=== PATIENT | female | born 1955 | race Caucasian/White ===

== ENCOUNTER 2016-08-16 20:01 | Emergency (ER) | payer MEDICAID ==
[2016-08-16 20:07] VITALS: BP 101/57; BMI 26.5
--- NOTE | 2016-08-16 20:29 | DR.GENAD ---
HPI - PCP Primary Care Physician: paul - HPI Comment HPI Comment: PATIENT TREATED FOR PNEUMONIA RECENTLY. IMPROVE BUT STATED HAVING INCREASING SOB, CHEST PAIN AND PRODUCTIVE COUGH. THROAT IS ALSO HURTING AND SHE IS CONGESTED. FEVER AT HOME ON AND OFF. NEB TREATMENT IS NOT HELPING TODAY. - Complaint/Symptoms Chief Complaint Doctors Comments: SOB, SORE THROAT, CHEST PAIN AND CONGESTION FOR SEVERAL DAYS. Chief Complaint:: pt c/o throat hurting chest hurting trouble breathing ETC.. - Nurses notes reviewed Nurses Notes Review: Yes - Source History Provided: Patient - Mode of Arrival Mode of Arrival: Ambulatory - Timing Onset of Chief Complaint: 08/02/16 Came on: Gradually - Duration Duration: Constant Duration: Days - Severity Severity: Moderate PMH - PMH Past Medical History: Yes Past Medical History: COPD, Hypothyroidism Past Surgical History: Yes Surgical History: Neurosurgery - Family History History of Family Medical Conditions: Yes Family Medical History: Diabetes Mellitus, [place] - Social History Type of Tobacco Use: Cigarettes How many years tobacco product used: 42 Does any household member use tobacco: No Alcohol Use: None Do you use any recreational Drugs:: No Lives With: Family Lives Where: Home - infectious screening In the last 2 months have you had wt loss of >10#?: NO Have you had fever, night sweats or hemotysis?: No Have you traveled outside the country in the last 6 months?: No Isolation: Standard ROS - Review of Systems Constitutional: Fever, Weakness, Fatigue, Loss of Appetite. negative: Chills Eyes: No Symptoms Reported. negative: Eye Pain, Discharge ENTM: Nose Discharge, Nose Congestion, Throat Pain. negative: Ear Pain Respiratoy: Productive Cough, Short of Breath, Wheezing. negative: Hemoptysis Cardiovascular: Chest Pain. negative: Edema Gastrointestinal/Abdominal: No Symptoms Reported. negative: Abdominal Pain, Constipation, Diarrhea, Nausea, Vomiting Genitourinary: No Symptoms Reported. negative: Dysuria, Frequency, Hematuria Neurological: Headache, Weakness, Dizziness Musculoskeletal: Muscle Pain Integumentary: No Symptoms Reported. negative: Rash, Juandice Hematologic/Lymphatic: Easy Bruising Endocrine: No Symptoms Reported All Other Systems: Reviewed and Negative PE - Vital Signs Vitals: Temperature 98.2 F Pulse Rate 90 Respiratory Rate 22 Blood Pressure [Right Arm] 110/66 Blood Pressure [Left Arm] 116/69 Blood Pressure 101/57 O2 Sat by Pulse Oximetry 99 - General Limitations: No Limitations General Appearance: Alert - Head Head Exam: Normal Inspection - Eyes Eye exam: Normal Appearance - ENT ENT Exam: Normal External Ear Exam External Ear Exam: Normal External Inspection TM/Canal Exam: Bilateral Normal Nose Exam: Normal Nose Exam Mouth Exam: Normal Inspection Throat Exam: Normal Inspection - Neck Neck Exam: Trachea Midline - Chest Chest Inspection: Symmetric Chest Wall Rise - Respiratory Respiratory Exam: Respiratory Distress Respiratory Exam: Bilateral Wheezing, Bilateral Rhonchi, Upper Wheezing, Upper Rhonchi, Lower Wheezing, Lower Rhonchi - Cardiovascular Cardiovascular Exam: Regular Rate, Normal Rhythm, Normal Heart Sounds - Abdominal Exam Abdominal Exam: Normal Bowel Sounds, Soft. negative: Tenderness - Extremities Extremities Exam: Normal Inspection - Back Back Exam: Paraspinal Tenderness - Neurologic Neurological Exam: Alert, Oriented X3 - Psychiatric Psychiatric Exam: Anxious - Skin Skin Exam: Normal Color MDM - Differential Diagnosis Differential Diagnosis: COPD, PNEUMONIA, BRONCHITIS, [place] Course - Treatment Treatment: SEE ORDERS. - Reevaluation 1st: Improved (IMPROVE WITH NEB TRATMENT.) 2nd: Improved (WITH IM TORADOL. PAIN CHEST WALL AND LOWER BACK IMPROVE.) - Education/Counseling Education/Counseling: Patient, Education Educated On: Treatment, Diagnosis, Needs for Follow Up ROR - Labs Reviewed Laboratory Results Reviewed?: Yes Result Diagrams: 08/16/16 20:35 08/16/16 22:20 Laboratory: WBC 16.6 X10^3/uL (3.6-10.0) H 08/16/16 20:35 RBC 4.08 X10^6/uL (3.5-5.4) 08/16/16 20:35 Hgb 12.3 g/dL (12.0-16.0) 08/16/16 20:35 Hct 37.9 % (36.0-47.0) 08/16/16 20:35 MCV 92.8 fL (80.0-100.0) 08/16/16 20:35 MCH 30.0 pg (27.0-34.0) 08/16/16 20:35 MCHC 32.3 g/dL (33.0-35.0) L 08/16/16 20:35 RDW 14.6 % (11.6-16.5) 08/16/16 20:35 Plt Count 301 X10^3/uL (150.0-450.0) 08/16/16 20:35 MPV 9.0 fL (7.4-11.0) 08/16/16 20:35 Neut % 69.9 % (42.0-75.0) 08/16/16 20:35 Lymph % 23.1 % (21.0-51.0) 08/16/16 20:35 [place] % 5.9 % (0.0-13.0) 08/16/16 20:35 Eos % 0.8 % (0.9-2.9) L 08/16/16 20:35 Baso % 0.3 % (0.2-1.0) 08/16/16 20:35 Neut # 11.6 x10^3/uL (2.2-4.8) H 08/16/16 20:35 Lymph # 3.8 X10^3/uL (1.3-2.9) H 08/16/16 20:35 [place] # 1.0 x10^3/uL (0.3-0.8) H 08/16/16 20:35 Eos # 0.1 x10^3/uL (0.0-0.2) 08/16/16 20:35 Baso # 0.1 X10^3/uL (0.0-0.1) 08/16/16 20:35 Absolute Nucleated RBC 0.0 /100WBC 08/16/16 20:35 Sodium 140 mmol/L (136-145) 08/16/16 20:35 Corrected Sodium TNP 08/16/16 20:35 Potassium 3.3 mmol/L (3.5-5.1) L 08/16/16 22:20 Chloride 102 mmol/L (98-107) 08/16/16 20:35 Carbon Dioxide 27.3 mmol/L (21-32) 08/16/16 20:35 BUN 4 mg/dL (7-18) L 08/16/16 20:35 Creatinine 0.75 mg/dL (0.55-1.02) 08/16/16 20:35 Est GFR (MDRD) Af Amer > 60 (>60) 08/16/16 20:35 Est GFR (MDRD) Non-Af > 60 (>60) 08/16/16 20:35 Glucose 95 mg/dL (65-99) 08/16/16 20:35 Calcium 8.1 mg/dL (8.5-10.1) L 08/16/16 20:35 Corrected Calcium TNP 08/16/16 20:35 Total Bilirubin 0.30 mg/dL (0.2-1.0) 08/16/16 20:35 AST 18 Units/L (15-37) 08/16/16 20:35 ALT 27 Units/L (12-78) 08/16/16 20:35 Alkaline Phosphatase 100 Units/L (46-116) 08/16/16 20:35 Total Protein 7.5 g/dL (6.4-8.2) 08/16/16 20:35 Albumin 3.7 g/dL (3.4-5.0) 08/16/16 20:35 Globulin 3.8 g/dL (2.5-4.5) 08/16/16 20:35 Albumin/Globulin Ratio 1.0 Ratio (1.1-2.1) L 08/16/16 20:35 Streptococcus Screen Negative (NEGATIVE) 08/16/16 20:27 - XRAY XRAY Interpreted by: Radiologist XRAY Findings: REPORT DISCUSS WITH PATIENT - EKG Rhythm: NSR (EKG NOTED) - Diagnosis Discharge Problem: Hypokalemia, Respiratory distress Acute bronchitis Qualifiers: Bronchitis organism: other organism Qualified Code(s): J20.8 - Acute bronchitis due to other specified organisms - Discharge Plan Disposition: 01 HOME, SELF-CARE Condition: Stable Prescriptions: Benzonatate [TESSALON PERLES *] 200 mg PO TID PRN #30 cap PRN Reason: Cough Levofloxacin [Levaquin Tab 500 mg] 500 mg PO Q24H #7 tab - Follow ups/Referrals Follow ups/Referrals: Paulina SANCHEZ [Primary Care Provider] - 3 days - Instructions Instructions: Acute Bronchitis, Hypokalemia Additional Instructions: RETURN TO ED IF WORSE.
[2016-08-16 20:42] LABS: BASOPHILS # (AUTO) 0.1 X10^3/uL (0.0-0.1); BASOPHILS % (AUTO) 0.3 % (0.2-1.0); EOSINOPHILS # (AUTO) 0.1 x10^3/uL (0.0-0.2); EOSINOPHILS % (AUTO) 0.8 % (0.9-2.9); HEMATOCRIT 37.9 % (36.0-47.0); HEMOGLOBIN 12.3 g/dL (12.0-16.0); LYMPHOCYTES # (AUTO) 3.8 X10^3/uL (1.3-2.9); LYMPHOCYTES % (AUTO) 23.1 % (21.0-51.0); MEAN CORPUSCULAR HGB CONC 32.3 g/dL (33.0-35.0); MEAN CORPUSCULAR VOLUME 92.8 fL (80.0-100.0); MONOCYTES % (AUTO) 5.9 % (0.0-13.0); NEUTROPHILS # (AUTO) 11.6 x10^3/uL (2.2-4.8); NEUTROPHILS % (AUTO) 69.9 % (42.0-75.0); PLATELET COUNT 301 X10^3/uL (150.0-450.0); RED BLOOD COUNT 4.08 X10^6/uL (3.5-5.4); RED CELL DISTRIBUTION WIDTH 14.6 % (11.6-16.5); WHITE BLOOD COUNT 16.6 X10^3/uL (3.6-10.0)
--- NOTE | 2016-08-16 20:42 | RAD ---
Chest, one view Indication: Chest pain Comparison: 07/15/2016 Findings: The heart size is normal. The lungs are clear, without focal infiltrates, pleural effusion , or pneumothorax. The bony thorax is unremarkable. Impression: No acute cardiopulmonary disease. Reported By:
[2016-08-16 20:46] LABS: BLOOD UREA NITROGEN 4 mg/dL (7-18); CALCIUM 8.1 mg/dL (8.5-10.1); CARBON DIOXIDE 27.3 mmol/L (21-32); CHLORIDE 102 mmol/L (98-107); CREATININE 0.75 mg/dL (0.55-1.02); GLUCOSE 95 mg/dL (65-99); SODIUM 140 mmol/L (136-145); eGFR BLACK RACES > 60 (>60); eGFR NON BLACK RACES > 60 (>60)
[2016-08-16] MEDS ORDERED: DUONEB 0.5 MG/3 MG ONE (20:48)
[2016-08-16] MEDS ORDERED: DUONEB 0.5 MG/3 MG NEB ONE (20:51)
[2016-08-16 20:53] LABS: ALANINE AMINOTRANSFERASE 27 Units/L (12-78); ALBUMIN 3.7 g/dL (3.4-5.0); ALKALINE PHOSPHATASE 100 Units/L (46-116); ASPARTATE AMINO TRANSFERASE 18 Units/L (15-37); TOTAL PROTEIN 7.5 g/dL (6.4-8.2)
[2016-08-16] MEDS ORDERED: POTASSIUM CHLORIDE LIQ 20 MEQ UDC PO ONE (21:08)
[2016-08-16] MEDS ORDERED: LEVAQUIN TAB 500 MG PO ONE (21:10)
[2016-08-16] MEDS ORDERED: LEVAQUIN TAB 500 MG ONE (21:12)
[2016-08-16] MEDS ORDERED: POTASSIUM CHLORIDE LIQ 20 MEQ UDC ONE (21:12)
[2016-08-16] MEDS ORDERED: TORADOL 60 MG VIAL IM ONE (22:24)
[2016-08-16] MEDS ORDERED: TORADOL 60 MG VIAL ONE (22:24)
== END 2016-08-16 23:10 | disposition home or self-care (01) ==
LOC: ER 20:01
DX: J20.8 Acute bronchitis due to other specified organisms (principal); R06.00 Dyspnea, unspecified; E87.6 Hypokalemia
CPT/HCPCS: 36415; 71010; 80053; 84132; 85025; 87070; 87880; 93005; 93010; 94640; 96372; 99283; J1885; J7620

== ENCOUNTER → 2016-08-25 | Outpatient (CLI) | payer MEDICAID ==
[2016-08-16 20:07] VITALS: BP 101/57
[2016-08-25 10:19] LABS: BASOPHILS # (AUTO) 0.1 X10^3/uL (0.0-0.1); BASOPHILS % (AUTO) 0.4 % (0.2-1.0); EOSINOPHILS # (AUTO) 0.2 x10^3/uL (0.0-0.2); EOSINOPHILS % (AUTO) 1.8 % (0.9-2.9); HEMATOCRIT 42.9 % (36.0-47.0); HEMOGLOBIN 14.4 g/dL (12.0-16.0); LYMPHOCYTES # (AUTO) 4.8 X10^3/uL (1.3-2.9); LYMPHOCYTES % (AUTO) 37.9 % (21.0-51.0); MEAN CORPUSCULAR HEMOGLOBIN 31.2 pg (27.0-34.0); MEAN CORPUSCULAR HGB CONC 33.6 g/dL (33.0-35.0); MEAN CORPUSCULAR VOLUME 92.8 fL (80.0-100.0); MEAN PLATELET VOLUME 8.6 fL (7.4-11.0); MONOCYTES % (AUTO) 7.6 % (0.0-13.0); NEUTROPHILS # (AUTO) 6.6 x10^3/uL (2.2-4.8); NEUTROPHILS % (AUTO) 52.3 % (42.0-75.0); PLATELET COUNT 452 X10^3/uL (150.0-450.0); RED BLOOD COUNT 4.62 X10^6/uL (3.5-5.4); RED CELL DISTRIBUTION WIDTH 14.6 % (11.6-16.5); WHITE BLOOD COUNT 12.7 X10^3/uL (3.6-10.0)
[2016-08-25 11:10] LABS: ALANINE AMINOTRANSFERASE 20 Units/L (12-78); ALBUMIN 3.9 g/dL (3.4-5.0); ALKALINE PHOSPHATASE 112 Units/L (46-116); ASPARTATE AMINO TRANSFERASE 19 Units/L (15-37); BLOOD UREA NITROGEN 9 mg/dL (7-18); CALCIUM 8.9 mg/dL (8.5-10.1); CARBON DIOXIDE 27.2 mmol/L (21-32); CHLORIDE 103 mmol/L (98-107); CREATININE 0.74 mg/dL (0.55-1.02); GLUCOSE 84 mg/dL (65-99); SODIUM 142 mmol/L (136-145); eGFR BLACK RACES > 60 (>60); eGFR NON BLACK RACES > 60 (>60)
== END ==
LOC: LAB 09:45
PROVIDERS: ATTEND Internal Medicine
DX: E03.8 Other specified hypothyroidism (principal); J44.9 Chronic obstructive pulmonary disease, unspecified; I10 Essential (primary) hypertension
CPT/HCPCS: 36415; 80053; 85025

== ENCOUNTER 2016-09-30 21:30 | Emergency (ER) | payer MEDICAID ==
[2016-09-30 21:41] VITALS: BMI 22.4
--- NOTE | 2016-09-30 22:14 | DR.GENAD ---
HPI - PCP Primary Care Physician: Flori Lopez HPI Comment HPI Comment: HISTORY BELOW. - Complaint/Symptoms Chief Complaint Doctors Comments: DIZZINESS, HEADACHE, ATAXIA TIMES 3 DAYS, WORSE TONIGHT. NO FEVER. BP LOW IN ED. Chief Complaint:: " Im dizzy headed feel like im drunk and im not drinking i keep loosing my balance i cant talk my head hurts my mouth stays dry and all i want to do is sleep and im coughing alot. - Nurses notes reviewed Nurses Notes Review: Yes - Source History Provided: Patient - Mode of Arrival Mode of Arrival: Ambulatory - Timing Onset of Chief Complaint: 09/27/16 - Duration Duration: Constant Duration: Days - Severity Severity: Moderate PMH - PMH Past Medical History: Yes Past Medical History: Asthma, COPD, Hypothyroidism Past Surgical History: Yes Surgical History: Neurosurgery Past Surgical History Comment: Brain Aneurysm ' - Family History History of Family Medical Conditions: Yes Family Medical History: Diabetes Mellitus, [place] - Social History Type of Tobacco Use: Cigarettes Alcohol Use: None Do you use any recreational Drugs:: No Lives With: Family Lives Where: Home - infectious screening Have you traveled outside the country in the last 6 months?: No ROS - Review of Systems Constitutional: Weakness, Fatigue. negative: Chills, Fever Eyes: Blurred Vision. negative: Eye Pain, Discharge ENTM: negative: Ear Pain, Nose Discharge, Nose Congestion, Throat Pain Respiratoy: Non-Productive Cough, Short of Breath. negative: Wheezing, Hemoptysis Cardiovascular: Chest Pain. negative: Edema, Palpitations Gastrointestinal/Abdominal: Nausea. negative: Abdominal Pain, Vomiting Genitourinary: negative: Dysuria, Frequency, Hematuria Neurological: Headache, Weakness, Dizziness, Other (ATXIA) Musculoskeletal: Muscle Pain Integumentary: No Symptoms Reported Hematologic/Lymphatic: No Symptoms Reported Endocrine: No Symptoms Reported All Other Systems: Reviewed and Negative PE - Vital Signs Vitals: Temperature 98.2 F Pulse Rate [Left Brachial] 84 Pulse Rate 91 Respiratory Rate 18 Blood Pressure [Right Arm] 110/66 Blood Pressure [Left Arm] 132/61 Blood Pressure 102/65 O2 Sat by Pulse Oximetry 97 - General Limitations: No Limitations General Appearance: Alert - Head Head Exam: Normal Inspection - Eyes Eye exam: Normal Appearance - ENT ENT Exam: Normal External Ear Exam External Ear Exam: Normal External Inspection TM/Canal Exam: Bilateral Normal Nose Exam: Normal Nose Exam Mouth Exam: Normal Inspection Throat Exam: Normal Inspection - Neck Neck Exam: Trachea Midline - Chest Chest Inspection: Symmetric Chest Wall Rise - Respiratory Respiratory Exam: Normal Lung Sounds Bilat Respiratory Exam: Bilateral Rhonchi, Lower Rhonchi - Cardiovascular Cardiovascular Exam: Regular Rate, Normal Rhythm, Normal Heart Sounds - Abdominal Exam Abdominal Exam: Normal Bowel Sounds, Soft. negative: Tenderness - Extremities Extremities Exam: Normal Inspection. negative: Edema - Back Back Exam: Paraspinal Tenderness - Neurologic Neurological Exam: Alert, Oriented X3 - Psychiatric Psychiatric Exam: Normal Affect, Normal Mood - Skin Skin Exam: Normal Color MDM - Additional Information Additional Information Obtained From: Family - Differential Diagnosis Differential Diagnosis: HYPOTENSION, CVA, TIA, UTI, FLU Course - Treatment Treatment: SEE ORDERS, IV NS BOLUS, BP IMPROVED. PATIENT FEELING BETTER. - Reevaluation 1st: Improved - Education/Counseling Education/Counseling: Patient Educated On: Treatment ROR - Labs Reviewed Laboratory Results Reviewed?: Yes Result Diagrams: 09/30/16 22:32 09/30/16 22:32 Laboratory: WBC 12.1 X10^3/uL (3.6-10.0) H 09/30/16 22:32 RBC 4.48 X10^6/uL (3.5-5.4) 09/30/16 22:32 Hgb 13.6 g/dL (12.0-16.0) 09/30/16 22:32 Hct 42.3 % (36.0-47.0) 09/30/16 22:32 MCV 94.6 fL (80.0-100.0) 09/30/16 22:32 MCH 30.5 pg (27.0-34.0) 09/30/16 22:32 MCHC 32.2 g/dL (33.0-35.0) L 09/30/16 22:32 RDW 14.2 % (11.6-16.5) 09/30/16 22:32 Plt Count 281 X10^3/uL (150.0-450.0) 09/30/16 22:32 MPV 9.6 fL (7.4-11.0) 09/30/16 22:32 Neut % 64.0 % (42.0-75.0) 09/30/16 22:32 Lymph % 25.3 % (21.0-51.0) 09/30/16 22:32 [place] % 6.6 % (0.0-13.0) 09/30/16 22:32 Eos % 3.2 % (0.9-2.9) H 09/30/16 22:32 Baso % 0.9 % (0.2-1.0) 09/30/16 22:32 Neut # 7.7 x10^3/uL (2.2-4.8) H 09/30/16 22:32 Lymph # 3.1 X10^3/uL (1.3-2.9) H 09/30/16 22:32 [place] # 0.8 x10^3/uL (0.3-0.8) 09/30/16 22:32 Eos # 0.4 x10^3/uL (0.0-0.2) H 09/30/16 22:32 Baso # 0.1 X10^3/uL (0.0-0.1) 09/30/16 22:32 Absolute Nucleated RBC 0.0 /100WBC 09/30/16 22:32 Sodium 146 mmol/L (136-145) H 09/30/16 22:32 Corrected Sodium TNP 09/30/16 22:32 Potassium 4.0 mmol/L (3.5-5.1) 09/30/16 22:32 Chloride 109 mmol/L (98-107) H 09/30/16 22:32 Carbon Dioxide 28.8 mmol/L (21-32) 09/30/16 22:32 BUN 4 mg/dL (7-18) L 09/30/16 22:32 Creatinine 0.71 mg/dL (0.55-1.02) 09/30/16 22:32 Est GFR (MDRD) Af Amer > 60 (>60) 09/30/16 22:32 Est GFR (MDRD) Non-Af > 60 (>60) 09/30/16 22:32 Glucose 82 mg/dL (65-99) 09/30/16 22:32 Calcium 8.5 mg/dL (8.5-10.1) 09/30/16 22:32 Corrected Calcium TNP 09/30/16 22:32 Total Bilirubin 0.20 mg/dL (0.2-1.0) 09/30/16 22:32 AST 23 Units/L (15-37) 09/30/16 22:32 ALT 20 Units/L (12-78) 09/30/16 22:32 Alkaline Phosphatase 98 Units/L (46-116) 09/30/16 22:32 Creatine Kinase 111 Units/L (26-192) 09/30/16 22:32 CK-MB (CK-2) 2.9 ng/mL (0-4.0) 09/30/16 22:32 CK/CKMB % Calc 2.6 % (<4) 09/30/16 22:32 Troponin I < 0.02 ng/mL (0-1.5) 09/30/16 22:32 B-Natriuretic Peptide 35.6 pg/mL (0-79) 09/30/16 22:32 Total Protein 7.5 g/dL (6.4-8.2) 09/30/16 22:32 Albumin 4.0 g/dL (3.4-5.0) 09/30/16 22:32 Globulin 3.5 g/dL (2.5-4.5) 09/30/16 22:32 Albumin/Globulin Ratio 1.1 Ratio (1.1-2.1) 09/30/16 22:32 - XRAY XRAY Interpreted by: Radiologist XRAY Findings: REPORT DISCUSS WITH PATIENT. - EKG [place]: Normal (EKG NOTED) - Diagnosis Discharge Problem: Dizziness Hypotension Qualifiers: Hypotension type: other hypotension type Qualified Code(s): I95.89 - Other hypotension - Discharge Plan Disposition: 01 HOME, SELF-CARE Condition: Stable - Follow ups/Referrals Follow ups/Referrals: Paulina SANCHEZ [Primary Care Provider] - 2 days - Instructions Instructions: Dizziness, [id number], Hypotension, [id number] Additional Instructions: RETURN TO ED IF WORSE.
[2016-09-30] MEDS ORDERED: NS 1000 ML 1,000 ML IV ONE (22:15)
[2016-09-30] MEDS ORDERED: NS 1000 ML 1,000 ML ONE (22:24)
[2016-09-30 22:43] LABS: BASOPHILS # (AUTO) 0.1 X10^3/uL (0.0-0.1); BASOPHILS % (AUTO) 0.9 % (0.2-1.0); EOSINOPHILS # (AUTO) 0.4 x10^3/uL (0.0-0.2); EOSINOPHILS % (AUTO) 3.2 % (0.9-2.9); HEMATOCRIT 42.3 % (36.0-47.0); HEMOGLOBIN 13.6 g/dL (12.0-16.0); LYMPHOCYTES # (AUTO) 3.1 X10^3/uL (1.3-2.9); LYMPHOCYTES % (AUTO) 25.3 % (21.0-51.0); MEAN CORPUSCULAR HEMOGLOBIN 30.5 pg (27.0-34.0); MEAN CORPUSCULAR HGB CONC 32.2 g/dL (33.0-35.0); MEAN CORPUSCULAR VOLUME 94.6 fL (80.0-100.0); MEAN PLATELET VOLUME 9.6 fL (7.4-11.0); MONOCYTES # (AUTO) 0.8 x10^3/uL (0.3-0.8); MONOCYTES % (AUTO) 6.6 % (0.0-13.0); NEUTROPHILS # (AUTO) 7.7 x10^3/uL (2.2-4.8); PLATELET COUNT 281 X10^3/uL (150.0-450.0); RED BLOOD COUNT 4.48 X10^6/uL (3.5-5.4); RED CELL DISTRIBUTION WIDTH 14.2 % (11.6-16.5); WHITE BLOOD COUNT 12.1 X10^3/uL (3.6-10.0)
--- NOTE | 2016-09-30 23:00 | CT ---
HISTORY: Dizziness, shortness of breath Study: CT brain without contrast Comparison: None Technique: Multiple axial images of the brain were obtained from the skull base to the vertex without administr ation of IV contrast. Findings: No acute intraparenchymal hemorrhage or mass can be identified. No extra-axial fluid collections ar e seen. No alteration in the attenuation of the brain parenchyma can be identified to suggest acute or subacute ischemic change. The ventricular system is symmetric and nondilated. Postoperative octavio nges of left frontoparietal craniotomy are noted If symptoms or clinical concern persist recommend c ontinued followup for further evaluation. IMPRESSION: 1. No acute intracranial process can be identified. Reported By:
--- NOTE | 2016-09-30 23:01 | RAD ---
HISTORY: Chest pain, dizziness Study: Single view of the chest Comparison: August 16, 2016 Findings: The patient is rotated. The cardiac silhouette is unremarkable. Interstitial changes are again see n within both lungs. The aortic knob is partially calcified. IMPRESSION: 1. No acute cardiopulmonary disease. Reported By:
[2016-09-30 23:02] LABS: BLOOD UREA NITROGEN 4 mg/dL (7-18); CALCIUM 8.5 mg/dL (8.5-10.1); CARBON DIOXIDE 28.8 mmol/L (21-32); CHLORIDE 109 mmol/L (98-107); CREATININE 0.71 mg/dL (0.55-1.02); GLUCOSE 82 mg/dL (65-99); SODIUM 146 mmol/L (136-145); TROPONIN I < 0.02 ng/mL (0-1.5); eGFR BLACK RACES > 60 (>60); eGFR NON BLACK RACES > 60 (>60)
[2016-09-30 23:06] LABS: ALANINE AMINOTRANSFERASE 20 Units/L (12-78); ALKALINE PHOSPHATASE 98 Units/L (46-116); ASPARTATE AMINO TRANSFERASE 23 Units/L (15-37); CKMB % 2.6 % (<4); CREATINE KINASE 111 Units/L (26-192); CREATINE KINASE MB 2.9 ng/mL (0-4.0); TOTAL PROTEIN 7.5 g/dL (6.4-8.2)
[2016-09-30 23:10] LABS: B-TYPE NATRIURETIC PEPTIDE 35.6 pg/mL (0-79)
[2016-10-01 00:15] VITALS: BP 132/61
== END 2016-10-01 00:46 | disposition home or self-care (01) ==
LOC: ER 21:30
DX: I95.89 Other hypotension (principal); R42 Dizziness and giddiness
CPT/HCPCS: 36415; 70450; 71010; 80053; 82550; 82553; 83880; 84484; 85025; 93005; 93010; 96365; 96367; 99283; A4222

== ENCOUNTER 2016-10-12 16:08 | Emergency (ER) | payer MEDICAID ==
[2016-10-12 16:12] VITALS: BP 93/64; BMI 22.1
[2016-10-12] MEDS ORDERED: DUONEB 0.5 MG/3 MG NEB ONE (16:19)
--- NOTE | 2016-10-12 16:22 | DR.GENAD ---
HPI - PCP Primary Care Physician: DR. SANCHEZ - Complaint/Symptoms Chief Complaint Doctors Comments: Patient admits to having COPD smokes .5ppd, on home oxygen; pulse on Chief Complaint:: PATIENT STATED THAT SHE HAS BEEN HAVING LEFT SIDED CHEST PAIN , N/V, AND SHORTNESS OF BREATH SINCE LAST NIGHT. - Source History Provided: Patient - Mode of Arrival Mode of Arrival: EMS - Timing Onset of Chief Complaint: 10/12/16 PMH - PMH Past Medical History: Yes Past Medical History: Asthma, COPD, Hypothyroidism Past Surgical History: Yes Surgical History: Neurosurgery - Family History History of Family Medical Conditions: Yes Family Medical History: Diabetes Mellitus, [place] - Social History Does patient currently use any type of tobacco product: Yes Have you used tobacco products in the last 12 months: Yes Type of Tobacco Use: Cigarettes Does any household member use tobacco: No Alcohol Use: None Do you use any recreational Drugs:: No Lives With: Alone Lives Where: Home - infectious screening In the last 2 months have you had wt loss of >10#?: NO Have you had fever, night sweats or hemotysis?: No Have you traveled outside the country in the last 6 months?: No Isolation: Standard ROS - Review of Systems Constitutional: No Symptoms Reported Eyes: No Symptoms Reported ENTM: No Symptoms Reported Respiratoy: No Symptoms Reported Cardiovascular: No Symptoms Reported Gastrointestinal/Abdominal: No Symptoms Reported Genitourinary: No Symptoms Reported Neurological: No Symptoms Reported Musculoskeletal: No Symptoms Reported Integumentary: No Symptoms Reported, See HPI Hematologic/Lymphatic: No Symptoms Reported Endocrine: No Symptoms Reported Psychiatric: No Symptoms Reported All Other Systems: Reviewed and Negative PE - Vital Signs Vitals: Temperature 97.9 F Pulse Rate 110 Respiratory Rate 20 Blood Pressure [Right Arm] 110/66 Blood Pressure [Left Arm] 132/61 Blood Pressure 93/64 O2 Sat by Pulse Oximetry 99 - General Limitations: No Limitations General Appearance: Alert, In No Apparent Distress - Head Head Exam: Normal Inspection, Atraumatic - Eyes Eye exam: Normal Appearance, PERRL, EOMI - ENT ENT Exam: Normal Exam External Ear Exam: Normal External Inspection TM/Canal Exam: Bilateral Normal Nose Exam: Normal Nose Exam Mouth Exam: Normal Inspection Throat Exam: Normal Inspection - Neck Neck Exam: Normal Inspection - Chest Chest Inspection: Normal Inspection - Respiratory Respiratory Exam: Normal Lung Sounds Bilat Respiratory Exam: Bilateral Clear to Auscultation - Cardiovascular Cardiovascular Exam: Regular Rate, Normal Rhythm - Abdominal Exam Abdominal Exam: Normal Inspection Abdominal Tenderness: negative: RUQ, RLQ, LUQ, LLQ, Epigastrium, Suprapubic, Diffuse, Mild, Moderate, Severe, Other - Extremities Extremities Exam: Normal Inspection - Back Back Exam: Normal Inspection, Full ROM - Neurologic Neurological Exam: Alert, Oriented X3, CN II-XII Intact - Psychiatric Psychiatric Exam: Normal Affect - Skin Skin Exam: Warm, Dry, Intact Course - Reevaluation 1st: Improved ROR - Labs Reviewed Laboratory Results Reviewed?: Yes (low potassium) Result Diagrams: 10/12/16 16:20 10/12/16 16:20 Laboratory: WBC 12.3 X10^3/uL (3.6-10.0) H 10/12/16 16:20 RBC 4.58 X10^6/uL (3.5-5.4) 10/12/16 16:20 Hgb 13.7 g/dL (12.0-16.0) 10/12/16 16:20 Hct 41.7 % (36.0-47.0) 10/12/16 16:20 MCV 91.1 fL (80.0-100.0) 10/12/16 16:20 MCH 30.0 pg (27.0-34.0) 10/12/16 16:20 MCHC 32.9 g/dL (33.0-35.0) L 10/12/16 16:20 RDW 13.8 % (11.6-16.5) 10/12/16 16:20 Plt Count 230 X10^3/uL (150.0-450.0) 10/12/16 16:20 MPV 10.5 fL (7.4-11.0) 10/12/16 16:20 Neut % 54.3 % (42.0-75.0) 10/12/16 16:20 Lymph % 37.9 % (21.0-51.0) 10/12/16 16:20 [place] % 6.4 % (0.0-13.0) 10/12/16 16:20 Eos % 0.2 % (0.9-2.9) L 10/12/16 16:20 Baso % 1.2 % (0.2-1.0) H 10/12/16 16:20 Neut # 6.7 x10^3/uL (2.2-4.8) H 10/12/16 16:20 Lymph # 4.7 X10^3/uL (1.3-2.9) H 10/12/16 16:20 [place] # 0.8 x10^3/uL (0.3-0.8) 10/12/16 16:20 Eos # 0.0 x10^3/uL (0.0-0.2) 10/12/16 16:20 Baso # 0.1 X10^3/uL (0.0-0.1) 10/12/16 16:20 Absolute Nucleated RBC 0.1 /100WBC 10/12/16 16:20 Sample Site Lra 10/12/16 16:40 ABG pH 7.520 (7.35-7.45) H 10/12/16 16:40 ABG pCO2 36.0 mmHg (35.0-45.0) 10/12/16 16:40 ABG pO2 78.0 mmHg (80.0-100.0) L 10/12/16 16:40 ABG HCO3 29.4 mmol/L (22-26) H 10/12/16 16:40 ABG O2 Saturation 97.0 % (90-100) 10/12/16 16:40 ABG Base Excess 6.3 mmol/L (-2.0-2.0) H 10/12/16 16:40 Colin Test Pos 10/12/16 16:40 A-a Gradient 105.0 mmHg 10/12/16 16:40 FiO2 32.000 10/12/16 16:40 Blood Gas Comments Ronald well cs 10/12/16 16:40 Sodium 140 mmol/L (136-145) 10/12/16 16:20 Corrected Sodium TNP 10/12/16 16:20 Potassium 3.0 mmol/L (3.5-5.1) L* 10/12/16 16:20 Chloride 99 mmol/L (98-107) 10/12/16 16:20 Carbon Dioxide 28.2 mmol/L (21-32) 10/12/16 16:20 BUN 11 mg/dL (7-18) 10/12/16 16:20 Creatinine 0.81 mg/dL (0.55-1.02) 10/12/16 16:20 Est GFR (MDRD) Af Amer > 60 (>60) 10/12/16 16:20 Est GFR (MDRD) Non-Af > 60 (>60) 10/12/16 16:20 Glucose 101 mg/dL (65-99) H 10/12/16 16:20 Calcium 9.4 mg/dL (8.5-10.1) 10/12/16 16:20 Corrected Calcium TNP 10/12/16 16:20 Total Bilirubin 0.70 mg/dL (0.2-1.0) 10/12/16 16:20 AST 19 Units/L (15-37) 10/12/16 16:20 ALT 16 Units/L (12-78) 10/12/16 16:20 Alkaline Phosphatase 82 Units/L (46-116) 10/12/16 16:20 Creatine Kinase 106 Units/L (26-192) 10/12/16 16:20 CK-MB (CK-2) 1.2 ng/mL (0-4.0) 10/12/16 16:20 CK/CKMB % Calc 1.1 % (<4) 10/12/16 16:20 Troponin I < 0.02 ng/mL (0-1.5) 10/12/16 16:20 Total Protein 7.4 g/dL (6.4-8.2) 10/12/16 16:20 Albumin 4.2 g/dL (3.4-5.0) 10/12/16 16:20 Globulin 3.2 g/dL (2.5-4.5) 10/12/16 16:20 Albumin/Globulin Ratio 1.3 Ratio (1.1-2.1) 10/12/16 16:20 - XRAY XRAY Interpreted by: Radiologist (Chest: clear) - Diagnosis Discharge Problem: Hypokalemia - Discharge Plan Condition: Stable - Follow ups/Referrals Follow ups/Referrals: Paulina SANCHEZ [Primary Care Provider] - 3 days - Instructions
[2016-10-12 16:32] LABS: BASOPHILS # (AUTO) 0.1 X10^3/uL (0.0-0.1); BASOPHILS % (AUTO) 1.2 % (0.2-1.0); EOSINOPHILS % (AUTO) 0.2 % (0.9-2.9); HEMATOCRIT 41.7 % (36.0-47.0); HEMOGLOBIN 13.7 g/dL (12.0-16.0); LYMPHOCYTES # (AUTO) 4.7 X10^3/uL (1.3-2.9); LYMPHOCYTES % (AUTO) 37.9 % (21.0-51.0); MEAN CORPUSCULAR HGB CONC 32.9 g/dL (33.0-35.0); MEAN CORPUSCULAR VOLUME 91.1 fL (80.0-100.0); MEAN PLATELET VOLUME 10.5 fL (7.4-11.0); MONOCYTES # (AUTO) 0.8 x10^3/uL (0.3-0.8); MONOCYTES % (AUTO) 6.4 % (0.0-13.0); NEUTROPHILS # (AUTO) 6.7 x10^3/uL (2.2-4.8); NEUTROPHILS % (AUTO) 54.3 % (42.0-75.0); PLATELET COUNT 230 X10^3/uL (150.0-450.0); RED BLOOD COUNT 4.58 X10^6/uL (3.5-5.4); RED CELL DISTRIBUTION WIDTH 13.8 % (11.6-16.5); WHITE BLOOD COUNT 12.3 X10^3/uL (3.6-10.0)
[2016-10-12] MEDS ORDERED: DUONEB 0.5 MG/3 MG ONE (16:32)
[2016-10-12 16:41] LABS: BLOOD UREA NITROGEN 11 mg/dL (7-18); CALCIUM 9.4 mg/dL (8.5-10.1); CARBON DIOXIDE 28.2 mmol/L (21-32); CHLORIDE 99 mmol/L (98-107); CREATININE 0.81 mg/dL (0.55-1.02); GLUCOSE 101 mg/dL (65-99); SODIUM 140 mmol/L (136-145); eGFR BLACK RACES > 60 (>60); eGFR NON BLACK RACES > 60 (>60)
[2016-10-12 16:44] LABS: ALANINE AMINOTRANSFERASE 16 Units/L (12-78); ALBUMIN 4.2 g/dL (3.4-5.0); ALKALINE PHOSPHATASE 82 Units/L (46-116); ASPARTATE AMINO TRANSFERASE 19 Units/L (15-37); TOTAL PROTEIN 7.4 g/dL (6.4-8.2)
[2016-10-12 16:46] LABS: ABG ALLEN TEST POS; ABG BASE EXCESS 6.3 mmol/L (-2.0-2.0); ABG HCO3 29.4 mmol/L (22-26)
[2016-10-12 16:52] LABS: CKMB % 1.1 % (<4); CREATINE KINASE 106 Units/L (26-192); CREATINE KINASE MB 1.2 ng/mL (0-4.0); TROPONIN I < 0.02 ng/mL (0-1.5)
--- NOTE | 2016-10-12 16:54 | RAD ---
HISTORY: 60-year-old female with COPD and shortness of breath. Study: Single frontal view of the chest. Comparison: Chest radiograph September 30, 2016. Findings: The trachea is midline. The cardiac silhouette is stable. Stable prominence of the perihilar lung markings with mild prominence of the interstitium without focal consolidation, effusion or pneumotho rax.. The bony thorax is unremarkable. IMPRESSION: 1. No acute cardiopulmonary disease. Reported By:
[2016-10-12] MEDS ORDERED: K-DUR TAB 20 MEQ PO ONE ×2 (17:39→17:42)
== END 2016-10-12 17:47 | disposition home or self-care (01) ==
LOC: ER 16:08
DX: E87.6 Hypokalemia (principal)
CPT/HCPCS: 36415; 36600; 71010; 80053; 82550; 82553; 82803; 84484; 85025; 87070; 87205; 93005; 93010; 94640; 99282; J7620

== ENCOUNTER 2016-10-13 21:48 | Inpatient (IN) | payer MEDICAID ==
[2016-10-13] MEDS ORDERED: NS 1000 ML 1,000 ML IV ONE (22:47)
[2016-10-13] MEDS ORDERED: REGLAN INJ 10 MG VIAL IVP STA (22:47)
[2016-10-13] MEDS ORDERED: ZOFRAN INJ 4 MG VIAL IVP ONE (22:47)
[2016-10-13] MEDS ORDERED: PROTONIX INJ 40 MG VIAL IVP ONE (22:49)
[2016-10-13] MEDS ORDERED: ZOFRAN INJ 4 MG VIAL ONE (22:50)
[2016-10-13] MEDS ORDERED: NS 1000 ML 1,000 ML ONE (22:50)
[2016-10-13] MEDS ORDERED: REGLAN INJ 10 MG VIAL ONE (22:50)
--- NOTE | 2016-10-13 22:53 | DR.NAUSEAF ---
HPI - Time Seen Time seen: 22:50 - Primary Care Physician Primary Care Physician: LAURA - Complaints Chief Complaint Doctors Comments: Patient complains of nausea, vomiting for the past three days getting worst tonight with the patient unable to keep anything down. states she is having lower abdominal pain and constant gagging with thick mucous production. She has a cold and cough but denies fever, chills or hemoptysis. states she is a patient of Dr. Ruby and she smokes one pack cigarettes daily but denies alcohol or drug usage. She denies history of ulcers or asthma. States she is unable to keep liquids down today. Chief Complaint:: N/V FOR 7 DAYS - Reviewed Nurses Notes Reviewed: Yes - Source History Provided: Patient - Mode of Arrival Mode of Arrival: Wheelchair - Timing Onset of Chief Complaint: 10/06/16 - Context Onset: Spontaneous, After Eating, After Drinking Recent: None Possible Ingestion: Unknown : No History of: None - Quality Quality: Food Particles, Other (thick mucoid, clear) - Associated Signs and Symptoms Abdominal Pain Quality: Aching, Burning, Cramping Abdominal Pain Location: Epigastric, LLQ, Suprapubic Symptoms: Abdominal Pain. denies: Diarrhea, Anorexia, Hematemesis, Melena, Hematochezia, Fever PMH - PMH Past Medical History: Yes Past Medical History: Asthma, COPD, Hypothyroidism Past Surgical History: Yes Surgical History: Neurosurgery - Family History History of Family Medical Conditions: Yes Family Medical History: Diabetes Mellitus, [place] - Social History Type of Tobacco Use: Cigarettes Do you use any recreational Drugs:: No Lives With: Family Lives Where: Home - infectious screening Have you traveled outside the country in the last 6 months?: No Isolation: Standard ROS - Review of Systems Constitutional: No Symptoms Reported, Weakness, Loss of Appetite. negative: See HPI, Chills, Diaphoresis, Fever, Malaise, Irritable, Fatigue, Other Eyes: No Symptoms Reported. negative: See HPI, Eye Pain, Blurred Vision, Tearing, Discharge, Photophobia, Diplopia, Other ENTM: No Symptoms Reported. negative: See HPI, Ear Pain, Ear Discharge, Pulling on Ears, Hearing Loss, Nose Pain, Nose Discharge, Epistaxis, Nose Congestion, Mouth Pain, Mouth Swelling, Loose Teeth, Drooling, Throat Pain, Throat Swelling, Ear Foreign Body Respiratoy: No Symptoms Reported, Non-Productive Cough. negative: See HPI, Productive Cough, Moist Cough, Dry Cough, Hacking Cough, Barking Cough, Brassy Cough, Orthopnea, Short of Breath, Stridor, Wheezing, Hemoptysis, Other Cardiovascular: No Symptoms Reported. negative: See HPI, Chest Pain, Edema, Palpitations, Syncope, Cyanosis, Skin Mottling, Other Gastrointestinal/Abdominal: No Symptoms Reported, Abdominal Pain, Nausea, Vomiting. negative: See HPI, Constipation, Diarrhea, Food Intolerance, Other Genitourinary: No Symptoms Reported. negative: See HPI, Discharge, Dysuria, Frequency, Hematuria, Pain, Bleeding, Other Neurological: No Symptoms Reported Musculoskeletal: No Symptoms Reported Integumentary: No Symptoms Reported Hematologic/Lymphatic: No Symptoms Reported Endocrine: No Symptoms Reported Psychiatric: No Symptoms Reported PE - Vital Signs Vitals: Temperature 98.0 F Pulse Rate [Right Brachial] 70 Pulse Rate [Left Brachial] 82 Pulse Rate 89 Respiratory Rate 20 Blood Pressure [Right Arm] 123/69 Blood Pressure [Left Arm] 119/58 Blood Pressure 87/71 O2 Sat by Pulse Oximetry 99 - General Limitations: No Limitations General Appearance: Alert, In Distress (moderate) - Head Head Exam: Normal Inspection, Atraumatic, Normocephalic - Eyes Eye exam: Normal Appearance, PERRL, EOMI. negative: Scleral Icterus, Conjunctival Injection, Nystagmus, Miosis, Mydrasis, Periorbital Swelling, Periorbital Tenderness, Other - ENT ENT Exam: Normal Exam, Normal Oropharynx, Normal External Ear Exam, Mucous Membranes Moist, TM's Normal Bilaterally - Neck Neck Exam: Normal Inspection, Full ROM, Trachea Midline. negative: Tenderness, Meningismus, Lymphadenopathy, Thyromegaly, Other - Chest Chest Inspection: Normal Inspection, Symmetric Chest Wall Rise - Respiratory Respiratory Exam: Normal Lung Sounds Bilat Respiratory Exam: Bilateral Clear to Auscultation - Cardiovascular Cardiovascular Exam: Regular Rate, Normal Rhythm, Normal Heart Sounds. negative : Bradycardia, Tachycardia, Irregular Rhythm, Systolic Murmur, Diastolic Murmur , Rubs, Gallop, Clicks, JVD, +S1, +S2, +S3, +S4, Other - Abdominal Exam Abdominal Exam: Normal Inspection, Normal Bowel Sounds, Soft, Tenderness, Guarding, Dimnished Bowel Sounds Abdominal Tenderness: Epigastrium, Suprapubic - Rectal Rectal Exam: Deferred - External Exam: Female: Deferred : Speculum Exam (Female): Deferred : Bimanual Exam (female): Deferred - Extremities Extremities Exam: Normal Inspection, Full ROM, Normal Capillary Refill. negative: Tenderness, Edema, Joint Swelling, Calf Tenderness, Other - Back Back Exam: Normal Inspection, Full ROM. negative: Tenderness, (R) CVA Tenderness, (L) CVA Tenderness, Muscle Spasm, Paraspinal Tenderness, Vertebral Tenderness, Rashes, (R) Sciatic Notch Tenderness, (L) Sciatic Notch Tendern, (R ) Straight Leg Raise, (L) Straight Leg Raise, Other - Neurologic Neurological Exam: Alert, Oriented X3, CN II-XII Intact, Reflexes Normal. negative: Normal Gait (gait not tested) - Psychiatric Psychiatric Exam: Normal Affect, Normal Mood, Anxious. negative: Depressed, Agitated, Flat Affect, Manic, Homicidal Ideation, Suicidal Ideation, Other - Skin Skin Exam: Warm, Dry, Intact, Normal Color Course - Reevaluation 1st: Unchanged - Consultation Called: :30 Call Returned: :30 (Dr. Hall to admit) ROR - Labs Reviewed Laboratory Results Reviewed?: Yes (all labs and x-ray results reviewed and discussed with patient) Result Diagrams: 10/13/16 23:10 10/13/16 23:10 Laboratory: WBC 17.6 X10^3/uL (3.6-10.0) H 10/13/16 23:10 RBC 4.42 X10^6/uL (3.5-5.4) 10/13/16 23:10 Hgb 13.4 g/dL (12.0-16.0) 10/13/16 23:10 Hct 41.0 % (36.0-47.0) 10/13/16 23:10 MCV 92.8 fL (80.0-100.0) 10/13/16 23:10 MCH 30.4 pg (27.0-34.0) 10/13/16 23:10 MCHC 32.8 g/dL (33.0-35.0) L 10/13/16 23:10 RDW 13.6 % (11.6-16.5) 10/13/16 23:10 Plt Count 207 X10^3/uL (150.0-450.0) 10/13/16 23:10 MPV 10.7 fL (7.4-11.0) 10/13/16 23:10 Neut % 76.8 % (42.0-75.0) H 10/13/16 23:10 Lymph % 17.3 % (21.0-51.0) L 10/13/16 23:10 [place] % 5.3 % (0.0-13.0) 10/13/16 23:10 Eos % 0.2 % (0.9-2.9) L 10/13/16 23:10 Baso % 0.4 % (0.2-1.0) 10/13/16 23:10 Neut # 13.5 x10^3/uL (2.2-4.8) H 10/13/16 23:10 Lymph # 3.1 X10^3/uL (1.3-2.9) H 10/13/16 23:10 [place] # 0.9 x10^3/uL (0.3-0.8) H 10/13/16 23:10 Eos # 0.0 x10^3/uL (0.0-0.2) 10/13/16 23:10 Baso # 0.1 X10^3/uL (0.0-0.1) 10/13/16 23:10 Absolute Nucleated RBC 0.0 /100WBC 10/13/16 23:10 Sodium 141 mmol/L (136-145) 10/13/16 23:10 Corrected Sodium 142 mmol/L (136-145) 10/13/16 23:10 Potassium 3.4 mmol/L (3.5-5.1) L 10/13/16 23:10 Chloride 101 mmol/L (98-107) 10/13/16 23:10 Carbon Dioxide 28.3 mmol/L (21-32) 10/13/16 23:10 BUN 10 mg/dL (7-18) 10/13/16 23:10 Creatinine 0.85 mg/dL (0.55-1.02) 10/13/16 23:10 Est GFR (MDRD) Af Amer > 60 (>60) 10/13/16 23:10 Est GFR (MDRD) Non-Af > 60 (>60) 10/13/16 23:10 Glucose 128 mg/dL (65-99) H 10/13/16 23:10 Calcium 9.3 mg/dL (8.5-10.1) 10/13/16 23:10 Corrected Calcium TNP 10/13/16 23:10 Total Bilirubin 0.50 mg/dL (0.2-1.0) 10/13/16 23:10 AST 20 Units/L (15-37) 10/13/16 23:10 ALT 17 Units/L (12-78) 10/13/16 23:10 Alkaline Phosphatase 81 Units/L (46-116) 10/13/16 23:10 Total Protein 7.6 g/dL (6.4-8.2) 10/13/16 23:10 Albumin 4.3 g/dL (3.4-5.0) 10/13/16 23:10 Globulin 3.3 g/dL (2.5-4.5) 10/13/16 23:10 Albumin/Globulin Ratio 1.3 Ratio (1.1-2.1) 10/13/16 23:10 Amylase 44 Units/L (25-115) 10/13/16 23:10 Lipase 103 Units/L (73-393) 10/13/16 23:10 HCG, Qual Negative <10 mIU/mL 10/13/16 23: Specimen Type Catherized urine 10/13/16 23:55 Urine Color Yellow (YELLOW) 10/13/16 23:55 Urine Appearance Cloudy (CLEAR) 10/13/16 23:55 Urine pH 5.0 (5.0 - 8.0) 10/13/16 23:55 Ur Specific [place] 1.020 (1.000-1.030) 10/13/16 23:55 Urine Protein 2+ (NEGATIVE) 10/13/16 23:55 Urine Glucose (UA) Negative (NEGATIVE) 10/13/16 23: Urine Ketones 1+ (NEGATIVE) 10/13/16 23: Urine Occult Blood 1+ (NEGATIVE) 10/13/16 23: Urine Nitrite Negative (NEGATIVE) 10/13/16 23:55 Urine Bilirubin 1+ (NEGATIVE) 10/13/16 23: Urine Urobilinogen 1+ (NORMAL) 10/13/16 23: Ur Leukocyte Esterase 1+ (NEGATIVE) 10/13/16 23:55 Urine RBC 1-4 /HPF (NEGATIVE) 10/13/16 23:55 Urine WBC 6-10 /HPF (NEGATIVE) 10/13/16 23:55 Ur Squamous Epith Cells Rare /HPF (NEGATIVE) 10/13/16 23:55 Amorphous Sediment 1+ /HPF (NEGATIVE) 10/13/16 23:55 Urine Bacteria 1+ /HPF (NEGATIVE) 10/13/16 23:55 Ur Culture Indicated? Yes/culture set up 10/13/16 23:55 Gastric Occult Blood Positive (NEGATIVE) A 10/13/16 23:57 Stool pH 5 05 23:57 Urine Opiates Screen Positive (NEG=<300) A 10/13/16 23:55 Urine Methadone Screen Negative (NEG=<300) 10/13/16 23:55 Ur Barbiturates Screen Negative (NEG=<200) 10/13/16 23:55 Ur Phencyclidine Scrn Negative (NEG=<25) 10/13/16 23:55 Ur Amphetamines Screen Negative (NEG=<1000) 10/13/16 23:55 U Benzodiazepines Scrn Negative (NEG=<200) 10/13/16 23:55 Urine Cocaine Screen Negative (NEG=<300) 10/13/16 23:55 U Marijuana (THC) Screen Negative (NEG=<50) 10/13/16 23:55 - XRAY XRAY Interpreted by: Radiologist (CT abdomen: No acut eabnormality. Vascular plaque.) XRAY Findings: CT head: Mild atrophic change without acute intracranial abnormality - Diagnosis Discharge Problem: Vomiting, persistent, in adult Altered mental status Qualifiers: Altered mental status type: transient alteration of awareness Qualified Code(s) : R40.4 - Transient alteration of awareness Urinary tract infection Qualifiers: Urinary tract infection type: acute cystitis Hematuria presence: without hematuria Qualified Code(s): N30.00 - Acute cystitis without hematuria GI (gastrointestinal bleed) Qualifiers: GI bleed type/associated pathology: unspecified gastrointestinal hemorrhage type Qualified Code(s): K92.2 - Gastrointestinal hemorrhage, unspecified - Discharge Plan Disposition: ADMITTED INPATIENT Condition: Stable - Follow ups/Referrals Follow ups/Referrals: NFD,None [Primary Care Provider] - 3 days - Instructions
[2016-10-13] MEDS ORDERED: PROTONIX INJ 40 MG VIAL ONE (23:03)
[2016-10-13 23:25] LABS: BASOPHILS # (AUTO) 0.1 X10^3/uL (0.0-0.1); BASOPHILS % (AUTO) 0.4 % (0.2-1.0); EOSINOPHILS % (AUTO) 0.2 % (0.9-2.9); HEMOGLOBIN 13.4 g/dL (12.0-16.0); LYMPHOCYTES # (AUTO) 3.1 X10^3/uL (1.3-2.9); LYMPHOCYTES % (AUTO) 17.3 % (21.0-51.0); MEAN CORPUSCULAR HEMOGLOBIN 30.4 pg (27.0-34.0); MEAN CORPUSCULAR HGB CONC 32.8 g/dL (33.0-35.0); MEAN CORPUSCULAR VOLUME 92.8 fL (80.0-100.0); MEAN PLATELET VOLUME 10.7 fL (7.4-11.0); MONOCYTES # (AUTO) 0.9 x10^3/uL (0.3-0.8); MONOCYTES % (AUTO) 5.3 % (0.0-13.0); NEUTROPHILS # (AUTO) 13.5 x10^3/uL (2.2-4.8); NEUTROPHILS % (AUTO) 76.8 % (42.0-75.0); PLATELET COUNT 207 X10^3/uL (150.0-450.0); RED BLOOD COUNT 4.42 X10^6/uL (3.5-5.4); RED CELL DISTRIBUTION WIDTH 13.6 % (11.6-16.5); WHITE BLOOD COUNT 17.6 X10^3/uL (3.6-10.0)
[2016-10-13 23:36] LABS: ALANINE AMINOTRANSFERASE 17 Units/L (12-78); ALBUMIN 4.3 g/dL (3.4-5.0); ALKALINE PHOSPHATASE 81 Units/L (46-116); AMYLASE 44 Units/L (25-115); ASPARTATE AMINO TRANSFERASE 20 Units/L (15-37); BLOOD UREA NITROGEN 10 mg/dL (7-18); CALCIUM 9.3 mg/dL (8.5-10.1); CARBON DIOXIDE 28.3 mmol/L (21-32); CHLORIDE 101 mmol/L (98-107); COR NA(FOR HYPERGLY) 142 mmol/L (136-145); CREATININE 0.85 mg/dL (0.55-1.02); GLUCOSE 128 mg/dL (65-99); LIPASE 103 Units/L (73-393); SODIUM 141 mmol/L (136-145); TOTAL PROTEIN 7.6 g/dL (6.4-8.2); eGFR BLACK RACES > 60 (>60); eGFR NON BLACK RACES > 60 (>60)
[2016-10-13 23:38] LABS: SERUM PREGNANCY TEST, QUAL NEGATIVE <10 mIU/mL
[2016-10-13] MEDS ORDERED: NARCAN INJ IVP ONE (23:42)
[2016-10-13] MEDS ORDERED: NARCAN INJ ONE (23:46)
--- NOTE | 2016-10-13 23:57 | CT ---
CT abdomen and pelvis without contrast Indication: Abdominal pain with nausea and vomiting Technique: Helical images through the abdomen and pelvis without contrast. Coronal and sagittal refo rmats provided. Comparison: February 17, 2013 CT. Findings: Review of bone windows shows spine degenerative change without destructive osseous lesion. Limited images through lower chest shows no acute abnormality. Abdomen: Vascular plaque noted. The kidneys appear normal without hydroureteronephrosis or stone. Th e adrenal glands, spleen, pancreas and liver show no abnormality, within limits of a noncontrast noam dy. The stomach, small bowel and colon show no acute abnormality. Vasculature contains plaque. The g allbladder is normal. The appendix is not convincingly demonstrated without a right lower quadrant i nflammatory process seen. Pelvis: Urinary bladder and rectum are normal. Uterus is absent. No adnexal region lesion seen. Impression: 1. No acute abnormality to explain the patient's pain. 2. Vascular plaque. Mild motion limited study. Reported By:
[2016-10-14 00:13] LABS: BILIRUBIN,URINE 1+ (NEGATIVE); BLOOD/HEMOGLOBIN,URINE 1+ (NEGATIVE); GLUCOSE, URINE NEGATIVE (NEGATIVE); KETONES,URINE 1+ (NEGATIVE); LEUKOCYTE ESTERASE ,URINE 1+ (NEGATIVE); NITRITES,URINE NEGATIVE (NEGATIVE); PROTEIN,URINE 2+ (NEGATIVE); UROBILINOGEN,URINE 1+ (NORMAL)
[2016-10-14 00:58] LABS: AMORPHOUS SEDIMENT,UR 1+ /HPF (NEGATIVE); APPEARANCE,URINE CLOUDY (CLEAR); BACTERIA,URINE 1+ /HPF (NEGATIVE); COLOR,URINE YELLOW (YELLOW); SQUAMOUS EPITHELIAL CELL,UR RARE /HPF (NEGATIVE)
[2016-10-14 01:01] LABS: GASTRIC OCCULT BLOOD POSITIVE (NEGATIVE); PH 5
[2016-10-14] MEDS ORDERED: LEVAQUIN PREMIX IV 500 MG 500 MG/100 ML BAG IV ONE ×2 (01:14→01:42)
--- NOTE | 2016-10-14 02:16 | CT ---
CT head without contrast Indication: Altered mental status. Technique: Axial images from the skullbase to the vertex without contrast. Coronal and sagittal refo rmats provided. Comparison: September 30, 2016. Findings: Left frontotemporal oral craniotomy again noted. There is no acute intracranial hemorrhage , mass or mass effect. A no extra-axial fluid collection or abnormal area of hypoattenuation to sugg est infarction seen. Mild atrophy is noted. Review of bone windows shows no osseous abnormality othe rwise. Paranasal sinuses and mastoid air cells are clear. Impression: Mild atrophic change without acute intracranial abnormality. Reported By:
[2016-10-14 03:52] LABS: BASOPHILS # (AUTO) 0.1 X10^3/uL (0.0-0.1); HEMOGLOBIN 13.8 g/dL (12.0-16.0); LYMPHOCYTES # (AUTO) 2.9 X10^3/uL (1.3-2.9); LYMPHOCYTES % (AUTO) 21.6 % (21.0-51.0); MEAN CORPUSCULAR HEMOGLOBIN 30.3 pg (27.0-34.0); MEAN CORPUSCULAR HGB CONC 32.9 g/dL (33.0-35.0); MEAN CORPUSCULAR VOLUME 92.3 fL (80.0-100.0); MEAN PLATELET VOLUME 11.1 fL (7.4-11.0); MONOCYTES # (AUTO) 0.6 x10^3/uL (0.3-0.8); MONOCYTES % (AUTO) 4.1 % (0.0-13.0); NEUTROPHILS # (AUTO) 9.8 x10^3/uL (2.2-4.8); NEUTROPHILS % (AUTO) 73.3 % (42.0-75.0); PLATELET COUNT 186 X10^3/uL (150.0-450.0); RED BLOOD COUNT 4.55 X10^6/uL (3.5-5.4); RED CELL DISTRIBUTION WIDTH 13.7 % (11.6-16.5); WHITE BLOOD COUNT 13.3 X10^3/uL (3.6-10.0)
[2016-10-14 04:14] LABS: CHOL/HDL RATIO 4.7 (0.0-5.0); CHOLESTEROL 224 mg/dL (0-200); CKMB % 1.6 % (<4); CREATINE KINASE 128 Units/L (26-192); CREATINE KINASE MB 2.1 ng/mL (0-4.0); HDL CHOLESTEROL 48 mg/dL (40-60); TRIGLYCERIDES 68 mg/dL (0-150); TROPONIN I < 0.02 ng/mL (0-1.5)
[2016-10-14 04:39] VITALS: BMI 22.3
[2016-10-14] MEDS: DUONEB 0.5 MG/3 MG NEB SCH ×6 (05:17→21:00)
[2016-10-14 05:41] LABS: BLOOD UREA NITROGEN 9 mg/dL (7-18); CHLORIDE 105 mmol/L (98-107); COR NA(FOR HYPERGLY) 144 mmol/L (136-145); CREATININE 0.73 mg/dL (0.55-1.02); GLUCOSE 119 mg/dL (65-99); SODIUM 144 mmol/L (136-145); eGFR BLACK RACES > 60 (>60); eGFR NON BLACK RACES > 60 (>60)
[2016-10-14] MEDS: NS 1/2 1000 ML IV 1,000 ML IV SCH (08:56)
[2016-10-14] MEDS ORDERED: NS 1/2 1000 ML IV 1,000 ML IV ONE (08:57)
[2016-10-14] MEDS ORDERED: LEVAQUIN PREMIX IV 500 MG 500 MG/100 ML BAG IV SCH (09:00)
[2016-10-14] MEDS ORDERED: XANAX PO PRN (12:52)
[2016-10-14] MEDS ORDERED: PATIENT'S HOME MEDICATION (Albuterol Sulfate [Proventil Hfa Inhaler 6.7 Gm] 2 PUFF) INH PRN (12:52)
[2016-10-14] MEDS ORDERED: PATIENT'S HOME MEDICATION (Baclofen [Baclofen] 1 TAB) PO PRN (12:52)
[2016-10-14] MEDS ORDERED: HYDROCODONE ACETAMINOPHEN PO PRN (12:52)
[2016-10-14] MEDS ORDERED: [UNRECOGNIZED DRUG - OTHER] PO PRN (12:52)
[2016-10-14] MEDS ORDERED: CONJUGATED ESTROGENS PO SCH (13:00)
[2016-10-14] MEDS ORDERED: MEDROXYPROGESTERONE PO SCH (13:00)
[2016-10-14] MEDS ORDERED: NORCO 10/325 TAB PO PRN (14:14)
[2016-10-14] MEDS ORDERED: LIORESAL PO PRN (14:19)
[2016-10-14] MEDS ORDERED: ROCEPHIN VIAL 1 GM 1 GM in NS 50 ML IV + SPIKE MINIBAG* 50 ML IV SCH (15:00)
[2016-10-14] MEDS: PATIENT'S HOME MEDICATION (Budesonide-Formoterol 2 PUFF) IN SCH (16:18)
[2016-10-14] MEDS: NEURONTIN CAP 300 MG PO SCH ×2 (16:19→20:39)
[2016-10-14] MEDS ORDERED: SYNTHROID 100 mcg TAB PO SCH (16:30)
[2016-10-15] MEDS ORDERED: NS 1/2 1000 ML IV 1,000 ML IV ONE (01:02)
[2016-10-15] MEDS: DUONEB 0.5 MG/3 MG NEB SCH ×6 (01:09→20:38)
[2016-10-15] MEDS: PATIENT'S HOME MEDICATION (Budesonide-Formoterol 2 PUFF) IN SCH (01:23)
[2016-10-15] MEDS: NS 1/2 1000 ML IV 1,000 ML IV SCH (03:06)
[2016-10-15] MEDS ORDERED: LIORESAL PO PRN (07:55)
[2016-10-15] MEDS ORDERED: PATIENT'S HOME MEDICATION (Albuterol Sulfate [Proventil Hfa Inhaler 6.7 Gm] 2 PUFF) INH PRN (07:55)
[2016-10-15] MEDS ORDERED: MEDROXYPROGESTERONE PO SCH (09:00)
[2016-10-15] MEDS ORDERED: CONJUGATED ESTROGENS PO SCH (09:00)
[2016-10-15] MEDS: PROVERA PO SCH (09:43)
[2016-10-15] MEDS: SYNTHROID 100 mcg TAB PO SCH (09:43)
[2016-10-15] MEDS: PREMARIN PO SCH (09:43)
[2016-10-15] MEDS: NEURONTIN CAP 300 MG PO SCH ×2 (09:44→21:25)
[2016-10-15] MEDS: NORCO 10/325 TAB PO PRN (09:44)
[2016-10-15] MEDS: LEVAQUIN PREMIX IV 500 MG 500 MG/100 ML BAG IV SCH (09:44)
[2016-10-15] MEDS: ROCEPHIN VIAL 1 GM 1 GM in NS 50 ML IV + SPIKE MINIBAG* 50 ML IV SCH (09:45)
[2016-10-15] MEDS: XANAX PO PRN ×2 (10:30→21:26)
[2016-10-15] MEDS ORDERED: NORCO 10/325 TAB PO PRN (12:09)
[2016-10-15] MEDS ORDERED: PATIENT'S HOME MEDICATION (Budesonide-Formoterol 2 PUFF) IN SCH (13:00)
[2016-10-16] MEDS: DUONEB 0.5 MG/3 MG NEB SCH ×6 (01:25→21:37)
[2016-10-16 05:25] LABS: BASOPHILS % (AUTO) 0.3 % (0.2-1.0); EOSINOPHILS # (AUTO) 0.2 x10^3/uL (0.0-0.2); EOSINOPHILS % (AUTO) 1.5 % (0.9-2.9); HEMATOCRIT 38.9 % (36.0-47.0); HEMOGLOBIN 12.6 g/dL (12.0-16.0); LYMPHOCYTES # (AUTO) 5.5 X10^3/uL (1.3-2.9); LYMPHOCYTES % (AUTO) 46.9 % (21.0-51.0); MEAN CORPUSCULAR HEMOGLOBIN 29.8 pg (27.0-34.0); MEAN CORPUSCULAR HGB CONC 32.3 g/dL (33.0-35.0); MEAN CORPUSCULAR VOLUME 92.1 fL (80.0-100.0); MEAN PLATELET VOLUME 11.7 fL (7.4-11.0); MONOCYTES # (AUTO) 0.7 x10^3/uL (0.3-0.8); NEUTROPHILS # (AUTO) 5.3 x10^3/uL (2.2-4.8); NEUTROPHILS % (AUTO) 45.3 % (42.0-75.0); PLATELET COUNT 182 X10^3/uL (150.0-450.0); RED BLOOD COUNT 4.22 X10^6/uL (3.5-5.4); RED CELL DISTRIBUTION WIDTH 14.4 % (11.6-16.5); WHITE BLOOD COUNT 11.6 X10^3/uL (3.6-10.0)
[2016-10-16 05:49] LABS: ALANINE AMINOTRANSFERASE 15 Units/L (12-78); ALBUMIN 3.4 g/dL (3.4-5.0); ALKALINE PHOSPHATASE 61 Units/L (46-116); ASPARTATE AMINO TRANSFERASE 16 Units/L (15-37); BLOOD UREA NITROGEN 7 mg/dL (7-18); CALCIUM 8.7 mg/dL (8.5-10.1); CARBON DIOXIDE 28.4 mmol/L (21-32); CHLORIDE 106 mmol/L (98-107); CREATININE 0.77 mg/dL (0.55-1.02); GLUCOSE 90 mg/dL (65-99); SODIUM 145 mmol/L (136-145); TOTAL PROTEIN 6.3 g/dL (6.4-8.2); eGFR BLACK RACES > 60 (>60); eGFR NON BLACK RACES > 60 (>60)
[2016-10-16] MEDS ORDERED: K-LYTE EFFERVESCENT PO PRN (05:56)
[2016-10-16] MEDS ORDERED: K-DUR TAB 20 MEQ PO PRN (05:56)
[2016-10-16] MEDS ORDERED: POTASSIUM CHLORIDE LIQ 20 MEQ UDC PO PRN (05:56)
[2016-10-16] MEDS: K-RIDER 10 MEQ/NS 100 ML 10 MEQ/100 ML BAG IV PRN ×6 (06:24→15:17)
[2016-10-16] MEDS: SYNTHROID 100 mcg TAB PO SCH (06:25)
[2016-10-16] MEDS: NS 1/2 1000 ML IV 1,000 ML IV SCH ×2 (06:25→09:18)
[2016-10-16] MEDS ORDERED: NS 1/2 1000 ML IV 1,000 ML IV ONE (09:11)
[2016-10-16] MEDS: ROCEPHIN VIAL 1 GM 1 GM in NS 50 ML IV + SPIKE MINIBAG* 50 ML IV SCH (09:19)
[2016-10-16] MEDS: PROVERA PO SCH (09:20)
[2016-10-16] MEDS: LEVAQUIN PREMIX IV 500 MG 500 MG/100 ML BAG IV SCH (09:20)
[2016-10-16] MEDS: NORCO 10/325 TAB PO PRN (09:21)
[2016-10-16] MEDS: PREMARIN PO SCH (09:21)
[2016-10-16] MEDS: XANAX PO PRN ×2 (09:21→21:25)
[2016-10-16] MEDS: NEURONTIN CAP 300 MG PO SCH ×2 (09:21→21:25)
[2016-10-16] MEDS ORDERED: LEVSIN/MAALOX/LIDOC VISC PO ONE (13:25)
[2016-10-16] MEDS: PROTONIX INJ 40 MG VIAL IVP SCH (15:17)
[2016-10-16 16:40] LABS: ALANINE AMINOTRANSFERASE 18 Units/L (12-78); ALBUMIN 3.7 g/dL (3.4-5.0); ALKALINE PHOSPHATASE 69 Units/L (46-116); ASPARTATE AMINO TRANSFERASE 18 Units/L (15-37); BLOOD UREA NITROGEN 7 mg/dL (7-18); CALCIUM 9.2 mg/dL (8.5-10.1); CHLORIDE 107 mmol/L (98-107); CREATININE 0.84 mg/dL (0.55-1.02); GLUCOSE 103 mg/dL (65-99); SODIUM 146 mmol/L (136-145); TOTAL PROTEIN 7.1 g/dL (6.4-8.2); eGFR BLACK RACES > 60 (>60); eGFR NON BLACK RACES > 60 (>60)
[2016-10-17] MEDS: DUONEB 0.5 MG/3 MG NEB SCH ×4 (01:18→12:17)
[2016-10-17] MEDS: XANAX PO PRN (06:43)
[2016-10-17 06:56] LABS: BASOPHILS # (AUTO) 0.1 X10^3/uL (0.0-0.1); BASOPHILS % (AUTO) 0.6 % (0.2-1.0); EOSINOPHILS # (AUTO) 0.4 x10^3/uL (0.0-0.2); EOSINOPHILS % (AUTO) 3.3 % (0.9-2.9); HEMATOCRIT 39.7 % (36.0-47.0); HEMOGLOBIN 12.8 g/dL (12.0-16.0); LYMPHOCYTES # (AUTO) 4.7 X10^3/uL (1.3-2.9); LYMPHOCYTES % (AUTO) 34.8 % (21.0-51.0); MEAN CORPUSCULAR HEMOGLOBIN 29.9 pg (27.0-34.0); MEAN CORPUSCULAR HGB CONC 32.3 g/dL (33.0-35.0); MEAN CORPUSCULAR VOLUME 92.7 fL (80.0-100.0); MEAN PLATELET VOLUME 11.4 fL (7.4-11.0); MONOCYTES # (AUTO) 0.9 x10^3/uL (0.3-0.8); MONOCYTES % (AUTO) 6.4 % (0.0-13.0); NEUTROPHILS # (AUTO) 7.4 x10^3/uL (2.2-4.8); NEUTROPHILS % (AUTO) 54.9 % (42.0-75.0); PLATELET COUNT 199 X10^3/uL (150.0-450.0); RED BLOOD COUNT 4.29 X10^6/uL (3.5-5.4); RED CELL DISTRIBUTION WIDTH 14.4 % (11.6-16.5); WHITE BLOOD COUNT 13.5 X10^3/uL (3.6-10.0)
[2016-10-17 07:51] LABS: ALANINE AMINOTRANSFERASE 15 Units/L (12-78); ALBUMIN 3.6 g/dL (3.4-5.0); ALKALINE PHOSPHATASE 69 Units/L (46-116); ASPARTATE AMINO TRANSFERASE 15 Units/L (15-37); BLOOD UREA NITROGEN 7 mg/dL (7-18); CALCIUM 9.2 mg/dL (8.5-10.1); CARBON DIOXIDE 29.2 mmol/L (21-32); CHLORIDE 107 mmol/L (98-107); GLUCOSE 85 mg/dL (65-99); SODIUM 146 mmol/L (136-145); TOTAL PROTEIN 6.6 g/dL (6.4-8.2); eGFR BLACK RACES > 60 (>60); eGFR NON BLACK RACES > 60 (>60)
[2016-10-17] MEDS: PROTONIX INJ 40 MG VIAL IVP SCH (10:06)
[2016-10-17] MEDS: PREMARIN PO SCH (10:07)
[2016-10-17] MEDS: PROVERA PO SCH (10:07)
[2016-10-17] MEDS: NEURONTIN CAP 300 MG PO SCH (10:07)
[2016-10-17] MEDS: ROCEPHIN VIAL 1 GM 1 GM in NS 50 ML IV + SPIKE MINIBAG* 50 ML IV SCH (10:08)
[2016-10-17] MEDS: LEVAQUIN PREMIX IV 500 MG 500 MG/100 ML BAG IV SCH (10:08)
[2016-10-17] MEDS: SYNTHROID 100 mcg TAB PO SCH (10:41)
[2016-10-17 12:28] VITALS: BP 109/68
[2016-10-17] MEDS: NORCO 10/325 TAB PO PRN (14:22)
== END 2016-10-17 16:45 | disposition home or self-care (01) | DRG 690 ==
LOC: ER 22:12 → ICU 10-14 02:41 → MED/SURG 10-14 16:10
PROVIDERS: ADMIT Internal Medicine; ATTEND Internal Medicine
DX: N30.00 Acute cystitis without hematuria (principal); R40.4 Transient alteration of awareness; E87.6 Hypokalemia; R11.2 Nausea with vomiting, unspecified; K92.2 Gastrointestinal hemorrhage, unspecified; R53.1 Weakness; R26.89 Other abnormalities of gait and mobility; Z78.1 Physical restraint status
CPT/HCPCS: 36415; 36600; 51702; 70450; 71010; 74176; 80048; 80053; 80061; 80307; 81001; 82150; 82271; 82550; 82553; 82803; 83690; 83735; 84484; 84703; 85025; 85610; 85730; 86850; 86900; 86901; 87070; 87086; 87205; 93005; 93010; 94640; 96365; 96367; 96374; 96375; 99221; 99231; 99282; 99284; 99285; A4216; A4222; C9113; G0434; J0696; J1956; J2310; J2405; J2765; J3480; J7620

== ENCOUNTER 2016-10-23 14:38 | Emergency (ER) | payer MEDICAID ==
[~2016-10-23 14:38] MED LIST: ZOFRAN INJ 4 MG VIAL ONE
[2016-10-23 14:42] VITALS: BP 114/68; BMI 22.1
--- NOTE | 2016-10-23 15:55 | DR.GENAD ---
HPI - PCP Primary Care Physician: DR. SANCHEZ - HPI Comment HPI Comment: WORSE TODAY. NO FEVER. RECENT ANTIBIOTIC FOR BRONCHITIS. WILL SEE PCP IN AM. HAVECHEST PAIN, SUBSTERNAL AND SHARP. DID NEB TREATMENT BUT STILL COUGHING AND SOB. - Complaint/Symptoms Chief Complaint Doctors Comments: INCREASING SOB, COUGH AND CONGESTION FOR SEVERAL DAYS. Chief Complaint:: PATIENT STATED THAT EVERYTHING HAS HIT HER AT ONE TIME. SHE FEELS LIKE SHE CAN'T BREATH. - Nurses notes reviewed Nurses Notes Review: Yes - Source History Provided: Patient - Mode of Arrival Mode of Arrival: Ambulatory - Timing Onset of Chief Complaint: 10/16/16 Came on: Gradually - Duration Duration: Constant Duration: Days - Severity Severity: Moderate PMH - PMH Past Medical History: Yes Past Medical History: Asthma, COPD, Hypothyroidism Past Surgical History: Yes Surgical History: Neurosurgery Past Surgical History Comment: BRAIN - Family History History of Family Medical Conditions: Yes Family Medical History: Diabetes Mellitus, Cancer, [place] - Social History Does patient currently use any type of tobacco product: Yes Have you used tobacco products in the last 12 months: Yes Type of Tobacco Use: Cigarettes Does any household member use tobacco: No Alcohol Use: None Do you use any recreational Drugs:: No Lives With: Family Lives Where: Home - infectious screening In the last 2 months have you had wt loss of >10#?: NO Have you had fever, night sweats or hemotysis?: No Have you traveled outside the country in the last 6 months?: No Isolation: Standard ROS - Review of Systems Constitutional: Weakness, Fatigue, Loss of Appetite. negative: Chills, Fever Eyes: No Symptoms Reported. negative: Eye Pain, Discharge ENTM: Nose Discharge, Nose Congestion. negative: Mouth Pain, Throat Pain Respiratoy: Productive Cough, Non-Productive Cough, Short of Breath, Wheezing. negative: Hemoptysis Cardiovascular: Chest Pain. negative: Edema, Palpitations, Syncope Gastrointestinal/Abdominal: No Symptoms Reported. negative: Constipation, Diarrhea, Nausea, Vomiting Genitourinary: No Symptoms Reported Neurological: Headache, Weakness, Dizziness Musculoskeletal: Back Pain (LOWER BACK, CHRONIC) Integumentary: negative: Change in Color, Rash, Bruises, Juandice Hematologic/Lymphatic: Easy Bruising Endocrine: Increased Hunger, Increased Thirst, Increased Urine All Other Systems: Reviewed and Negative PE - Vital Signs Vitals: Temperature 98.1 F Pulse Rate 112 Respiratory Rate 20 Blood Pressure [Right Arm] 109/68 Blood Pressure [Left Arm] 87/51 Blood Pressure 114/68 O2 Sat by Pulse Oximetry 97 - General Limitations: No Limitations General Appearance: Alert - Head Head Exam: Normal Inspection - Eyes Eye exam: Normal Appearance - ENT ENT Exam: Normal External Ear Exam External Ear Exam: Normal External Inspection TM/Canal Exam: Bilateral Normal Nose Exam: Normal Nose Exam Mouth Exam: Normal Inspection Throat Exam: Normal Inspection - Neck Neck Exam: Trachea Midline. negative: Tenderness, Meningismus, Lymphadenopathy - Chest Chest Inspection: Symmetric Chest Wall Rise - Respiratory Respiratory Exam: Respiratory Distress Respiratory Exam: Bilateral Wheezing, Bilateral Rhonchi, Lower Wheezing, Lower Rhonchi - Cardiovascular Cardiovascular Exam: Regular Rate, Normal Rhythm, Normal Heart Sounds - Abdominal Exam Abdominal Exam: Normal Bowel Sounds, Soft. negative: Tenderness - Extremities Extremities Exam: Normal Inspection. negative: Edema - Back Back Exam: Paraspinal Tenderness - Neurologic Neurological Exam: Alert, Oriented X3 - Psychiatric Psychiatric Exam: Normal Affect, Normal Mood - Skin Skin Exam: Erythema MDM - Differential Diagnosis Differential Diagnosis: COPD, BRONCHITIS, PNEUMONIA, PNEUMOTHORAX Course - Treatment Treatment: SEE ORDERS - Education/Counseling Education/Counseling: Patient, Education Educated On: Diagnosis, Needs for Follow Up ROR - Labs Reviewed Laboratory Results Reviewed?: Yes Result Diagrams: 10/23/16 16:22 10/23/16 16:22 Laboratory: WBC 10.0 X10^3/uL (3.6-10.0) 10/23/16 16:22 RBC 4.28 X10^6/uL (3.5-5.4) 10/23/16 16:22 Hgb 13.1 g/dL (12.0-16.0) 10/23/16 16:22 Hct 39.6 % (36.0-47.0) 10/23/16 16:22 MCV 92.4 fL (80.0-100.0) 10/23/16 16:22 MCH 30.6 pg (27.0-34.0) 10/23/16 16:22 MCHC 33.1 g/dL (33.0-35.0) 10/23/16 16:22 RDW 13.9 % (11.6-16.5) 10/23/16 16:22 Plt Count 274 X10^3/uL (150.0-450.0) 10/23/16 16:22 MPV 10.2 fL (7.4-11.0) 10/23/16 16:22 Neut % 52.6 % (42.0-75.0) 10/23/16 16:22 Lymph % 37.2 % (21.0-51.0) 10/23/16 16:22 [place] % 8.3 % (0.0-13.0) 10/23/16 16:22 Eos % 1.1 % (0.9-2.9) 10/23/16 16:22 Baso % 0.8 % (0.2-1.0) 10/23/16 16: Neut # 5.3 x10^3/uL (2.2-4.8) H 10/23/16 16:22 Lymph # 3.7 X10^3/uL (1.3-2.9) H 10/23/16 16:22 [place] # 0.8 x10^3/uL (0.3-0.8) 10/23/16 16:22 Eos # 0.1 x10^3/uL (0.0-0.2) 10/23/16 16:22 Baso # 0.1 X10^3/uL (0.0-0.1) 10/23/16 16:22 Absolute Nucleated RBC 0.0 /100WBC 10/23/16 16:22 Sodium 140 mmol/L (136-145) 10/23/16 16:22 Corrected Sodium TNP 10/23/16 16:22 Potassium 4.0 mmol/L (3.5-5.1) 10/23/16 16:22 Chloride 103 mmol/L (98-107) 10/23/16 16:22 Carbon Dioxide 27.5 mmol/L (21-32) 10/23/16 16:22 BUN 12 mg/dL (7-18) 10/23/16 16:22 Creatinine 0.83 mg/dL (0.55-1.02) 10/23/16 16:22 Est GFR (MDRD) Af Amer > 60 (>60) 10/23/16 16:22 Est GFR (MDRD) Non-Af > 60 (>60) 10/23/16 16:22 Glucose 92 mg/dL (65-99) 10/23/16 16:22 Calcium 9.4 mg/dL (8.5-10.1) 10/23/16 16:22 Corrected Calcium TNP 10/23/16 16:22 Total Bilirubin 0.80 mg/dL (0.2-1.0) 10/23/16 16:22 AST 18 Units/L (15-37) 10/23/16 16:22 ALT 17 Units/L (12-78) 10/23/16 16:22 Alkaline Phosphatase 70 Units/L (46-116) 10/23/16 16:22 Total Protein 7.8 g/dL (6.4-8.2) 10/23/16 16:22 Albumin 4.3 g/dL (3.4-5.0) 10/23/16 16:22 Globulin 3.5 g/dL (2.5-4.5) 10/23/16 16:22 Albumin/Globulin Ratio 1.2 Ratio (1.1-2.1) 10/23/16 16:22 - XRAY XRAY Interpreted by: Radiologist XRAY Findings: REPORTED DISCUSS WITH PATIENT. - Diagnosis Discharge Problem: Cough, SOB (shortness of breath) - Discharge Plan Disposition: 01 HOME, SELF-CARE Condition: Stable - Follow ups/Referrals Follow ups/Referrals: Paulina SANCHEZ [Primary Care Provider] - 3 days - Instructions Instructions: Chronic Obstructive Pulmonary Disease Exacerbation, [id number] , Cough, Adult, [id number], Shortness of Breath, Tize-nw-Oriv Additional Instructions: RETURN TO ED IF WORSE. CONTINUE WITH MEDS AT HOME.
[2016-10-23 16:40] LABS: BASOPHILS # (AUTO) 0.1 X10^3/uL (0.0-0.1); BASOPHILS % (AUTO) 0.8 % (0.2-1.0); EOSINOPHILS # (AUTO) 0.1 x10^3/uL (0.0-0.2); EOSINOPHILS % (AUTO) 1.1 % (0.9-2.9); HEMATOCRIT 39.6 % (36.0-47.0); HEMOGLOBIN 13.1 g/dL (12.0-16.0); LYMPHOCYTES # (AUTO) 3.7 X10^3/uL (1.3-2.9); LYMPHOCYTES % (AUTO) 37.2 % (21.0-51.0); MEAN CORPUSCULAR HEMOGLOBIN 30.6 pg (27.0-34.0); MEAN CORPUSCULAR HGB CONC 33.1 g/dL (33.0-35.0); MEAN CORPUSCULAR VOLUME 92.4 fL (80.0-100.0); MEAN PLATELET VOLUME 10.2 fL (7.4-11.0); MONOCYTES # (AUTO) 0.8 x10^3/uL (0.3-0.8); MONOCYTES % (AUTO) 8.3 % (0.0-13.0); NEUTROPHILS # (AUTO) 5.3 x10^3/uL (2.2-4.8); NEUTROPHILS % (AUTO) 52.6 % (42.0-75.0); PLATELET COUNT 274 X10^3/uL (150.0-450.0); RED BLOOD COUNT 4.28 X10^6/uL (3.5-5.4); RED CELL DISTRIBUTION WIDTH 13.9 % (11.6-16.5)
--- NOTE | 2016-10-23 16:45 | RAD ---
The AP Chest Indication: Chest pain Comparison: 10/12/2016 the Findings: The trachea is midline. The cardiac silhouette is unremarkable. Chronic interstitial lung changes appear similar to prior examinations. No acute airspace disease. No pleural effusion or pneumothorax . The bony thorax is unremarkable. IMPRESSION: 1. No acute cardiopulmonary abnormality. Reported By:
[2016-10-23 16:50] LABS: ALANINE AMINOTRANSFERASE 17 Units/L (12-78); ALBUMIN 4.3 g/dL (3.4-5.0); ALKALINE PHOSPHATASE 70 Units/L (46-116); ASPARTATE AMINO TRANSFERASE 18 Units/L (15-37); BLOOD UREA NITROGEN 12 mg/dL (7-18); CALCIUM 9.4 mg/dL (8.5-10.1); CARBON DIOXIDE 27.5 mmol/L (21-32); CHLORIDE 103 mmol/L (98-107); CREATININE 0.83 mg/dL (0.55-1.02); GLUCOSE 92 mg/dL (65-99); SODIUM 140 mmol/L (136-145); TOTAL PROTEIN 7.8 g/dL (6.4-8.2); eGFR BLACK RACES > 60 (>60); eGFR NON BLACK RACES > 60 (>60)
[2016-10-23] MEDS ORDERED: ZOFRAN INJ 4 MG VIAL IM ONE (16:54)
== END 2016-10-23 17:12 | disposition home or self-care (01) ==
LOC: ER 14:38
DX: R06.02 Shortness of breath (principal); R05 Cough
CPT/HCPCS: 36415; 71010; 80053; 85025; 96372; 99282; 99283; J2405

== ENCOUNTER → 2016-10-31 | Outpatient (CLI) | payer MEDICAID ==
[2016-10-23 14:42] VITALS: BP 114/68
[2016-10-31 15:13] LABS: BASOPHILS # (AUTO) 0.1 X10^3/uL (0.0-0.1); BASOPHILS % (AUTO) 1.1 % (0.2-1.0); EOSINOPHILS # (AUTO) 0.2 x10^3/uL (0.0-0.2); EOSINOPHILS % (AUTO) 2.2 % (0.9-2.9); HEMATOCRIT 40.9 % (36.0-47.0); HEMOGLOBIN 13.4 g/dL (12.0-16.0); LYMPHOCYTES % (AUTO) 27.8 % (21.0-51.0); MEAN CORPUSCULAR HEMOGLOBIN 30.5 pg (27.0-34.0); MEAN CORPUSCULAR HGB CONC 32.9 g/dL (33.0-35.0); MEAN CORPUSCULAR VOLUME 92.8 fL (80.0-100.0); MEAN PLATELET VOLUME 9.6 fL (7.4-11.0); MONOCYTES # (AUTO) 0.5 x10^3/uL (0.3-0.8); MONOCYTES % (AUTO) 4.5 % (0.0-13.0); NEUTROPHILS # (AUTO) 7.1 x10^3/uL (2.2-4.8); NEUTROPHILS % (AUTO) 64.4 % (42.0-75.0); PLATELET COUNT 250 X10^3/uL (150.0-450.0); RED CELL DISTRIBUTION WIDTH 13.8 % (11.6-16.5)
[2016-10-31 15:35] LABS: ALANINE AMINOTRANSFERASE 16 Units/L (12-78); ALBUMIN 4.2 g/dL (3.4-5.0); ALKALINE PHOSPHATASE 71 Units/L (46-116); ASPARTATE AMINO TRANSFERASE 15 Units/L (15-37); BLOOD UREA NITROGEN 10 mg/dL (7-18); CALCIUM 9.4 mg/dL (8.5-10.1); CARBON DIOXIDE 28.7 mmol/L (21-32); CHLORIDE 107 mmol/L (98-107); CREATININE 0.74 mg/dL (0.55-1.02); GLUCOSE 104 mg/dL (65-99); SODIUM 145 mmol/L (136-145); T4 (THYROXINE) 11.2 ug/dL (4.7-13.3); TOTAL PROTEIN 7.5 g/dL (6.4-8.2); TSH (3RD GENERATION) 0.869 uIU/mL (0.358-3.74); eGFR BLACK RACES > 60 (>60); eGFR NON BLACK RACES > 60 (>60)
== END ==
LOC: LAB 14:44
PROVIDERS: ATTEND Internal Medicine
DX: J44.9 Chronic obstructive pulmonary disease, unspecified (principal); E03.8 Other specified hypothyroidism; I10 Essential (primary) hypertension
CPT/HCPCS: 36415; 80053; 84436; 84443; 85025

== ENCOUNTER 2016-11-26 17:49 | Emergency (ER) | payer MEDICAID ==
[2016-11-26 18:10] VITALS: BP 122/61; BMI 27.4
[2016-11-26] MEDS ORDERED: NS 1000 ML 1,000 ML IV ONE (18:13)
--- NOTE | 2016-11-26 18:13 | DR.GENAD ---
HPI - PCP Primary Care Physician: LAURA - Complaint/Symptoms Chief Complaint Doctors Comments: Patient presented to the ED with complaint of nausea and being confused of unknown duration. She intermittend hs intermittent head bobbing and being incoherent. Her brother states that she seen in [place] on Sunday of this weeks and a battery of tests were done, results are pending.. Review of record revealed that patient was admitted for a seventy two stay in October with a negavite work up with the same presenting signs and symptoms. She was admitted with altered mental status diagnosis with a negative workup Chief Complaint:: NAUSEA AND CONFUSED - Source History Provided: Patient, Family Member - Mode of Arrival Mode of Arrival: Wheelchair - Timing Onset of Chief Complaint: 11/25/16 PMH - PMH Past Medical History: Yes Past Medical History: Asthma, COPD, Hypothyroidism Past Surgical History: Yes Surgical History: Neurosurgery - Family History History of Family Medical Conditions: Yes Family Medical History: Diabetes Mellitus, Cancer, [place] - Social History Type of Tobacco Use: Cigarettes Does any household member use tobacco: Yes Alcohol Use: None Do you use any recreational Drugs:: No Lives With: Alone, Family Lives Where: Home - infectious screening In the last 2 months have you had wt loss of >10#?: NO Have you had fever, night sweats or hemotysis?: No Have you traveled outside the country in the last 6 months?: No Isolation: Standard ROS - Review of Systems Eyes: No Symptoms Reported ENTM: No Symptoms Reported Respiratoy: No Symptoms Reported, Other (She admits to not being able to breath) Cardiovascular: No Symptoms Reported Gastrointestinal/Abdominal: No Symptoms Reported Genitourinary: No Symptoms Reported Neurological: See HPI, Speech Problem Musculoskeletal: No Symptoms Reported Integumentary: No Symptoms Reported Hematologic/Lymphatic: No Symptoms Reported Endocrine: No Symptoms Reported Psychiatric: No Symptoms Reported All Other Systems: Reviewed and Negative PE - Vital Signs Vitals: Pulse Rate 95 Respiratory Rate 20 Blood Pressure [Right Arm] 109/68 Blood Pressure [Left Arm] 87/51 Blood Pressure 122/61 O2 Sat by Pulse Oximetry 93 - General Limitations: No Limitations General Appearance: Alert, Appears Intoxicated - Head Head Exam: Normal Inspection, Other (intermittent head bobbing) - Eyes Eye exam: Normal Appearance, EOMI - ENT ENT Exam: Normal Exam External Ear Exam: Normal External Inspection TM/Canal Exam: Bilateral Normal Nose Exam: Normal Nose Exam Mouth Exam: Normal Inspection Throat Exam: Normal Inspection - Neck Neck Exam: Normal Inspection, Full ROM - Chest Chest Inspection: Normal Inspection - Respiratory Respiratory Exam: Normal Lung Sounds Bilat Respiratory Exam: Bilateral Clear to Auscultation - Cardiovascular Cardiovascular Exam: Regular Rate - Abdominal Exam Abdominal Exam: Normal Inspection, Normal Bowel Sounds. negative: Distention Abdominal Tenderness: negative: RUQ, RLQ, LUQ, LLQ, Epigastrium, Suprapubic, Diffuse, Mild, Moderate, Severe, Other - Extremities Extremities Exam: Normal Inspection, Full ROM - Back Back Exam: Normal Inspection, Full ROM - Skin Skin Exam: Warm, Dry Course - Treatment Treatment: Patient is calm sleeping in no distress.[id number]--her work up is negative. - Reevaluation 1st: Improved ROR - Labs Reviewed Result Diagrams: 11/26/16 18:38 11/26/16 18:38 Laboratory: WBC 11.0 X10^3/uL (3.6-10.0) H 11/26/16 18:38 RBC 4.48 X10^6/uL (3.5-5.4) 11/26/16 18:38 Hgb 13.7 g/dL (12.0-16.0) 11/26/16 18:38 Hct 40.8 % (36.0-47.0) 11/26/16 18:38 MCV 91.0 fL (80.0-100.0) 11/26/16 18:38 MCH 30.5 pg (27.0-34.0) 11/26/16 18:38 MCHC 33.5 g/dL (33.0-35.0) 11/26/16 18:38 RDW 13.3 % (11.6-16.5) 11/26/16 18:38 Plt Count 289 X10^3/uL (150.0-450.0) 11/26/16 18:38 MPV 9.7 fL (7.4-11.0) 11/26/16 18:38 Neut % 57.5 % (42.0-75.0) 11/26/16 18:38 Lymph % 33.0 % (21.0-51.0) 11/26/16 18:38 [place] % 7.2 % (0.0-13.0) 11/26/16 18:38 Eos % 1.3 % (0.9-2.9) 11/26/16 18:38 Baso % 1.0 % (0.2-1.0) 11/26/16 18:38 Neut # 6.3 x10^3/uL (2.2-4.8) H 11/26/16 18:38 Lymph # 3.6 X10^3/uL (1.3-2.9) H 11/26/16 18:38 [place] # 0.8 x10^3/uL (0.3-0.8) 11/26/16 18:38 Eos # 0.1 x10^3/uL (0.0-0.2) 11/26/16 18:38 Baso # 0.1 X10^3/uL (0.0-0.1) 11/26/16 18:38 Absolute Nucleated RBC 0.0 /100WBC 11/26/16 18:38 INR Target Range - 11/26/16 20:30 INR 0.95 (0.8-1.3) 11/26/16 20:30 Sodium 145 mmol/L (136-145) 11/26/16 18:38 Corrected Sodium 146 mmol/L (136-145) H 11/26/16 18:38 Potassium 3.4 mmol/L (3.5-5.1) L 11/26/16 18:38 Chloride 108 mmol/L (98-107) H 11/26/16 18:38 Carbon Dioxide 28.3 mmol/L (21-32) 11/26/16 18:38 BUN 13 mg/dL (7-18) 11/26/16 18:38 Creatinine 0.69 mg/dL (0.55-1.02) 11/26/16 18:38 Est GFR (MDRD) Af Amer > 60 (>60) 11/26/16 18:38 Est GFR (MDRD) Non-Af > 60 (>60) 11/26/16 18:38 Glucose 122 mg/dL (65-99) H 11/26/16 18:38 Calcium 9.0 mg/dL (8.5-10.1) 11/26/16 18:38 Corrected Calcium TNP 11/26/16 18:38 Total Bilirubin 0.40 mg/dL (0.2-1.0) 11/26/16 18:38 AST 17 Units/L (15-37) 11/26/16 18:38 ALT 22 Units/L (12-78) 11/26/16 18:38 Alkaline Phosphatase 71 Units/L (46-116) 11/26/16 18:38 Ammonia < 10 umol/L (11-32) L 11/26/16 20:30 Creatine Kinase 159 Units/L (26-192) 11/26/16 20:30 CK-MB (CK-2) 1.7 ng/mL (0-4.0) 11/26/16 20:30 CK/CKMB % Calc 1.1 % (<4) 11/26/16 20: Troponin I < 0.02 ng/mL (0-1.5) 11/26/16 20:30 C-Reactive Protein 1.40 mg/L (0-3.0) 11/26/16 18:38 Total Protein 7.2 g/dL (6.4-8.2) 11/26/16 18:38 Albumin 3.9 g/dL (3.4-5.0) 11/26/16 18:38 Globulin 3.3 g/dL (2.5-4.5) 11/26/16 18:38 Albumin/Globulin Ratio 1.2 Ratio (1.1-2.1) 11/26/16 18:38 Specimen Type Catherized urine 11/26/16 19:02 Urine Color Yellow (YELLOW) 11/26/16 19:02 Urine Appearance Hazy (CLEAR) 11/26/16 19:02 Urine pH 5.0 (5.0 - 8.0) 11/26/16 19:02 Ur Specific [place] 1.030 (1.000-1.030) 11/26/16 19:02 Urine Protein 1+ (NEGATIVE) 11/26/16 19:02 Urine Glucose (UA) Negative (NEGATIVE) 11/26/16 19:02 Urine Ketones 1+ (NEGATIVE) 11/26/16 19:02 Urine Occult Blood 2+ (NEGATIVE) 11/26/16 19:02 Urine Nitrite Negative (NEGATIVE) 11/26/16 19:02 Urine Bilirubin 1+ (NEGATIVE) 11/26/16 19:02 Urine Urobilinogen 1+ (NORMAL) 11/26/16 19:02 Ur Leukocyte Esterase Negative (NEGATIVE) 11/26/16 19:02 Urine RBC 0-3 /HPF (NEGATIVE) 11/26/16 19:02 Urine WBC 0-3 /HPF (NEGATIVE) 11/26/16 19:02 Ur Squamous Epith Cells Numerous /HPF (NEGATIVE) 11/26/16 19:02 Urine Bacteria Trace /HPF (NEGATIVE) 11/26/16 19:02 Urine Mucus Few /HPF (NEGATIVE) 11/26/16 19:02 Ur Culture Indicated? No/not indicated 11/26/16 19:02 Urine Opiates Screen Negative (NEG=<300) 11/26/16 18:54 Urine Methadone Screen Negative (NEG=<300) 11/26/16 18:54 Ur Barbiturates Screen Negative (NEG=<200) 11/26/16 18:54 Ur Phencyclidine Scrn Negative (NEG=<25) 11/26/16 18:54 Ur Amphetamines Screen Negative (NEG=<1000) 11/26/16 18:54 U Benzodiazepines Scrn Negative (NEG=<200) 11/26/16 18:54 Urine Cocaine Screen Negative (NEG=<300) 11/26/16 18:54 U Marijuana (THC) Screen Negative (NEG=<50) 11/26/16 18:54 - XRAY XRAY Interpreted by: Radiologist (CT Brain: There is mild bilateral cortical atrophy. The ventricular system is not abnormally dilated. No intra or extra axial mass or hemorrhage. The rutledge-white junction is preserved. There is no evidence of subacute ischemic changes. The basilar cisterns are clear. There is an old left craniotomy site. The paranasal sinuses and mastoid air cells are clear. Impression: Ther is bilateral cortical atrophy as described above. There is an old left craniotomy site. No acute banormality identified. Chest: Comparison: October 23: No acute cardiopulmonary disease.) - Discharge Plan Condition: Stable - Follow ups/Referrals Follow ups/Referrals: Paulina SANCHEZ [Primary Care Provider] - 3 days - Instructions
[2016-11-26] MEDS ORDERED: TORADOL 30 MG VIAL IVP ONE (18:14)
[2016-11-26] MEDS ORDERED: PHENERGAN INJ 25 MG IV ONE (18:18)
[2016-11-26] MEDS ORDERED: NS 1000 ML 1,000 ML ONE ×2 (18:22→19:34)
[2016-11-26] MEDS ORDERED: TORADOL 30 MG VIAL ONE (18:22)
[2016-11-26] MEDS ORDERED: PHENERGAN INJ 25 MG ONE (18:22)
[2016-11-26 18:47] LABS: BASOPHILS # (AUTO) 0.1 X10^3/uL (0.0-0.1); EOSINOPHILS # (AUTO) 0.1 x10^3/uL (0.0-0.2); EOSINOPHILS % (AUTO) 1.3 % (0.9-2.9); HEMATOCRIT 40.8 % (36.0-47.0); HEMOGLOBIN 13.7 g/dL (12.0-16.0); LYMPHOCYTES # (AUTO) 3.6 X10^3/uL (1.3-2.9); MEAN CORPUSCULAR HEMOGLOBIN 30.5 pg (27.0-34.0); MEAN CORPUSCULAR HGB CONC 33.5 g/dL (33.0-35.0); MEAN PLATELET VOLUME 9.7 fL (7.4-11.0); MONOCYTES # (AUTO) 0.8 x10^3/uL (0.3-0.8); MONOCYTES % (AUTO) 7.2 % (0.0-13.0); NEUTROPHILS # (AUTO) 6.3 x10^3/uL (2.2-4.8); NEUTROPHILS % (AUTO) 57.5 % (42.0-75.0); PLATELET COUNT 289 X10^3/uL (150.0-450.0); RED BLOOD COUNT 4.48 X10^6/uL (3.5-5.4); RED CELL DISTRIBUTION WIDTH 13.3 % (11.6-16.5)
[2016-11-26] MEDS ORDERED: ATIVAN INJ 2 MG VIAL ONE (18:50)
[2016-11-26] MEDS ORDERED: ATIVAN INJ 2 MG VIAL IVP ONE (18:53)
[2016-11-26 18:59] LABS: ALANINE AMINOTRANSFERASE 22 Units/L (12-78); ALBUMIN 3.9 g/dL (3.4-5.0); ALKALINE PHOSPHATASE 71 Units/L (46-116); ASPARTATE AMINO TRANSFERASE 17 Units/L (15-37); BLOOD UREA NITROGEN 13 mg/dL (7-18); CARBON DIOXIDE 28.3 mmol/L (21-32); CHLORIDE 108 mmol/L (98-107); COR NA(FOR HYPERGLY) 146 mmol/L (136-145); CREATININE 0.69 mg/dL (0.55-1.02); GLUCOSE 122 mg/dL (65-99); SODIUM 145 mmol/L (136-145); TOTAL PROTEIN 7.2 g/dL (6.4-8.2); eGFR BLACK RACES > 60 (>60); eGFR NON BLACK RACES > 60 (>60)
[2016-11-26 19:12] LABS: BILIRUBIN,URINE 1+ (NEGATIVE); BLOOD/HEMOGLOBIN,URINE 2+ (NEGATIVE); GLUCOSE, URINE NEGATIVE (NEGATIVE); KETONES,URINE 1+ (NEGATIVE); LEUKOCYTE ESTERASE ,URINE NEGATIVE (NEGATIVE); NITRITES,URINE NEGATIVE (NEGATIVE); PROTEIN,URINE 1+ (NEGATIVE); UROBILINOGEN,URINE 1+ (NORMAL)
[2016-11-26 19:22] LABS: APPEARANCE,URINE HAZY (CLEAR); BACTERIA,URINE TRACE /HPF (NEGATIVE); COLOR,URINE YELLOW (YELLOW); MUCUS,URINE FEW /HPF (NEGATIVE); RBC,URINE 0-3 /HPF (NEGATIVE); SQUAMOUS EPITHELIAL CELL,UR NUMEROUS /HPF (NEGATIVE)
[2016-11-26] MEDS ORDERED: NS 1000 ML 1,000 ML IV SCH (20:00)
--- NOTE | 2016-11-26 20:20 | CT ---
EXAM: CT BRAIN WITHOUT CONTRAST INDICATION: Confusion COMPARISION: Prior exam from October 14, 2016 TECHNIQUE: Routine axial CT of the brain was performed without intravenous contrast. FINDINGS: There is mild bilateral cortical atrophy. The ventricular system is not abnormally dilated. No intra or extra-axial mass or hemorrhage. The rutledge-white junction is preserved. There is no evidence of eubanks bacute ischemic change. The basilar cisterns are clear. There is an old left craniotomy site. The paranasal sinuses and mast oid air cells are clear. IMPRESSION: There is bilateral cortical atrophy as described above. There is an old left craniotomy site. No acute abnormality identified. Reported By:
--- NOTE | 2016-11-26 20:21 | RAD ---
HISTORY: Altered mental status, nausea confusion Study: Single-view chest Comparison: October 23, 2016 Findings: The trachea is midline. The cardiac silhouette is unremarkable. The lungs demonstrate stable chron ic interstitial changes without focal infiltrate or effusion. The bony thorax is unremarkable. IMPRESSION: 1. No acute cardiopulmonary disease. Reported By:
[2016-11-26 21:00] LABS: AMMONIA < 10 umol/L (11-32)
[2016-11-26 21:11] LABS: CKMB % 1.1 % (<4); CREATINE KINASE 159 Units/L (26-192); CREATINE KINASE MB 1.7 ng/mL (0-4.0); TROPONIN I < 0.02 ng/mL (0-1.5)
== END 2016-11-26 22:20 | disposition home or self-care (01) ==
LOC: ER 18:05
DX: G31.9 Degenerative disease of nervous system, unspecified (principal); R11.0 Nausea; R41.0 Disorientation, unspecified
CPT/HCPCS: 36415; 51701; 70450; 71010; 80053; 80307; 81001; 82140; 82550; 82553; 84484; 85025; 85610; 86140; 93005; 93010; 96365; 96367; 96374; 96375; 99283; A4222; G0434; J1885; J2060; J2550

== ENCOUNTER → 2017-02-22 | Outpatient (CLI) | payer MEDICAID ==
--- NOTE | 2017-02-23 08:52 | VAS ---
History: Leg pain and atherosclerosis Study: Ankle brachial index Comparison: None Findings: There are normal right and left brachial indices to the upper thigh and lower thigh and braulio f and ankle bilaterally ranging between 0.86 to 1.06. There is triphasic flow in the upper thigh and right popliteal artery. There is biphasic flow in the left popliteal and left dorsalis pedis. There is monophasic flow in the posterior tibial artery bilat erally Impression: Normal pressure indices bilaterally but monophasic Doppler flow at the ankles. Reported By:
--- NOTE | 2017-02-23 10:16 | MG ---
HISTORY: SCREENING Comparison: September 21, 2009 FINDINGS: Bilateral CC and MLO projections of the right and left breast were obtained. Scattered fibroglandula r tissue is seen to be present with overall diffuse decreased density as compared to the prior. No s uspicious architectural distortion, mass or clustered microcalcifications can be observed to suggest malignancy. No skin thickening or nipple retraction is appreciated. No pathological lymphadenopath y can be identified. Benign-appearing calcifications are noted within the right and left breast. IMPRESSION: NO RADIOGRAPHIC EVIDENCE OF MALIGNANCY. ACR CATEGORY 2 - benign findings. FOLLOW-UP EXAM 1 YEAR. Diagnostic CAD was utilized and reviewed. * 0 (ZERO) - ASSESSMENT INCOMPLETE; ADDITIONAL IMAGING IS NEEDED. * 1/1 (ONE) - NEGATIVE. * 2/II (TWO) - BENIGN FINDINGS. * 3/III (THREE) - PROBABLY BENIGN FINDING; SHORT INTERVAL FOLLOW-UP SUGGESTED. * 4/IV (FOUR) - SUSPICIOUS ABNORMALITY; BIOPSY SHOULD BE CONSIDERED. * 5/V (FIVE) - HIGHLY SUSPICIOUS OF MALIGNANCY; BIOPSY SHOULD BE PERFORMED. A NEGATIVE X-RAY REPORT SHOULD NOT DELAY BIOPSY IF A DOMINANT OR CLINICALLY SUSPICIOUS MASS IS PRESENT; 4 TO 8 PERCENT OF CANCERS ARE NOT IDENTIFIED BY X-RAY. A NEGA TIVE REPORT MAY REINFORCE THE CLINICAL IMPRESSION. ADENOSIS AND DENSE BREASTS MAY OBSCURE AN UNDERLY ING NEOPLASM. Reported By:
== END ==
LOC: RAD 14:06
PROVIDERS: ATTEND Internal Medicine
DX: I70.213 Atherosclerosis of native arteries of extremities with intermittent claudication, bilateral legs (principal); Z12.31 Encounter for screening mammogram for malignant neoplasm of breast
CPT/HCPCS: 77067; 93923

== ENCOUNTER → 2017-03-13 | Outpatient (CLI) | payer MEDICAID ==
[2017-03-13 14:59] LABS: BILIRUBIN,URINE NEGATIVE (NEGATIVE); BLOOD/HEMOGLOBIN,URINE NEGATIVE (NEGATIVE); GLUCOSE, URINE NEGATIVE (NEGATIVE); KETONES,URINE NEGATIVE (NEGATIVE); LEUKOCYTE ESTERASE ,URINE NEGATIVE (NEGATIVE); NITRITES,URINE NEGATIVE (NEGATIVE); PROTEIN,URINE NEGATIVE (NEGATIVE); UROBILINOGEN,URINE NORMAL (NORMAL)
[2017-03-13 15:01] LABS: BASOPHILS # (AUTO) 0.1 X10^3/uL (0.0-0.1); BASOPHILS % (AUTO) 0.8 % (0.2-1.0); EOSINOPHILS # (AUTO) 0.3 x10^3/uL (0.0-0.2); EOSINOPHILS % (AUTO) 2.8 % (0.9-2.9); HEMOGLOBIN 14.5 g/dL (12.0-16.0); LYMPHOCYTES # (AUTO) 5.5 X10^3/uL (1.3-2.9); LYMPHOCYTES % (AUTO) 50.4 % (21.0-51.0); MEAN CORPUSCULAR HEMOGLOBIN 31.2 pg (27.0-34.0); MEAN CORPUSCULAR HGB CONC 33.7 g/dL (33.0-35.0); MEAN CORPUSCULAR VOLUME 92.7 fL (80.0-100.0); MEAN PLATELET VOLUME 9.1 fL (7.4-11.0); MONOCYTES # (AUTO) 0.8 x10^3/uL (0.3-0.8); MONOCYTES % (AUTO) 6.9 % (0.0-13.0); NEUTROPHILS # (AUTO) 4.3 x10^3/uL (2.2-4.8); NEUTROPHILS % (AUTO) 39.1 % (42.0-75.0); PLATELET COUNT 290 X10^3/uL (150.0-450.0); RED BLOOD COUNT 4.64 X10^6/uL (3.5-5.4); RED CELL DISTRIBUTION WIDTH 13.6 % (11.6-16.5)
[2017-03-13 15:20] LABS: ALANINE AMINOTRANSFERASE 24 Units/L (12-78); ALKALINE PHOSPHATASE 89 Units/L (46-116); ASPARTATE AMINO TRANSFERASE 23 Units/L (15-37); BLOOD UREA NITROGEN 9 mg/dL (7-18); CALCIUM 9.3 mg/dL (8.5-10.1); CHLORIDE 107 mmol/L (98-107); CREATININE 0.77 mg/dL (0.55-1.02); SODIUM 145 mmol/L (136-145); TOTAL PROTEIN 7.7 g/dL (6.4-8.2); TSH (3RD GENERATION) 6.089 uIU/mL (0.358-3.74); eGFR BLACK RACES > 60 (>60); eGFR NON BLACK RACES > 60 (>60)
[2017-03-13 16:04] LABS: APPEARANCE,URINE CLEAR (CLEAR); COLOR,URINE PALE YELLOW (YELLOW)
== END ==
LOC: LAB 14:26
PROVIDERS: ATTEND Internal Medicine
DX: I10 Essential (primary) hypertension (principal); E03.8 Other specified hypothyroidism
CPT/HCPCS: 36415; 80053; 81003; 84443; 85025

== ENCOUNTER 2017-04-21 18:38 | Emergency (ER) | payer MEDICAID ==
[2017-04-21 18:47] VITALS: BP 119/60; BMI 22.6
--- NOTE | 2017-04-22 06:32 | DR.GENAD ---
HPI - PCP Primary Care Physician: Fermin - Complaint/Symptoms Chief Complaint:: bit by insects Self Treatment fo Chief Complaint: calamin lotion - Source History Provided: Patient - Mode of Arrival Mode of Arrival: Ambulatory - Timing Onset of Chief Complaint: 04/21/17 PMH - PMH Past Medical History: Yes Past Medical History: Asthma, COPD, Hypothyroidism Past Surgical History: Yes Surgical History: Neurosurgery - Family History History of Family Medical Conditions: Yes Family Medical History: Diabetes Mellitus, Cancer, [place] - Social History Does patient currently use any type of tobacco product: Yes Have you used tobacco products in the last 12 months: Yes Type of Tobacco Use: Cigarettes Does any household member use tobacco: No Alcohol Use: None Do you use any recreational Drugs:: No Lives With: Family Lives Where: Home - infectious screening In the last 2 months have you had wt loss of >10#?: NO Have you had fever, night sweats or hemotysis?: No Have you traveled outside the country in the last 6 months?: No Isolation: Standard PE - Vital Signs Vitals: Temperature 97.9 F Pulse Rate 82 Respiratory Rate 18 Blood Pressure [Right Arm] 109/68 Blood Pressure [Left Arm] 87/51 Blood Pressure 119/60 O2 Sat by Pulse Oximetry 96 - Discharge Plan Disposition: LWBS After Triage Condition: Stable - Follow ups/Referrals Follow ups/Referrals: JORDI BUTT [Primary Care Provider] - 3 days - Instructions
== END 2017-04-21 19:45 | disposition left against medical advice (07) ==
LOC: ER 18:48
DX: S60.561A Insect bite (nonvenomous) of right hand, initial encounter (principal); S60.562A Insect bite (nonvenomous) of left hand, initial encounter; W57.XXXA Bitten or stung by nonvenomous insect and other nonvenomous arthropods, initial encounter
CPT/HCPCS: 99281

== ENCOUNTER → 2017-05-18 | Outpatient (CLI) | payer MEDICAID ==
[2017-04-21 18:47] VITALS: BP 119/60
[2017-05-18 16:14] LABS: BASOPHILS # (AUTO) 0.1 X10^3/uL (0.0-0.1); EOSINOPHILS # (AUTO) 0.1 x10^3/uL (0.0-0.2); EOSINOPHILS % (AUTO) 0.8 % (0.9-2.9); HEMATOCRIT 41.4 % (36.0-47.0); HEMOGLOBIN 13.9 g/dL (12.0-16.0); LYMPHOCYTES # (AUTO) 4.1 X10^3/uL (1.3-2.9); LYMPHOCYTES % (AUTO) 31.8 % (21.0-51.0); MEAN CORPUSCULAR HEMOGLOBIN 31.2 pg (27.0-34.0); MEAN CORPUSCULAR HGB CONC 33.7 g/dL (33.0-35.0); MEAN CORPUSCULAR VOLUME 92.7 fL (80.0-100.0); MEAN PLATELET VOLUME 9.3 fL (7.4-11.0); MONOCYTES # (AUTO) 0.6 x10^3/uL (0.3-0.8); MONOCYTES % (AUTO) 4.8 % (0.0-13.0); NEUTROPHILS % (AUTO) 61.6 % (42.0-75.0); PLATELET COUNT 317 X10^3/uL (150.0-450.0); RED BLOOD COUNT 4.47 X10^6/uL (3.5-5.4); RED CELL DISTRIBUTION WIDTH 13.6 % (11.6-16.5); WHITE BLOOD COUNT 12.9 X10^3/uL (3.6-10.0)
[2017-05-18 16:28] LABS: ALANINE AMINOTRANSFERASE 22 Units/L (12-78); ALBUMIN 4.1 g/dL (3.4-5.0); ALKALINE PHOSPHATASE 85 Units/L (46-116); ASPARTATE AMINO TRANSFERASE 20 Units/L (15-37); BLOOD UREA NITROGEN 9 mg/dL (7-18); CARBON DIOXIDE 29.2 mmol/L (21-32); CHLORIDE 108 mmol/L (98-107); COR NA(FOR HYPERGLY) 146 mmol/L (136-145); CREATININE 0.71 mg/dL (0.55-1.02); SODIUM 145 mmol/L (136-145); TOTAL PROTEIN 7.2 g/dL (6.4-8.2); TSH (3RD GENERATION) 0.133 uIU/mL (0.358-3.74); eGFR BLACK RACES > 60 (>60); eGFR NON BLACK RACES > 60 (>60)
== END ==
LOC: LAB 15:47
PROVIDERS: ATTEND Internal Medicine
DX: E03.8 Other specified hypothyroidism (principal); I10 Essential (primary) hypertension
CPT/HCPCS: 36415; 80053; 84443; 85025

== ENCOUNTER 2017-06-03 16:16 | Emergency (ER) | payer MEDICAID ==
[2017-06-03 16:30] VITALS: BP 94/55; BMI 22.6
--- NOTE | 2017-06-03 16:53 | DR.GENAD ---
HPI - PCP Primary Care Physician: DAQUAN - Complaint/Symptoms Chief Complaint Doctors Comments: Patient attempted to sit on the commode and sat on the floor and bruise her tailbone. She comlaine of pain. She saw her primary care physician a few days ago Chief Complaint:: PT STATES SHE WENT TO THE BATHROOM AND THINKS SHE MUST HAVE BLACKED OUT AND HIT THE EDGE OF HER "TAIL" ON THE TOILET. PT STATES THIS HAPPENED ON THE AND SHE SAW DR. BUTT ON THE May. DR. BUTT INFORMED HER SHE HAD BRUISED IT. - Source History Provided: Patient - Mode of Arrival Mode of Arrival: Ambulatory - Timing Onset of Chief Complaint: 05/28/17 PMH - PMH Past Medical History: Yes Past Medical History: Asthma, COPD, Hypothyroidism Past Surgical History: Yes Surgical History: Neurosurgery - Family History History of Family Medical Conditions: Yes Family Medical History: Diabetes Mellitus, Cancer, [place] - Social History Does patient currently use any type of tobacco product: Yes Have you used tobacco products in the last 12 months: Yes Type of Tobacco Use: Cigarettes How many years tobacco product used: 45 Does any household member use tobacco: No Alcohol Use: None Do you use any recreational Drugs:: No Lives With: Family Lives Where: Home - infectious screening In the last 2 months have you had wt loss of >10#?: NO Have you had fever, night sweats or hemotysis?: No Have you traveled outside the country in the last 6 months?: No Isolation: Standard ROS - Review of Systems Eyes: No Symptoms Reported ENTM: No Symptoms Reported Respiratoy: No Symptoms Reported Cardiovascular: No Symptoms Reported Gastrointestinal/Abdominal: No Symptoms Reported Genitourinary: No Symptoms Reported Neurological: No Symptoms Reported Musculoskeletal: No Symptoms Reported Integumentary: No Symptoms Reported Hematologic/Lymphatic: No Symptoms Reported Endocrine: No Symptoms Reported Psychiatric: No Symptoms Reported All Other Systems: Reviewed and Negative PE - Vital Signs Vitals: Temperature 98.3 F Pulse Rate 86 Respiratory Rate 20 Blood Pressure [Right Arm] 109/68 Blood Pressure [Left Arm] 87/51 Blood Pressure 94/55 O2 Sat by Pulse Oximetry 97 - General General Appearance: Alert, In No Apparent Distress - Head Head Exam: Normal Inspection, Atraumatic - Eyes Eye exam: Normal Appearance, PERRL, EOMI - ENT ENT Exam: Normal Exam External Ear Exam: Normal External Inspection TM/Canal Exam: Bilateral Normal Nose Exam: Normal Nose Exam Mouth Exam: Normal Inspection Throat Exam: Normal Inspection - Neck Neck Exam: Normal Inspection - Chest Chest Inspection: Normal Inspection, Symmetric Chest Wall Rise - Respiratory Respiratory Exam: Normal Lung Sounds Bilat Respiratory Exam: Bilateral Clear to Auscultation - Cardiovascular Cardiovascular Exam: Regular Rate, Normal Rhythm - Abdominal Exam Abdominal Exam: Normal Inspection, Normal Bowel Sounds Abdominal Tenderness: negative: RUQ, RLQ, LUQ, LLQ, Epigastrium, Suprapubic, Diffuse, Mild, Moderate, Severe, Other - Extremities Extremities Exam: Normal Inspection, Full ROM - Back Back Exam: Normal Inspection - Neurologic Neurological Exam: Alert, Oriented X3, CN II-XII Intact - Psychiatric Psychiatric Exam: Normal Affect, Normal Mood - Skin Skin Exam: Warm, Dry, Intact - Other Exam Other Exam: Palpation of the coccxy is painful to palpation - Diagnosis Discharge Problem: Contusion of coccyx Qualifiers: Encounter type: initial encounter Qualified Code(s): S30.0XXA - Contusion of lower back and pelvis, initial encounter - Discharge Plan Condition: Stable - Follow ups/Referrals Follow ups/Referrals: JORDI BUTT [Primary Care Provider] - 3 days - Instructions
== END 2017-06-03 17:01 | disposition home or self-care (01) | DRG 605 ==
LOC: ER 16:30
DX: S30.0XXA Contusion of lower back and pelvis, initial encounter (principal); W18.39XA Other fall on same level, initial encounter; Y93.E8 Activity, other personal hygiene; Y92.091 Bathroom in other non-institutional residence as the place of occurrence of the external cause
CPT/HCPCS: 99281; 99283

== ENCOUNTER 2017-07-27 19:56 | Emergency (ER) | payer MEDICAID ==
[2017-07-27 20:03] VITALS: BP 115/59; BMI 22.6
[2017-07-27] MEDS ORDERED: SILVADENE ONE (20:22)
--- NOTE | 2017-07-27 20:25 | DR.GENAD ---
HPI - PCP Primary Care Physician: DAQUAN - Complaint/Symptoms Chief Complaint Doctors Comments: Patient burned the left hand dorsum less than one hour ago. Admits to pain of the left hand. Chief Complaint:: BURNED LEFT ANTERIOR HAND WHILE FRYING [employer] Self Treatment fo Chief Complaint: ALOE PLANT - Source History Provided: Patient - Mode of Arrival Mode of Arrival: Ambulatory - Timing Onset of Chief Complaint: 07/27/17 PMH - PMH Past Medical History: Yes Past Medical History: Asthma Past Medical History Comment: INHALER Past Surgical History: Yes Surgical History: Neurosurgery Past Surgical History Comment: BRAIN SURGERY; RIGHT RINGER TIP AMPUTATION - Family History History of Family Medical Conditions: No Family Medical History: Diabetes Mellitus, Cancer, [place] - Social History Alcohol Use: None Do you use any recreational Drugs:: No Lives Where: Home - infectious screening In the last 2 months have you had wt loss of >10#?: NO Have you had fever, night sweats or hemotysis?: No Have you traveled outside the country in the last 6 months?: No Isolation: Standard ROS - Review of Systems Eyes: No Symptoms Reported ENTM: No Symptoms Reported Respiratoy: No Symptoms Reported Cardiovascular: No Symptoms Reported Gastrointestinal/Abdominal: No Symptoms Reported Genitourinary: No Symptoms Reported Neurological: No Symptoms Reported Musculoskeletal: No Symptoms Reported Integumentary: No Symptoms Reported Hematologic/Lymphatic: No Symptoms Reported Endocrine: No Symptoms Reported Psychiatric: No Symptoms Reported All Other Systems: Reviewed and Negative PE - Vital Signs Vitals: Temperature 98.8 F Pulse Rate 98 Respiratory Rate 24 Blood Pressure [Right Arm] 109/68 Blood Pressure [Left Arm] 87/51 Blood Pressure 115/59 O2 Sat by Pulse Oximetry 96 - General Limitations: No Limitations General Appearance: Alert, In No Apparent Distress - Head Head Exam: Normal Inspection, Atraumatic - Eyes Eye exam: Normal Appearance, PERRL, EOMI - ENT ENT Exam: Normal Exam External Ear Exam: Normal External Inspection TM/Canal Exam: Bilateral Normal Nose Exam: Normal Nose Exam Mouth Exam: Normal Inspection Throat Exam: Normal Inspection - Neck Neck Exam: Normal Inspection, Full ROM - Chest Chest Inspection: Normal Inspection, Symmetric Chest Wall Rise - Respiratory Respiratory Exam: Normal Lung Sounds Bilat Respiratory Exam: Bilateral Clear to Auscultation - Cardiovascular Cardiovascular Exam: Regular Rate, Normal Rhythm - Abdominal Exam Abdominal Exam: Normal Inspection Abdominal Tenderness: negative: RUQ, RLQ, LUQ, LLQ, Epigastrium, Suprapubic, Diffuse, Mild, Moderate, Severe, Other - Extremities Extremities Exam: Normal Inspection, Full ROM - Back Back Exam: Normal Inspection - Neurologic Neurological Exam: Alert, Oriented X3, CN II-XII Intact - Psychiatric Psychiatric Exam: Normal Affect, Depressed - Skin Skin Exam: Normal Color (admits to burn of lef hand hand dorsum, no blister formation) - Diagnosis Discharge Problem: First degree burn - Discharge Plan Condition: Stable - Follow ups/Referrals Follow ups/Referrals: JORDI BUTT [Primary Care Provider] - 3 days - Instructions
[2017-07-27] MEDS ORDERED: SILVADENE TOP ONE (20:27)
[2017-07-27] MEDS ORDERED: SILVADENE TOP NR (21:00)
== END 2017-07-27 20:33 | disposition home or self-care (01) ==
LOC: ER 20:05
PROC: 2W2FX4Z Dressing of Left Hand using Bandage (ICD-10-PCS; principal; 2017-07-27)
DX: T23.102A Burn of first degree of left hand, unspecified site, initial encounter (principal); X12.XXXA Contact with other hot fluids, initial encounter
CPT/HCPCS: 99282

== ENCOUNTER 2017-08-04 13:16 | Emergency (ER) | payer MEDICAID ==
[2017-08-04 13:24] VITALS: BP 129/61; BMI 22.4
[2017-08-04] MEDS ORDERED: ADACEL TDaP IM ONE ×2 (14:38→14:45)
[2017-08-04] MEDS ORDERED: BACTRIM DS TAB PO ONE ×2 (14:39→14:44)
[2017-08-04] MEDS ORDERED: KEFLEX CAP 500 MG PO ONE ×2 (14:39→14:44)
--- NOTE | 2017-08-04 14:44 | DR.GENAD ---
HPI - PCP Primary Care Physician: DAQUAN - Complaint/Symptoms Chief Complaint Doctors Comments: Patient states she burnt her hand last Sunday on grease and came to the emergency room and they told her to use Silverdine but she went to see dDr. Butt and he told her to use peroxide. states she has been washing her hand with Betadine and putting perioxide on the burn but now it is hurting. states she did not get a tetanus shot and she do not know when she had her last tetanus shot. States her pain is 8 of 10. she denies fever, chills, nausea or vomiting. Chief Complaint:: PT/CO BURN TO THE LT HAND THAT HAPPEN LAST SUNDAY. PT STATES SHE BURNT HER HAND WITH GREASE. PT STATES SHE SEEN HER PCP THIS PAST SUNDAY. PT STATES THE PAIN AND REDNESS IS GETT WORSE. - Nurses notes reviewed Nurses Notes Review: Yes - Source History Provided: Patient - Mode of Arrival Mode of Arrival: Ambulatory - Timing Onset of Chief Complaint: 07/27/17 Came on: Gradually - Duration Duration: Constant How lon Duration: Days - Location Location: left hand and wrist - Severity Severity: Moderate - Modifying Factors Worsens:: nothing Improves:: nothing PMH - PMH Past Medical History: Yes Past Medical History: Asthma Past Surgical History: Yes Surgical History: Neurosurgery - Family History History of Family Medical Conditions: Yes Family Medical History: Diabetes Mellitus, Cancer, [place] - Social History Does patient currently use any type of tobacco product: Yes Have you used tobacco products in the last 12 months: Yes Type of Tobacco Use: Cigarettes Does any household member use tobacco: Yes Alcohol Use: None Do you use any recreational Drugs:: No Lives With: Family Lives Where: Home - infectious screening In the last 2 months have you had wt loss of >10#?: NO Have you had fever, night sweats or hemotysis?: No Have you traveled outside the country in the last 6 months?: No Isolation: Standard ROS - Review of Systems Constitutional: No Symptoms Reported Eyes: No Symptoms Reported ENTM: No Symptoms Reported Respiratoy: No Symptoms Reported. negative: See HPI, Productive Cough, Non- Productive Cough, Moist Cough, Dry Cough, Hacking Cough, Barking Cough, Brassy Cough, Orthopnea, Short of Breath, Stridor, Wheezing, Hemoptysis, Other Cardiovascular: No Symptoms Reported Gastrointestinal/Abdominal: No Symptoms Reported. negative: See HPI, Abdominal Pain, Constipation, Diarrhea, Nausea, Vomiting, Food Intolerance, Other Genitourinary: No Symptoms Reported Neurological: No Symptoms Reported Musculoskeletal: No Symptoms Reported, Left, Wrist, Hand Integumentary: Lesions (burn left hand and wrist) Hematologic/Lymphatic: No Symptoms Reported Endocrine: No Symptoms Reported Psychiatric: No Symptoms Reported PE - Vital Signs Vitals: Temperature 98.0 F Pulse Rate 82 Respiratory Rate 20 Blood Pressure [Right Arm] 109/68 Blood Pressure [Left Arm] 87/51 Blood Pressure 129/61 O2 Sat by Pulse Oximetry 97 - General Limitations: No Limitations General Appearance: Alert, In Distress (mild) - Head Head Exam: Normal Inspection, Atraumatic, Normocephalic - Eyes Eye exam: Normal Appearance, PERRL, EOMI. negative: Scleral Icterus, Conjunctival Injection, Nystagmus, Miosis, Mydrasis, Periorbital Swelling, Periorbital Tenderness, Other - ENT ENT Exam: Normal Exam, Normal Oropharynx, Normal External Ear Exam, Mucous Membranes Moist, TM's Normal Bilaterally External Ear Exam: Normal External Inspection TM/Canal Exam: Bilateral Normal Nose Exam: Normal Nose Exam Mouth Exam: Normal Inspection Throat Exam: Normal Inspection. negative: Tonsillar Erythema, Tonsillomegaly, Tonsillar Exudate, R Peritonsillar Mass, L Peritonsillar Mass, Muffled Voice, Other - Neck Neck Exam: Normal Inspection, Full ROM, Trachea Midline. negative: Tenderness, Meningismus, Lymphadenopathy, Thyromegaly, Other - Chest Chest Inspection: Normal Inspection, Symmetric Chest Wall Rise - Respiratory Respiratory Exam: Normal Lung Sounds Bilat Respiratory Exam: Bilateral Clear to Auscultation - Cardiovascular Cardiovascular Exam: Regular Rate, Normal Rhythm, Normal Heart Sounds - Abdominal Exam Abdominal Exam: Normal Inspection, Normal Bowel Sounds, Soft. negative: Distention, Tenderness, Guarding, Rebound, Rigidity, Dimnished Bowel Sounds, Hyperactive Bowel Sounds, Hypoactive Bowel Sounds, Organomegaly, Trauma, Incision, Ascites, Mass, Bruit, Pulsatile Mass, Hernia, Other Abdominal Tenderness: negative: RUQ, RLQ, LUQ, LLQ, Epigastrium, Suprapubic, Diffuse, Mild, Moderate, Severe, Other - Extremities Extremities Exam: Normal Inspection, Full ROM, Tenderness (left wrist with healing burn with 4-6 cm area crusting; peeling skin; no discharge), Normal Capillary Refill - Back Back Exam: Normal Inspection, Full ROM - Neurologic Neurological Exam: Alert, Oriented X3, CN II-XII Intact, Normal Gait, Reflexes Normal - Psychiatric Psychiatric Exam: Normal Affect, Normal Mood - Skin Skin Exam: Warm, Dry, Intact, Normal Color, Erythema (left wrist with burn.) - Diagnosis Discharge Problem: early cellulitis Burn of wrist, left, second degree Qualifiers: Encounter type: subsequent encounter Qualified Code(s): T23.272D - Burn of second degree of left wrist, subsequent encounter - Discharge Plan Disposition: HOME, SELF-CARE Condition: Stable Prescriptions: Cephalexin [KEFLEX CAP 500 MG *] 500 mg PO TID #30 cap Ibuprofen [MOTRIN TAB 800 MG *] 800 mg PO Q8H PRN #45 tab PRN Reason: Pain/Inflammation Mupirocin Oint [BACTROBAN OINT 2%] 1 applic EXT BID #22 gm - Follow ups/Referrals Follow ups/Referrals: ARNOLD BUTT [Primary Care Provider] - 3 days ENRICO LAI [STAFF PHYSICIAN] - 3 days - Instructions Instructions: Burn Care, [id number], Second-Degree Burn, Cellulitis, Adult, [id number]
[2017-08-04] MEDS ORDERED: BACTROBAN OINT TOP ONE (14:55)
[2017-08-04] MEDS ORDERED: BACITRACIN ZINC ONE (14:55)
== END 2017-08-04 14:56 | disposition home or self-care (01) ==
LOC: ER 13:30
DX: T23.272A Burn of second degree of left wrist, initial encounter (principal); L03.90 Cellulitis, unspecified; X12.XXXA Contact with other hot fluids, initial encounter; Y92.9 Unspecified place or not applicable
CPT/HCPCS: 90471; 99282

== ENCOUNTER 2017-08-22 18:12 | Emergency (ER) | payer MEDICAID ==
[2017-08-22 18:22] VITALS: BMI 22.4
--- NOTE | 2017-08-22 19:13 | DR.SOBA ---
HPI - Time Seen Time seen: 19:10 - Primary Care Physician Primary Care Physician: DAQUAN HALL - HPI Comment HPI Comment: WORSE TODAY. COUGH PRODUCTIVE, YELLOW SPUTUM. NO FEVER. CHEST SORENESS FROM COUGHING. - Complaints Chief Complaint Doctors Comments: INCREASING COUGH AND SOB TIMES 2 DAYS. Chief Complaint:: PT C/O THAT A FEW DAYS AGO SHE STARTED [facility], THAT SHE FEELS SOB AND LIKE HER LUNGS ARE SWELLING AND THAT SHE ONLY SMOKED A FEW CIGARETTES ,, , PT TOOK 2 RESP TODAY. - Reviewed Nurses Notes Reviewed: Yes - Source History Provided: Patient - Mode of Arrival Mode of Arrival: Ambulatory - Timing Onset of Chief Complaint: 08/20/17 - Duration Duration: Days - Context Onset:: At Rest, With Light Exertion PE Risk Factors:: None History of:: None Currently on:: Inhaled Bronchodilators Prehospital Care:: Inhaled B2 - Modifying Factors Worsens:: Exertion Improves:: Inhaler, Sitting Up - Associated Signs and Symptoms Associated Signs and Symptoms: Wheeze, Cough, Chest Pain - If Chest Pain Quality: Other (SORENESS) Location: Chest Wall - If Cough Cough: Productive, Yellow PMH - PMH Past Medical History: Yes Past Medical History: Asthma, COPD, Sleep Apnea Past Surgical History: Yes Surgical History: Neurosurgery Past Surgical History Comment: BRAIN ANEURYSMS,. - Family History History of Family Medical Conditions: Yes Family Medical History: Diabetes Mellitus, Cancer, [place] - Social History Does patient currently use any type of tobacco product: Yes Have you used tobacco products in the last 12 months: Yes Type of Tobacco Use: Cigarettes How many years tobacco product used: 46 Does any household member use tobacco: No Alcohol Use: None Do you use any recreational Drugs:: No Lives With: Family Lives Where: Home - infectious screening In the last 2 months have you had wt loss of >10#?: NO Have you had fever, night sweats or hemotysis?: No Have you traveled outside the country in the last 6 months?: No Isolation: Standard ROS - Review of Systems Constitutional: No Symptoms Reported Eyes: No Symptoms Reported ENTM: Nose Congestion. negative: Ear Pain, Nose Discharge, Throat Pain Respiratoy: Productive Cough, Short of Breath, Wheezing. negative: Hemoptysis Gastrointestinal/Abdominal: negative: Abdominal Pain, Diarrhea, Nausea, Vomiting Genitourinary: negative: Dysuria, Frequency, Hematuria Neurological: Headache Musculoskeletal: Muscle Pain Integumentary: No Symptoms Reported Hematologic/Lymphatic: Easy Bruising Endocrine: No Symptoms Reported All Other Systems: Reviewed and Negative PE - Vital Signs Vitals: Temperature 96.9 F Pulse Rate [Left] 65 Pulse Rate 87 Respiratory Rate 18 Blood Pressure [Right Arm] 109/68 Blood Pressure [Left Arm] 121/60 Blood Pressure 101/60 O2 Sat by Pulse Oximetry 98 - General Limitations: No Limitations General Appearance: Alert - Head Head Exam: Normal Inspection - Eyes Eye exam: Normal Appearance - ENT ENT Exam: Normal External Ear Exam - Neck Neck Exam: Trachea Midline - Chest Chest Inspection: Symmetric Chest Wall Rise - Respiratory Respiratory Exam: Normal Lung Sounds Bilat Respiratory Exam: Bilateral Wheezing, Bilateral Rhonchi, Upper Rhonchi, Lower Wheezing, Lower Rhonchi - Cardiovascular Cardiovascular Exam: Regular Rate, Normal Rhythm, Irregular Rhythm - Abdominal Exam Abdominal Exam: Normal Bowel Sounds, Soft. negative: Tenderness - Extremities Extremities Exam: Normal Inspection - Back Back Exam: Normal Inspection - Neurologic Neurological Exam: Alert, Oriented X3 - Psychiatric Psychiatric Exam: Normal Affect, Normal Mood - Skin Skin Exam: Normal Color MDM - Differential Diagnosis Differential Diagnosis: Bronchitis, COPD, Pneumonia Course - Treatment Treatment: SEE ORDERS. - Education/Counseling Education/Counseling: Patient, Education Educated On: Treatment, Diagnosis, Needs for Follow Up ROR - Labs Reviewed Laboratory Results Reviewed?: Yes Result Diagrams: 08/22/17 19:24 08/22/17 19:24 Laboratory: WBC 11.3 X10^3/uL (3.6-10.0) H 08/22/17 19:24 RBC 4.77 X10^6/uL (3.5-5.4) 08/22/17 19:24 Hgb 14.7 g/dL (12.0-16.0) 08/22/17 19:24 Hct 44.3 % (36.0-47.0) 08/22/17 19:24 MCV 92.9 fL (80.0-100.0) 08/22/17 19:24 MCH 30.9 pg (27.0-34.0) 08/22/17 19:24 MCHC 33.3 g/dL (33.0-35.0) 08/22/17 19:24 RDW 13.7 % (11.6-16.5) 08/22/17 19:24 Plt Count 374 X10^3/uL (150.0-450.0) 08/22/17 19:24 MPV 8.6 fL (7.4-11.0) 08/22/17 19:24 Neut % (Auto) 44.8 % (42.0-75.0) 08/22/17 19:24 Lymph % (Auto) 45.3 % (21.0-51.0) 08/22/17 19:24 [place] % (Auto) 7.3 % (0.0-13.0) 08/22/17 19:24 Eos % (Auto) 1.5 % (0.9-2.9) 08/22/17 19:24 Baso % (Auto) 1.1 % (0.2-1.0) H 08/22/17:24 Neut # (Auto) 5.0 x10^3/uL (2.2-4.8) H 08/22/17 19:24 Lymph # (Auto) 5.1 X10^3/uL (1.3-2.9) H 08/22/17 19:24 [place] # (Auto) 0.8 x10^3/uL (0.3-0.8) 08/22/17 19:24 Eos # (Auto) 0.2 x10^3/uL (0.0-0.2) 08/22/17 19:24 Baso # (Auto) 0.1 X10^3/uL (0.0-0.1) 08/22/17 19:24 Absolute Nucleated RBC 0.0 /100WBC 08/22/17 19:24 Sodium 142 mmol/L (136-145) 08/22/17 19:24 Corrected Sodium TNP 08/22/17 19:24 Potassium 4.5 mmol/L (3.5-5.1) 08/22/17 19:24 Chloride 104 mmol/L (98-107) 08/22/17 19:24 Carbon Dioxide 27.7 mmol/L (21-32) 08/22/17 19:24 BUN 11 mg/dL (7-18) 08/22/17 19:24 Creatinine 0.67 mg/dL (0.55-1.02) 08/22/17 19:24 Est GFR (MDRD) Af Amer > 60 (>60) 08/22/17 19:24 Est GFR (MDRD) Non-Af > 60 (>60) 08/22/17 19:24 Glucose 81 mg/dL (65-99) 08/22/17 19:24 Calcium 9.1 mg/dL (8.5-10.1) 08/22/17 19:24 Corrected Calcium TNP 08/22/17 19:24 Total Bilirubin 0.40 mg/dL (0.2-1.0) 08/22/17 19:24 AST 17 Units/L (15-37) 08/22/17 19:24 ALT 22 Units/L (12-78) 08/22/17 19:24 Alkaline Phosphatase 91 Units/L (46-116) 08/22/17 19:24 Total Protein 8.2 g/dL (6.4-8.2) 08/22/17 19:24 Albumin 4.4 g/dL (3.4-5.0) 08/22/17 19:24 Globulin 3.8 g/dL (2.5-4.5) 08/22/17 19:24 Albumin/Globulin Ratio 1.2 Ratio (1.1-2.1) 08/22/17 19:24 Specimen Type Clean catch urine 08/22/17 19:10 Urine Color Yellow (YELLOW) 08/22/17 19:10 Urine Appearance Clear (CLEAR) 08/22/17 19:10 Urine pH 5.0 (5.0 - 8.0) 08/22/17 19:10 Ur Specific [place] 1.015 (1.000-1.030) 08/22/17 19:10 Urine Protein Negative (NEGATIVE) 08/22/17 19:10 Urine Glucose (UA) Negative (NEGATIVE) 08/22/17 19:10 Urine Ketones Negative (NEGATIVE) 08/22/17 19:10 Urine Occult Blood 1+ (NEGATIVE) 08/22/17 19:10 Urine Nitrite Negative (NEGATIVE) 08/22/17 19:10 Urine Bilirubin Negative (NEGATIVE) 08/22/17 19:10 Urine Urobilinogen Normal (NORMAL) 08/22/17 19:10 Ur Leukocyte Esterase Negative (NEGATIVE) 08/22/17 19:10 Urine RBC 0-2 /HPF (NONE SEEN) 08/22/17 19:10 Urine WBC 0-2 /HPF (NONE SEEN) 08/22/17 19:10 Ur Squamous Epith Cells Few /HPF (NEGATIVE) 08/22/17 19:10 Urine Bacteria Negative /HPF (NEGATIVE) 08/22/17 19:10 Ur Culture Indicated? No/not indicated 08/22/17 19:10 - XRAY XRAY Interpreted by: Radiologist XRAY Findings: REPORT DISCUSS WITH PATIENT. - Diagnosis Discharge Problem: Bronchitis COPD (chronic obstructive pulmonary disease) Qualifiers: COPD type: COPD with acute exacerbation Qualified Code(s): J44.1 - Chronic obstructive pulmonary disease with (acute) exacerbation - Discharge Plan Disposition: HOME, SELF-CARE Condition: Stable Prescriptions: Benzonatate [TESSALON PERLES *] 200 mg PO TID PRN #30 cap PRN Reason: Cough Cefdinir [Omnicef Cap 300 mg] 300 mg PO BID #20 cap - Follow ups/Referrals Follow ups/Referrals: JORDI BUTT [Primary Care Provider] - 2 days - Instructions Instructions: Chronic Obstructive Pulmonary Disease Exacerbation, [id number] , Acute Bronchitis, Adult, [id number] Additional Instructions: RETURN TO ED IF WORSE.
[2017-08-22] MEDS ORDERED: TESSALON PERLES PO ONE (19:16)
[2017-08-22] MEDS ORDERED: ROCEPHIN VIAL 1 GM IM ONE (19:17)
[2017-08-22 19:19] LABS: BILIRUBIN,URINE NEGATIVE (NEGATIVE); BLOOD/HEMOGLOBIN,URINE 1+ (NEGATIVE); GLUCOSE, URINE NEGATIVE (NEGATIVE); KETONES,URINE NEGATIVE (NEGATIVE); LEUKOCYTE ESTERASE ,URINE NEGATIVE (NEGATIVE); NITRITES,URINE NEGATIVE (NEGATIVE); PROTEIN,URINE NEGATIVE (NEGATIVE); UROBILINOGEN,URINE NORMAL (NORMAL)
[2017-08-22] MEDS ORDERED: TORADOL 60 MG VIAL IM ONE (19:19)
[2017-08-22 19:22] LABS: APPEARANCE,URINE CLEAR (CLEAR); COLOR,URINE YELLOW (YELLOW)
[2017-08-22 19:26] LABS: BACTERIA,URINE NEGATIVE /HPF (NEGATIVE); RBC,URINE 0-2 /HPF (NONE SEEN); SQUAMOUS EPITHELIAL CELL,UR FEW /HPF (NEGATIVE)
[2017-08-22] MEDS ORDERED: XYLOCAINE 1 % (PLAIN) ONE (19:26)
[2017-08-22] MEDS ORDERED: TORADOL 60 MG VIAL ONE (19:27)
[2017-08-22] MEDS ORDERED: ROCEPHIN VIAL 1 GM ONE (19:27)
[2017-08-22 19:32] LABS: BASOPHILS # (AUTO) 0.1 X10^3/uL (0.0-0.1); BASOPHILS % (AUTO) 1.1 % (0.2-1.0); EOSINOPHILS # (AUTO) 0.2 x10^3/uL (0.0-0.2); EOSINOPHILS % (AUTO) 1.5 % (0.9-2.9); HEMATOCRIT 44.3 % (36.0-47.0); HEMOGLOBIN 14.7 g/dL (12.0-16.0); LYMPHOCYTES # (AUTO) 5.1 X10^3/uL (1.3-2.9); LYMPHOCYTES % (AUTO) 45.3 % (21.0-51.0); MEAN CORPUSCULAR HEMOGLOBIN 30.9 pg (27.0-34.0); MEAN CORPUSCULAR HGB CONC 33.3 g/dL (33.0-35.0); MEAN CORPUSCULAR VOLUME 92.9 fL (80.0-100.0); MEAN PLATELET VOLUME 8.6 fL (7.4-11.0); MONOCYTES # (AUTO) 0.8 x10^3/uL (0.3-0.8); MONOCYTES % (AUTO) 7.3 % (0.0-13.0); NEUTROPHILS % (AUTO) 44.8 % (42.0-75.0); PLATELET COUNT 374 X10^3/uL (150.0-450.0); RED BLOOD COUNT 4.77 X10^6/uL (3.5-5.4); RED CELL DISTRIBUTION WIDTH 13.7 % (11.6-16.5); WHITE BLOOD COUNT 11.3 X10^3/uL (3.6-10.0)
[2017-08-22 19:44] LABS: ALANINE AMINOTRANSFERASE 22 Units/L (12-78); ALBUMIN 4.4 g/dL (3.4-5.0); ALKALINE PHOSPHATASE 91 Units/L (46-116); ASPARTATE AMINO TRANSFERASE 17 Units/L (15-37); BLOOD UREA NITROGEN 11 mg/dL (7-18); CALCIUM 9.1 mg/dL (8.5-10.1); CARBON DIOXIDE 27.7 mmol/L (21-32); CHLORIDE 104 mmol/L (98-107); CREATININE 0.67 mg/dL (0.55-1.02); SODIUM 142 mmol/L (136-145); TOTAL PROTEIN 8.2 g/dL (6.4-8.2); eGFR BLACK RACES > 60 (>60); eGFR NON BLACK RACES > 60 (>60)
--- NOTE | 2017-08-22 20:23 | RAD ---
HISTORY: Cough, cold, congestion, chest pain Study: PA and lateral views of the chest Comparison: 11/26/2016 Findings: No infiltrate, effusion or pneumothorax identified. The cardiac and mediastinal contours are within n ormal limits. The soft tissues are unremarkable. IMPRESSION: 1. No acute cardiopulmonary abnormality. Reported By:
[2017-08-22 21:00] VITALS: BP 121/60
== END 2017-08-22 21:00 | disposition home or self-care (01) ==
LOC: ER 18:27
DX: J40 Bronchitis, not specified as acute or chronic (principal); J44.1 Chronic obstructive pulmonary disease with (acute) exacerbation
CPT/HCPCS: 36415; 71046; 80053; 81001; 85025; 96372; 99283; J0696; J1885; J2001

== ENCOUNTER 2017-12-03 14:54 | Inpatient (IN) ==
[2017-12-03] MEDS ORDERED: NS 1/2 1000 ML IV 1,000 ML IV ONE (15:51)
[2017-12-03] MEDS: ROBITUSSIN DM PO SCH ×2 (16:10→20:17)
[2017-12-03] MEDS: NS 1/2 1000 ML IV 1,000 ML IV SCH (16:10)
[2017-12-03] MEDS: LEVAQUIN PREMIX IV 750 MG 750 MG/150 ML BAG IV SCH (16:10)
[2017-12-03 16:24] LABS: BASOPHILS # (AUTO) 0.1 X10^3/uL (0.0-0.1); BASOPHILS % (AUTO) 0.7 % (0.2-1.0); EOSINOPHILS % (AUTO) 0.1 % (0.9-2.9); HEMOGLOBIN 13.5 g/dL (12.0-16.0); LYMPHOCYTES # (AUTO) 2.8 X10^3/uL (1.3-2.9); LYMPHOCYTES % (AUTO) 18.7 % (21.0-51.0); MEAN PLATELET VOLUME 9.6 fL (7.4-11.0); MONOCYTES # (AUTO) 0.9 x10^3/uL (0.3-0.8); MONOCYTES % (AUTO) 5.9 % (0.0-13.0); NEUTROPHILS # (AUTO) 11.2 x10^3/uL (2.2-4.8); NEUTROPHILS % (AUTO) 74.6 % (42.0-75.0); PLATELET COUNT 357 X10^3/uL (150.0-450.0); RED BLOOD COUNT 4.36 X10^6/uL (3.5-5.4); RED CELL DISTRIBUTION WIDTH 13.6 % (11.6-16.5)
[2017-12-03 16:39] LABS: ALANINE AMINOTRANSFERASE 45 Units/L (12-78); ALKALINE PHOSPHATASE 87 Units/L (46-116); ASPARTATE AMINO TRANSFERASE 42 Units/L (15-37); BLOOD UREA NITROGEN 12 mg/dL (7-18); CALCIUM 9.5 mg/dL (8.5-10.1); CARBON DIOXIDE 30.3 mmol/L (21-32); CHLORIDE 107 mmol/L (98-107); CREATININE 0.63 mg/dL (0.55-1.02); SODIUM 145 mmol/L (136-145); TOTAL PROTEIN 7.7 g/dL (6.4-8.2); eGFR NON BLACK RACES > 60 (>60)
[2017-12-03] MEDS ORDERED: SALINE 3% 15 ML NEB TX ONE (17:02)
[2017-12-03] MEDS ORDERED: SALINE 3% 15 ML NEB TX NEB ONE (17:03)
[2017-12-03 17:17] VITALS: BMI 24.8
[2017-12-03] MEDS ORDERED: NORCO 5/325 MG TAB PO PRN (17:55)
[2017-12-03] MEDS ORDERED: ZOFRAN INJ 4 MG VIAL IVP PRN (18:02)
--- NOTE | 2017-12-03 19:11 | DR.UPDATE ---
H&P Update History and Physical Update: WAS SEEN IN THE OFFICE TODAY BY MADELINE REDDING. AN H&P WAS COMPLETED PRIOR TO ADMISSION. PATIENT HAS BEEN SEEN AND EXAMINED WITH NO CHANGES NOTED TO H&P. Changes noted: NO Yes with the following:
[2017-12-03] MEDS ORDERED: PREVNAR 13 IM ONE (21:00)
[2017-12-03] MEDS: PULMICORT NEB TX 0.5 MG NEB SCH (21:09)
[2017-12-03] MEDS: DUONEB 0.5 MG/3 MG NEB SCH (21:09)
[2017-12-03] MEDS: XANAX PO PRN (21:16)
[2017-12-03] MEDS: DESYREL PO SCH (21:16)
--- NOTE | 2017-12-03 22:01 | RAD ---
HISTORY: Cough Study: PA and lateral Comparison: 11/12/2017 Findings: The heart is normal. The pulmonary vessels are normal. The lungs are mildly hyperinflated. No consoli dation or effusion is seen. The bones are intact. IMPRESSION: Stable chronic changes with no acute abnormality seen. Reported By:
[2017-12-04] MEDS: NORCO 10/325 TAB PO PRN ×3 (00:13→18:44)
[2017-12-04] MEDS: DUONEB 0.5 MG/3 MG NEB SCH ×6 (01:27→20:48)
[2017-12-04 05:36] LABS: BASOPHILS # (AUTO) 0.1 X10^3/uL (0.0-0.1); BASOPHILS % (AUTO) 0.6 % (0.2-1.0); EOSINOPHILS # (AUTO) 0.1 x10^3/uL (0.0-0.2); EOSINOPHILS % (AUTO) 0.7 % (0.9-2.9); HEMATOCRIT 36.2 % (36.0-47.0); HEMOGLOBIN 11.9 g/dL (12.0-16.0); LYMPHOCYTES % (AUTO) 43.4 % (21.0-51.0); MEAN CORPUSCULAR HEMOGLOBIN 31.2 pg (27.0-34.0); MEAN CORPUSCULAR HGB CONC 32.9 g/dL (33.0-35.0); MEAN CORPUSCULAR VOLUME 94.8 fL (80.0-100.0); MEAN PLATELET VOLUME 10.1 fL (7.4-11.0); MONOCYTES # (AUTO) 0.9 x10^3/uL (0.3-0.8); MONOCYTES % (AUTO) 8.2 % (0.0-13.0); NEUTROPHILS # (AUTO) 5.4 x10^3/uL (2.2-4.8); NEUTROPHILS % (AUTO) 47.1 % (42.0-75.0); PLATELET COUNT 300 X10^3/uL (150.0-450.0); RED BLOOD COUNT 3.82 X10^6/uL (3.5-5.4); RED CELL DISTRIBUTION WIDTH 13.6 % (11.6-16.5); WHITE BLOOD COUNT 11.5 X10^3/uL (3.6-10.0)
[2017-12-04 05:56] LABS: ALANINE AMINOTRANSFERASE 39 Units/L (12-78); ALBUMIN 3.2 g/dL (3.4-5.0); ALKALINE PHOSPHATASE 70 Units/L (46-116); ASPARTATE AMINO TRANSFERASE 32 Units/L (15-37); BLOOD UREA NITROGEN 12 mg/dL (7-18); CALCIUM 8.5 mg/dL (8.5-10.1); CARBON DIOXIDE 30.1 mmol/L (21-32); CHLORIDE 108 mmol/L (98-107); COR CA(FOR HYPOALB) 9.1 mg/dL (8.5-10.1); CREATININE 0.59 mg/dL (0.55-1.02); SODIUM 145 mmol/L (136-145); TOTAL PROTEIN 6.3 g/dL (6.4-8.2); eGFR NON BLACK RACES > 60 (>60)
[2017-12-04] MEDS: NS 1/2 1000 ML IV 1,000 ML IV SCH ×3 (06:25→21:38)
--- NOTE | 2017-12-04 06:57 | RAD ---
HISTORY: Shortness of breath Study: Chest AP portable Comparison: 12/03/2017 Findings: The heart is within normal limits in size. The trace are normal. The aorta is calcified. The lungs rem ain hyperinflated but free of acute alveolar infiltrates. No pleural effusions are identified. The zee ny thorax is unremarkable. IMPRESSION: Lungs hyperinflated but clear. Consistent with COPD Reported By:
[2017-12-04] MEDS ORDERED: K-LYTE EFFERVESCENT PO PRN (07:59)
[2017-12-04] MEDS ORDERED: K-RIDER 10 MEQ/NS 100 ML 10 MEQ/100 ML BAG IV PRN (07:59)
[2017-12-04] MEDS ORDERED: POTASSIUM CHL 60 MEQ/NS 0.45% 500 ML IV PRN (07:59)
[2017-12-04] MEDS ORDERED: POTASSIUM CHLORIDE LIQ 20 MEQ UDC PO PRN (07:59)
[2017-12-04] MEDS: ROBITUSSIN DM PO SCH ×4 (08:30→21:38)
[2017-12-04] MEDS: PULMICORT NEB TX 0.5 MG NEB SCH ×2 (08:30→20:48)
[2017-12-04] MEDS: LEVAQUIN PREMIX IV 750 MG 750 MG/150 ML BAG IV SCH (08:30)
[2017-12-04] MEDS ORDERED: QUETIAPINE PO SCH (09:00)
[2017-12-04] MEDS: XANAX PO PRN ×2 (09:54→21:57)
[2017-12-04] MEDS: SYNTHROID 112 mcg TAB PO SCH (09:55)
[2017-12-04] MEDS: SINGULAIR TAB 10 MG PO SCH (09:55)
[2017-12-04] MEDS: NEURONTIN CAP 300 MG PO SCH ×3 (11:07→21:36)
[2017-12-04] MEDS: SOLU-Medrol 40 MG VIAL IVP SCH ×3 (11:07→21:36)
[2017-12-04] MEDS: SEROquel TAB 100 MG PO SCH (11:08)
[2017-12-04] MEDS ORDERED: NS 1/2 1000 ML IV 1,000 ML IV ONE ×2 (13:33→21:04)
[2017-12-04] MEDS: DESYREL PO SCH (21:43)
[2017-12-05] MEDS: DUONEB 0.5 MG/3 MG NEB SCH ×6 (01:00→20:45)
[2017-12-05 05:31] LABS: BASOPHILS % (AUTO) 0.1 % (0.2-1.0); HEMATOCRIT 35.9 % (36.0-47.0); HEMOGLOBIN 11.9 g/dL (12.0-16.0); LYMPHOCYTES # (AUTO) 1.3 X10^3/uL (1.3-2.9); LYMPHOCYTES % (AUTO) 15.5 % (21.0-51.0); MEAN CORPUSCULAR HEMOGLOBIN 31.4 pg (27.0-34.0); MEAN CORPUSCULAR HGB CONC 33.2 g/dL (33.0-35.0); MEAN CORPUSCULAR VOLUME 94.5 fL (80.0-100.0); MEAN PLATELET VOLUME 9.6 fL (7.4-11.0); MONOCYTES # (AUTO) 0.2 x10^3/uL (0.3-0.8); MONOCYTES % (AUTO) 2.6 % (0.0-13.0); NEUTROPHILS # (AUTO) 6.7 x10^3/uL (2.2-4.8); NEUTROPHILS % (AUTO) 81.8 % (42.0-75.0); PLATELET COUNT 282 X10^3/uL (150.0-450.0); RED CELL DISTRIBUTION WIDTH 13.1 % (11.6-16.5); WHITE BLOOD COUNT 8.2 X10^3/uL (3.6-10.0)
[2017-12-05 05:41] LABS: ALANINE AMINOTRANSFERASE 32 Units/L (12-78); ALKALINE PHOSPHATASE 68 Units/L (46-116); ASPARTATE AMINO TRANSFERASE 18 Units/L (15-37); BLOOD UREA NITROGEN 11 mg/dL (7-18); CALCIUM 8.5 mg/dL (8.5-10.1); CARBON DIOXIDE 31.8 mmol/L (21-32); CHLORIDE 106 mmol/L (98-107); COR CA(FOR HYPOALB) 9.3 mg/dL (8.5-10.1); COR NA(FOR HYPERGLY) 143 mmol/L (136-145); SODIUM 142 mmol/L (136-145); TOTAL PROTEIN 6.1 g/dL (6.4-8.2); eGFR NON BLACK RACES > 60 (>60)
[2017-12-05] MEDS: SOLU-Medrol 40 MG VIAL IVP SCH ×3 (06:07→21:12)
[2017-12-05] MEDS: NEURONTIN CAP 300 MG PO SCH ×3 (06:07→21:12)
[2017-12-05] MEDS: SYNTHROID 112 mcg TAB PO SCH (06:47)
--- NOTE | 2017-12-05 07:23 | RAD ---
HISTORY: Shortness of breath Study: Chest AP portable Comparison: 12/04/2017 Findings: The heart is within normal limits in size. The trace are normal. The lungs are hyperinflated but free of acute alveolar infiltrates. No pleural effusions are identified. The bony thorax is unremarkable. IMPRESSION: Lungs hyperinflated but clear, consistent with COPD Reported By:
[2017-12-05] MEDS: LEVAQUIN PREMIX IV 750 MG 750 MG/150 ML BAG IV SCH (08:34)
[2017-12-05] MEDS: ROBITUSSIN DM PO SCH ×4 (08:34→20:45)
[2017-12-05] MEDS: SINGULAIR TAB 10 MG PO SCH (08:34)
[2017-12-05] MEDS: SEROquel TAB 100 MG PO SCH ×3 (08:35→20:45)
[2017-12-05] MEDS: NORCO 10/325 TAB PO PRN (08:40)
[2017-12-05] MEDS: PULMICORT NEB TX 0.5 MG NEB SCH ×2 (09:17→20:46)
--- NOTE | 2017-12-05 12:34 | PCM.PROG ---
Progress Note - Progress Note for Day of Date of Exam: 12/04/17 - Subjective Subjective: WAS ADMITTED FOR BRONCHOPNEUMONIA AND COPD EXACERBATION. TODAY, SHE IS ALERT AND ORIENTED, LYING IN BED ON MORNING ROUNDS. SHE CONTINUES WITH COMPLAINTS OF COUGH AND SHORTNESS OF BREATH. ON EXAMINATION, HEART IS REGULAR IN RATE AND RHYTHM. BILATERAL LUNGS ARE NOTED WITH SCATTERED WHEEZING THROUGHOUT. ABDOMEN IS ROUND, SOFT, AND NON-TENDER WITH NORMAL BOWEL SOUNDS NOTED IN ALL QUADRANTS. HER VITALS THIS MORNING ARE 98.6-97-16-96%NC, 107 /52. LABS WERE OBTAINED. ABNORMAL LAB VALUES INCLUDE THE FOLLOWING: WBC 11.5, HGB 1.9, POTASSIUM 3.4, CHLORIDE 108, TOTAL PROTEIN 6.3, ALBUMIN 3.2. TODAYS CHEST XRAY REVEALED LUNGS HYPERINFLATED BUT CLEAR. CONSISTENT WITH COPD. TODAY, WE WILL START SOLU-MEDROL 40MG IV Q8H. OTHERWISE, WE WILL CONTINUE WITH IV ANTIBIOTICS, RESPIRATORY TREATMENTS, AND CURRENT PLAN OF CARE. WE PLAN TO FOLLOW UP WITH AM LABS AND CONTINUE TO MONITOR PATIENT. - Past Medical Family Social History Past Med/Fam/Surg Hx: No changes since H&P Allergies: Allergies morphine Allergy (Verified 11/12/17 15:43) Penicillins Allergy (Verified 11/12/17 15:43) prednisone Allergy (Verified 11/12/17 15:43) - Review of Systems ROS: No change since H&P - Vital Signs and I&O's Vital Signs: Temperature 97.9 F Pulse Rate [Left Radial] 97 Pulse Rate 74 Respiratory Rate 18 Blood Pressure [Right Arm] 111/59 Blood Pressure [Left Arm] 121/60 Blood Pressure 128/60 O2 Sat by Pulse Oximetry 92 Intake and Output: Intake & Output 12/03/17 12/04/17 12/05/17 12/06/17 11:59 11:59 11:59 11:59 Intake Total 1040 / 1040 1738 / 1738 Balance 1040 / 1040 1738 / 1738 - Physical Exam Oriented: Normal Eyes: Normal Ear: Normal Nose: Normal Throat: Normal Respiratory: Right, Left, Generalized, Wheezes Cardiovascular: Normal. negative: S3, S4, Murmur : Normal Auscultation: Bowel Sounds: Normal Palpation: Normal Tenderness: Normal Skin: Normal Musculoskeletal: Normal Psychiatric: Normal Mood Description: Calm Speech Pattern: Clear, Appropriate - Laboratory and Diagnostics Result Diagrams: 12/05/17 04:47 12/05/17 04:47 Labs: 12/03/17 17:20 Sputum - Expectorated Sputum Sputum Culture - Preliminary 12/03/17 17:20 Sputum - Expectorated Sputum - Final 12/03/17 16:30 Blood Blood Culture - Preliminary 12/03/17 16:10 Blood Blood Culture - Preliminary Laboratory WBC 8.2 X10^3/uL (3.6-10.0) 12/05/17 04:47 RBC 3.80 X10^6/uL (3.5-5.4) 12/05/17 04:47 Hgb 11.9 g/dL (12.0-16.0) L 12/05/17 04:47 Hct 35.9 % (36.0-47.0) L 12/05/17 04:47 MCV 94.5 fL (80.0-100.0) 12/05/17 04:47 MCH 31.4 pg (27.0-34.0) 12/05/17 04:47 MCHC 33.2 g/dL (33.0-35.0) 12/05/17 04:47 RDW 13.1 % (11.6-16.5) 12/05/17 04:47 Plt Count 282 X10^3/uL (150.0-450.0) 12/05/17 04:47 MPV 9.6 fL (7.4-11.0) 12/05/17 04:47 Neut % (Auto) 81.8 % (42.0-75.0) H 12/05/17 04:47 Lymph % (Auto) 15.5 % (21.0-51.0) L 12/05/17 04:47 [place] % (Auto) 2.6 % (0.0-13.0) 12/05/17 04:47 Eos % (Auto) 0.0 % (0.9-2.9) L 12/05/17 04:47 Baso % (Auto) 0.1 % (0.2-1.0) L 12/05/17 04:47 Neut # (Auto) 6.7 x10^3/uL (2.2-4.8) H 12/05/17 04:47 Lymph # (Auto) 1.3 X10^3/uL (1.3-2.9) 12/05/17 04:47 [place] # (Auto) 0.2 x10^3/uL (0.3-0.8) L 12/05/17 04:47 Eos # (Auto) 0.0 x10^3/uL (0.0-0.2) 12/05/17 04:47 Baso # (Auto) 0.0 X10^3/uL (0.0-0.1) 12/05/17 04:47 Absolute Nucleated RBC 0.0 /100WBC 12/05/17 04:47 Sodium 142 mmol/L (136-145) 12/05/17 04:47 Corrected Sodium 143 mmol/L (136-145) 12/05/17 04:47 Potassium 3.7 mmol/L (3.5-5.1) 12/05/17 04:47 Chloride 106 mmol/L (98-107) 12/05/17 04:47 Carbon Dioxide 31.8 mmol/L (21-32) 12/05/17 04:47 BUN 11 mg/dL (7-18) 12/05/17 04:47 Creatinine 0.60 mg/dL (0.55-1.02) 12/05/17 04:47 Est GFR (MDRD) Af Amer > 60 (>60) 12/05/17 04:47 Est GFR (MDRD) Non-Af > 60 (>60) 12/05/17 04:47 Glucose 147 mg/dL (65-99) H 12/05/17 04:47 Calcium 8.5 mg/dL (8.5-10.1) 12/05/17 04:47 Corrected Calcium 9.3 mg/dL (8.5-10.1) 12/05/17 04:47 Magnesium 2.0 mg/dL (1.7-2.9) 12/04/17 04:21 Total Bilirubin 0.20 mg/dL (0.2-1.0) 12/05/17 04:47 AST 18 Units/L (15-37) 12/05/17 04:47 ALT 32 Units/L (12-78) 12/05/17 04:47 Alkaline Phosphatase 68 Units/L (46-116) 12/05/17 04:47 Total Protein 6.1 g/dL (6.4-8.2) L 12/05/17 04:47 Albumin 3.0 g/dL (3.4-5.0) L 12/05/17 04:47 Globulin 3.1 g/dL (2.5-4.5) 12/05/17 04:47 Albumin/Globulin Ratio 1.0 Ratio (1.1-2.1) L 12/05/17 04:47 - Plan (1) Bronchopneumonia Status: Acute Plan: LEVAQUIN 750MG IV DAILY, RESPIRATORY TREATMENTS, SUPPLEMENTAL OXYGEN, CONTINUE TO MONITOR (2) COPD exacerbation Status: Acute Plan: SOLU-MEDROL 40MG IV Q8H, RESPIRATORY TREATMENTS, SUPPLEMENTAL OXYGEN, CONTINUE TO MONITOR
[2017-12-05] MEDS ORDERED: NS 1/2 1000 ML IV 1,000 ML IV ONE (15:12)
[2017-12-05] MEDS: NS 1/2 1000 ML IV 1,000 ML IV SCH (15:21)
[2017-12-05] MEDS: DESYREL PO SCH (20:45)
[2017-12-05] MEDS: XANAX PO PRN (21:12)
[2017-12-06] MEDS: DUONEB 0.5 MG/3 MG NEB SCH ×6 (01:04→21:07)
[2017-12-06] MEDS ORDERED: NS 1/2 1000 ML IV 1,000 ML IV ONE ×2 (02:05→16:29)
[2017-12-06] MEDS: NS 1/2 1000 ML IV 1,000 ML IV SCH ×2 (03:00→16:32)
[2017-12-06 05:16] LABS: BASOPHILS % (AUTO) 0.1 % (0.2-1.0); HEMATOCRIT 34.4 % (36.0-47.0); HEMOGLOBIN 11.5 g/dL (12.0-16.0); LYMPHOCYTES # (AUTO) 1.3 X10^3/uL (1.3-2.9); LYMPHOCYTES % (AUTO) 7.3 % (21.0-51.0); MEAN CORPUSCULAR HEMOGLOBIN 31.7 pg (27.0-34.0); MEAN CORPUSCULAR HGB CONC 33.5 g/dL (33.0-35.0); MEAN CORPUSCULAR VOLUME 94.6 fL (80.0-100.0); MEAN PLATELET VOLUME 10.1 fL (7.4-11.0); MONOCYTES # (AUTO) 0.7 x10^3/uL (0.3-0.8); MONOCYTES % (AUTO) 3.9 % (0.0-13.0); NEUTROPHILS % (AUTO) 88.7 % (42.0-75.0); PLATELET COUNT 291 X10^3/uL (150.0-450.0); RED BLOOD COUNT 3.64 X10^6/uL (3.5-5.4); RED CELL DISTRIBUTION WIDTH 13.8 % (11.6-16.5); WHITE BLOOD COUNT 18.1 X10^3/uL (3.6-10.0)
[2017-12-06 05:26] LABS: ALANINE AMINOTRANSFERASE 33 Units/L (12-78); ALKALINE PHOSPHATASE 63 Units/L (46-116); ASPARTATE AMINO TRANSFERASE 20 Units/L (15-37); BLOOD UREA NITROGEN 10 mg/dL (7-18); CALCIUM 8.6 mg/dL (8.5-10.1); CARBON DIOXIDE 30.3 mmol/L (21-32); CHLORIDE 108 mmol/L (98-107); COR CA(FOR HYPOALB) 9.4 mg/dL (8.5-10.1); COR NA(FOR HYPERGLY) 147 mmol/L (136-145); CREATININE 0.58 mg/dL (0.55-1.02); SODIUM 146 mmol/L (136-145); TOTAL PROTEIN 5.9 g/dL (6.4-8.2); eGFR NON BLACK RACES > 60 (>60)
[2017-12-06] MEDS: NEURONTIN CAP 300 MG PO SCH ×3 (06:01→21:16)
[2017-12-06] MEDS: SOLU-Medrol 40 MG VIAL IVP SCH ×3 (06:02→21:16)
[2017-12-06] MEDS: POTASSIUM CHL 40 MEQ/NS 0.45% 500 ML IV PRN (06:05)
[2017-12-06] MEDS: SYNTHROID 112 mcg TAB PO SCH (06:32)
--- NOTE | 2017-12-06 06:53 | RAD ---
HISTORY: Pneumonia, cough, shortness of breath. Prior history of asthma and colon cancer. Study: Single-view chest Comparison: 12/05/2017. Findings: Trachea is midline. Heart size is normal. There is atherosclerotic calcification of the aortic arch. There is very mild hyperinflation of the lungs without infiltrate, CHF, pleural fluid or pneumothorax . Osseous structures are intact. IMPRESSION: Mild hyperinflation of the lungs without acute abnormality. Reported By:
[2017-12-06] MEDS: ROBITUSSIN DM PO SCH ×4 (08:31→20:40)
[2017-12-06] MEDS: LEVAQUIN PREMIX IV 750 MG 750 MG/150 ML BAG IV SCH (08:31)
[2017-12-06] MEDS: SINGULAIR TAB 10 MG PO SCH (08:32)
[2017-12-06] MEDS: SEROquel TAB 100 MG PO SCH ×2 (08:32→17:05)
[2017-12-06] MEDS: NORCO 10/325 TAB PO PRN ×2 (08:40→17:05)
[2017-12-06] MEDS: PULMICORT NEB TX 0.5 MG NEB SCH ×2 (09:01→21:07)
--- NOTE | 2017-12-06 10:46 | PCM.PROG ---
Progress Note - Progress Note for Day of Date of Exam: 12/05/17 - Subjective Subjective: WAS ADMITTED FOR BRONCHOPNEUMONIA AND COPD EXACERBATION. TODAY, SHE IS ALERT AND ORIENTED, LYING IN BED ON MORNING ROUNDS. SHE CONTINUES WITH COMPLAINTS OF COUGH AND SHORTNESS OF BREATH. SHE REPORTS THAT SYMPTOMS HAVE NOT IMPROVED SINCE YESTERDAY. ON EXAMINATION, HEART IS REGULAR IN RATE AND RHYTHM. BILATERAL LUNGS ARE NOTED WITH SCATTERED WHEEZING THROUGHOUT. ABDOMEN IS ROUND, SOFT, AND NON-TENDER WITH NORMAL BOWEL SOUNDS NOTED IN ALL QUADRANTS. HER VITALS THIS MORNING ARE 97.9-97-18-92%-. LABS WERE OBTAINED. ABNORMAL LAB VALUES INCLUDE THE FOLLOWING: HGB 11.9, HCT 35.9, GLUCOSE 147, TOTAL PROTEIN 6.1, ALBUMIN 3.0. SPUTUM AND BLOOD CULTURES ARE PENDING. TODAYS CHEST XRAY REVEALED LUNGS HYPERINFLATED BUT CLEAR. CONSISTENT WITH COPD. TODAY, WE WILL CONTINUE WITH IV ANTIBIOTICS, RESPIRATORY TREATMENTS, SOLU-MEDROL, AND CURRENT PLAN OF CARE. OTHERWISE, WE PLAN TO FOLLOW UP WITH AM LABS AND CONTINUE TO MONITOR PATIENT. - Past Medical Family Social History Past Med/Fam/Surg Hx: No changes since H&P Allergies: Allergies morphine Allergy (Verified 11/12/17 15:43) Penicillins Allergy (Verified 11/12/17 15:43) prednisone Allergy (Verified 11/12/17 15:43) - Review of Systems ROS: No change since H&P - Vital Signs and I&O's Vital Signs: Temperature 98.4 F Pulse Rate [Left Radial] 104 Pulse Rate 105 Respiratory Rate 20 Blood Pressure [Right Arm] 137/63 Blood Pressure [Left Arm] 121/60 Blood Pressure 128/60 O2 Sat by Pulse Oximetry 90 Intake and Output: Intake & Output 12/03/17 12/04/17 12/05/17 12/06/17 11:59 11:59 11:59 11:59 Intake Total 1040 / 1040 1738 / 1738 3871 / 3871 Balance 1040 / 1040 1738 / 1738 3871 / 3871 - Physical Exam Oriented: Normal Eyes: Normal Ear: Normal Nose: Normal Throat: Normal Respiratory: Right, Left, Generalized, Wheezes Cardiovascular: Normal. negative: S3, S4, Murmur : Normal Auscultation: Bowel Sounds: Normal Palpation: Normal Tenderness: Normal Skin: Normal Musculoskeletal: Normal Psychiatric: Normal Mood Description: Calm Speech Pattern: Clear - Laboratory and Diagnostics Result Diagrams: 12/06/17 04:05 12/06/17 04:05 Labs: 12/03/17 17:20 Sputum - Expectorated Sputum Sputum Culture - Preliminary 12/03/17 17:20 Sputum - Expectorated Sputum - Final 12/03/17 16:30 Blood Blood Culture - Preliminary 12/03/17 16:10 Blood Blood Culture - Preliminary Laboratory WBC 18.1 X10^3/uL (3.6-10.0) H D 12/06/17 04:05 RBC 3.64 X10^6/uL (3.5-5.4) 12/06/17 04:05 Hgb 11.5 g/dL (12.0-16.0) L 12/06/17 04:05 Hct 34.4 % (36.0-47.0) L 12/06/17 04:05 MCV 94.6 fL (80.0-100.0) 12/06/17 04:05 MCH 31.7 pg (27.0-34.0) 12/06/17 04:05 MCHC 33.5 g/dL (33.0-35.0) 12/06/17 04:05 RDW 13.8 % (11.6-16.5) 12/06/17 04:05 Plt Count 291 X10^3/uL (150.0-450.0) 12/06/17 04:05 MPV 10.1 fL (7.4-11.0) 12/06/17 04:05 Neut % (Auto) 88.7 % (42.0-75.0) H 12/06/17 04:05 Lymph % (Auto) 7.3 % (21.0-51.0) L 12/06/17 04:05 [place] % (Auto) 3.9 % (0.0-13.0) 12/06/17 04:05 Eos % (Auto) 0.0 % (0.9-2.9) L 12/06/17 04:05 Baso % (Auto) 0.1 % (0.2-1.0) L 12/06/17 04:05 Neut # (Auto) 16.0 x10^3/uL (2.2-4.8) H 12/06/17 04:05 Lymph # (Auto) 1.3 X10^3/uL (1.3-2.9) 12/06/17 04:05 [place] # (Auto) 0.7 x10^3/uL (0.3-0.8) 12/06/17 04:05 Eos # (Auto) 0.0 x10^3/uL (0.0-0.2) 12/06/17 04:05 Baso # (Auto) 0.0 X10^3/uL (0.0-0.1) 12/06/17 04:05 Absolute Nucleated RBC 0.0 /100WBC 12/06/17 04:05 Sodium 146 mmol/L (136-145) H 12/06/17 04:05 Corrected Sodium 147 mmol/L (136-145) H 12/06/17 04:05 Potassium 3.2 mmol/L (3.5-5.1) L 12/06/17 04:05 Chloride 108 mmol/L (98-107) H 12/06/17 04:05 Carbon Dioxide 30.3 mmol/L (21-32) 12/06/17 04:05 BUN 10 mg/dL (7-18) 12/06/17 04:05 Creatinine 0.58 mg/dL (0.55-1.02) 12/06/17 04:05 Est GFR (MDRD) Af Amer > 60 (>60) 12/06/17 04:05 Est GFR (MDRD) Non-Af > 60 (>60) 12/06/17 04:05 Glucose 123 mg/dL (65-99) H 12/06/17 04:05 Calcium 8.6 mg/dL (8.5-10.1) 12/06/17 04:05 Corrected Calcium 9.4 mg/dL (8.5-10.1) 12/06/17 04:05 Magnesium 2.0 mg/dL (1.7-2.9) 12/04/17 04:21 Total Bilirubin 0.10 mg/dL (0.2-1.0) L 12/06/17 04:05 AST 20 Units/L (15-37) 12/06/17 04:05 ALT 33 Units/L (12-78) 12/06/17 04:05 Alkaline Phosphatase 63 Units/L (46-116) 12/06/17 04:05 Total Protein 5.9 g/dL (6.4-8.2) L 12/06/17 04:05 Albumin 3.0 g/dL (3.4-5.0) L 12/06/17 04:05 Globulin 2.9 g/dL (2.5-4.5) 12/06/17 04:05 Albumin/Globulin Ratio 1.0 Ratio (1.1-2.1) L 12/06/17 04:05 - Plan (1) Bronchopneumonia Status: Acute Plan: LEVAQUIN 750MG IV DAILY, RESPIRATORY TREATMENTS, SUPPLEMENTAL OXYGEN, CONTINUE TO MONITOR (2) COPD exacerbation Status: Acute Plan: SOLU-MEDROL 40MG IV Q8H, RESPIRATORY TREATMENTS, SUPPLEMENTAL OXYGEN, CONTINUE TO MONITOR
[2017-12-06] MEDS: XANAX PO PRN (20:40)
[2017-12-06] MEDS: DESYREL PO SCH (20:40)
[2017-12-07] MEDS: DUONEB 0.5 MG/3 MG NEB SCH ×6 (01:25→21:04)
[2017-12-07] MEDS: NS 1/2 1000 ML IV 1,000 ML IV SCH ×2 (03:15→17:54)
[2017-12-07] MEDS ORDERED: NS 1/2 1000 ML IV 1,000 ML IV ONE ×2 (03:16→17:50)
[2017-12-07 05:44] LABS: BASOPHILS % (AUTO) 0.1 % (0.2-1.0); HEMATOCRIT 32.8 % (36.0-47.0); LYMPHOCYTES # (AUTO) 1.3 X10^3/uL (1.3-2.9); LYMPHOCYTES % (AUTO) 8.7 % (21.0-51.0); MEAN CORPUSCULAR HEMOGLOBIN 31.7 pg (27.0-34.0); MEAN CORPUSCULAR HGB CONC 33.4 g/dL (33.0-35.0); MEAN CORPUSCULAR VOLUME 94.7 fL (80.0-100.0); MEAN PLATELET VOLUME 9.9 fL (7.4-11.0); MONOCYTES # (AUTO) 0.5 x10^3/uL (0.3-0.8); MONOCYTES % (AUTO) 3.4 % (0.0-13.0); NEUTROPHILS # (AUTO) 13.1 x10^3/uL (2.2-4.8); NEUTROPHILS % (AUTO) 87.8 % (42.0-75.0); PLATELET COUNT 247 X10^3/uL (150.0-450.0); RED BLOOD COUNT 3.46 X10^6/uL (3.5-5.4); RED CELL DISTRIBUTION WIDTH 13.5 % (11.6-16.5); WHITE BLOOD COUNT 14.9 X10^3/uL (3.6-10.0)
[2017-12-07 05:58] LABS: ALANINE AMINOTRANSFERASE 29 Units/L (12-78); ALBUMIN 2.7 g/dL (3.4-5.0); ALKALINE PHOSPHATASE 56 Units/L (46-116); ASPARTATE AMINO TRANSFERASE 16 Units/L (15-37); BLOOD UREA NITROGEN 11 mg/dL (7-18); CARBON DIOXIDE 30.1 mmol/L (21-32); CHLORIDE 109 mmol/L (98-107); COR NA(FOR HYPERGLY) 145 mmol/L (136-145); CREATININE 0.61 mg/dL (0.55-1.02); SODIUM 144 mmol/L (136-145); TOTAL PROTEIN 5.4 g/dL (6.4-8.2); eGFR NON BLACK RACES > 60 (>60)
[2017-12-07] MEDS: SOLU-Medrol 40 MG VIAL IVP SCH (06:08)
[2017-12-07] MEDS: SYNTHROID 112 mcg TAB PO SCH (06:08)
[2017-12-07] MEDS: NEURONTIN CAP 300 MG PO SCH ×3 (06:08→22:00)
[2017-12-07] MEDS: SINGULAIR TAB 10 MG PO SCH (08:39)
[2017-12-07] MEDS: LEVAQUIN PREMIX IV 750 MG 750 MG/150 ML BAG IV SCH (08:39)
[2017-12-07] MEDS: ROBITUSSIN DM PO SCH ×4 (08:39→21:01)
[2017-12-07] MEDS: SEROquel TAB 100 MG PO SCH ×2 (08:40→17:13)
[2017-12-07] MEDS: NORCO 10/325 TAB PO PRN ×2 (08:45→20:58)
[2017-12-07] MEDS: XANAX PO PRN (08:45)
[2017-12-07] MEDS: PULMICORT NEB TX 0.5 MG NEB SCH ×2 (08:57→21:04)
[2017-12-07] MEDS: COLACE CAP 100 MG PO SCH (20:57)
[2017-12-07] MEDS: MILK OF MAGNESIA PO SCH ×2 (20:57→21:00)
[2017-12-07] MEDS: DESYREL PO SCH (20:59)
[2017-12-08] MEDS: DUONEB 0.5 MG/3 MG NEB SCH ×6 (00:21→20:33)
[2017-12-08 05:16] LABS: BASOPHILS % (AUTO) 0.2 % (0.2-1.0); HEMATOCRIT 33.7 % (36.0-47.0); HEMOGLOBIN 11.2 g/dL (12.0-16.0); LYMPHOCYTES # (AUTO) 4.9 X10^3/uL (1.3-2.9); LYMPHOCYTES % (AUTO) 27.1 % (21.0-51.0); MEAN CORPUSCULAR HEMOGLOBIN 31.8 pg (27.0-34.0); MEAN CORPUSCULAR HGB CONC 33.2 g/dL (33.0-35.0); MEAN CORPUSCULAR VOLUME 95.7 fL (80.0-100.0); MEAN PLATELET VOLUME 9.4 fL (7.4-11.0); MONOCYTES # (AUTO) 1.2 x10^3/uL (0.3-0.8); MONOCYTES % (AUTO) 6.5 % (0.0-13.0); NEUTROPHILS % (AUTO) 66.2 % (42.0-75.0); PLATELET COUNT 253 X10^3/uL (150.0-450.0); RED BLOOD COUNT 3.52 X10^6/uL (3.5-5.4); RED CELL DISTRIBUTION WIDTH 13.6 % (11.6-16.5); WHITE BLOOD COUNT 18.2 X10^3/uL (3.6-10.0)
[2017-12-08 05:29] LABS: ALANINE AMINOTRANSFERASE 33 Units/L (12-78); ALBUMIN 2.6 g/dL (3.4-5.0); ALKALINE PHOSPHATASE 57 Units/L (46-116); ASPARTATE AMINO TRANSFERASE 25 Units/L (15-37); BLOOD UREA NITROGEN 13 mg/dL (7-18); CALCIUM 7.5 mg/dL (8.5-10.1); CARBON DIOXIDE 32.9 mmol/L (21-32); CHLORIDE 109 mmol/L (98-107); COR CA(FOR HYPOALB) 8.6 mg/dL (8.5-10.1); CREATININE 0.78 mg/dL (0.55-1.02); SODIUM 144 mmol/L (136-145); TOTAL PROTEIN 5.8 g/dL (6.4-8.2); eGFR NON BLACK RACES > 60 (>60)
[2017-12-08] MEDS: NEURONTIN CAP 300 MG PO SCH ×3 (06:00→21:44)
[2017-12-08] MEDS: SYNTHROID 112 mcg TAB PO SCH (07:12)
[2017-12-08] MEDS ORDERED: NS 1/2 1000 ML IV 1,000 ML IV ONE (08:40)
[2017-12-08] MEDS: PULMICORT NEB TX 0.5 MG NEB SCH ×2 (09:38→20:33)
[2017-12-08] MEDS: POTASSIUM CHL 40 MEQ/NS 0.45% 500 ML IV PRN (09:39)
[2017-12-08] MEDS: SINGULAIR TAB 10 MG PO SCH (09:40)
[2017-12-08] MEDS: NS 1/2 1000 ML IV 1,000 ML IV SCH ×2 (09:40→21:44)
[2017-12-08] MEDS: MILK OF MAGNESIA PO SCH ×2 (09:40→21:43)
[2017-12-08] MEDS: SEROquel TAB 100 MG PO SCH ×2 (09:40→17:39)
[2017-12-08] MEDS: ROBITUSSIN DM PO SCH ×4 (09:40→21:44)
[2017-12-08] MEDS: LEVAQUIN PREMIX IV 750 MG 750 MG/150 ML BAG IV SCH (09:41)
[2017-12-08] MEDS: NORCO 10/325 TAB PO PRN ×2 (09:46→19:47)
--- NOTE | 2017-12-08 11:02 | RAD ---
Examination: Chest, PA and lateral views History: Pneumonia, colon cancer Comparison reference 12/06/2017 Findings: Continued normal heart size with essentially clear lungs and pleural spaces. The central pu lmonary vascularity is prominent but this is not a new finding. There is no evidence for metastatic d isease, pulmonary edema or significant pleural effusion. Impression: No definite change or acute findings. Reported By:
[2017-12-08] MEDS: COLACE CAP 100 MG PO SCH (21:43)
[2017-12-08] MEDS: DESYREL PO SCH (21:44)
--- NOTE | 2017-12-08 23:18 | PCM.PROG ---
Progress Note - Progress Note for Day of Date of Exam: 12/08/17 - Subjective Subjective: WAS ADMITTED WITH COPD EXACERBATION. TODAY, SHE IS ALERT AND ORIENTED, LYING IN BED ON MORNING ROUNDS. SHE CONTINUES WITH COMPLAINTS OF NONPRODUCTIVE COUGH AND CONTINUES TO HAVE SHORTNESS OF BREATH. DENIES ANY OTHER COMPLAINTS. - Past Medical Family Social History Past Med/Fam/Surg Hx: No changes since H&P Allergies: Allergies morphine Allergy (Verified 11/12/17 15:43) Penicillins Allergy (Verified 11/12/17 15:43) prednisone Allergy (Verified 11/12/17 15:43) - Review of Systems ROS: No change since H&P - Vital Signs and I&O's Vital Signs: Temperature 98.6 F Pulse Rate [Right Brachial] 87 Pulse Rate [Left Radial] 88 Pulse Rate 78 Respiratory Rate 16 Blood Pressure [Right Arm] 98/53 Blood Pressure [Left Arm] 121/60 Blood Pressure 128/60 O2 Sat by Pulse Oximetry 98 Intake and Output: Intake & Output 12/06/17 12/07/17 12/08/17 12/09/17 11:59 11:59 11:59 11:59 Intake Total 3871 / 3871 2490 / 2490 2080 / 2080 660 / 660 Output Total 200 / 200 Balance 3871 / 3871 2490 / 2490 1880 / 1880 660 / 660 - Physical Exam Oriented: Normal Eyes: Normal Ear: Normal Nose: Normal Throat: Normal Respiratory: Left, Wheezes Cardiovascular: Normal. negative: S3, S4, Murmur : Normal Auscultation: Bowel Sounds: Normal Palpation: Normal Tenderness: Normal Skin: Normal Musculoskeletal: Normal Psychiatric: Normal Mood Description: Calm Affect: Normal Speech Pattern: Clear - Laboratory and Diagnostics Result Diagrams: 12/08/17 04:52 12/08/17 20:50 Labs: 12/03/17 17:20 Sputum - Expectorated Sputum Sputum Culture - Preliminary 12/03/17 17:20 Sputum - Expectorated Sputum - Final 12/03/17 16:30 Blood Blood Culture - Preliminary 12/03/17 16:10 Blood Blood Culture - Preliminary Laboratory WBC 18.2 X10^3/uL (3.6-10.0) H 12/08/17 04:52 RBC 3.52 X10^6/uL (3.5-5.4) 12/08/17 04:52 Hgb 11.2 g/dL (12.0-16.0) L 12/08/17 04:52 Hct 33.7 % (36.0-47.0) L 12/08/17 04:52 MCV 95.7 fL (80.0-100.0) 12/08/17 04:52 MCH 31.8 pg (27.0-34.0) 12/08/17 04:52 MCHC 33.2 g/dL (33.0-35.0) 12/08/17 04:52 RDW 13.6 % (11.6-16.5) 12/08/17 04:52 Plt Count 253 X10^3/uL (150.0-450.0) 12/08/17 04:52 MPV 9.4 fL (7.4-11.0) 12/08/17 04:52 Neut % (Auto) 66.2 % (42.0-75.0) 12/08/17 04:52 Lymph % (Auto) 27.1 % (21.0-51.0) 12/08/17 04:52 [place] % (Auto) 6.5 % (0.0-13.0) 12/08/17 04:52 Eos % (Auto) 0.0 % (0.9-2.9) L 12/08/17 04:52 Baso % (Auto) 0.2 % (0.2-1.0) 12/08/17 04:52 Neut # (Auto) 12.0 x10^3/uL (2.2-4.8) H 12/08/17 04:52 Lymph # (Auto) 4.9 X10^3/uL (1.3-2.9) H 12/08/17 04:52 [place] # (Auto) 1.2 x10^3/uL (0.3-0.8) H 12/08/17 04:52 Eos # (Auto) 0.0 x10^3/uL (0.0-0.2) 12/08/17 04:52 Baso # (Auto) 0.0 X10^3/uL (0.0-0.1) 12/08/17 04:52 Absolute Nucleated RBC 0.0 /100WBC 12/08/17 04:52 Sodium 144 mmol/L (136-145) 12/08/17 04:52 Corrected Sodium TNP 12/08/17 04:52 Potassium 3.9 mmol/L (3.5-5.1) 12/08/17 20:50 Chloride 109 mmol/L (98-107) H 12/08/17 04:52 Carbon Dioxide 32.9 mmol/L (21-32) H 12/08/17 04:52 BUN 13 mg/dL (7-18) 12/08/17 04:52 Creatinine 0.78 mg/dL (0.55-1.02) 12/08/17 04:52 Est GFR (MDRD) Af Amer > 60 (>60) 12/08/17 04:52 Est GFR (MDRD) Non-Af > 60 (>60) 12/08/17 04:52 Glucose 84 mg/dL (65-99) 12/08/17 04:52 Calcium 7.5 mg/dL (8.5-10.1) L 12/08/17 04:52 Corrected Calcium 8.6 mg/dL (8.5-10.1) 12/08/17 04:52 Magnesium 2.0 mg/dL (1.7-2.9) 12/04/17 04:21 Total Bilirubin 0.10 mg/dL (0.2-1.0) L 12/08/17 04:52 AST 25 Units/L (15-37) 12/08/17 04:52 ALT 33 Units/L (12-78) 12/08/17 04:52 Alkaline Phosphatase 57 Units/L (46-116) 12/08/17 04:52 Total Protein 5.8 g/dL (6.4-8.2) L 12/08/17 04:52 Albumin 2.6 g/dL (3.4-5.0) L 12/08/17 04:52 Globulin 3.2 g/dL (2.5-4.5) 12/08/17 04:52 Albumin/Globulin Ratio 0.8 Ratio (1.1-2.1) L 12/08/17 04:52 - Plan (1) Hypokalemia Status: Acute Plan: MONITOR ELECTROLYTES. SUPPLEMENT INDICATED. (2) Hypocalcemia Status: Acute Plan: MONTIOR CMP (3) SOB (shortness of breath) Status: Acute Plan: O2, NEBS (4) COPD exacerbation Status: Acute Plan: SOLU-MEDROL 40MG IV Q8H, RESPIRATORY TREATMENTS, SUPPLEMENTAL OXYGEN, CONTINUE TO MONITOR
[2017-12-09] MEDS: DUONEB 0.5 MG/3 MG NEB SCH ×6 (00:12→20:29)
[2017-12-09 05:06] LABS: BASOPHILS # (AUTO) 0.1 X10^3/uL (0.0-0.1); BASOPHILS % (AUTO) 0.9 % (0.2-1.0); EOSINOPHILS # (AUTO) 0.1 x10^3/uL (0.0-0.2); EOSINOPHILS % (AUTO) 0.9 % (0.9-2.9); HEMATOCRIT 34.1 % (36.0-47.0); HEMOGLOBIN 11.2 g/dL (12.0-16.0); LYMPHOCYTES % (AUTO) 33.2 % (21.0-51.0); MEAN CORPUSCULAR HEMOGLOBIN 31.4 pg (27.0-34.0); MEAN CORPUSCULAR HGB CONC 32.8 g/dL (33.0-35.0); MEAN CORPUSCULAR VOLUME 95.7 fL (80.0-100.0); MEAN PLATELET VOLUME 9.2 fL (7.4-11.0); MONOCYTES # (AUTO) 0.8 x10^3/uL (0.3-0.8); NEUTROPHILS # (AUTO) 9.1 x10^3/uL (2.2-4.8); PLATELET COUNT 237 X10^3/uL (150.0-450.0); RED BLOOD COUNT 3.56 X10^6/uL (3.5-5.4); WHITE BLOOD COUNT 15.1 X10^3/uL (3.6-10.0)
[2017-12-09 05:20] LABS: ALANINE AMINOTRANSFERASE 29 Units/L (12-78); ALBUMIN 2.5 g/dL (3.4-5.0); ALKALINE PHOSPHATASE 59 Units/L (46-116); ASPARTATE AMINO TRANSFERASE 10 Units/L (15-37); BLOOD UREA NITROGEN 10 mg/dL (7-18); CALCIUM 7.5 mg/dL (8.5-10.1); CARBON DIOXIDE 35.1 mmol/L (21-32); CHLORIDE 106 mmol/L (98-107); COR CA(FOR HYPOALB) 8.7 mg/dL (8.5-10.1); CREATININE 0.64 mg/dL (0.55-1.02); SODIUM 145 mmol/L (136-145); TOTAL PROTEIN 5.1 g/dL (6.4-8.2); eGFR NON BLACK RACES > 60 (>60)
[2017-12-09] MEDS: NEURONTIN CAP 300 MG PO SCH ×3 (06:04→22:00)
[2017-12-09] MEDS: SYNTHROID 112 mcg TAB PO SCH (06:04)
[2017-12-09] MEDS: MILK OF MAGNESIA PO SCH ×2 (09:10→20:37)
[2017-12-09] MEDS: LEVAQUIN PREMIX IV 750 MG 750 MG/150 ML BAG IV SCH (09:10)
[2017-12-09] MEDS: SINGULAIR TAB 10 MG PO SCH (09:10)
[2017-12-09] MEDS: ROBITUSSIN DM PO SCH ×4 (09:10→20:37)
[2017-12-09] MEDS: SEROquel TAB 100 MG PO SCH ×2 (09:11→17:00)
[2017-12-09] MEDS: PULMICORT NEB TX 0.5 MG NEB SCH ×2 (09:36→20:29)
--- NOTE | 2017-12-09 16:11 | PCM.PROG ---
Progress Note - Progress Note for Day of Date of Exam: 12/06/17 - Subjective Subjective: WAS ADMITTED FOR BRONCHOPNEUMONIA AND COPD EXACERBATION. TODAY, SHE IS ALERT AND ORIENTED, LYING IN BED ON MORNING ROUNDS. SHE CONTINUES WITH COMPLAINTS OF COUGH AND SHORTNESS OF BREATH. SHE REPORTS THAT COUGH IS SLIGHTLY WORSE TODAY THAN YESTERDAY. ON EXAMINATION, HEART IS REGULAR IN RATE AND RHYTHM. BILATERAL LUNGS ARE NOTED WITH SCATTERED WHEEZING THROUGHOUT. ABDOMEN IS ROUND, SOFT, AND NON-TENDER WITH NORMAL BOWEL SOUNDS NOTED IN ALL QUADRANTS. LABS WERE OBTAINED. ABNORMAL LAB VALUES INCLUDE THE FOLLOWING: WBC 18.1, HGB 11.5, HCT 34.4, SODIUM 146, POTASSIUM 3.2, CHLORIDE 108 , GLUCOSE 123, TOTAL PROTEIN 5.9, ALBUMIN 3.0. SPUTUM AND BLOOD CULTURES ARE PENDING. TODAYS CHEST XRAY REVEALED MILD HYPERINFLATION OF THE LUNGS WITHOUT ACUTE ABNORMALITY. TODAY, WE WILL CONTINUE WITH IV ANTIBIOTICS, RESPIRATORY TREATMENTS, SOLU-MEDROL, AND CURRENT PLAN OF CARE. WE WILL REPLACE HER POTASSIUM WITH THE PROTOCOL. OTHERWISE, WE PLAN TO FOLLOW UP WITH AM LABS AND CONTINUE TO MONITOR PATIENT. - Past Medical Family Social History Past Med/Fam/Surg Hx: No changes since H&P Allergies: Allergies morphine Allergy (Verified 11/12/17 15:43) Penicillins Allergy (Verified 11/12/17 15:43) prednisone Allergy (Verified 11/12/17 15:43) - Review of Systems ROS: No change since H&P - Vital Signs and I&O's Vital Signs: Temperature 98.7 F Pulse Rate [Right Brachial] 77 Pulse Rate [Left Radial] 88 Pulse Rate 80 Respiratory Rate 16 Blood Pressure [Right Arm] 89/51 Blood Pressure [Left Arm] 121/60 Blood Pressure 128/60 O2 Sat by Pulse Oximetry 98 Intake and Output: Intake & Output 12/07/17 12/08/17 12/09/17 12/10/17 11:59 11:59 11:59 11:59 Intake Total 2490 / 2490 2079 / 2079 Output Total 200 / 200 Balance 2490 / 2490 1880 / 1879 - Physical Exam Oriented: Normal Eyes: Normal Ear: Normal Nose: Normal Throat: Normal Respiratory: Left, Wheezes Cardiovascular: Normal. negative: S3, S4, Murmur : Normal Auscultation: Bowel Sounds: Normal Palpation: Normal Tenderness: Normal Skin: Normal Musculoskeletal: Normal Psychiatric: Normal Mood Description: Calm Affect: Normal Speech Pattern: Clear - Laboratory and Diagnostics Result Diagrams: 12/09/17 04:41 12/09/17 04:41 Labs: 12/03/17 17:20 Sputum - Expectorated Sputum Sputum Culture - Final Acinetobacter Baumanii/Haemoly 12/03/17 17:20 Sputum - Expectorated Sputum - Final 12/03/17 16:30 Blood Blood Culture - Final 12/03/17 16:10 Blood Blood Culture - Final Laboratory WBC 15.1 X10^3/uL (3.6-10.0) H 12/09/17 04:41 RBC 3.56 X10^6/uL (3.5-5.4) 12/09/17 04:41 Hgb 11.2 g/dL (12.0-16.0) L 12/09/17 04:41 Hct 34.1 % (36.0-47.0) L 12/09/17 04:41 MCV 95.7 fL (80.0-100.0) 12/09/17 04:41 MCH 31.4 pg (27.0-34.0) 12/09/17 04:41 MCHC 32.8 g/dL (33.0-35.0) L 12/09/17 04:41 RDW 14.0 % (11.6-16.5) 12/09/17 04:41 Plt Count 237 X10^3/uL (150.0-450.0) 12/09/17 04:41 MPV 9.2 fL (7.4-11.0) 12/09/17 04:41 Neut % (Auto) 60.0 % (42.0-75.0) 12/09/17 04:41 Lymph % (Auto) 33.2 % (21.0-51.0) 12/09/17 04:41 [place] % (Auto) 5.0 % (0.0-13.0) 12/09/17 04:41 Eos % (Auto) 0.9 % (0.9-2.9) 12/09/17 04:41 Baso % (Auto) 0.9 % (0.2-1.0) 12/09/17 04:41 Neut # (Auto) 9.1 x10^3/uL (2.2-4.8) H 12/09/17 04:41 Lymph # (Auto) 5.0 X10^3/uL (1.3-2.9) H 12/09/17 04:41 [place] # (Auto) 0.8 x10^3/uL (0.3-0.8) 12/09/17 04:41 Eos # (Auto) 0.1 x10^3/uL (0.0-0.2) 12/09/17 04:41 Baso # (Auto) 0.1 X10^3/uL (0.0-0.1) 12/09/17 04:41 Absolute Nucleated RBC 0.0 /100WBC 12/09/17 04:41 Sodium 145 mmol/L (136-145) 12/09/17 04:41 Corrected Sodium TNP 12/09/17 04:41 Potassium 3.9 mmol/L (3.5-5.1) 12/09/17 04:41 Chloride 106 mmol/L (98-107) 12/09/17 04:41 Carbon Dioxide 35.1 mmol/L (21-32) H 12/09/17 04:41 BUN 10 mg/dL (7-18) 12/09/17 04:41 Creatinine 0.64 mg/dL (0.55-1.02) 12/09/17 04:41 Est GFR (MDRD) Af Amer > 60 (>60) 12/09/17 04:41 Est GFR (MDRD) Non-Af > 60 (>60) 12/09/17 04:41 Glucose 77 mg/dL (65-99) 12/09/17 04:41 Calcium 7.5 mg/dL (8.5-10.1) L 12/09/17 04:41 Corrected Calcium 8.7 mg/dL (8.5-10.1) 12/09/17 04:41 Magnesium 2.0 mg/dL (1.7-2.9) 12/04/17 04:21 Total Bilirubin 0.20 mg/dL (0.2-1.0) 12/09/17 04:41 AST 10 Units/L (15-37) L 12/09/17 04:41 ALT 29 Units/L (12-78) 12/09/17 04:41 Alkaline Phosphatase 59 Units/L (46-116) 12/09/17 04:41 Total Protein 5.1 g/dL (6.4-8.2) L 12/09/17 04:41 Albumin 2.5 g/dL (3.4-5.0) L 12/09/17 04:41 Globulin 2.6 g/dL (2.5-4.5) 12/09/17 04:41 Albumin/Globulin Ratio 1.0 Ratio (1.1-2.1) L 12/09/17 04:41 - Plan (1) Bronchopneumonia Status: Acute Plan: LEVAQUIN 750MG IV DAILY, RESPIRATORY TREATMENTS, SUPPLEMENTAL OXYGEN, CONTINUE TO MONITOR (2) COPD exacerbation Status: Acute Plan: SOLU-MEDROL 40MG IV Q8H, RESPIRATORY TREATMENTS, SUPPLEMENTAL OXYGEN, CONTINUE TO MONITOR
[2017-12-09] MEDS: NORCO 10/325 TAB PO PRN (16:13)
[2017-12-09] MEDS: COLACE CAP 100 MG PO SCH (20:37)
[2017-12-09] MEDS: DESYREL PO SCH (20:37)
--- NOTE | 2017-12-09 21:01 | PCM.PROG ---
Progress Note - Progress Note for Day of Date of Exam: 12/07/17 - Subjective Subjective: WAS ADMITTED FOR BRONCHOPNEUMONIA AND COPD EXACERBATION. TODAY, SHE IS ALERT AND ORIENTED, LYING IN BED ON MORNING ROUNDS. SHE CONTINUES WITH COMPLAINTS OF COUGH AND SHORTNESS OF BREATH. SHE REPORTS THAT SYMPTOMS ARE SLIGHTLY IMPROVING. ON EXAMINATION, HEART IS REGULAR IN RATE AND RHYTHM. BILATERAL LUNGS ARE NOTED WITH SCATTERED WHEEZING THROUGHOUT. ABDOMEN IS ROUND, SOFT, AND NON-TENDER WITH NORMAL BOWEL SOUNDS NOTED IN ALL QUADRANTS. HER VITALS TODAY ARE 98.5-87-20-92%-114/65. LABS WERE OBTAINED. ABNORMAL LAB VALUES INCLUDE THE FOLLOWING: WBC 14.9, RBC 3.46, HGB 11.0, HCT 32.8, CHLORIDE 109, GLUCOSE 122, CALCIUM 8.0, TOTAL BILI 0.10, TOTAL PROTEIN 5.4 , ALBUMIN 2.7. PRELIMINARY SPUTUM CULTURE REPORTS GROWTH OF GRAM NEGATIVE RODS. TODAY, WE WILL CONTINUE WITH IV ANTIBIOTICS, RESPIRATORY TREATMENTS, SOLU-MEDROL , AND CURRENT PLAN OF CARE. OTHERWISE, WE PLAN TO FOLLOW UP WITH AM LABS AND CONTINUE TO MONITOR PATIENT. - Past Medical Family Social History Past Med/Fam/Surg Hx: No changes since H&P Allergies: Allergies morphine Allergy (Verified 11/12/17 15:43) Penicillins Allergy (Verified 11/12/17 15:43) prednisone Allergy (Verified 11/12/17 15:43) - Review of Systems ROS: No change since H&P - Vital Signs and I&O's Vital Signs: Temperature 98.4 F Pulse Rate [Right Brachial] 80 Pulse Rate [Left Radial] 88 Pulse Rate 82 Respiratory Rate 24 Blood Pressure [Right Arm] 87/49 Blood Pressure [Left Arm] 121/60 Blood Pressure 128/60 O2 Sat by Pulse Oximetry 91 Intake and Output: Intake & Output 12/07/17 12/08/17 12/09/17 12/10/17 11:59 11:59 11:59 11:59 Intake Total 2490 / 2490 2079 / 2079 660 / 660 Output Total 200 / 200 Balance 2490 / 2490 1880 / 1880 2039 660 / 660 - Physical Exam Oriented: Normal Eyes: Normal Ear: Normal Nose: Normal Throat: Normal Respiratory: Left, Wheezes Cardiovascular: Normal. negative: S3, S4, Murmur : Normal Auscultation: Bowel Sounds: Normal Palpation: Normal Tenderness: Normal Skin: Normal Musculoskeletal: Normal Psychiatric: Normal Mood Description: Calm Affect: Normal Speech Pattern: Clear - Laboratory and Diagnostics Result Diagrams: 12/09/17 04:41 12/09/17 04:41 Labs: 12/03/17 17:20 Sputum - Expectorated Sputum Sputum Culture - Final Acinetobacter Baumanii/Haemoly 12/03/17 17:20 Sputum - Expectorated Sputum - Final 12/03/17 16:30 Blood Blood Culture - Final 12/03/17 16:10 Blood Blood Culture - Final Laboratory WBC 15.1 X10^3/uL (3.6-10.0) H 12/09/17 04:41 RBC 3.56 X10^6/uL (3.5-5.4) 12/09/17 04:41 Hgb 11.2 g/dL (12.0-16.0) L 12/09/17 04:41 Hct 34.1 % (36.0-47.0) L 12/09/17 04:41 MCV 95.7 fL (80.0-100.0) 12/09/17 04:41 MCH 31.4 pg (27.0-34.0) 12/09/17 04:41 MCHC 32.8 g/dL (33.0-35.0) L 12/09/17 04:41 RDW 14.0 % (11.6-16.5) 12/09/17 04:41 Plt Count 237 X10^3/uL (150.0-450.0) 12/09/17 04:41 MPV 9.2 fL (7.4-11.0) 12/09/17 04:41 Neut % (Auto) 60.0 % (42.0-75.0) 12/09/17 04:41 Lymph % (Auto) 33.2 % (21.0-51.0) 12/09/17 04:41 [place] % (Auto) 5.0 % (0.0-13.0) 12/09/17 04:41 Eos % (Auto) 0.9 % (0.9-2.9) 12/09/17 04:41 Baso % (Auto) 0.9 % (0.2-1.0) 12/09/17 04:41 Neut # (Auto) 9.1 x10^3/uL (2.2-4.8) H 12/09/17 04:41 Lymph # (Auto) 5.0 X10^3/uL (1.3-2.9) H 12/09/17 04:41 [place] # (Auto) 0.8 x10^3/uL (0.3-0.8) 12/09/17 04:41 Eos # (Auto) 0.1 x10^3/uL (0.0-0.2) 12/09/17 04:41 Baso # (Auto) 0.1 X10^3/uL (0.0-0.1) 12/09/17 04:41 Absolute Nucleated RBC 0.0 /100WBC 12/09/17 04:41 Sodium 145 mmol/L (136-145) 12/09/17 04:41 Corrected Sodium TNP 12/09/17 04:41 Potassium 3.9 mmol/L (3.5-5.1) 12/09/17 04:41 Chloride 106 mmol/L (98-107) 12/09/17 04:41 Carbon Dioxide 35.1 mmol/L (21-32) H 12/09/17 04:41 BUN 10 mg/dL (7-18) 12/09/17 04:41 Creatinine 0.64 mg/dL (0.55-1.02) 12/09/17 04:41 Est GFR (MDRD) Af Amer > 60 (>60) 12/09/17 04:41 Est GFR (MDRD) Non-Af > 60 (>60) 12/09/17 04:41 Glucose 77 mg/dL (65-99) 12/09/17 04:41 Calcium 7.5 mg/dL (8.5-10.1) L 12/09/17 04:41 Corrected Calcium 8.7 mg/dL (8.5-10.1) 12/09/17 04:41 Magnesium 2.0 mg/dL (1.7-2.9) 12/04/17 04:21 Total Bilirubin 0.20 mg/dL (0.2-1.0) 12/09/17 04:41 AST 10 Units/L (15-37) L 12/09/17 04:41 ALT 29 Units/L (12-78) 12/09/17 04:41 Alkaline Phosphatase 59 Units/L (46-116) 12/09/17 04:41 Total Protein 5.1 g/dL (6.4-8.2) L 12/09/17 04:41 Albumin 2.5 g/dL (3.4-5.0) L 12/09/17 04:41 Globulin 2.6 g/dL (2.5-4.5) 12/09/17 04:41 Albumin/Globulin Ratio 1.0 Ratio (1.1-2.1) L 12/09/17 04:41 - Plan (1) Bronchopneumonia Status: Acute Plan: LEVAQUIN 750MG IV DAILY, RESPIRATORY TREATMENTS, SUPPLEMENTAL OXYGEN, CONTINUE TO MONITOR (2) COPD exacerbation Status: Acute Plan: SOLU-MEDROL 40MG IV Q8H, RESPIRATORY TREATMENTS, SUPPLEMENTAL OXYGEN, CONTINUE TO MONITOR
[2017-12-09] MEDS ORDERED: NS 1/2 1000 ML IV 1,000 ML IV ONE (21:15)
--- NOTE | 2017-12-09 23:30 | PCM.PROG ---
Progress Note - Progress Note for Day of Date of Exam: 12/09/17 - Subjective Subjective: WAS ADMITTED WITH COPD EXACERBATION. TODAY, SHE IS ALERT AND ORIENTED, LYING IN BED ON MORNING ROUNDS. STATES SHE FEELS WORSE THAN SHE DID YESTERDAY. HAS OXYEGN PER NC ON. SHE CONTINUES WITH COMPLAINTS OF NONPRODUCTIVE COUGH AND CONTINUES TO HAVE SHORTNESS OF BREATH. DENIES ANY OTHER COMPLAINTS. - Past Medical Family Social History Past Med/Fam/Surg Hx: No changes since H&P Allergies: Allergies morphine Allergy (Verified 11/12/17 15:43) Penicillins Allergy (Verified 11/12/17 15:43) prednisone Allergy (Verified 11/12/17 15:43) - Review of Systems ROS: No change since H&P - Vital Signs and I&O's Vital Signs: Temperature 98.4 F Pulse Rate [Right Brachial] 80 Pulse Rate [Left Radial] 88 Pulse Rate 82 Respiratory Rate 24 Blood Pressure [Right Arm] 87/49 Blood Pressure [Left Arm] 121/60 Blood Pressure 128/60 O2 Sat by Pulse Oximetry 91 Intake and Output: Intake & Output 12/07/17 12/08/17 12/09/17 12/10/17 11:59 11:59 11:59 11:59 Intake Total 2490 / 2490 2080 / 2080 2040 / 2040 660 / 660 Output Total 200 / 200 Balance 2490 / 2490 1880 / 1880 2040 / 2040 660 / 660 - Physical Exam Oriented: Normal Eyes: Normal Ear: Normal Nose: Normal Throat: Normal Respiratory: Right, Left, Wheezes Cardiovascular: Normal. negative: S3, S4, Murmur : Normal Auscultation: Bowel Sounds: Normal Palpation: Normal Tenderness: Normal Skin: Normal Musculoskeletal: Normal Psychiatric: Normal Mood Description: Calm Affect: Normal Speech Pattern: Clear - Laboratory and Diagnostics Result Diagrams: 12/09/17 04:41 12/09/17 04:41 Labs: 12/03/17 17:20 Sputum - Expectorated Sputum Sputum Culture - Final Acinetobacter Baumanii/Haemoly 12/03/17 17:20 Sputum - Expectorated Sputum - Final 12/03/17 16:30 Blood Blood Culture - Final 12/03/17 16:10 Blood Blood Culture - Final Laboratory WBC 15.1 X10^3/uL (3.6-10.0) H 12/09/17 04:41 RBC 3.56 X10^6/uL (3.5-5.4) 12/09/17 04:41 Hgb 11.2 g/dL (12.0-16.0) L 12/09/17 04:41 Hct 34.1 % (36.0-47.0) L 12/09/17 04:41 MCV 95.7 fL (80.0-100.0) 12/09/17 04:41 MCH 31.4 pg (27.0-34.0) 12/09/17 04:41 MCHC 32.8 g/dL (33.0-35.0) L 12/09/17 04:41 RDW 14.0 % (11.6-16.5) 12/09/17 04:41 Plt Count 237 X10^3/uL (150.0-450.0) 12/09/17 04:41 MPV 9.2 fL (7.4-11.0) 12/09/17 04:41 Neut % (Auto) 60.0 % (42.0-75.0) 12/09/17 04:41 Lymph % (Auto) 33.2 % (21.0-51.0) 12/09/17 04:41 [place] % (Auto) 5.0 % (0.0-13.0) 12/09/17 04:41 Eos % (Auto) 0.9 % (0.9-2.9) 12/09/17 04:41 Baso % (Auto) 0.9 % (0.2-1.0) 12/09/17 04:41 Neut # (Auto) 9.1 x10^3/uL (2.2-4.8) H 12/09/17 04:41 Lymph # (Auto) 5.0 X10^3/uL (1.3-2.9) H 12/09/17 04:41 [place] # (Auto) 0.8 x10^3/uL (0.3-0.8) 12/09/17 04:41 Eos # (Auto) 0.1 x10^3/uL (0.0-0.2) 12/09/17 04:41 Baso # (Auto) 0.1 X10^3/uL (0.0-0.1) 12/09/17 04:41 Absolute Nucleated RBC 0.0 /100WBC 12/09/17 04:41 Sodium 145 mmol/L (136-145) 12/09/17 04:41 Corrected Sodium TNP 12/09/17 04:41 Potassium 3.9 mmol/L (3.5-5.1) 12/09/17 04:41 Chloride 106 mmol/L (98-107) 12/09/17 04:41 Carbon Dioxide 35.1 mmol/L (21-32) H 12/09/17 04:41 BUN 10 mg/dL (7-18) 12/09/17 04:41 Creatinine 0.64 mg/dL (0.55-1.02) 12/09/17 04:41 Est GFR (MDRD) Af Amer > 60 (>60) 12/09/17 04:41 Est GFR (MDRD) Non-Af > 60 (>60) 12/09/17 04:41 Glucose 77 mg/dL (65-99) 12/09/17 04:41 Calcium 7.5 mg/dL (8.5-10.1) L 12/09/17 04:41 Corrected Calcium 8.7 mg/dL (8.5-10.1) 12/09/17 04:41 Magnesium 2.0 mg/dL (1.7-2.9) 12/04/17 04:21 Total Bilirubin 0.20 mg/dL (0.2-1.0) 12/09/17 04:41 AST 10 Units/L (15-37) L 12/09/17 04:41 ALT 29 Units/L (12-78) 12/09/17 04:41 Alkaline Phosphatase 59 Units/L (46-116) 12/09/17 04:41 Total Protein 5.1 g/dL (6.4-8.2) L 12/09/17 04:41 Albumin 2.5 g/dL (3.4-5.0) L 12/09/17 04:41 Globulin 2.6 g/dL (2.5-4.5) 12/09/17 04:41 Albumin/Globulin Ratio 1.0 Ratio (1.1-2.1) L 12/09/17 04:41 - Plan (1) Hypokalemia Status: Acute Plan: MONITOR ELECTROLYTES. SUPPLEMENT INDICATED. (2) Hypocalcemia Status: Acute Plan: MONTIOR CMP (3) SOB (shortness of breath) Status: Acute Plan: O2, NEBS (4) COPD exacerbation Status: Acute Plan: SOLU-MEDROL 40MG IV Q8H, RESPIRATORY TREATMENTS, SUPPLEMENTAL OXYGEN, CONTINUE TO MONITOR
[2017-12-10] MEDS: DUONEB 0.5 MG/3 MG NEB SCH ×3 (01:10→09:21)
[2017-12-10] MEDS: NS 1/2 1000 ML IV 1,000 ML IV SCH (03:18)
[2017-12-10] MEDS: NEURONTIN CAP 300 MG PO SCH (05:54)
[2017-12-10] MEDS: NORCO 10/325 TAB PO PRN (05:55)
[2017-12-10] MEDS: SYNTHROID 112 mcg TAB PO SCH (06:00)
[2017-12-10 06:33] LABS: BASOPHILS # (AUTO) 0.1 X10^3/uL (0.0-0.1); BASOPHILS % (AUTO) 0.5 % (0.2-1.0); EOSINOPHILS # (AUTO) 0.2 x10^3/uL (0.0-0.2); EOSINOPHILS % (AUTO) 1.4 % (0.9-2.9); HEMOGLOBIN 11.9 g/dL (12.0-16.0); LYMPHOCYTES # (AUTO) 4.8 X10^3/uL (1.3-2.9); MEAN CORPUSCULAR HEMOGLOBIN 31.3 pg (27.0-34.0); MEAN CORPUSCULAR HGB CONC 32.9 g/dL (33.0-35.0); MEAN PLATELET VOLUME 9.2 fL (7.4-11.0); MONOCYTES # (AUTO) 0.9 x10^3/uL (0.3-0.8); MONOCYTES % (AUTO) 5.4 % (0.0-13.0); NEUTROPHILS # (AUTO) 10.1 x10^3/uL (2.2-4.8); NEUTROPHILS % (AUTO) 62.7 % (42.0-75.0); PLATELET COUNT 268 X10^3/uL (150.0-450.0); RED BLOOD COUNT 3.79 X10^6/uL (3.5-5.4); RED CELL DISTRIBUTION WIDTH 13.6 % (11.6-16.5); WHITE BLOOD COUNT 16.1 X10^3/uL (3.6-10.0)
[2017-12-10 06:40] LABS: ALANINE AMINOTRANSFERASE 25 Units/L (12-78); ALBUMIN 2.7 g/dL (3.4-5.0); ALKALINE PHOSPHATASE 68 Units/L (46-116); ASPARTATE AMINO TRANSFERASE 15 Units/L (15-37); BLOOD UREA NITROGEN 12 mg/dL (7-18); CALCIUM 7.7 mg/dL (8.5-10.1); CARBON DIOXIDE 37.2 mmol/L (21-32); CHLORIDE 103 mmol/L (98-107); COR CA(FOR HYPOALB) 8.7 mg/dL (8.5-10.1); CREATININE 0.67 mg/dL (0.55-1.02); SODIUM 141 mmol/L (136-145); TOTAL PROTEIN 5.9 g/dL (6.4-8.2); eGFR NON BLACK RACES > 60 (>60)
--- NOTE | 2017-12-10 07:14 | RAD ---
Examination: AP chest History: SOB Comparison 12/08/2017 Findings: Continued normal heart size with no acute pulmonary, pleural or hilar lesion. Impression: No change; no acute findings. Reported By:
[2017-12-10] MEDS: PULMICORT NEB TX 0.5 MG NEB SCH (09:21)
[2017-12-10] MEDS: LEVAQUIN PREMIX IV 750 MG 750 MG/150 ML BAG IV SCH (09:42)
[2017-12-10] MEDS: ROBITUSSIN DM PO SCH (09:42)
[2017-12-10] MEDS: MILK OF MAGNESIA PO SCH (09:42)
[2017-12-10] MEDS: SINGULAIR TAB 10 MG PO SCH (09:43)
[2017-12-10] MEDS: SEROquel TAB 100 MG PO SCH (09:43)
[2017-12-10 10:41] VITALS: BP 86/52
--- NOTE | 2017-12-25 17:27 | DR.CARTERD ---
- Discharge Summary for: Discharge Summary for Date of:: 12/10/17 - Admission Date Date of Admission: 12/03/17 - Admission Diagnoses Admission Diagnosis: (1) Bronchopneumonia (2) COPD exacerbation - Discharge Date Discharge Date: 12/10/17 - Discharge Diagnoses Discharge Diagnosis: (1) Acinetobacter baumanii/haemoly Pneumonia (2) COPD exacerbation - Hospital Course Hospital Course: DAY ONE, MS. EDGAR PRESENTED TO THE HOSPITAL A DIRECT ADMISSION AFTER BEING SEEN IN THE OFFICE WITH REPORTS OF SHORTNESS OF BREATH. PATIENT WAS REPORTEDLY SEEN IN ANOTHER EMERGENCY ROOM ON SUNDAY AND SUNDAY WITH DIFFICULTY BREATHING AND WAS DIAGNOSED WITH CHF ON SUNDAY AND LUNG INFECTION ON SUNDAY. PATIENT WAS STARTED ON ORAL ANTIBIOTICS, NEB TREATMENTS, INHALERS, AND PREDNISONE WITH REPORTS OF WORSENING SYMPTOMS. ON ARRIVAL TO OUR OFFICE PATIENT NOTED WITH AN OXYGEN SATURATION OF 88% ON ROOM AIR WITH LABORED RESPIRATIONS. PATIENT WAS PLACED ON SUPPLEMENTAL OXYGEN AT 2L/MIN VIA NASAL CANULA. ON AUSCULTATION, LUNGS WERE NOTED WITH COARSE WHEEZING THROUGHOUT. ABNORMAL LABS: WBC 15.0, POTASSIUM 3.4, GLUCOSE 101, AST 42. BLOOD AND SPUTUM CULTURES OBTAINED. CHEST XRAY REPORTED STABLE CHRONIC CHANGED WITH NO ACUTE ABNORMALITY SEEN. PATIENT ADMITTED TO THE HOSPITAL AND STARTED ON PNEUMONIA PROTOCOL. PATIENT STARTED ON IV FLUIDS, IV ANTIBIOTICS, AND AGGRESSIVE NEB TREATMENTS. DAY TWO, MS. EDGAR WAS ADMITTED FOR BRONCHOPNEUMONIA AND COPD EXACERBATION. SHE WAS ALERT AND ORIENTED, LYING IN BED ON MORNING ROUNDS. SHE CONTINUED WITH COMPLAINTS OF COUGH AND SHORTNESS OF BREATH. ON EXAMINATION, HEART WAS REGULAR IN RATE AND RHYTHM. BILATERAL LUNGS WERE NOTED WITH SCATTERED WHEEZING THROUGHOUT. ABDOMEN WAS ROUND, SOFT, AND NON-TENDER WITH NORMAL BOWEL SOUNDS NOTED IN ALL QUADRANTS. HER VITALS WERE 98.6-97-16-96%NC, 107/52. LABS WERE OBTAINED. ABNORMAL LAB VALUES INCLUDED THE FOLLOWING: WBC 11.5, HGB 1.9, POTASSIUM 3.4, CHLORIDE 108, TOTAL PROTEIN 6.3, ALBUMIN 3.2. CHEST XRAY REVEALED LUNGS HYPERINFLATED BUT CLEAR, CONSISTENT WITH COPD. WE STARTED SOLU- MEDROL 40MG IV Q8H. WE CONTINUED WITH IV ANTIBIOTICS AND RESPIRATORY TREATMENTS. DAY THREE, PATIENT WAS ALERT AND ORIENTED, LYING IN BED ON MORNING ROUNDS. SHE CONTINUED WITH COMPLAINTS OF COUGH AND SHORTNESS OF BREATH. SHE REPORTED THAT SYMPTOMS HAD NOT IMPROVED SINCE THE DAY BEFORE. ON EXAMINATION, HEART WAS REGULAR IN RATE AND RHYTHM. BILATERAL LUNGS WERE NOTED WITH SCATTERED WHEEZING THROUGHOUT. ABDOMEN WAS ROUND, SOFT, AND NON-TENDER WITH NORMAL BOWEL SOUNDS NOTED IN ALL QUADRANTS. HER VITALS WERE 97.9-97-18-92%-11/59. LABS WERE OBTAINED. ABNORMAL LAB VALUES INCLUDED THE FOLLOWING: HGB 11.9, HCT 35.9, GLUCOSE 147, TOTAL PROTEIN 6.1, ALBUMIN 3.0. SPUTUM AND BLOOD CULTURES WERE PENDING. CHEST XRAY REVEALED LUNGS HYPERINFLATED BUT CLEAR, CONSISTENT WITH COPD. WE CONTINUED WITH IV ANTIBIOTICS, RESPIRATORY TREATMENTS, SOLU-MEDROL, AND SUPPLEMENTAL OXYGEN. DAY FOUR, SHE CONTINUED WITH COMPLAINTS OF COUGH AND SHORTNESS OF BREATH. SHE REPORTED THAT COUGH WAS SLIGHTLY WORSE THAN THE DAY BEFORE. ON EXAMINATION, HEART WAS REGULAR IN RATE AND RHYTHM. BILATERAL LUNGS WERE NOTED WITH SCATTERED WHEEZING THROUGHOUT. ABDOMEN WAS ROUND, SOFT, AND NON-TENDER WITH NORMAL BOWEL SOUNDS NOTED IN ALL QUADRANTS. LABS WERE OBTAINED. ABNORMAL LAB VALUES INCLUDED THE FOLLOWING: WBC 18.1, HGB 11.5, HCT 34.4, SODIUM 146, POTASSIUM 3.2, CHLORIDE 108, GLUCOSE 123, TOTAL PROTEIN 5.9, ALBUMIN 3.0. SPUTUM AND BLOOD CULTURES WERE PENDING. CHEST XRAY REVEALED MILD HYPERINFLATION OF THE LUNGS WITHOUT ACUTE ABNORMALITY. WE REPLACED HER POTASSIUM WITH THE PROTOCOL. WE CONTINUED WITH IV ANTIBIOTICS, RESPIRATORY TREATMENTS, SOLU-MEDROL, AND SUPPLEMENTAL OXYGEN. DAY FIVE, SHE CONTINUED WITH COMPLAINTS OF COUGH AND SHORTNESS OF BREATH. SHE REPORTED THAT SYMPTOMS WERE SLIGHTLY IMPROVING. ON EXAMINATION, HEART WAS REGULAR IN RATE AND RHYTHM. BILATERAL LUNGS WERE NOTED WITH SCATTERED WHEEZING THROUGHOUT. ABDOMEN WAS ROUND, SOFT, AND NON-TENDER WITH NORMAL BOWEL SOUNDS NOTED IN ALL QUADRANTS. HER VITALS WERE 98.5-87-20-92%-114/65. LABS WERE OBTAINED. ABNORMAL LAB VALUES INCLUDED THE FOLLOWING: WBC 14.9, RBC 3.46, HGB 11.0, HCT 32.8, CHLORIDE 109, GLUCOSE 122, CALCIUM 8.0, TOTAL BILI 0.10, TOTAL PROTEIN 5.4, ALBUMIN 2.7. PRELIMINARY SPUTUM CULTURE REPORTED GROWTH OF GRAM NEGATIVE RODS. WE CONTINUED WITH IV ANTIBIOTICS, RESPIRATORY TREATMENTS, SOLU- MEDROL, AND SUPPLEMENTAL OXYGEN. DAY SIX, MS. EDGAR CONTINUED TREATMENT FOR COPD EXACERBATION AND BRONCHOPNEUMONIA. SHE WAS ALERT AND ORIENTED, LYING IN BED ON MORNING ROUNDS. SHE CONTINUED WITH COMPLAINTS OF NONPRODUCTIVE COUGH AND CONTINUED TO HAVE SHORTNESS OF BREATH. SHE DENIED ANY OTHER COMPLAINTS. DAY SEVEN, SHE WAS ALERT AND ORIENTED, LYING IN BED ON MORNING ROUNDS. SHE STATED SHE FELT WORSE THAN SHE DID THE DAY BEFORE. SHE CONTINUED ON SUPPLEMENTAL OXYGEN PER NC. SHE CONTINUED WITH COMPLAINTS OF NONPRODUCTIVE COUGH AND CONTINUED TO HAVE SHORTNESS OF BREATH. SHE DENIED ANY OTHER COMPLAINTS. DAY EIGHT, PATIENT WAS RESTING IN BED UPON ROUNDS. SHE REPORTED THAT SHE WAS FEELING BETTER. NO ACUTE DISTRESS WAS NOTED. SHE DENIED SHORTNESS OF BREATH. FINAL SPUTUM CULTURE REPORTED GROWTH OF ACINETOBACTER BAUMANII/HAEMOLY. VITAL SIGNS STABLE. LABS WNL. WE PLANNED FOR DISCHARGE WITH ORAL ANTIBIOTICS. INSTRUCTIONS FOR MEDICATIONS AND FOLLOW UP WERE DISCUSSED WITH PATIENT AND FAMILY, BOTH VOICED UNDERSTANDING. Labs: Microbiology 12/03/17 17:20 Sputum - Expectorated Sputum Sputum Culture - Final 12/03/17 17:20 Sputum - Expectorated Sputum - Final Acinetobacter Baumanii/Haemoly - Discharge Medications Discharge Medications: Home Medication List albuterol sulfate [Proventil HFA] 1 puff INHALATION Q6H PRN 12/03/17 [History] diclofenac sodium 1 tab PO BID 12/03/17 [History] levothyroxine 1 tab PO DAILY 12/03/17 [History] montelukast 1 tab PO DAILY 12/03/17 [History] pregabalin [Lyrica] 1 tab PO TID 12/03/17 [History] quetiapine 1 tab PO BID 12/03/17 [History] tiotropium bromide [Spiriva with HandiHaler] 1 puff INHALATION DAILY 12/03/17 [ History] tizanidine 1 cap PO TID PRN 12/03/17 [History] trazodone 1 tab PO HS 12/03/17 [History] dextromethorphan-guaifenesin [Mucinex DM] 1 tab PO Q12H PRN #20 tab 12/10/17 [Rx ] ipratropium-albuterol 1 ea NEB TID #50 ml 12/10/17 [Rx] levofloxacin [Levaquin] 750 mg PO ONCE #10 tab 12/10/17 [Rx] Prescriptions: dextromethorphan-guaifenesin [Mucinex DM] Carlos Ferguson ipratropium-albuterol Carlos Ferguson levofloxacin [Levaquin] Carlos Ferguson Home medications alprazolam 1 tab PO BID PRN 10/14/16 gabapentin 300 mg PO TID 10/14/16 hydrocodone-acetaminophen 1 tab PO Q8H PRN 10/14/16 - Discharge Disposition Discharge Disposition: Patient is to follow up in our office in one week.
== END 2017-12-10 11:50 | disposition home or self-care (01) | DRG 178 ==
LOC: MED/SURG 15:32
PROVIDERS: ADMIT Internal Medicine; ATTEND Internal Medicine
DX: E87.6 Hypokalemia; J15.8 Pneumonia due to other specified bacteria; J44.1 Chronic obstructive pulmonary disease with (acute) exacerbation; R06.02 Shortness of breath
CPT/HCPCS: 36415; 36600; 71010; 71020; 71045; 71046; 80053; 83735; 84132; 85025; 87040; 87070; 87077; 87186; 87205; 94640; 94669; 94760; 99231; A4222; J1956; J2405; J2920; J3480; J7620; J7626; J8499

== ENCOUNTER 2018-01-23 12:49 | Observation (INO) ==
[2018-01-23 14:36] VITALS: BMI 23.0
--- NOTE | 2018-01-23 14:41 | RAD ---
History: Nausea and vomiting and diarrhea Study: Acute abdominal series Findings: The lungs are clear and appear hyperinflated. The heart and mediastinum are unremarkable. The bowel gas pattern is unremarkable. No abnormal mass or calcification is appreciated. There is art erial vascular calcification. There are mild degenerative changes in the lower lumbar spine. Impression: No acute disease Reported By:
[2018-01-23] MEDS: NS 1000 ML 1,000 ML IV SCH (15:45)
--- NOTE | 2018-01-23 16:30 | CT ---
STUDY: CT HEAD WITHOUT CONTRAST HISTORY: Dizzy. Headache. Low blood pressure. Weakness. COMPARISON: Head CT from November 26, 2016. TECHNIQUE: Multiple axial images of the head were obtained from the skull base to the vertex without administration of IV contrast. Automated exposure control (AEC) was utilized to adjust the MA and/or kV. Findings: The sulci, cisterns and ventricles are age appropriate. There are scattered foci of low attenuation in the periventricular and subcortical white matter of zee th hemispheres. This is a nonspecific finding which likely represents microangiopathic change in a pa tient of this age. There postsurgical changes from left frontal craniotomy. There is no evidence of acute territorial infarction, hemorrhage, mass, mass effect or midline shift. There are no abnormal extra-axial fluid collections. There is no evidence of acute osseous abnormality or significant soft tissue swelling. IMPRESSION: 1. No evidence of acute intracranial abnormality. 2. Nonspecific white matter change. 3. Postsurgical change status post left frontal craniotomy. 4. No abnormalities are identified which require immediate imaging follow-up on an emergent basis. There are some findings on this exam which may require nonemergent follow-up with MRI following disch arge in the outpatient setting. Please note that nonspecific white matter change, as described in thi s study, may evoke a list of differential considerations which include, but are not limited to microa ngiopathy, demyelinating disease, infectious or inflammatory processes, and even in rear circumstance s, metastatic malignancy. Please note that in each individual case, these findings should considered in the appropriate clinical context by the ordering physician, or the patient's primary attending fede chang. Reported By:
[2018-01-23] MEDS: NORCO 10/325 TAB PO PRN (18:56)
[2018-01-23 20:02] LABS: BILIRUBIN,URINE NEGATIVE (NEGATIVE); BLOOD/HEMOGLOBIN,URINE NEGATIVE (NEGATIVE); GLUCOSE, URINE NEGATIVE (NEGATIVE); KETONES,URINE NEGATIVE (NEGATIVE); LEUKOCYTE ESTERASE ,URINE NEGATIVE (NEGATIVE); NITRITES,URINE NEGATIVE (NEGATIVE); PROTEIN,URINE NEGATIVE (NEGATIVE); UROBILINOGEN,URINE NORMAL (NORMAL)
[2018-01-23 20:05] LABS: APPEARANCE,URINE CLEAR (CLEAR); COLOR,URINE YELLOW (YELLOW)
[2018-01-23] MEDS: MILK OF MAGNESIA PO SCH (20:51)
[2018-01-23] MEDS ORDERED: COLACE CAP 100 MG PO SCH (21:00)
[2018-01-23] MEDS: DUONEB 0.5 MG/3 MG NEB PRN (22:00)
[2018-01-24] MEDS: NORCO 10/325 TAB PO PRN ×3 (01:10→12:19)
[2018-01-24] MEDS: NS 1000 ML 1,000 ML IV SCH ×2 (03:59→06:24)
[2018-01-24 05:31] LABS: BASOPHILS # (AUTO) 0.2 X10^3/uL (0.0-0.1); BASOPHILS % (AUTO) 1.3 % (0.2-1.0); EOSINOPHILS # (AUTO) 0.1 x10^3/uL (0.0-0.2); EOSINOPHILS % (AUTO) 1.1 % (0.9-2.9); HEMATOCRIT 40.5 % (36.0-47.0); HEMOGLOBIN 13.2 g/dL (12.0-16.0); LYMPHOCYTES # (AUTO) 5.5 X10^3/uL (1.3-2.9); LYMPHOCYTES % (AUTO) 42.3 % (21.0-51.0); MEAN CORPUSCULAR HEMOGLOBIN 30.6 pg (27.0-34.0); MEAN CORPUSCULAR HGB CONC 32.4 g/dL (33.0-35.0); MEAN CORPUSCULAR VOLUME 94.3 fL (80.0-100.0); MEAN PLATELET VOLUME 9.8 fL (7.4-11.0); MONOCYTES # (AUTO) 0.9 x10^3/uL (0.3-0.8); MONOCYTES % (AUTO) 6.6 % (0.0-13.0); NEUTROPHILS # (AUTO) 6.3 x10^3/uL (2.2-4.8); NEUTROPHILS % (AUTO) 48.7 % (42.0-75.0); PLATELET COUNT 321 X10^3/uL (150.0-450.0); RED CELL DISTRIBUTION WIDTH 14.3 % (11.6-16.5); WHITE BLOOD COUNT 12.9 X10^3/uL (3.6-10.0)
[2018-01-24 05:44] LABS: ALANINE AMINOTRANSFERASE 22 Units/L (12-78); ALBUMIN 3.3 g/dL (3.4-5.0); ALKALINE PHOSPHATASE 68 Units/L (46-116); ASPARTATE AMINO TRANSFERASE 19 Units/L (15-37); BLOOD UREA NITROGEN 5 mg/dL (7-18); CALCIUM 8.1 mg/dL (8.5-10.1); CARBON DIOXIDE 29.9 mmol/L (21-32); CHLORIDE 105 mmol/L (98-107); COR CA(FOR HYPOALB) 8.7 mg/dL (8.5-10.1); COR NA(FOR HYPERGLY) 139 mmol/L (136-145); CREATININE 0.63 mg/dL (0.55-1.02); SODIUM 139 mmol/L (136-145); TOTAL PROTEIN 6.7 g/dL (6.4-8.2); eGFR NON BLACK RACES > 60 (>60)
[2018-01-24] MEDS ORDERED: POTASSIUM CHLORIDE LIQ 20 MEQ UDC PO PRN (06:12)
[2018-01-24] MEDS ORDERED: POTASSIUM CHL 40 MEQ/NS 0.45% 500 ML IV PRN (06:12)
[2018-01-24] MEDS ORDERED: K-LYTE EFFERVESCENT PO PRN (06:12)
[2018-01-24] MEDS ORDERED: K-RIDER 10 MEQ/NS 100 ML 10 MEQ/100 ML BAG IV PRN (06:12)
[2018-01-24] MEDS ORDERED: POTASSIUM CHL 60 MEQ/NS 0.45% 500 ML IV PRN (06:12)
[2018-01-24] MEDS: DUONEB 0.5 MG/3 MG NEB PRN ×2 (08:38→10:44)
[2018-01-24] MEDS: MILK OF MAGNESIA PO SCH (08:44)
--- NOTE | 2018-01-24 10:30 | DR.UPDATE ---
H&P Update History and Physical Update: WAS SEEN IN THE OFFICE YESTERDAY. AN H&P WAS COMPLETED PRIOR TO ADMISSION. PATIENT HAS BEEN SEEN AND EXAMINED WITH NO CHANGES NOTED TO H&P. Changes noted: NO Yes with the following:
--- NOTE | 2018-01-24 11:29 | RAD ---
HISTORY: Abdominal pain Study: KUB Comparison: CT abdomen dated October 13, 2016 Findings: Evaluation of the abdomen demonstrates a normal bowel gas pattern. No pathological soft tissue mass or calcification can be observed. The bony structures are grossly intact. IMPRESSION: 1. No evidence for acute abdominal pathology identified. Reported By:
[2018-01-24 12:09] VITALS: BP 122/61
[2018-01-24 14:24] LABS: CRYPTOSPORIDIUM PARVUM ANTIGEN NEGATIVE (NEGATIVE); GIARDIA LAMBLIA ANTIGEN NEGATIVE (NEGATIVE); STOOL FOR WBC POSITIVE (NEGATIVE)
--- NOTE | 2018-03-02 18:57 | DR.CARTERD ---
- Discharge Summary for: Discharge Summary for Date of:: 01/24/18 - Admission Date Date of Admission: 01/23/18 - Admission Diagnoses Admission Diagnosis: 1- AMS 2- Weakness 3- Gastroenteritis - Discharge Date Discharge Date: 01/24/18 - Discharge Diagnoses Discharge Diagnosis: 1- AMS 2- Weakness 3- Gastroenteritis - Hospital Course Hospital Course: Day one, Patient presented to the hospital as a direct admission after being seen in the office with reports of dizziness and slurred speech. Medical History: Brain Aneurysm, CHF, Asthma, Bronchitis, Pneumonia, COPD, Sleep Apnea, Gerd, Gastrointestinal Ulcer, UTIs, Muscle Weakness, Arthritis, Osteoporosis, Back Pain, Hypothyroidism, Anxiety. Patient reported symptoms started around eight am this day. Patient stated that since onset of symptoms she had been unable to walk alone. Patient stated that she had noticed she had been losing her words when speaking lately. Patient admitted to the hospital as observation for altered mental status for further evaluation and treatment. A brain CT was obtained which revealed Nonspecific white matter change. Post- surgical change status post left frontal craniotomy. No abnormalities are identified which require immediate imaging follow-up on an emergent basis. There are some findings on this exam which may require nonemergent follow-up with MRI following discharge in the outpatient setting. Please note that nonspecific white matter change, as described in this study, may evoke a list of differential considerations which include, but are not limited to microangiopathy, demyelinating disease, infectious or inflammatory processes, and even in rear circumstances, metastatic malignancy. Please note that in each individual case, these findings should considered in the appropriate clinical context by the ordering physician, or the patient's primary attending physician. We continued to monitor. Medications: NS @80ml/hr, Heplock Flush TID, [place] 10/325mg po Q6hr PRN, Duoneb 0.5/3mg neb QID PRN, Colace 200mg po Hs , Milk of Mag 30ml po BID. Day two, patient was feeling better. She reported dizziness had ceased. She spoke with clear speech. Vital signs stable. Labs wnl. We planned for discharge. Instructions for medications and follow up were discussed with patient and family, both voiced understanding. Patient discharged home in stable condition with family. - Discharge Medications Discharge Medications: Home Medication List Albuterol .083% 3mls 1 neb INHALATION .QID AND PRN 01/24/18 [History] Effer Potassium 10meq Packs 10 meq PO BID 01/24/18 [History] alendronate 1 tab PO WEEKLY 01/24/18 [History] baclofen 10 mg PO TID 01/24/18 [History] fluticasone [Allergy Relief (fluticasone)] 2 spray INTRANASAL BID 01/24/18 [ History] fluticasone-salmeterol [Advair Diskus] 1 puff INHALATION BID 01/24/18 [History] folic acid 1 mg PO DAILY 01/24/18 [History] levocetirizine 5 mg PO DAILY 01/24/18 [History] levothyroxine 100 mcg PO DAILY 01/24/18 [History] meclizine 1 - 2 tab PO Q12H PRN 01/24/18 [History] pantoprazole 40 mg PO DAILY 01/24/18 [History] Prescriptions: - Discharge Disposition Discharge Disposition: Patient is to follow up in our office in one week.
== END 2018-01-24 13:15 | disposition home or self-care (01) ==
LOC: MED/SURG
PROVIDERS: ADMIT Internal Medicine; ATTEND Internal Medicine
DX: R26.89 Other abnormalities of gait and mobility; E86.0 Dehydration; R50.9 Fever, unspecified; D72.828 Other elevated white blood cell count; R19.7 Diarrhea, unspecified; R41.82 Altered mental status, unspecified; K52.89 Other specified noninfective gastroenteritis and colitis; R11.2 Nausea with vomiting, unspecified; R53.1 Weakness
CPT/HCPCS: 36415; 70450; 74000; 74018; 74022; 80053; 81003; 82270; 83630; 83735; 85025; 87045; 87086; 87328; 87329; 87427; 87449; 87493; 87899; 94640; 97163; 97167; 97535; A4216; A4222; G0378; J3480; J7030; J7620

== ENCOUNTER 2018-04-30 11:23 | Inpatient (IN) ==
[2018-04-30 11:37] VITALS: BMI 23.0
[2018-04-30] MEDS ORDERED: DUONEB 0.5 MG/3 MG NEB ONE (11:56)
--- NOTE | 2018-04-30 12:12 | DR.AMS ---
HPI Time Seen Time Seen by Provider: 04/30/18 11:47 PCP Primary Care Physician: DR. BUTT HPI Comment HPI Comment: PATIENT HAVE COPD ON HOME OXYGEN AND HAVE HYPERTENSION. CONFUSE SINCE LAST NIGHT. SHE IS SLEEPY AND DIFFICULT TO WAKE UP. PATIENT IS JERKING TODAY NO FEVER. Complaint Cheif Complaint Doctors Comments: INCREASING SOB AND JERKING ACTIONS SINCE LAST NIGHT. SHE ALSO HAVE AMS. Chief Complaint:: PTS SISTER STATES SHE HAS BEEN JERKING AND CONFUSED SINCE LAST NIGHT. SISTER STATES SHE HAS POTASSIUM PROBLEMS Reviewed Nurses Notes Reviewed: Yes Source History Provided: Patient Mode of Arrival Mode of Arrival: Ambulatory Timing Onset of Chief Complaint: 04/29/18 Came On: Suddenly Symptoms: Worsening Duration Duration: Constant Duration: Hours Quality Quality: Decreased Alertness, Change in Behavior and Confusion Severity Severity: Moderate Associated Signs and Symptoms Associated Signs and Symptoms: Generalized Weakness, Change in Behavior, Confusion and Other (JERKING ACTION.) PMH PMH Past Medical History: Yes Past Medical History: Asthma, COPD and Sleep Apnea Past Surgical History: Yes Surgical History: Neurosurgery Family History History of Family Medical Conditions: Yes Family Medical History: Cancer, [place] and Hypertension Social History Does patient currently use any type of tobacco product: Yes Have you used tobacco products in the last 12 months: Yes Type of Tobacco Use: Cigarettes How many years tobacco product used: 40 Does any household member use tobacco: No Alcohol Use: None Do you use any recreational Drugs:: No Lives With: Family Lives Where: Home infectious screening In the last 2 months have you had wt loss of >10#?: NO Have you had fever, night sweats or hemotysis?: No Have you traveled outside the country in the last 6 months?: No Isolation: Standard ROS Review of Systems Constitutional: Weakness and Fatigue Eyes: No Symptoms Reported ENTM: Nose Congestion Respiratoy: Moist Cough, Short of Breath and Wheezing Cardiovascular: Chest Pain Gastrointestinal/Abdominal: No Symptoms Reported Genitourinary: No Symptoms Reported Neurological: Other (JERKING.) Musculoskeletal: No Symptoms Reported Integumentary: Other (SKIN DRY.) Hematologic/Lymphatic: Easy Bleeding and Easy Bruising Endocrine: No Symptoms Reported Psychiatric: No Symptoms Reported All Other Systems: Reviewed and Negative Unable to Obtain Due To: Altered mental status PE Vitals Vital Signs: Temp Pulse Pulse Resp BP BP BP 04/30/18 13:30 89 21 120/67 04/30/18 13:15 90 23 112/67 04/30/18 13:00 92 H 43 H 121/70 04/30/18 12:55 94 H 48 H 120/71 04/30/18 12:18 102 H 04/30/18 11:43 105 H 161/77 04/30/18 11:41 79 106/66 04/30/18 11:29 98.3 F 105 H 18 03/14/18 18:58 124/69 124/69 01/24/18 04:00 121/59 Pulse Ox 04/30/18 13:30 98 04/30/18 13:15 90 L 04/30/18 13:00 93 L 04/30/18 12:55 98 04/30/18 12:18 98 04/30/18 11:43 82 L 04/30/18 11:41 79 L 04/30/18 11:29 03/14/18 18:58 01/24/18 04:00 General Limitations: Altered Mental Status General Appearance: Other (SLEEPY.) Head Head Exam: Normal Inspection Head Exam Physical: Other (NONE REPORTED.) Eyes Eye exam: Normal Appearance Pupils: Regular, Round: Bilateral and Reactive: Bilateral ENT ENT Exam: Normal External Ear Exam External Ear Exam: Normal External Inspection TM/Canal Exam: Bilateral: Normal Nose Exam: Normal Nose Exam Mouth Exam: Normal Inspection Throat Exam: Normal Inspection Neck Neck Exam: Normal Inspection; negative Tenderness, Meningismus and Lymphadenopathy Chest Chest Inspection: Symmetric Chest Wall Rise Respiratory Respiratory Exam: Accessory Muscle Use and Respiratory Distress Respiratory Exam: Bilateral: Wheezing and Bilateral: Rhonchi, Upper: Wheezing and Upper: Rhonchi and Lower: Wheezing and Lower: Rhonchi Cardiovascular Cardiovascular Exam: Regular Rate and Normal Rhythm Abdominal Exam Abdominal Exam: Normal Inspection, Normal Bowel Sounds and Soft; negative Tenderness Extremities Extremities Exam: Normal Inspection Back Back Exam: Paraspinal Tenderness Neurological Neurological Exam: Other (SLEEPY,) Speech: Other (SLOW SPEECH.) Cranial Nerve Exam: Gag reflex (XI): Normal Skin Skin Exam: Dry MDM Additional Information Obtained Additional Information Obtained From: Family Differential Diagnosis Metabolic: Dehydration, Hypercalcemia, Hypernatremia, Hypoglycemia, Hyponatremia and Hypoxemia Structural: CVA and Mass Lesion Infectious: Sepsis and UTI COURSE Treatment Treatment: SEE ORDERS. Consultation Consultation Comments: DISCUSS PATIENT WITH DR. WILLSON. HE WILL ADMIT PATIENT. Education/Counseling Education/Counseling: Patient and Family Educated On: Diagnosis and Needs for Follow Up ROR Labs Reviewed Laboratory Results Reviewed?: Yes Result Diagrams: 04/30/18 12:10 04/30/18 12:10 Laboratory: WBC 23.3 X10^3/uL (3.6-10.0) H 04/30/18 12:10 RBC 4.28 X10^6/uL (3.5-5.4) 04/30/18 12:10 Hgb 13.1 g/dL (12.0-16.0) 04/30/18 12:10 Hct 39.2 % (36.0-47.0) 04/30/18 12:10 MCV 91.7 fL (80.0-100.0) 04/30/18 12:10 MCH 30.6 pg (27.0-34.0) 04/30/18 12:10 MCHC 33.3 g/dL (33.0-35.0) 04/30/18 12:10 RDW 14.5 % (11.6-16.5) 04/30/18 12:10 Plt Count 339 X10^3/uL (150.0-450.0) 04/30/18 12:10 Plt Count Comment Adequate (ADEQUATE) 04/30/18 12:10 MPV 9.4 fL (7.4-11.0) 04/30/18 12:10 Neut % (Auto) 85.3 % (42.0-75.0) H 04/30/18 12:10 Lymph % (Auto) 6.8 % (21.0-51.0) L 04/30/18 12:10 Cameron % (Auto) 7.2 % (0.0-13.0) 04/30/18 12:10 Eos % (Auto) 0.0 % (0.9-2.9) L 04/30/18 12:10 Baso % (Auto) 0.7 % (0.2-1.0) 04/30/18 12:10 Neut # (Auto) 19.9 x10^3/uL (2.2-4.8) H 04/30/18 12:10 Lymph # (Auto) 1.6 X10^3/uL (1.3-2.9) 04/30/18 12:10 Cameron # (Auto) 1.7 x10^3/uL (0.3-0.8) H 04/30/18 12:10 Eos # (Auto) 0.0 x10^3/uL (0.0-0.2) 04/30/18 12:10 Baso # (Auto) 0.2 X10^3/uL (0.0-0.1) H 04/30/18 12:10 Absolute Nucleated RBC 0.0 /100WBC 04/30/18 12:10 Total Counted 100 04/30/18 12:10 Neutrophils % (Manual) 78 % (39-76) H 04/30/18 12:10 Lymphocytes % (Manual) 13 % (13-43) 04/30/18 12:10 Monocytes % (Manual) 1 % (4-9) L 04/30/18 12:10 Eosinophils % (Manual) 8 % (0-6) H 04/30/18 12:10 Plt Morphology Comment Normal (NORMAL) 04/30/18 12:10 RBC Morphology Normal (NORMAL) 04/30/18 12:10 INR Target Range - 04/30/18 12:10 INR 1.04 (0.8-1.3) 04/30/18 12:10 APTT 30.7 SECONDS (22.9-36.5) 04/30/18 12:10 PTT Comment - 04/30/18 12:10 D-Dimer 892 ng/mL (0-400) H* 04/30/18 12:10 Sample Site Left brachial 04/30/18 11:45 ABG pH 7.320 (7.35-7.45) L 04/30/18 11:45 ABG pCO2 63.0 mmHg (35.0-45.0) H* 04/30/18 11:45 ABG pO2 39.0 mmHg (80.0-100.0) L* 04/30/18 11:45 ABG HCO3 32.5 mmol/L (22-26) H* 04/30/18 11:45 ABG O2 Saturation 68.0 % (90-100) L* 04/30/18 11:45 ABG Base Excess 4.7 mmol/L (-2.0-2.0) H 04/30/18 11:45 Colin Test Na 04/30/18 11:45 A-a Gradient 32.0 mmHg 04/30/18 11:45 FiO2 21 04/30/18 11:45 Blood Gas Comments Ronald well aw 04/30/18 11:45 Sodium 142 mmol/L (136-145) 04/30/18 12:10 Corrected Sodium 142 mmol/L (136-145) 04/30/18 12:10 Potassium 4.1 mmol/L (3.5-5.1) 04/30/18 12:10 Chloride 100 mmol/L (98-107) 04/30/18 12:10 Carbon Dioxide 22.1 mmol/L (21-32) 04/30/18 12:10 BUN 13 mg/dL (7-18) 04/30/18 12:10 Creatinine 0.58 mg/dL (0.55-1.02) 04/30/18 12:10 Est GFR (MDRD) Af Amer > 60 (>60) 04/30/18 12:10 Est GFR (MDRD) Non-Af > 60 (>60) 04/30/18 12:10 Glucose 112 mg/dL (65-99) H 04/30/18 12:10 Lactic Acid 0.8 mmol/L (0.4-2.0) 04/30/18 12:10 Calcium 8.2 mg/dL (8.5-10.1) L 04/30/18 12:10 Corrected Calcium 8.9 mg/dL (8.5-10.1) 04/30/18 12:10 Magnesium 2.0 mg/dL (1.7-2.9) 04/30/18 12:10 Total Bilirubin 0.30 mg/dL (0.2-1.0) 04/30/18 12:10 AST 53 Units/L (15-37) H 04/30/18 12:10 ALT 51 Units/L (12-78) 04/30/18 12:10 Alkaline Phosphatase 147 Units/L (46-116) H 04/30/18 12:10 Creatine Kinase 116 Units/L (26-192) 04/30/18 15:46 CK-MB (CK-2) 3.0 ng/mL (0-4.0) 04/30/18 15:46 CK/CKMB % Calc 2.6 % (<4) 04/30/18 15:46 Troponin I 0.03 ng/mL (0-1.5) 04/30/18 15:46 B-Natriuretic Peptide 240 pg/mL (0-79) H 04/30/18 12:10 Total Protein 7.9 g/dL (6.4-8.2) 04/30/18 12:10 Albumin 3.1 g/dL (3.4-5.0) L 04/30/18 12:10 Globulin 4.8 g/dL (2.5-4.5) H 04/30/18 12:10 Albumin/Globulin Ratio 0.6 Ratio (1.1-2.1) L 04/30/18 12:10 Specimen Type Catherized urine 04/30/18 12:38 Urine Color Yellow (YELLOW) 04/30/18 12:38 Urine Appearance Slightly hazy (CLEAR) 04/30/18 12:38 Urine pH 5.0 (5.0 - 8.0) 04/30/18 12:38 Ur Specific [place] 1.030 (1.000-1.030) 04/30/18 12:38 Urine Protein 3+ (NEGATIVE) 04/30/18 12:38 Urine Glucose (UA) Negative (NEGATIVE) 04/30/18 12:38 Urine Ketones 3+ (NEGATIVE) 04/30/18 12:38 Urine Occult Blood 1+ (NEGATIVE) 04/30/18 12:38 Urine Nitrite Negative (NEGATIVE) 04/30/18 12:38 Urine Bilirubin Negative (NEGATIVE) 04/30/18 12:38 Urine Urobilinogen 1+ (NORMAL) 04/30/18 12:38 Ur Leukocyte Esterase 1+ (NEGATIVE) 04/30/18 12:38 Urine RBC 3-5 /HPF (NONE SEEN) 04/30/18 12:38 Urine WBC 3-5 /HPF (NONE SEEN) 04/30/18 12:38 Ur Squamous Epith Cells Rare /HPF (NEGATIVE) 04/30/18 12:38 Amorphous Sediment 1+ /HPF (NEGATIVE) 04/30/18 12:38 Urine Bacteria Trace /HPF (NEGATIVE) 04/30/18 12:38 Hyaline Casts Many /LPF (NEGATIVE) 04/30/18 12:38 Urine Mucus Few /HPF (NEGATIVE) 04/30/18 12:38 Ur Culture Indicated? Yes/culture set up 04/30/18 12:38 Urine Opiates Screen Negative (NEG=<300) 04/30/18 12:38 Urine Methadone Screen Negative (NEG=<300) 04/30/18 12:38 Ur Barbiturates Screen Negative (NEG=<200) 04/30/18 12:38 Ur Phencyclidine Scrn Negative (NEG=<25) 04/30/18 12:38 Ur Amphetamines Screen Negative (NEG=<1000) 04/30/18 12:38 U Benzodiazepines Scrn Negative (NEG=<200) 04/30/18 12:38 Urine Cocaine Screen Negative (NEG=<300) 04/30/18 12:38 U Marijuana (THC) Screen Negative (NEG=<50) 04/30/18 12:38 XRAY XRAY Interpreted by: Radiologist XRAY Findings: REPORT DISCUSS WITH PATIENT AND FAMILY. EKG Rate: 103 [place]: Normal and RAD Rhythm: ST and PVCs Hypertrophy: LAE and NEIL ST: Inf and Ischemia
[2018-04-30] MEDS ORDERED: DUONEB 0.5 MG/3 MG ONE (12:14)
[2018-04-30 12:25] LABS: BASOPHILS # (AUTO) 0.2 X10^3/uL (0.0-0.1); BASOPHILS % (AUTO) 0.7 % (0.2-1.0); HEMATOCRIT 39.2 % (36.0-47.0); HEMOGLOBIN 13.1 g/dL (12.0-16.0); LYMPHOCYTES # (AUTO) 1.6 X10^3/uL (1.3-2.9); LYMPHOCYTES % (AUTO) 6.8 % (21.0-51.0); MEAN CORPUSCULAR HEMOGLOBIN 30.6 pg (27.0-34.0); MEAN CORPUSCULAR HGB CONC 33.3 g/dL (33.0-35.0); MEAN CORPUSCULAR VOLUME 91.7 fL (80.0-100.0); MEAN PLATELET VOLUME 9.4 fL (7.4-11.0); MONOCYTES # (AUTO) 1.7 x10^3/uL (0.3-0.8); MONOCYTES % (AUTO) 7.2 % (0.0-13.0); NEUTROPHILS # (AUTO) 19.9 x10^3/uL (2.2-4.8); NEUTROPHILS % (AUTO) 85.3 % (42.0-75.0); PLATELET COUNT 339 X10^3/uL (150.0-450.0); RED BLOOD COUNT 4.28 X10^6/uL (3.5-5.4); RED CELL DISTRIBUTION WIDTH 14.5 % (11.6-16.5); WHITE BLOOD COUNT 23.3 X10^3/uL (3.6-10.0)
--- NOTE | 2018-04-30 12:33 | CT ---
HISTORY: Acute altered mental status Study: CT head without contrast Comparison: 01/23/2018 Technique: Axial noncontrast images with coronal and sagittal reformats. Dose reduction procedures were used with mA/kv adjusted for body size. Findings: The patient appears to be status post left posterior frontal craniotomy. The ventricles are normal in size, shape, and position. There is decreased attenuation in the periventricular white matter suggestive of small vessel vascular disease. There is no definite evidence for recent or remote CVA, hemorrhage, mass lesion, or extra-axial fluid collection. The visualized sinuses are clear. IMPRESSION: No definite acute intracranial abnormality Slight decreased attenuation in the periventricular white matter suggestive of small vessel vascular disease Reported By:
[2018-04-30 12:38] LABS: PLATELET MORPHOLOGY COMMENT NORMAL (NORMAL)
[2018-04-30 12:41] LABS: LACTIC ACID 0.8 mmol/L (0.4-2.0)
[2018-04-30 12:43] LABS: ABG BASE EXCESS 4.7 mmol/L (-2.0-2.0)
[2018-04-30 12:44] LABS: ABG HCO3 32.5 mmol/L (22-26)
[2018-04-30 12:45] LABS: FRACTIONATED INSPIRED OXYGEN 21
[2018-04-30 12:46] LABS: CKMB % 2.1 % (<4); CREATINE KINASE MB 2.8 ng/mL (0-4.0); TROPONIN I 0.03 ng/mL (0-1.5)
[2018-04-30 12:51] LABS: BILIRUBIN,URINE NEGATIVE (NEGATIVE); BLOOD/HEMOGLOBIN,URINE 1+ (NEGATIVE); GLUCOSE, URINE NEGATIVE (NEGATIVE); KETONES,URINE 3+ (NEGATIVE); LEUKOCYTE ESTERASE ,URINE 1+ (NEGATIVE); NITRITES,URINE NEGATIVE (NEGATIVE); PROTEIN,URINE 3+ (NEGATIVE); UROBILINOGEN,URINE 1+ (NORMAL)
[2018-04-30 12:54] LABS: APPEARANCE,URINE SLIGHTLY HAZY (CLEAR); COLOR,URINE YELLOW (YELLOW)
[2018-04-30] MEDS ORDERED: NARCAN INJ IVP ONE (12:56)
[2018-04-30 12:58] LABS: AMORPHOUS SEDIMENT,UR 1+ /HPF (NEGATIVE); BACTERIA,URINE TRACE /HPF (NEGATIVE); SQUAMOUS EPITHELIAL CELL,UR RARE /HPF (NEGATIVE)
[2018-04-30] MEDS ORDERED: NARCAN INJ ONE (12:58)
[2018-04-30 12:59] LABS: HYALINE CASTS, URINE MANY /LPF (NEGATIVE); MUCUS,URINE FEW /HPF (NEGATIVE)
--- NOTE | 2018-04-30 13:34 | RAD ---
HISTORY: Patient complains of being sick cold chills and dizziness Study: One-view chest Comparison: One-view chest 03/14/2018 Technique: AP portable chest. Findings: EKG leads overlie the thorax soft tissues bone detail are normal. The heart size configuration airway are normal there is diffuse increased interstitial pattern overall what was present previously on the chest film 03/14/2018. There is no effusion no vascular congestion cephalization or peribronchial cuffing. This new interstitial pattern is most consistent with interstitial pneumonitis but noncardiogenic interstitial edema could not be excluded. This is a definite change from prior films of 03/14/2018 and 02/12/2018. IMPRESSION: 1. Interstitial pneumonitis diffusely in both lungs without effusions or cardiomegaly. Reported By:
[2018-04-30] MEDS ORDERED: LEVAQUIN TAB 750 MG PO ONE (14:07)
[2018-04-30] MEDS ORDERED: LEVAQUIN PREMIX IV 750 MG 750 MG/150 ML BAG IV ONE (14:18)
[2018-04-30] MEDS: NS 1000 ML 1,000 ML IV SCH (14:20)
[2018-04-30 14:27] LABS: ALANINE AMINOTRANSFERASE 51 Units/L (12-78); ALBUMIN 3.1 g/dL (3.4-5.0); ALKALINE PHOSPHATASE 147 Units/L (46-116); ASPARTATE AMINO TRANSFERASE 53 Units/L (15-37); BLOOD UREA NITROGEN 13 mg/dL (7-18); CALCIUM 8.2 mg/dL (8.5-10.1); CARBON DIOXIDE 22.1 mmol/L (21-32); CHLORIDE 100 mmol/L (98-107); COR CA(FOR HYPOALB) 8.9 mg/dL (8.5-10.1); COR NA(FOR HYPERGLY) 142 mmol/L (136-145); CREATININE 0.58 mg/dL (0.55-1.02); SODIUM 142 mmol/L (136-145); TOTAL PROTEIN 7.9 g/dL (6.4-8.2); eGFR NON BLACK RACES > 60 (>60)
[2018-04-30] MEDS ORDERED: NS 100 ML IV 100 ML IV ONE (16:22)
[2018-04-30 16:30] LABS: CKMB % 2.6 % (<4); TROPONIN I 0.03 ng/mL (0-1.5)
--- NOTE | 2018-04-30 16:56 | CT ---
CTA chest Indication: Hypoxia, chest pain Comparison: None Technique: CT images of the chest were obtained with contrast. Automatic exposure control was utilized. MIP images provided. Findings: Multiple images were degraded by motion. Impression: The upper abdomen is grossly unremarkable. No acute osseous abnormality. The heart size is normal, without significant pericardial thickening or pericardial effusion. Scattered coronary artery calcifications are noted. There are several mildly enlarged precarinal and right hilar lymph nodes. The thoracic aorta is grossly unremarkable for technique aside from scattered atherosclerotic calcifications. Evaluation of the segmental and subsegmental pulmonary arteries is limited by breathing motion artifact and suboptimal contrast bolus timing. Accounting for this, no definite pulmonary arterial filling defect is identified. There is mild upper lobe predominant emphysema. There is mild diffuse peribronchial thickening and scattered tree-in-bud opacities throughout both lungs. No dense infiltrates, pleural effusion, or pneumothorax. The major airways are patent. Impression: Findings of bronchitis/bronchiolitis, likely infectious or inflammatory, which can be acute, chronic, or both. No evidence for PTE. Mild mediastinal and right hilar adenopathy. This is nonspecific and possibly reactive, but consider CT follow-up in 6 months to ensure stability/resolution. Reported By:
[2018-04-30] MEDS ORDERED: ANTIVERT TAB 25 MG PO PRN (17:58)
[2018-04-30] MEDS ORDERED: AMBIEN PO PRN (17:58)
[2018-04-30] MEDS ORDERED: LIORESAL PO PRN (17:58)
[2018-04-30] MEDS: LYRICA CAP 100 MG PO SCH ×2 (18:44→21:11)
[2018-04-30] MEDS: DUONEB 0.5 MG/3 MG NEB SCH (20:24)
[2018-04-30] MEDS ORDERED: POTASSIUM BICARBONATE PO SCH (21:00)
[2018-04-30] MEDS ORDERED: CITRIC ACID PO SCH (21:00)
[2018-04-30] MEDS ORDERED: PATIENT'S HOME MEDICATION (Diclofenac Sodium [Diclofenac Sodium] 75 MG) PO SCH (21:00)
[2018-04-30] MEDS: NAPROSYN PO SCH (21:12)
[2018-04-30] MEDS: NEURONTIN CAP 300 MG PO SCH (21:12)
[2018-04-30] MEDS: FLONASE NASAL SPRAY ENOSTRIL SCH (21:45)
[2018-04-30 23:05] LABS: CKMB % 2.6 % (<4); CREATINE KINASE MB 2.7 ng/mL (0-4.0); TROPONIN I 0.02 ng/mL (0-1.5)
[2018-05-01] MEDS ORDERED: SALINE 3% 15 ML NEB TX NEB ONE (00:57)
[2018-05-01] MEDS: DUONEB 0.5 MG/3 MG NEB SCH ×6 (00:59→21:32)
[2018-05-01] MEDS: NEURONTIN CAP 300 MG PO SCH ×3 (05:31→22:41)
[2018-05-01] MEDS: LYRICA CAP 100 MG PO SCH ×3 (05:31→22:41)
[2018-05-01 06:18] LABS: BASOPHILS # (AUTO) 0.1 X10^3/uL (0.0-0.1); BASOPHILS % (AUTO) 0.4 % (0.2-1.0); EOSINOPHILS % (AUTO) 0.1 % (0.9-2.9); HEMATOCRIT 39.5 % (36.0-47.0); HEMOGLOBIN 12.9 g/dL (12.0-16.0); LYMPHOCYTES # (AUTO) 3.2 X10^3/uL (1.3-2.9); LYMPHOCYTES % (AUTO) 18.9 % (21.0-51.0); MEAN CORPUSCULAR HEMOGLOBIN 30.4 pg (27.0-34.0); MEAN CORPUSCULAR HGB CONC 32.6 g/dL (33.0-35.0); MEAN CORPUSCULAR VOLUME 93.2 fL (80.0-100.0); MEAN PLATELET VOLUME 9.9 fL (7.4-11.0); MONOCYTES # (AUTO) 1.3 x10^3/uL (0.3-0.8); MONOCYTES % (AUTO) 7.4 % (0.0-13.0); NEUTROPHILS # (AUTO) 12.5 x10^3/uL (2.2-4.8); NEUTROPHILS % (AUTO) 73.2 % (42.0-75.0); PLATELET COUNT 305 X10^3/uL (150.0-450.0); RED BLOOD COUNT 4.24 X10^6/uL (3.5-5.4); RED CELL DISTRIBUTION WIDTH 14.8 % (11.6-16.5)
[2018-05-01 06:33] LABS: CKMB % 1.9 % (<4); CREATINE KINASE 91 Units/L (26-192); CREATINE KINASE MB 1.7 ng/mL (0-4.0); TROPONIN I < 0.02 ng/mL (0-1.5)
[2018-05-01 06:34] LABS: ALANINE AMINOTRANSFERASE 40 Units/L (12-78); ALBUMIN 2.8 g/dL (3.4-5.0); ALKALINE PHOSPHATASE 125 Units/L (46-116); ASPARTATE AMINO TRANSFERASE 36 Units/L (15-37); BLOOD UREA NITROGEN 16 mg/dL (7-18); CALCIUM 8.6 mg/dL (8.5-10.1); CARBON DIOXIDE 27.6 mmol/L (21-32); CHLORIDE 103 mmol/L (98-107); COR CA(FOR HYPOALB) 9.6 mg/dL (8.5-10.1); CREATININE 0.64 mg/dL (0.55-1.02); SODIUM 144 mmol/L (136-145); TOTAL PROTEIN 7.3 g/dL (6.4-8.2); eGFR NON BLACK RACES > 60 (>60)
[2018-05-01] MEDS: NORCO 10/325 TAB PO PRN ×2 (06:53→14:07)
[2018-05-01] MEDS ORDERED: MICRO K EXTEN CAP 10 MEQ PO SCH (09:00)
[2018-05-01] MEDS ORDERED: PATIENT'S HOME MEDICATION (Levocetirizine [Levocetirizine] 5 MG) PO SCH (09:00)
[2018-05-01] MEDS: FLONASE NASAL SPRAY ENOSTRIL SCH ×2 (10:01→21:40)
[2018-05-01] MEDS: ZyrTEC TAB 10 MG PO SCH (10:01)
[2018-05-01] MEDS: SYNTHROID 100 mcg TAB PO SCH (10:02)
[2018-05-01] MEDS: SINGULAIR TAB 10 MG PO SCH (10:02)
[2018-05-01] MEDS: LEVAQUIN PREMIX IV 750 MG 750 MG/150 ML BAG IV SCH (10:03)
[2018-05-01] MEDS: NAPROSYN PO SCH ×2 (10:03→21:40)
[2018-05-01] MEDS: PROTONIX TAB 40 MG PO SCH (10:03)
[2018-05-01] MEDS: FOLIC ACID TAB 1 MG PO SCH (10:04)
[2018-05-01] MEDS: XANAX PO PRN (10:04)
--- NOTE | 2018-05-01 10:21 | DR.H&P ---
H&P - History & Physical for Day of: H&P Date: 04/30/18 - Chief Complaint Chief Complaint: AMS, HYPOXIA - History of Present Illness History of Present Illness: 62 WF ER ADMISSION AFTER PRESENTING WITH HYPOXIA, AMS. PT FAMILY REPORTS SHE HAS COPD AND O2 USE AT HOME. PT WAS DIFFICULT TO AROUSE AND "SHAKING" PER FAMILY. PT ABG IN ER WITH PO2 39, CO262. PT ADMITTED TO ICU FOR ACUTE RESP DISTRESS, AMS - Past Medical History Past Medical History: Anxiety, Arthritis, Asthma, COPD, Sleep Apnea - Past Surgical History Surgical History: Neurosurgery - Family History Family Medical History: Cancer, [place], Hypertension - Social History Does patient currently use any type of tobacco product: Yes Have you used tobacco products in the last 12 months: Yes Type of Tobacco Use: Cigarettes How many years tobacco product used: 40 Does any household member use tobacco: No Alcohol Use: None - Medications Home Medications: morphine Allergy (Verified 12/26/17 14:56) Penicillins Allergy (Verified 12/26/17 14:56) prednisone Allergy (Verified 12/26/17 14:56) tea Allergy (Uncoded 04/30/18 21:21) CONTINUE taking the following medications albuterol sulfate [Proventil HFA] 1 puff INHALATION QID PRN 04/30/18 [History] alendronate 70 mg PO WEEKLY 04/30/18 [History] diclofenac sodium 75 mg PO BID 04/30/18 [History] gabapentin 600 mg PO TID 04/30/18 [History] potassium bicarb-citric acid [Effer-K] 10 meq PO BID 04/30/18 [History] pregabalin [Lyrica] 200 mg PO TID 04/30/18 [History] zolpidem 10 mg PO HS PRN 04/30/18 [History] - Review of Systems Constitutional: Weakness Eyes: No Symptoms Reported ENT: No Symptoms Reported, Mouth Pain Respiratory: SOB with Excertion, Wheezing Cardiovascular: denies: Chest Pain, Edema Gastrointestinal: No Symptoms Reported Genitourinary: No Symptoms Reported Musculoskeletal: No Symptoms Reported Skin: No Symptoms Reported Neurological: Weakness, Confusion - Physical Exam Vital Signs: Temperature 97.5 F Pulse Rate [Left Radial] 82 Pulse Rate 91 Respiratory Rate 26 Blood Pressure [Right Arm] 100/61 Blood Pressure [Left Arm] 121/59 Blood Pressure 136/63 O2 Sat by Pulse Oximetry 93 Oriented: Person Eyes: Normal Ear: Normal Nose: Normal Throat: Dry Respiratory: Diminished Throughout Cardiovascular: Tachycardia. negative: Edema : Normal Auscultation: Bowel Sounds: Normal Palpation: Normal Tenderness: Normal Skin: Decreased Turgur Musculoskeletal: Back:Lumbar Psychiatric: Anxiety Affect: Anxious Speech Pattern: Delayed - Assessment/Plan (1) Altered mental status Qualifiers: Altered mental status type: transient alteration of awareness Qualified Code(s): R40.4 - Transient alteration of awareness Status: Acute Plan: ADMIT ICU, RESP THERAPY, SUPPLEMENTAL O2. IV ATBX, GENTLE IV HYDRATION. VERIFY HOME MED, CONTINUOUS CARDIAC MONITORING. ADMISSION CT HEAD WITHOUT ACUTE FINDINGS. IV STEROIDS, SPUTUM CULTURE (2) SOB (shortness of breath) Status: Acute (3) Bronchopneumonia Status: Acute (4) COPD exacerbation Status: Acute (5) Arthritis Status: Chronic - Allergies Allergies/Adverse Reactions: Allergies Allergy/AdvReac Type Severity Reaction Status Date / Time morphine Allergy Verified 12/26/17 14:56 Penicillins Allergy Verified 12/26/17 14:56 prednisone Allergy Verified 12/26/17 14:56 tea Allergy Uncoded 04/30/18 21:21
[2018-05-01] MEDS: CITRIC ACID PO SCH (21:40)
[2018-05-01] MEDS: POTASSIUM BICARBONATE PO SCH (21:40)
[2018-05-01] MEDS: COLACE CAP 100 MG PO SCH (21:40)
[2018-05-01] MEDS: MILK OF MAGNESIA PO SCH (21:40)
[2018-05-01] MEDS: NS 1000 ML 1,000 ML IV SCH (22:38)
[2018-05-02] MEDS: DUONEB 0.5 MG/3 MG NEB SCH ×6 (01:16→20:08)
[2018-05-02] MEDS: LYRICA CAP 100 MG PO SCH ×3 (05:40→21:33)
[2018-05-02] MEDS: NEURONTIN CAP 300 MG PO SCH ×3 (05:41→21:32)
[2018-05-02] MEDS: NORCO 10/325 TAB PO PRN ×2 (05:41→18:59)
[2018-05-02 06:10] LABS: BASOPHILS # (AUTO) 0.1 X10^3/uL (0.0-0.1); BASOPHILS % (AUTO) 0.8 % (0.2-1.0); EOSINOPHILS # (AUTO) 0.1 x10^3/uL (0.0-0.2); EOSINOPHILS % (AUTO) 0.8 % (0.9-2.9); HEMATOCRIT 36.1 % (36.0-47.0); HEMOGLOBIN 11.8 g/dL (12.0-16.0); LYMPHOCYTES # (AUTO) 3.1 X10^3/uL (1.3-2.9); LYMPHOCYTES % (AUTO) 22.4 % (21.0-51.0); MEAN CORPUSCULAR HEMOGLOBIN 30.3 pg (27.0-34.0); MEAN CORPUSCULAR HGB CONC 32.6 g/dL (33.0-35.0); MEAN CORPUSCULAR VOLUME 93.2 fL (80.0-100.0); MEAN PLATELET VOLUME 9.5 fL (7.4-11.0); MONOCYTES # (AUTO) 0.8 x10^3/uL (0.3-0.8); MONOCYTES % (AUTO) 6.1 % (0.0-13.0); NEUTROPHILS # (AUTO) 9.7 x10^3/uL (2.2-4.8); NEUTROPHILS % (AUTO) 69.9 % (42.0-75.0); PLATELET COUNT 308 X10^3/uL (150.0-450.0); RED BLOOD COUNT 3.88 X10^6/uL (3.5-5.4); RED CELL DISTRIBUTION WIDTH 14.8 % (11.6-16.5); WHITE BLOOD COUNT 13.9 X10^3/uL (3.6-10.0)
[2018-05-02 06:12] LABS: ABG BASE EXCESS 6.7 mmol/L (-2.0-2.0)
[2018-05-02 06:25] LABS: ALANINE AMINOTRANSFERASE 36 Units/L (12-78); ALBUMIN 2.6 g/dL (3.4-5.0); ALKALINE PHOSPHATASE 116 Units/L (46-116); ASPARTATE AMINO TRANSFERASE 31 Units/L (15-37); BLOOD UREA NITROGEN 14 mg/dL (7-18); CALCIUM 8.4 mg/dL (8.5-10.1); CHLORIDE 100 mmol/L (98-107); COR CA(FOR HYPOALB) 9.5 mg/dL (8.5-10.1); COR NA(FOR HYPERGLY) 141 mmol/L (136-145); CREATININE 0.69 mg/dL (0.55-1.02); SODIUM 140 mmol/L (136-145); TOTAL PROTEIN 6.7 g/dL (6.4-8.2); eGFR NON BLACK RACES > 60 (>60)
[2018-05-02] MEDS ORDERED: K-DUR TAB 20 MEQ PO PRN (06:37)
[2018-05-02] MEDS ORDERED: POTASSIUM CHL 60 MEQ/NS 0.45% 500 ML IV PRN (06:37)
[2018-05-02] MEDS ORDERED: POTASSIUM CHL 40 MEQ/NS 0.45% 500 ML IV PRN (06:37)
[2018-05-02] MEDS ORDERED: K-RIDER 10 MEQ/NS 100 ML 10 MEQ/100 ML BAG IV PRN (06:37)
[2018-05-02] MEDS ORDERED: MICRO K EXTEN CAP 10 MEQ PO PRN (06:37)
[2018-05-02] MEDS ORDERED: KLOR-CON PO PRN (06:37)
[2018-05-02] MEDS ORDERED: POTASSIUM CHLORIDE LIQ 20 MEQ UDC PO PRN (06:37)
[2018-05-02 06:57] LABS: BAND NEUTROPHILS % 8 % (0-10)
[2018-05-02 06:58] LABS: PLATELET MORPHOLOGY COMMENT NORMAL (NORMAL)
--- NOTE | 2018-05-02 07:25 | RAD ---
HISTORY: Pneumonia, COPD, asthma Study: Chest AP portable Comparison: 04/30/2018 plain film and chest CT Findings: The heart is within normal limits in size. The trace are normal. The lungs are hyperinflated but free of acute alveolar infiltrates. Diffuse interstitial lung changes are present. There is peribronchial thickening consistent with bronchitis. No pleural effusions are identified. The bony thorax is unremarkable. IMPRESSION: Peribronchial thickening consistent with bronchitis Diffuse interstitial lung changes likely chronic Hyperinflation consistent with COPD in the appropriate clinical setting Reported By:
[2018-05-02] MEDS: NAPROSYN PO SCH ×2 (08:45→21:33)
[2018-05-02] MEDS: LEVAQUIN PREMIX IV 750 MG 750 MG/150 ML BAG IV SCH (08:46)
[2018-05-02] MEDS: SYNTHROID 100 mcg TAB PO SCH (08:46)
[2018-05-02] MEDS: PROTONIX TAB 40 MG PO SCH (08:46)
[2018-05-02] MEDS: ZyrTEC TAB 10 MG PO SCH (08:46)
[2018-05-02] MEDS: SINGULAIR TAB 10 MG PO SCH (08:46)
[2018-05-02] MEDS: CITRIC ACID PO SCH ×2 (08:48→21:34)
[2018-05-02] MEDS: FOLIC ACID TAB 1 MG PO SCH (08:48)
[2018-05-02] MEDS: POTASSIUM BICARBONATE PO SCH ×2 (08:48→21:34)
[2018-05-02] MEDS: MILK OF MAGNESIA PO SCH ×2 (08:48→21:32)
[2018-05-02] MEDS: FLONASE NASAL SPRAY ENOSTRIL SCH ×2 (08:48→21:34)
--- NOTE | 2018-05-02 13:16 | PCM.PROG ---
Progress Note - Progress Note for Day of Date of Exam: 05/02/18 - Subjective Subjective: 62 WF ADMITTED ON 04/30 WITH RESP FAILURE, PNEUMONIA. PT IS CURRENTLY ON NC AT 3/L. CONTINUES WITH DIFFUSE EXP WHEEZES AND PRODUCTIVE COUGH. WBC 13.9, K+3.2 WITH POTASSIUM REPLACEMENT. PT ON IV ATBX, REPEAT AM CHEST XRAY. - Past Medical Family Social History Past Med/Fam/Surg Hx: No changes since H&P Allergies: Allergies morphine Allergy (Verified 12/26/17 14:56) Penicillins Allergy (Verified 12/26/17 14:56) prednisone Allergy (Verified 12/26/17 14:56) tea Allergy (Uncoded 04/30/18 21:21) - Review of Systems ROS: No change since H&P - Vital Signs and I&O's Vital Signs: Temperature 97.6 F Pulse Rate [Left Radial] 105 Pulse Rate 90 Respiratory Rate 29 Blood Pressure [Right Arm] 134/79 Blood Pressure [Left Arm] 121/59 Blood Pressure 136/63 O2 Sat by Pulse Oximetry 97 Intake and Output: Intake & Output 04/30/18 05/01/18 05/02/18 05/03/18 11:59 11:59 11:59 11:59 Intake Total 330 / 330 2957 / 2957 Output Total 1300 / 1300 Balance 330 / 330 1657 / 1657 - Physical Exam Oriented: Person Eyes: Normal Ear: Normal Nose: Normal Throat: Dry Respiratory: Diminished, Rhonchi Cardiovascular: Tachycardia. negative: Edema : Normal Auscultation: Bowel Sounds: Normal Tenderness: Normal Skin: Decreased Turgur Musculoskeletal: Back:Lumbar Psychiatric: Anxiety Affect: Anxious Speech Pattern: Clear, Appropriate - Laboratory and Diagnostics Result Diagrams: 05/02/18 05:36 05/02/18 12:31 Labs: 04/30/18 12:10 Blood Blood Culture - Preliminary 04/30/18 11:56 Blood Blood Culture - Preliminary 04/30/18 12:38 Urine,Catheterized Urine Culture - Final Laboratory WBC 13.9 X10^3/uL (3.6-10.0) H 05/02/18 05:36 RBC 3.88 X10^6/uL (3.5-5.4) 05/02/18 05:36 Hgb 11.8 g/dL (12.0-16.0) L 05/02/18 05:36 Hct 36.1 % (36.0-47.0) 05/02/18 05:36 MCV 93.2 fL (80.0-100.0) 05/02/18 05:36 MCH 30.3 pg (27.0-34.0) 05/02/18 05:36 MCHC 32.6 g/dL (33.0-35.0) L 05/02/18 05:36 RDW 14.8 % (11.6-16.5) 05/02/18 05:36 Plt Count 308 X10^3/uL (150.0-450.0) 05/02/18 05:36 Plt Count Comment Adequate (ADEQUATE) 05/02/18 05:36 MPV 9.5 fL (7.4-11.0) 05/02/18 05:36 Neut % (Auto) 69.9 % (42.0-75.0) 05/02/18 05:36 Lymph % (Auto) 22.4 % (21.0-51.0) 05/02/18 05:36 [place] % (Auto) 6.1 % (0.0-13.0) 05/02/18 05:36 Eos % (Auto) 0.8 % (0.9-2.9) L 05/02/18 05:36 Baso % (Auto) 0.8 % (0.2-1.0) 05/02/18 05:36 Neut # (Auto) 9.7 x10^3/uL (2.2-4.8) H 05/02/18 05:36 Lymph # (Auto) 3.1 X10^3/uL (1.3-2.9) H 05/02/18 05:36 [place] # (Auto) 0.8 x10^3/uL (0.3-0.8) 05/02/18 05:36 Eos # (Auto) 0.1 x10^3/uL (0.0-0.2) 05/02/18 05:36 Baso # (Auto) 0.1 X10^3/uL (0.0-0.1) 05/02/18 05:36 Absolute Nucleated RBC 0.0 /100WBC 05/02/18 05:36 Total Counted 100 05/02/18 05:36 Neutrophils % (Manual) 62 % (39-76) 05/02/18 05:36 Band Neutrophils % 8 % (0-10) 05/02/18 05:36 Lymphocytes % (Manual) 22 % (13-43) 05/02/18 05:36 Monocytes % (Manual) 8 % (4-9) 05/02/18 05:36 Eosinophils % (Manual) 8 % (0-6) H 04/30/18 12:10 Plt Morphology Comment Normal (NORMAL) 05/02/18 05:36 RBC Morphology Normal (NORMAL) 05/02/18 05:36 INR Target Range - 04/30/18 12:10 INR 1.04 (0.8-1.3) 04/30/18 12:10 APTT 30.7 SECONDS (22.9-36.5) 04/30/18 12:10 PTT Comment - 04/30/18 12:10 D-Dimer 892 ng/mL (0-400) H* 04/30/18 12:10 Sample Site Rbra 05/02/18 06:02 ABG pH 7.320 (7.35-7.45) L 05/02/18 06:02 ABG pCO2 68.0 mmHg (35.0-45.0) H* 05/02/18 06:02 ABG pO2 69.0 mmHg (80.0-100.0) L 05/02/18 06:02 ABG HCO3 35.0 mmol/L (22-26) H* 05/02/18 06:02 ABG O2 Saturation 92.0 % (90-100) 05/02/18 06:02 ABG Base Excess 6.7 mmol/L (-2.0-2.0) H 05/02/18 06:02 Colin Test Na 05/02/18 06:02 A-a Gradient 46.0 mmHg 05/02/18 06:02 FiO2 28.0 05/02/18 06:02 Blood Gas Comments Ronald abg well-mtf 05/02/18 06:02 Sodium 140 mmol/L (136-145) 05/02/18 05:36 Corrected Sodium 141 mmol/L (136-145) 05/02/18 05:36 Potassium 3.9 mmol/L (3.5-5.1) 05/02/18 12:31 Chloride 100 mmol/L (98-107) 05/02/18 05:36 Carbon Dioxide 27.0 mmol/L (21-32) 05/02/18 05:36 BUN 14 mg/dL (7-18) 05/02/18 05:36 Creatinine 0.69 mg/dL (0.55-1.02) 05/02/18 05:36 Est GFR (MDRD) Af Amer > 60 (>60) 05/02/18 05:36 Est GFR (MDRD) Non-Af > 60 (>60) 05/02/18 05:36 Glucose 159 mg/dL (65-99) H 05/02/18 05:36 Lactic Acid 0.8 mmol/L (0.4-2.0) 04/30/18 12:10 Calcium 8.4 mg/dL (8.5-10.1) L 05/02/18 05:36 Corrected Calcium 9.5 mg/dL (8.5-10.1) 05/02/18 05:36 Magnesium 1.9 mg/dL (1.7-2.9) 05/02/18 05:36 Total Bilirubin 0.20 mg/dL (0.2-1.0) 05/02/18 05:36 AST 31 Units/L (15-37) 05/02/18 05:36 ALT 36 Units/L (12-78) 05/02/18 05:36 Alkaline Phosphatase 116 Units/L (46-116) 05/02/18 05:36 Creatine Kinase 91 Units/L (26-192) 05/01/18 05:17 CK-MB (CK-2) 1.7 ng/mL (0-4.0) 05/01/18 05:17 CK/CKMB % Calc 1.9 % (<4) 05/01/18 05:17 Troponin I < 0.02 ng/mL (0-1.5) 05/01/18 05:17 B-Natriuretic Peptide 240 pg/mL (0-79) H 04/30/18 12:10 Total Protein 6.7 g/dL (6.4-8.2) 05/02/18 05:36 Albumin 2.6 g/dL (3.4-5.0) L 05/02/18 05:36 Globulin 4.1 g/dL (2.5-4.5) 05/02/18 05:36 Albumin/Globulin Ratio 0.6 Ratio (1.1-2.1) L 05/02/18 05:36 Specimen Type Catherized urine 04/30/18 12:38 Urine Color Yellow (YELLOW) 04/30/18 12:38 Urine Appearance Slightly hazy (CLEAR) 04/30/18 12:38 Urine pH 5.0 (5.0 - 8.0) 04/30/18 12:38 Ur Specific [place] 1.030 (1.000-1.030) 04/30/18 12:38 Urine Protein 3+ (NEGATIVE) 04/30/18 12:38 Urine Glucose (UA) Negative (NEGATIVE) 04/30/18 12:38 Urine Ketones 3+ (NEGATIVE) 04/30/18 12:38 Urine Occult Blood 1+ (NEGATIVE) 04/30/18 12:38 Urine Nitrite Negative (NEGATIVE) 04/30/18 12:38 Urine Bilirubin Negative (NEGATIVE) 04/30/18 12:38 Urine Urobilinogen 1+ (NORMAL) 04/30/18 12:38 Ur Leukocyte Esterase 1+ (NEGATIVE) 04/30/18 12:38 Urine RBC 3-5 /HPF (NONE SEEN) 04/30/18 12:38 Urine WBC 3-5 /HPF (NONE SEEN) 04/30/18 12:38 Ur Squamous Epith Cells Rare /HPF (NEGATIVE) 04/30/18 12:38 Amorphous Sediment 1+ /HPF (NEGATIVE) 04/30/18 12:38 Urine Bacteria Trace /HPF (NEGATIVE) 04/30/18 12:38 Hyaline Casts Many /LPF (NEGATIVE) 04/30/18 12:38 Urine Mucus Few /HPF (NEGATIVE) 04/30/18 12:38 Ur Culture Indicated? Yes/culture set up 04/30/18 12:38 Urine Opiates Screen Negative (NEG=<300) 04/30/18 12:38 Urine Methadone Screen Negative (NEG=<300) 04/30/18 12:38 Ur Barbiturates Screen Negative (NEG=<200) 04/30/18 12:38 Ur Phencyclidine Scrn Negative (NEG=<25) 04/30/18 12:38 Ur Amphetamines Screen Negative (NEG=<1000) 04/30/18 12:38 U Benzodiazepines Scrn Negative (NEG=<200) 04/30/18 12:38 Urine Cocaine Screen Negative (NEG=<300) 04/30/18 12:38 U Marijuana (THC) Screen Negative (NEG=<50) 04/30/18 12:38 - Plan (1) Altered mental status Status: Acute Qualifiers: Altered mental status type: transient alteration of awareness Qualified Cod e(s): R40.4 - Transient alteration of awareness Plan: DUE TO HYPOXIA, RESP THERAPY, SUPPLEMENTAL O2. IV ATBX, GENTLE IV HYDRATION. VERIFY HOME MED, CONTINUOUS CARDIAC MONITORING. ADMISSION CT HEAD WITHOUT ACUTE FINDINGS. IV STEROIDS, SPUTUM CULTURE PENDING (2) SOB (shortness of breath) Status: Acute (3) Bronchopneumonia Status: Acute Plan: REPEAT AM CXR, REPEAT ABG (4) COPD exacerbation Status: Acute (5) Arthritis Status: Chronic
[2018-05-02] MEDS: MUCOMYST 20% 200 MG/ML NEB SCH ×2 (16:09→20:08)
[2018-05-02] MEDS: NS 1000 ML 1,000 ML IV SCH (18:48)
[2018-05-02] MEDS: COLACE CAP 100 MG PO SCH (21:32)
[2018-05-03] MEDS: DUONEB 0.5 MG/3 MG NEB SCH ×6 (00:54→20:00)
[2018-05-03] MEDS: NEURONTIN CAP 300 MG PO SCH ×3 (05:32→21:02)
[2018-05-03] MEDS: LYRICA CAP 100 MG PO SCH ×3 (05:32→21:02)
[2018-05-03 06:30] LABS: BASOPHILS # (AUTO) 0.1 X10^3/uL (0.0-0.1); BASOPHILS % (AUTO) 0.9 % (0.2-1.0); EOSINOPHILS # (AUTO) 0.2 x10^3/uL (0.0-0.2); EOSINOPHILS % (AUTO) 1.7 % (0.9-2.9); HEMATOCRIT 34.5 % (36.0-47.0); HEMOGLOBIN 11.1 g/dL (12.0-16.0); LYMPHOCYTES # (AUTO) 4.4 X10^3/uL (1.3-2.9); LYMPHOCYTES % (AUTO) 33.3 % (21.0-51.0); MEAN CORPUSCULAR HEMOGLOBIN 30.1 pg (27.0-34.0); MEAN CORPUSCULAR HGB CONC 32.1 g/dL (33.0-35.0); MEAN CORPUSCULAR VOLUME 93.8 fL (80.0-100.0); MONOCYTES % (AUTO) 7.2 % (0.0-13.0); NEUTROPHILS # (AUTO) 7.5 x10^3/uL (2.2-4.8); NEUTROPHILS % (AUTO) 56.9 % (42.0-75.0); PLATELET COUNT 316 X10^3/uL (150.0-450.0); RED BLOOD COUNT 3.67 X10^6/uL (3.5-5.4); RED CELL DISTRIBUTION WIDTH 14.6 % (11.6-16.5); WHITE BLOOD COUNT 13.2 X10^3/uL (3.6-10.0)
[2018-05-03 06:33] LABS: ALANINE AMINOTRANSFERASE 60 Units/L (12-78); ALBUMIN 2.5 g/dL (3.4-5.0); ALKALINE PHOSPHATASE 115 Units/L (46-116); ASPARTATE AMINO TRANSFERASE 97 Units/L (15-37); BLOOD UREA NITROGEN 9 mg/dL (7-18); CARBON DIOXIDE 34.6 mmol/L (21-32); CHLORIDE 104 mmol/L (98-107); COR CA(FOR HYPOALB) 9.2 mg/dL (8.5-10.1); CREATININE 0.53 mg/dL (0.55-1.02); SODIUM 143 mmol/L (136-145); TOTAL PROTEIN 6.3 g/dL (6.4-8.2); eGFR NON BLACK RACES > 60 (>60)
--- NOTE | 2018-05-03 06:55 | RAD ---
HISTORY: Follow-up pneumonia Study: Chest AP portable Comparison: 05/02/2018 Findings: The heart is within normal limits in size. The trace are normal. The lungs remain hyperinflated but free of acute alveolar infiltrates. Diffuse interstitial lung changes are stable. There is peribronchial thickening consistent with bronchitis unchanged from the prior examination. No pleural effusions are identified. The bony thorax is unremarkable. IMPRESSION: No significant change from the prior examination Reported By:
[2018-05-03 07:01] LABS: BAND NEUTROPHILS % 6 % (0-10); PLATELET MORPHOLOGY COMMENT NORMAL (NORMAL)
[2018-05-03] MEDS: LEVAQUIN PREMIX IV 750 MG 750 MG/150 ML BAG IV SCH (08:31)
[2018-05-03] MEDS: NAPROSYN PO SCH ×2 (08:32→21:01)
[2018-05-03] MEDS: SYNTHROID 100 mcg TAB PO SCH (08:32)
[2018-05-03] MEDS: FOLIC ACID TAB 1 MG PO SCH (08:32)
[2018-05-03] MEDS: ZyrTEC TAB 10 MG PO SCH (08:32)
[2018-05-03] MEDS: PROTONIX TAB 40 MG PO SCH (08:32)
[2018-05-03] MEDS: FLONASE NASAL SPRAY ENOSTRIL SCH ×2 (08:33→21:03)
[2018-05-03] MEDS: MILK OF MAGNESIA PO SCH ×2 (08:33→21:01)
[2018-05-03] MEDS: SINGULAIR TAB 10 MG PO SCH (08:33)
[2018-05-03] MEDS: CITRIC ACID PO SCH ×2 (08:34→21:03)
[2018-05-03] MEDS: POTASSIUM BICARBONATE PO SCH ×2 (08:34→21:03)
[2018-05-03] MEDS ORDERED: ALENDRONATE 70 MG PO SCH (09:00)
[2018-05-03] MEDS: MUCOMYST 20% 200 MG/ML NEB SCH ×2 (09:42→20:01)
--- NOTE | 2018-05-03 15:59 | PCM.PROG ---
Progress Note - Progress Note for Day of Date of Exam: 05/03/18 - Subjective Subjective: 62 WF ADMITTED ON 04/30 WITH RESP FAILURE, PNEUMONIA. PT IS CURRENTLY ON NC AT 3/L. CONTINUES WITH DIFFUSE EXP WHEEZES AND PRODUCTIVE COUGH. WBC 13.2, IMPPROVED K+ 4 WITH POTASSIUM REPLACEMENT. PT REPORTS FEELING WEAKN THIS AM. PT ON IV ATBX, REPEAT AM CHEST XRAY. - Past Medical Family Social History Past Med/Fam/Surg Hx: No changes since H&P Allergies: Allergies morphine Allergy (Verified 12/26/17 14:56) Penicillins Allergy (Verified 12/26/17 14:56) prednisone Allergy (Verified 12/26/17 14:56) tea Allergy (Uncoded 04/30/18 21:21) - Review of Systems ROS: No change since H&P - Vital Signs and I&O's Vital Signs: Temperature 97.6 F Pulse Rate [Left Radial] 91 Pulse Rate 104 Respiratory Rate 16 Blood Pressure [Right Arm] 103/57 Blood Pressure [Left Arm] 121/59 Blood Pressure 136/63 O2 Sat by Pulse Oximetry 94 Intake and Output: Intake & Output 05/01/18 05/02/18 05/03/18 05/04/18 11:59 11:59 11:59 11:59 Intake Total 330 / 330 2957 / 2957 4386 / 4386 Output Total 1300 / 1300 3500 / 3500 Balance 330 / 330 1657 / 1657 886 / 886 - Physical Exam Oriented: Person Eyes: Normal Ear: Normal Nose: Normal Throat: Dry Respiratory: Diminished, Rhonchi Cardiovascular: Tachycardia. negative: Edema : Normal Auscultation: Bowel Sounds: Normal Tenderness: Normal Skin: Decreased Turgur Musculoskeletal: Back:Lumbar Psychiatric: Anxiety Affect: Anxious Speech Pattern: Clear, Appropriate - Laboratory and Diagnostics Result Diagrams: 05/03/18 05:03 05/03/18 05:03 Labs: 04/30/18 12:10 Blood Blood Culture - Preliminary 04/30/18 11:56 Blood Blood Culture - Preliminary 04/30/18 12:38 Urine,Catheterized Urine Culture - Final Laboratory WBC 13.2 X10^3/uL (3.6-10.0) H 05/03/18 05:03 RBC 3.67 X10^6/uL (3.5-5.4) 05/03/18 05:03 Hgb 11.1 g/dL (12.0-16.0) L 05/03/18 05:03 Hct 34.5 % (36.0-47.0) L 05/03/18 05:03 MCV 93.8 fL (80.0-100.0) 05/03/18 05:03 MCH 30.1 pg (27.0-34.0) 05/03/18 05:03 MCHC 32.1 g/dL (33.0-35.0) L 05/03/18 05:03 RDW 14.6 % (11.6-16.5) 05/03/18 05:03 Plt Count 316 X10^3/uL (150.0-450.0) 05/03/18 05:03 Plt Count Comment Adequate (ADEQUATE) 05/03/18 05:03 MPV 9.0 fL (7.4-11.0) 05/03/18 05:03 Neut % (Auto) 56.9 % (42.0-75.0) 05/03/18 05:03 Lymph % (Auto) 33.3 % (21.0-51.0) 05/03/18 05:03 [place] % (Auto) 7.2 % (0.0-13.0) 05/03/18 05:03 Eos % (Auto) 1.7 % (0.9-2.9) 05/03/18 05:03 Baso % (Auto) 0.9 % (0.2-1.0) 05/03/18 05:03 Neut # (Auto) 7.5 x10^3/uL (2.2-4.8) H 05/03/18 05:03 Lymph # (Auto) 4.4 X10^3/uL (1.3-2.9) H 05/03/18 05:03 [place] # (Auto) 1.0 x10^3/uL (0.3-0.8) H 05/03/18 05:03 Eos # (Auto) 0.2 x10^3/uL (0.0-0.2) 05/03/18 05:03 Baso # (Auto) 0.1 X10^3/uL (0.0-0.1) 05/03/18 05:03 Absolute Nucleated RBC 0.0 /100WBC 05/03/18 05:03 Total Counted 100 05/03/18 05:03 Neutrophils % (Manual) 57 % (39-76) 05/03/18 05:03 Band Neutrophils % 6 % (0-10) 05/03/18 05:03 Lymphocytes % (Manual) 30 % (13-43) 05/03/18 05:03 Monocytes % (Manual) 6 % (4-9) 05/03/18 05:03 Eosinophils % (Manual) 1 % (0-6) 05/03/18 05:03 Plt Morphology Comment Normal (NORMAL) 05/03/18 05:03 RBC Morphology Normal (NORMAL) 05/03/18 05:03 INR Target Range - 04/30/18 12:10 INR 1.04 (0.8-1.3) 04/30/18 12:10 APTT 30.7 SECONDS (22.9-36.5) 04/30/18 12:10 PTT Comment - 04/30/18 12:10 D-Dimer 892 ng/mL (0-400) H* 04/30/18 12:10 Sample Site Rbra 05/02/18 06:02 ABG pH 7.320 (7.35-7.45) L 05/02/18 06:02 ABG pCO2 68.0 mmHg (35.0-45.0) H* 05/02/18 06:02 ABG pO2 69.0 mmHg (80.0-100.0) L 05/02/18 06:02 ABG HCO3 35.0 mmol/L (22-26) H* 05/02/18 06:02 ABG O2 Saturation 92.0 % (90-100) 05/02/18 06:02 ABG Base Excess 6.7 mmol/L (-2.0-2.0) H 05/02/18 06:02 Colin Test Na 05/02/18 06:02 A-a Gradient 46.0 mmHg 05/02/18 06:02 FiO2 28.0 05/02/18 06:02 Blood Gas Comments Ronald abg well-mtf 05/02/18 06:02 Sodium 143 mmol/L (136-145) 05/03/18 05:03 Corrected Sodium TNP 05/03/18 05:03 Potassium 4.0 mmol/L (3.5-5.1) 05/03/18 05:03 Chloride 104 mmol/L (98-107) 05/03/18 05:03 Carbon Dioxide 34.6 mmol/L (21-32) H 05/03/18 05:03 BUN 9 mg/dL (7-18) 05/03/18 05:03 Creatinine 0.53 mg/dL (0.55-1.02) L 05/03/18 05:03 Est GFR (MDRD) Af Amer > 60 (>60) 05/03/18 05:03 Est GFR (MDRD) Non-Af > 60 (>60) 05/03/18 05:03 Glucose 101 mg/dL (65-99) H 05/03/18 05:03 Lactic Acid 0.8 mmol/L (0.4-2.0) 04/30/18 12:10 Calcium 8.0 mg/dL (8.5-10.1) L 05/03/18 05:03 Corrected Calcium 9.2 mg/dL (8.5-10.1) 05/03/18 05:03 Magnesium 1.9 mg/dL (1.7-2.9) 05/02/18 05:36 Total Bilirubin 0.20 mg/dL (0.2-1.0) 05/03/18 05:03 AST 97 Units/L (15-37) H 05/03/18 05:03 ALT 60 Units/L (12-78) 05/03/18 05:03 Alkaline Phosphatase 115 Units/L (46-116) 05/03/18 05:03 Creatine Kinase 91 Units/L (26-192) 05/01/18 05:17 CK-MB (CK-2) 1.7 ng/mL (0-4.0) 05/01/18 05:17 CK/CKMB % Calc 1.9 % (<4) 05/01/18 05:17 Troponin I < 0.02 ng/mL (0-1.5) 05/01/18 05:17 B-Natriuretic Peptide 240 pg/mL (0-79) H 04/30/18 12:10 Total Protein 6.3 g/dL (6.4-8.2) L 05/03/18 05:03 Albumin 2.5 g/dL (3.4-5.0) L 05/03/18 05:03 Globulin 3.8 g/dL (2.5-4.5) 05/03/18 05:03 Albumin/Globulin Ratio 0.7 Ratio (1.1-2.1) L 05/03/18 05:03 Specimen Type Catherized urine 04/30/18 12:38 Urine Color Yellow (YELLOW) 04/30/18 12:38 Urine Appearance Slightly hazy (CLEAR) 04/30/18 12:38 Urine pH 5.0 (5.0 - 8.0) 04/30/18 12:38 Ur Specific [place] 1.030 (1.000-1.030) 04/30/18 12:38 Urine Protein 3+ (NEGATIVE) 04/30/18 12:38 Urine Glucose (UA) Negative (NEGATIVE) 04/30/18 12:38 Urine Ketones 3+ (NEGATIVE) 04/30/18 12:38 Urine Occult Blood 1+ (NEGATIVE) 04/30/18 12:38 Urine Nitrite Negative (NEGATIVE) 04/30/18 12:38 Urine Bilirubin Negative (NEGATIVE) 04/30/18 12:38 Urine Urobilinogen 1+ (NORMAL) 04/30/18 12:38 Ur Leukocyte Esterase 1+ (NEGATIVE) 04/30/18 12:38 Urine RBC 3-5 /HPF (NONE SEEN) 04/30/18 12:38 Urine WBC 3-5 /HPF (NONE SEEN) 04/30/18 12:38 Ur Squamous Epith Cells Rare /HPF (NEGATIVE) 04/30/18 12:38 Amorphous Sediment 1+ /HPF (NEGATIVE) 04/30/18 12:38 Urine Bacteria Trace /HPF (NEGATIVE) 04/30/18 12:38 Hyaline Casts Many /LPF (NEGATIVE) 04/30/18 12:38 Urine Mucus Few /HPF (NEGATIVE) 04/30/18 12:38 Ur Culture Indicated? Yes/culture set up 04/30/18 12:38 Urine Opiates Screen Negative (NEG=<300) 04/30/18 12:38 Urine Methadone Screen Negative (NEG=<300) 04/30/18 12:38 Ur Barbiturates Screen Negative (NEG=<200) 04/30/18 12:38 Ur Phencyclidine Scrn Negative (NEG=<25) 04/30/18 12:38 Ur Amphetamines Screen Negative (NEG=<1000) 04/30/18 12:38 U Benzodiazepines Scrn Negative (NEG=<200) 04/30/18 12:38 Urine Cocaine Screen Negative (NEG=<300) 04/30/18 12:38 U Marijuana (THC) Screen Negative (NEG=<50) 04/30/18 12:38 - Plan (1) Altered mental status Status: Acute Qualifiers: Altered mental status type: transient alteration of awareness Qualified Code(s): R40.4 - Transient alteration of awareness Plan: DUE TO HYPOXIA, RESP THERAPY, SUPPLEMENTAL O2. IV ATBX, GENTLE IV HYDRATION. VERIFY HOME MED, CONTINUOUS CARDIAC MONITORING. ADMISSION CT HEAD WITHOUT ACUTE FINDINGS. IV STEROIDS, SPUTUM CULTURE PENDING (2) SOB (shortness of breath) Status: Acute (3) Bronchopneumonia Status: Acute Plan: REPEAT AM CXR, REPEAT ABG (4) COPD exacerbation Status: Acute (5) Arthritis Status: Chronic
[2018-05-03] MEDS: COLACE CAP 100 MG PO SCH (21:02)
[2018-05-03] MEDS: NORCO 10/325 TAB PO PRN (21:02)
[2018-05-03] MEDS: PATIENT'S HOME MEDICATION PO SCH (21:03)
[2018-05-03] MEDS: NS 1000 ML 1,000 ML IV SCH (21:03)
[2018-05-03] MEDS: XANAX PO PRN (21:08)
[2018-05-04] MEDS: DUONEB 0.5 MG/3 MG NEB SCH ×6 (00:25→20:51)
[2018-05-04 06:17] LABS: BASOPHILS % (AUTO) 0.3 % (0.2-1.0); EOSINOPHILS # (AUTO) 0.3 x10^3/uL (0.0-0.2); HEMOGLOBIN 11.1 g/dL (12.0-16.0); LYMPHOCYTES # (AUTO) 4.2 X10^3/uL (1.3-2.9); LYMPHOCYTES % (AUTO) 27.8 % (21.0-51.0); MEAN CORPUSCULAR HEMOGLOBIN 30.4 pg (27.0-34.0); MEAN CORPUSCULAR HGB CONC 32.5 g/dL (33.0-35.0); MEAN CORPUSCULAR VOLUME 93.5 fL (80.0-100.0); MONOCYTES % (AUTO) 6.2 % (0.0-13.0); NEUTROPHILS # (AUTO) 9.7 x10^3/uL (2.2-4.8); NEUTROPHILS % (AUTO) 63.7 % (42.0-75.0); PLATELET COUNT 322 X10^3/uL (150.0-450.0); RED BLOOD COUNT 3.64 X10^6/uL (3.5-5.4); RED CELL DISTRIBUTION WIDTH 14.9 % (11.6-16.5); WHITE BLOOD COUNT 15.3 X10^3/uL (3.6-10.0)
[2018-05-04 06:36] LABS: BAND NEUTROPHILS % 8 % (0-10)
[2018-05-04 06:37] LABS: PLATELET MORPHOLOGY COMMENT NORMAL (NORMAL)
[2018-05-04 06:40] LABS: ALANINE AMINOTRANSFERASE 46 Units/L (12-78); ALBUMIN 2.5 g/dL (3.4-5.0); ALKALINE PHOSPHATASE 110 Units/L (46-116); ASPARTATE AMINO TRANSFERASE 33 Units/L (15-37); BLOOD UREA NITROGEN 12 mg/dL (7-18); CALCIUM 8.2 mg/dL (8.5-10.1); CARBON DIOXIDE 36.3 mmol/L (21-32); CHLORIDE 103 mmol/L (98-107); COR CA(FOR HYPOALB) 9.4 mg/dL (8.5-10.1); CREATININE 0.51 mg/dL (0.55-1.02); SODIUM 144 mmol/L (136-145); TOTAL PROTEIN 6.2 g/dL (6.4-8.2); eGFR NON BLACK RACES > 60 (>60)
[2018-05-04] MEDS ORDERED: TUSSIONEX PENNKINETIC SUSP PO PRN (07:43)
[2018-05-04] MEDS ORDERED: ROBITUSSIN DM PO PRN (07:43)
[2018-05-04] MEDS ORDERED: ROBITUSSIN DM ONE (07:46)
[2018-05-04] MEDS: MUCOMYST 20% 200 MG/ML NEB SCH ×2 (09:09→20:51)
[2018-05-04] MEDS: LEVAQUIN PREMIX IV 750 MG 750 MG/150 ML BAG IV SCH (09:19)
[2018-05-04] MEDS: SYNTHROID 100 mcg TAB PO SCH (09:19)
[2018-05-04] MEDS: PROTONIX TAB 40 MG PO SCH (09:19)
[2018-05-04] MEDS: ZyrTEC TAB 10 MG PO SCH (09:19)
[2018-05-04] MEDS: SINGULAIR TAB 10 MG PO SCH (09:19)
[2018-05-04] MEDS: MILK OF MAGNESIA PO SCH ×2 (09:19→20:38)
[2018-05-04] MEDS: FLONASE NASAL SPRAY ENOSTRIL SCH ×2 (09:20→20:42)
[2018-05-04] MEDS: FOLIC ACID TAB 1 MG PO SCH (09:20)
[2018-05-04] MEDS: NAPROSYN PO SCH ×2 (09:28→20:39)
[2018-05-04] MEDS: CITRIC ACID PO SCH ×2 (09:29→20:38)
[2018-05-04] MEDS: POTASSIUM BICARBONATE PO SCH ×2 (09:29→20:38)
[2018-05-04] MEDS ORDERED: ZOFRAN INJ 4 MG VIAL ONE (13:28)
[2018-05-04] MEDS: NEURONTIN CAP 300 MG PO SCH ×2 (13:35→21:49)
[2018-05-04] MEDS: ZOFRAN INJ 4 MG VIAL IVP PRN (13:35)
[2018-05-04] MEDS: LYRICA CAP 100 MG PO SCH ×2 (13:36→21:50)
[2018-05-04] MEDS: NS 1000 ML 1,000 ML IV SCH (16:53)
[2018-05-04] MEDS: LOVENOX INJ 40 MG SYR SC SCH (17:41)
[2018-05-04] MEDS: PATIENT'S HOME MEDICATION PO SCH (20:37)
[2018-05-04] MEDS: COLACE CAP 100 MG PO SCH (20:38)
[2018-05-05] MEDS: DUONEB 0.5 MG/3 MG NEB SCH ×6 (00:57→21:38)
[2018-05-05] MEDS: NORCO 10/325 TAB PO PRN ×3 (03:00→17:05)
[2018-05-05] MEDS: NEURONTIN CAP 300 MG PO SCH ×3 (06:27→22:13)
[2018-05-05] MEDS: LYRICA CAP 100 MG PO SCH ×3 (06:27→22:14)
[2018-05-05 06:44] LABS: BASOPHILS # (AUTO) 0.1 X10^3/uL (0.0-0.1); BASOPHILS % (AUTO) 0.6 % (0.2-1.0); EOSINOPHILS # (AUTO) 0.4 x10^3/uL (0.0-0.2); EOSINOPHILS % (AUTO) 2.3 % (0.9-2.9); HEMATOCRIT 34.1 % (36.0-47.0); HEMOGLOBIN 11.1 g/dL (12.0-16.0); LYMPHOCYTES # (AUTO) 4.8 X10^3/uL (1.3-2.9); LYMPHOCYTES % (AUTO) 27.6 % (21.0-51.0); MEAN CORPUSCULAR HEMOGLOBIN 30.4 pg (27.0-34.0); MEAN CORPUSCULAR HGB CONC 32.5 g/dL (33.0-35.0); MEAN CORPUSCULAR VOLUME 93.4 fL (80.0-100.0); MEAN PLATELET VOLUME 8.4 fL (7.4-11.0); MONOCYTES % (AUTO) 5.8 % (0.0-13.0); NEUTROPHILS # (AUTO) 11.2 x10^3/uL (2.2-4.8); NEUTROPHILS % (AUTO) 63.7 % (42.0-75.0); PLATELET COUNT 327 X10^3/uL (150.0-450.0); RED BLOOD COUNT 3.65 X10^6/uL (3.5-5.4); RED CELL DISTRIBUTION WIDTH 15.2 % (11.6-16.5); WHITE BLOOD COUNT 17.5 X10^3/uL (3.6-10.0)
[2018-05-05 06:47] LABS: ALANINE AMINOTRANSFERASE 37 Units/L (12-78); ALBUMIN 2.5 g/dL (3.4-5.0); ALKALINE PHOSPHATASE 103 Units/L (46-116); ASPARTATE AMINO TRANSFERASE 24 Units/L (15-37); BLOOD UREA NITROGEN 10 mg/dL (7-18); CARBON DIOXIDE 37.8 mmol/L (21-32); CHLORIDE 101 mmol/L (98-107); COR CA(FOR HYPOALB) 9.2 mg/dL (8.5-10.1); CREATININE 0.58 mg/dL (0.55-1.02); SODIUM 141 mmol/L (136-145); TOTAL PROTEIN 6.2 g/dL (6.4-8.2); eGFR NON BLACK RACES > 60 (>60)
[2018-05-05 07:58] LABS: BAND NEUTROPHILS % 7 % (0-10); PLATELET MORPHOLOGY COMMENT NORMAL (NORMAL)
[2018-05-05] MEDS: LOVENOX INJ 40 MG SYR SC SCH (09:55)
[2018-05-05] MEDS: FLONASE NASAL SPRAY ENOSTRIL SCH ×2 (09:55→20:41)
[2018-05-05] MEDS: FOLIC ACID TAB 1 MG PO SCH (09:55)
[2018-05-05] MEDS: LEVAQUIN PREMIX IV 750 MG 750 MG/150 ML BAG IV SCH (09:55)
[2018-05-05] MEDS: NAPROSYN PO SCH ×2 (09:56→20:42)
[2018-05-05] MEDS: MILK OF MAGNESIA PO SCH ×3 (09:56→20:41)
[2018-05-05] MEDS: ZyrTEC TAB 10 MG PO SCH (09:57)
[2018-05-05] MEDS: PROTONIX TAB 40 MG PO SCH (09:57)
[2018-05-05] MEDS: SINGULAIR TAB 10 MG PO SCH (09:58)
[2018-05-05] MEDS: SYNTHROID 100 mcg TAB PO SCH (09:58)
[2018-05-05 10:12] LABS: ABG BASE EXCESS 21.7 mmol/L (-2.0-2.0)
[2018-05-05 10:13] LABS: ABG HCO3 50.6 mmol/L (22-26)
[2018-05-05] MEDS: CITRIC ACID PO SCH ×2 (10:13→20:42)
[2018-05-05] MEDS: POTASSIUM BICARBONATE PO SCH ×2 (10:13→20:42)
[2018-05-05] MEDS: ZITHROMAX INJ 500 MG VIAL 500 MG in D5W 250 ML IV 250 ML IV SCH (11:59)
[2018-05-05 15:01] LABS: BILIRUBIN,URINE NEGATIVE (NEGATIVE); BLOOD/HEMOGLOBIN,URINE 2+ (NEGATIVE); GLUCOSE, URINE NEGATIVE (NEGATIVE); KETONES,URINE NEGATIVE (NEGATIVE); LEUKOCYTE ESTERASE ,URINE 1+ (NEGATIVE); NITRITES,URINE NEGATIVE (NEGATIVE); PROTEIN,URINE NEGATIVE (NEGATIVE); UROBILINOGEN,URINE NORMAL (NORMAL)
[2018-05-05 15:11] LABS: APPEARANCE,URINE CLEAR (CLEAR); COLOR,URINE YELLOW (YELLOW)
[2018-05-05 15:18] LABS: BACTERIA,URINE NEGATIVE /HPF (NEGATIVE); RBC,URINE 0-2 /HPF (NONE SEEN); SQUAMOUS EPITHELIAL CELL,UR RARE /HPF (NEGATIVE)
[2018-05-05] MEDS: NS 1000 ML 1,000 ML IV SCH (18:14)
[2018-05-05] MEDS: COLACE CAP 100 MG PO SCH (20:40)
[2018-05-05] MEDS: PATIENT'S HOME MEDICATION PO SCH (20:42)
[2018-05-06] MEDS: DUONEB 0.5 MG/3 MG NEB SCH ×6 (00:49→20:35)
[2018-05-06] MEDS: NORCO 10/325 TAB PO PRN ×3 (01:07→21:46)
[2018-05-06] MEDS: NEURONTIN CAP 300 MG PO SCH ×3 (05:45→21:38)
[2018-05-06] MEDS: LYRICA CAP 100 MG PO SCH ×3 (05:45→21:37)
[2018-05-06 05:57] LABS: BASOPHILS # (AUTO) 0.1 X10^3/uL (0.0-0.1); BASOPHILS % (AUTO) 0.8 % (0.2-1.0); EOSINOPHILS # (AUTO) 0.4 x10^3/uL (0.0-0.2); EOSINOPHILS % (AUTO) 2.8 % (0.9-2.9); HEMATOCRIT 34.7 % (36.0-47.0); HEMOGLOBIN 11.1 g/dL (12.0-16.0); LYMPHOCYTES # (AUTO) 4.5 X10^3/uL (1.3-2.9); LYMPHOCYTES % (AUTO) 28.9 % (21.0-51.0); MEAN CORPUSCULAR HEMOGLOBIN 29.6 pg (27.0-34.0); MEAN CORPUSCULAR HGB CONC 31.9 g/dL (33.0-35.0); MEAN CORPUSCULAR VOLUME 92.9 fL (80.0-100.0); MEAN PLATELET VOLUME 8.7 fL (7.4-11.0); MONOCYTES # (AUTO) 0.9 x10^3/uL (0.3-0.8); MONOCYTES % (AUTO) 5.6 % (0.0-13.0); NEUTROPHILS # (AUTO) 9.6 x10^3/uL (2.2-4.8); NEUTROPHILS % (AUTO) 61.9 % (42.0-75.0); PLATELET COUNT 323 X10^3/uL (150.0-450.0); RED BLOOD COUNT 3.74 X10^6/uL (3.5-5.4); RED CELL DISTRIBUTION WIDTH 14.9 % (11.6-16.5); WHITE BLOOD COUNT 15.5 X10^3/uL (3.6-10.0)
[2018-05-06 06:09] LABS: ALANINE AMINOTRANSFERASE 29 Units/L (12-78); ALBUMIN 2.4 g/dL (3.4-5.0); ALKALINE PHOSPHATASE 93 Units/L (46-116); ASPARTATE AMINO TRANSFERASE 19 Units/L (15-37); BLOOD UREA NITROGEN 10 mg/dL (7-18); CALCIUM 7.9 mg/dL (8.5-10.1); CHLORIDE 100 mmol/L (98-107); COR CA(FOR HYPOALB) 9.2 mg/dL (8.5-10.1); CREATININE 0.56 mg/dL (0.55-1.02); SODIUM 142 mmol/L (136-145); eGFR NON BLACK RACES > 60 (>60)
[2018-05-06 06:18] LABS: BAND NEUTROPHILS % 1 % (0-10); PLATELET MORPHOLOGY COMMENT NORMAL (NORMAL)
[2018-05-06 06:19] LABS: CARBON DIOXIDE 39.9 mmol/L (21-32)
--- NOTE | 2018-05-06 08:33 | RAD ---
HISTORY: Pneumonia follow-up COPD shortness of breath Study: One-view chest Comparison: One view chest 05/03/2018 and 05/02/2018 Technique: AP portable upright chest. Findings: EKG leads overlie the thorax bone details normal heart size is normal. There are chronic changes of fibrosis with superimposed interstitial markings were present on 05/03 and 1128. These have improved very slightly on the right, but have increased in the left lung base retrocardiac region no consolidating infiltrates are observed. IMPRESSION: 1. Chronic lung changes with improvement in the interstitial markings in the right lung base but increasing in the left base consistent with bronchitis Persistent increased interstitial markings are present in the left lung base greater than the right lung base . Reported By:
[2018-05-06] MEDS: ZyrTEC TAB 10 MG PO SCH (09:15)
[2018-05-06] MEDS: SYNTHROID 100 mcg TAB PO SCH (09:15)
[2018-05-06] MEDS: SINGULAIR TAB 10 MG PO SCH (09:15)
[2018-05-06] MEDS: NAPROSYN PO SCH ×2 (09:16→21:38)
[2018-05-06] MEDS: FOLIC ACID TAB 1 MG PO SCH (09:16)
[2018-05-06] MEDS: PROTONIX TAB 40 MG PO SCH (09:16)
[2018-05-06] MEDS: LEVAQUIN PREMIX IV 750 MG 750 MG/150 ML BAG IV SCH (09:18)
[2018-05-06] MEDS: LOVENOX INJ 40 MG SYR SC SCH (09:18)
[2018-05-06] MEDS: FLONASE NASAL SPRAY ENOSTRIL SCH ×2 (09:45→21:41)
[2018-05-06] MEDS: POTASSIUM BICARBONATE PO SCH ×2 (09:46→21:37)
[2018-05-06] MEDS: CITRIC ACID PO SCH ×2 (09:46→21:37)
[2018-05-06] MEDS: ZITHROMAX INJ 500 MG VIAL 500 MG in D5W 250 ML IV 250 ML IV SCH (09:46)
[2018-05-06] MEDS: MILK OF MAGNESIA PO SCH ×2 (09:46→21:40)
[2018-05-06] MEDS: ZOFRAN INJ 4 MG VIAL IVP PRN (12:24)
--- NOTE | 2018-05-06 13:52 | PCM.PROG ---
Progress Note - Progress Note for Day of Date of Exam: 05/05/18 - Subjective Subjective: 62 WF ADMITTED ON 04/30 WITH RESP FAILURE, PNEUMONIA. PT IS CURRENTLY ON SUPPLEMENT O2, PNEUMONIA PROTOCOL. CONTINUES WITH DIFFUSE EXP WHEEZES AND PRODUCTIVE COUGH, CO DIFFUSE WEAKNESS. WBC 17.5, SPUTUM WITH NORMAL RESP KILEY. REPEAT ABG PH 7.420, CO2 78, PO2 63. ENCOURAGED PHYSICAL THERAPY AND PULMONARY TOILETING. WILL REPEAT AM LABS AND CHEST XRAY - Past Medical Family Social History Past Med/Fam/Surg Hx: No changes since H&P Allergies: Allergies morphine Allergy (Verified 12/26/17 14:56) Penicillins Allergy (Verified 12/26/17 14:56) prednisone Allergy (Verified 12/26/17 14:56) tea Allergy (Uncoded 04/30/18 21:21) - Review of Systems ROS: No change since H&P - Vital Signs and I&O's Vital Signs: Temperature 97.9 F Pulse Rate [Left Radial] 98 Pulse Rate 97 Respiratory Rate 22 Blood Pressure [Right Arm] 119/57 Blood Pressure [Left Arm] 106/60 Blood Pressure 136/63 O2 Sat by Pulse Oximetry 96 Intake and Output: Intake & Output 05/04/18 05/05/18 05/06/18 05/07/18 11:59 11:59 11:59 11:59 Intake Total 2936 / 2936 3509 / 3509 3240 / 3240 Output Total 2950 / 2950 1100 / 1100 5920 / 5920 Balance -14 / -14 2409 / 2409 -2680 / -2680 - Physical Exam Oriented: Person Eyes: Normal Ear: Normal Nose: Normal Throat: Dry Respiratory: Diminished, Rhonchi Cardiovascular: Tachycardia. negative: Edema : Normal Auscultation: Bowel Sounds: Normal Tenderness: Normal Skin: Decreased Turgur Musculoskeletal: Back:Lumbar Psychiatric: Anxiety Affect: Anxious Speech Pattern: Clear, Appropriate - Laboratory and Diagnostics Result Diagrams: 05/06/18 05:25 05/06/18 05:25 Labs: 05/03/18 23:28 Sputum - Expectorated Sputum Sputum Culture - Final 05/03/18 23:28 Sputum - Expectorated Sputum - Final 04/30/18 12:10 Blood Blood Culture - Final 04/30/18 11:56 Blood Blood Culture - Final 04/30/18 12:38 Urine,Catheterized Urine Culture - Final Laboratory WBC 15.5 X10^3/uL (3.6-10.0) H 05/06/18 05:25 RBC 3.74 X10^6/uL (3.5-5.4) 05/06/18 05:25 Hgb 11.1 g/dL (12.0-16.0) L 05/06/18 05:25 Hct 34.7 % (36.0-47.0) L 05/06/18 05:25 MCV 92.9 fL (80.0-100.0) 05/06/18 05:25 MCH 29.6 pg (27.0-34.0) 05/06/18 05:25 MCHC 31.9 g/dL (33.0-35.0) L 05/06/18 05:25 RDW 14.9 % (11.6-16.5) 05/06/18 05:25 Plt Count 323 X10^3/uL (150.0-450.0) 05/06/18 05:25 Plt Count Comment Adequate (ADEQUATE) 05/06/18 05:25 MPV 8.7 fL (7.4-11.0) 05/06/18 05:25 Neut % (Auto) 61.9 % (42.0-75.0) 05/06/18 05:25 Lymph % (Auto) 28.9 % (21.0-51.0) 05/06/18 05:25 [place] % (Auto) 5.6 % (0.0-13.0) 05/06/18 05:25 Eos % (Auto) 2.8 % (0.9-2.9) 05/06/18 05:25 Baso % (Auto) 0.8 % (0.2-1.0) 05/06/18 05:25 Neut # (Auto) 9.6 x10^3/uL (2.2-4.8) H 05/06/18 05:25 Lymph # (Auto) 4.5 X10^3/uL (1.3-2.9) H 05/06/18 05:25 [place] # (Auto) 0.9 x10^3/uL (0.3-0.8) H 05/06/18 05:25 Eos # (Auto) 0.4 x10^3/uL (0.0-0.2) H 05/06/18 05:25 Baso # (Auto) 0.1 X10^3/uL (0.0-0.1) 05/06/18 05:25 Absolute Nucleated RBC 0.0 /100WBC 05/06/18 05:25 Total Counted 100 05/06/18 05:25 Neutrophils % (Manual) 58 % (39-76) 05/06/18 05:25 Band Neutrophils % 1 % (0-10) 05/06/18 05:25 Lymphocytes % (Manual) 35 % (13-43) 05/06/18 05:25 Monocytes % (Manual) 6 % (4-9) 05/06/18 05:25 Eosinophils % (Manual) 1 % (0-6) 05/03/18 05:03 Plt Morphology Comment Normal (NORMAL) 05/06/18 05:25 RBC Morphology Normal (NORMAL) 05/06/18 05:25 INR Target Range - 04/30/18 12:10 INR 1.04 (0.8-1.3) 04/30/18 12:10 APTT 30.7 SECONDS (22.9-36.5) 04/30/18 12:10 PTT Comment - 04/30/18 12:10 D-Dimer 892 ng/mL (0-400) H* 04/30/18 12:10 Sample Site Right brachial 05/05/18 09:58 ABG pH 7.420 (7.35-7.45) 05/05/18 09:58 ABG pCO2 78.0 mmHg (35.0-45.0) H* 05/05/18 09:58 ABG pO2 63.0 mmHg (80.0-100.0) L 05/05/18 09:58 ABG HCO3 50.6 mmol/L (22-26) H* 05/05/18 09:58 ABG O2 Saturation 92.0 % (90-100) 05/05/18 09:58 ABG Base Excess 21.7 mmol/L (-2.0-2.0) H 05/05/18 09:58 Colin Test Na 05/05/18 09:58 A-a Gradient 68.0 mmHg 05/05/18 09:58 FiO2 32.0 05/05/18 09:58 Blood Gas Comments Ronald well aw 05/05/18 09:58 Sodium 142 mmol/L (136-145) 05/06/18 05:25 Corrected Sodium TNP 05/06/18 05:25 Potassium 4.7 mmol/L (3.5-5.1) 05/06/18 05:25 Chloride 100 mmol/L (98-107) 05/06/18 05:25 Carbon Dioxide 39.9 mmol/L (21-32) H 05/06/18 05:25 BUN 10 mg/dL (7-18) 05/06/18 05:25 Creatinine 0.56 mg/dL (0.55-1.02) 05/06/18 05:25 Est GFR (MDRD) Af Amer > 60 (>60) 05/06/18 05:25 Est GFR (MDRD) Non-Af > 60 (>60) 05/06/18 05:25 Glucose 95 mg/dL (65-99) 05/06/18 05:25 Lactic Acid 0.8 mmol/L (0.4-2.0) 04/30/18 12:10 Calcium 7.9 mg/dL (8.5-10.1) L 05/06/18 05:25 Corrected Calcium 9.2 mg/dL (8.5-10.1) 05/06/18 05:25 Magnesium 1.9 mg/dL (1.7-2.9) 05/02/18 05:36 Total Bilirubin 0.10 mg/dL (0.2-1.0) L 05/06/18 05:25 AST 19 Units/L (15-37) 05/06/18 05:25 ALT 29 Units/L (12-78) 05/06/18 05:25 Alkaline Phosphatase 93 Units/L (46-116) 05/06/18 05:25 Creatine Kinase 91 Units/L (26-192) 05/01/18 05:17 CK-MB (CK-2) 1.7 ng/mL (0-4.0) 05/01/18 05:17 CK/CKMB % Calc 1.9 % (<4) 05/01/18 05:17 Troponin I < 0.02 ng/mL (0-1.5) 05/01/18 05:17 B-Natriuretic Peptide 240 pg/mL (0-79) H 04/30/18 12:10 Total Protein 6.0 g/dL (6.4-8.2) L 05/06/18 05:25 Albumin 2.4 g/dL (3.4-5.0) L 05/06/18 05:25 Globulin 3.6 g/dL (2.5-4.5) 05/06/18 05:25 Albumin/Globulin Ratio 0.7 Ratio (1.1-2.1) L 05/06/18 05:25 Specimen Type Catherized urine 05/05/18 14:58 Urine Color Yellow (YELLOW) 05/05/18 14:58 Urine Appearance Clear (CLEAR) 05/05/18 14:58 Urine pH 5.0 (5.0 - 8.0) 05/05/18 14:58 Ur Specific [place] 1.010 (1.000-1.030) 05/05/18 14:58 Urine Protein Negative (NEGATIVE) 05/05/18 14:58 Urine Glucose (UA) Negative (NEGATIVE) 05/05/18 14:58 Urine Ketones Negative (NEGATIVE) 05/05/18 14:58 Urine Occult Blood 2+ (NEGATIVE) 05/05/18 14:58 Urine Nitrite Negative (NEGATIVE) 05/05/18 14:58 Urine Bilirubin Negative (NEGATIVE) 05/05/18 14:58 Urine Urobilinogen Normal (NORMAL) 05/05/18 14:58 Ur Leukocyte Esterase 1+ (NEGATIVE) 05/05/18 14:58 Urine RBC 0-2 /HPF (NONE SEEN) 05/05/18 14:58 Urine WBC None seen /HPF (NONE SEEN) 05/05/18 14:58 Ur Squamous Epith Cells Rare /HPF (NEGATIVE) 05/05/18 14:58 Amorphous Sediment 1+ /HPF (NEGATIVE) 04/30/18 12:38 Urine Bacteria Negative /HPF (NEGATIVE) 05/05/18 14:58 Hyaline Casts Many /LPF (NEGATIVE) 04/30/18 12:38 Urine Mucus Few /HPF (NEGATIVE) 04/30/18 12:38 Ur Culture Indicated? No/not indicated 05/05/18 14:58 Urine Opiates Screen Negative (NEG=<300) 04/30/18 12:38 Urine Methadone Screen Negative (NEG=<300) 04/30/18 12:38 Ur Barbiturates Screen Negative (NEG=<200) 04/30/18 12:38 Ur Phencyclidine Scrn Negative (NEG=<25) 04/30/18 12:38 Ur Amphetamines Screen Negative (NEG=<1000) 04/30/18 12:38 U Benzodiazepines Scrn Negative (NEG=<200) 04/30/18 12:38 Urine Cocaine Screen Negative (NEG=<300) 04/30/18 12:38 U Marijuana (THC) Screen Negative (NEG=<50) 04/30/18 12:38 - Plan (1) Bronchopneumonia Status: Inactive Plan: DUE TO HYPOXIA, RESP THERAPY, SUPPLEMENTAL O2. IV ATBX, GENTLE IV HYDRATION. VERIFY HOME MED, CONTINUOUS CARDIAC MONITORING. ADMISSION CT HEAD WITHOUT ACUTE FINDINGS. SPUTUM CULTURE COLLECTED ON ADISSION WITH NORMAL KILEY. REPEAT AM ABG (2) Altered mental status Status: Resolved Qualifiers: Altered mental status type: transient alteration of awareness Qualified Code(s): R40.4 - Transient alteration of awareness Plan: DUE TO HYPOXIA, RESP THERAPY, SUPPLEMENTAL O2. IV ATBX, GENTLE IV HYDRATION. VERIFY HOME MED, CONTINUOUS CARDIAC MONITORING. ADMISSION CT HEAD WITHOUT ACUTE FINDINGS. IV STEROIDS, SPUTUM CULTURE PENDING (3) SOB (shortness of breath) Status: Inactive (4) COPD exacerbation Status: Inactive (5) Arthritis Status: Chronic
[2018-05-06] MEDS: MUCOMYST 20% 200 MG/ML NEB SCH ×3 (13:53→20:35)
--- NOTE | 2018-05-06 13:54 | PCM.PROG ---
Progress Note - Subjective Subjective: 62 WF ADMITTED ON 04/30 WITH RESP FAILURE, PNEUMONIA. PT IS CURRENTLY ON SUPPLEMENT O2, PNEUMONIA PROTOCOL. CONTINUES WITH DIFFUSE EXP WHEEZES AND PRODUCTIVE COUGH, CO DIFFUSE WEAKNESS. WBC 15.5, SPUTUM WITH NORMAL RESP KILEY. REPEAT ABG ON 05/05 PH 7.420, CO2 78, PO2 63. ENCOURAGED PHYSICAL THERAPY AND PULMONARY TOILETING. WILL REPEAT AM LABS - Past Medical Family Social History Past Med/Fam/Surg Hx: No changes since H&P Allergies: Allergies morphine Allergy (Verified 12/26/17 14:56) Penicillins Allergy (Verified 12/26/17 14:56) prednisone Allergy (Verified 12/26/17 14:56) tea Allergy (Uncoded 04/30/18 21:21) - Review of Systems ROS: No change since H&P - Vital Signs and I&O's Vital Signs: Temperature 97.9 F Pulse Rate [Left Radial] 98 Pulse Rate 97 Respiratory Rate 22 Blood Pressure [Right Arm] 119/57 Blood Pressure [Left Arm] 106/60 Blood Pressure 136/63 O2 Sat by Pulse Oximetry 96 Intake and Output: Intake & Output 05/04/18 05/05/18 05/06/18 05/07/18 11:59 11:59 11:59 11:59 Intake Total 2936 / 2936 3509 / 3509 3240 / 3240 Output Total 2950 / 2950 1100 / 1100 5920 / 5920 Balance -14 / -14 2409 / 2409 -2680 / -2680 - Physical Exam Oriented: Person Eyes: Normal Ear: Normal Nose: Normal Throat: Dry Respiratory: Diminished, Rhonchi Cardiovascular: Tachycardia. negative: Edema : Normal Auscultation: Bowel Sounds: Normal Tenderness: Normal Skin: Decreased Turgur Musculoskeletal: Back:Lumbar Psychiatric: Anxiety Affect: Anxious Speech Pattern: Clear, Appropriate - Laboratory and Diagnostics Result Diagrams: 05/06/18 05:25 05/06/18 05:25 Labs: 05/03/18 23:28 Sputum - Expectorated Sputum Sputum Culture - Final 05/03/18 23:28 Sputum - Expectorated Sputum - Final 04/30/18 12:10 Blood Blood Culture - Final 04/30/18 11:56 Blood Blood Culture - Final 04/30/18 12:38 Urine,Catheterized Urine Culture - Final Laboratory WBC 15.5 X10^3/uL (3.6-10.0) H 05/06/18 05:25 RBC 3.74 X10^6/uL (3.5-5.4) 05/06/18 05:25 Hgb 11.1 g/dL (12.0-16.0) L 05/06/18 05:25 Hct 34.7 % (36.0-47.0) L 05/06/18 05:25 MCV 92.9 fL (80.0-100.0) 05/06/18 05:25 MCH 29.6 pg (27.0-34.0) 05/06/18 05:25 MCHC 31.9 g/dL (33.0-35.0) L 05/06/18 05:25 RDW 14.9 % (11.6-16.5) 05/06/18 05:25 Plt Count 323 X10^3/uL (150.0-450.0) 05/06/18 05:25 Plt Count Comment Adequate (ADEQUATE) 05/06/18 05:25 MPV 8.7 fL (7.4-11.0) 05/06/18 05:25 Neut % (Auto) 61.9 % (42.0-75.0) 05/06/18 05:25 Lymph % (Auto) 28.9 % (21.0-51.0) 05/06/18 05:25 [place] % (Auto) 5.6 % (0.0-13.0) 05/06/18 05:25 Eos % (Auto) 2.8 % (0.9-2.9) 05/06/18 05:25 Baso % (Auto) 0.8 % (0.2-1.0) 05/06/18 05:25 Neut # (Auto) 9.6 x10^3/uL (2.2-4.8) H 05/06/18 05:25 Lymph # (Auto) 4.5 X10^3/uL (1.3-2.9) H 05/06/18 05:25 [place] # (Auto) 0.9 x10^3/uL (0.3-0.8) H 05/06/18 05:25 Eos # (Auto) 0.4 x10^3/uL (0.0-0.2) H 05/06/18 05:25 Baso # (Auto) 0.1 X10^3/uL (0.0-0.1) 05/06/18 05:25 Absolute Nucleated RBC 0.0 /100WBC 05/06/18 05:25 Total Counted 100 05/06/18 05:25 Neutrophils % (Manual) 58 % (39-76) 05/06/18 05:25 Band Neutrophils % 1 % (0-10) 05/06/18 05:25 Lymphocytes % (Manual) 35 % (13-43) 05/06/18 05:25 Monocytes % (Manual) 6 % (4-9) 05/06/18 05:25 Eosinophils % (Manual) 1 % (0-6) 05/03/18 05:03 Plt Morphology Comment Normal (NORMAL) 05/06/18 05:25 RBC Morphology Normal (NORMAL) 05/06/18 05:25 INR Target Range - 04/30/18 12:10 INR 1.04 (0.8-1.3) 04/30/18 12:10 APTT 30.7 SECONDS (22.9-36.5) 04/30/18 12:10 PTT Comment - 04/30/18 12:10 D-Dimer 892 ng/mL (0-400) H* 04/30/18 12:10 Sample Site Right brachial 05/05/18 09:58 ABG pH 7.420 (7.35-7.45) 05/05/18 09:58 ABG pCO2 78.0 mmHg (35.0-45.0) H* 05/05/18 09:58 ABG pO2 63.0 mmHg (80.0-100.0) L 05/05/18 09:58 ABG HCO3 50.6 mmol/L (22-26) H* 05/05/18 09:58 ABG O2 Saturation 92.0 % (90-100) 05/05/18 09:58 ABG Base Excess 21.7 mmol/L (-2.0-2.0) H 05/05/18 09:58 Colin Test Na 05/05/18 09:58 A-a Gradient 68.0 mmHg 05/05/18 09:58 FiO2 32.0 05/05/18 09:58 Blood Gas Comments Ronald well aw 05/05/18 09:58 Sodium 142 mmol/L (136-145) 05/06/18 05:25 Corrected Sodium TNP 05/06/18 05:25 Potassium 4.7 mmol/L (3.5-5.1) 05/06/18 05:25 Chloride 100 mmol/L (98-107) 05/06/18 05:25 Carbon Dioxide 39.9 mmol/L (21-32) H 05/06/18 05:25 BUN 10 mg/dL (7-18) 05/06/18 05:25 Creatinine 0.56 mg/dL (0.55-1.02) 05/06/18 05:25 Est GFR (MDRD) Af Amer > 60 (>60) 05/06/18 05:25 Est GFR (MDRD) Non-Af > 60 (>60) 05/06/18 05:25 Glucose 95 mg/dL (65-99) 05/06/18 05:25 Lactic Acid 0.8 mmol/L (0.4-2.0) 04/30/18 12:10 Calcium 7.9 mg/dL (8.5-10.1) L 05/06/18 05:25 Corrected Calcium 9.2 mg/dL (8.5-10.1) 05/06/18 05:25 Magnesium 1.9 mg/dL (1.7-2.9) 05/02/18 05:36 Total Bilirubin 0.10 mg/dL (0.2-1.0) L 05/06/18 05:25 AST 19 Units/L (15-37) 05/06/18 05:25 ALT 29 Units/L (12-78) 05/06/18 05:25 Alkaline Phosphatase 93 Units/L (46-116) 05/06/18 05:25 Creatine Kinase 91 Units/L (26-192) 05/01/18 05:17 CK-MB (CK-2) 1.7 ng/mL (0-4.0) 05/01/18 05:17 CK/CKMB % Calc 1.9 % (<4) 05/01/18 05:17 Troponin I < 0.02 ng/mL (0-1.5) 05/01/18 05:17 B-Natriuretic Peptide 240 pg/mL (0-79) H 04/30/18 12:10 Total Protein 6.0 g/dL (6.4-8.2) L 05/06/18 05:25 Albumin 2.4 g/dL (3.4-5.0) L 05/06/18 05:25 Globulin 3.6 g/dL (2.5-4.5) 05/06/18 05:25 Albumin/Globulin Ratio 0.7 Ratio (1.1-2.1) L 05/06/18 05:25 Specimen Type Catherized urine 05/05/18 14:58 Urine Color Yellow (YELLOW) 05/05/18 14:58 Urine Appearance Clear (CLEAR) 05/05/18 14:58 Urine pH 5.0 (5.0 - 8.0) 05/05/18 14:58 Ur Specific [place] 1.010 (1.000-1.030) 05/05/18 14:58 Urine Protein Negative (NEGATIVE) 05/05/18 14:58 Urine Glucose (UA) Negative (NEGATIVE) 05/05/18 14:58 Urine Ketones Negative (NEGATIVE) 05/05/18 14:58 Urine Occult Blood 2+ (NEGATIVE) 05/05/18 14:58 Urine Nitrite Negative (NEGATIVE) 05/05/18 14:58 Urine Bilirubin Negative (NEGATIVE) 05/05/18 14:58 Urine Urobilinogen Normal (NORMAL) 05/05/18 14:58 Ur Leukocyte Esterase 1+ (NEGATIVE) 05/05/18 14:58 Urine RBC 0-2 /HPF (NONE SEEN) 05/05/18 14:58 Urine WBC None seen /HPF (NONE SEEN) 05/05/18 14:58 Ur Squamous Epith Cells Rare /HPF (NEGATIVE) 05/05/18 14:58 Amorphous Sediment 1+ /HPF (NEGATIVE) 04/30/18 12:38 Urine Bacteria Negative /HPF (NEGATIVE) 05/05/18 14:58 Hyaline Casts Many /LPF (NEGATIVE) 04/30/18 12:38 Urine Mucus Few /HPF (NEGATIVE) 04/30/18 12:38 Ur Culture Indicated? No/not indicated 05/05/18 14:58 Urine Opiates Screen Negative (NEG=<300) 04/30/18 12:38 Urine Methadone Screen Negative (NEG=<300) 04/30/18 12:38 Ur Barbiturates Screen Negative (NEG=<200) 04/30/18 12:38 Ur Phencyclidine Scrn Negative (NEG=<25) 04/30/18 12:38 Ur Amphetamines Screen Negative (NEG=<1000) 04/30/18 12:38 U Benzodiazepines Scrn Negative (NEG=<200) 04/30/18 12:38 Urine Cocaine Screen Negative (NEG=<300) 04/30/18 12:38 U Marijuana (THC) Screen Negative (NEG=<50) 04/30/18 12:38 - Plan (1) Bronchopneumonia Status: Inactive Plan: AMS ON ADMISSION DUE TO HYPOXIA, AMS RESOLVED. RESP THERAPY, SUPPLEMENTAL O2. IV ATBX, GENTLE IV HYDRATION. VERIFY HOME MED, CONTINUOUS CARDIAC MONITORING. ADMISSION CT HEAD WITHOUT ACUTE FINDINGS. SPUTUM CULTURE COLLECTED ON ADISSION WITH NORMAL KILEY. ROBITUSSIN SCHEDULED, [facility] TO [facility] QID (2) Altered mental status Status: Resolved Qualifiers: Altered mental status type: transient alteration of awareness Qualified Code(s): R40.4 - Transient alteration of awareness Plan: DUE TO HYPOXIA, RESP THERAPY, SUPPLEMENTAL O2. IV ATBX, GENTLE IV HYDRATION. VERIFY HOME MED, CONTINUOUS CARDIAC MONITORING. ADMISSION CT HEAD WITHOUT ACUTE FINDINGS. IV STEROIDS, SPUTUM CULTURE PENDING (3) SOB (shortness of breath) Status: Inactive (4) COPD exacerbation Status: Inactive (5) Arthritis Status: Chronic
[2018-05-06] MEDS: NS 1000 ML 1,000 ML IV SCH (14:22)
[2018-05-06] MEDS: ROBITUSSIN DM PO SCH ×2 (14:23→21:38)
[2018-05-06] MEDS: COLACE CAP 100 MG PO SCH (21:39)
[2018-05-06] MEDS: PATIENT'S HOME MEDICATION PO SCH (21:39)
[2018-05-07] MEDS: DUONEB 0.5 MG/3 MG NEB SCH ×7 (00:46→20:42)
[2018-05-07] MEDS: ROBITUSSIN DM PO SCH ×6 (03:40→21:34)
[2018-05-07] MEDS: NEURONTIN CAP 300 MG PO SCH ×3 (05:17→21:37)
[2018-05-07] MEDS: LYRICA CAP 100 MG PO SCH ×3 (05:17→21:35)
[2018-05-07] MEDS: NORCO 10/325 TAB PO PRN ×2 (05:29→21:40)
[2018-05-07 05:40] LABS: BASOPHILS # (AUTO) 0.1 X10^3/uL (0.0-0.1); BASOPHILS % (AUTO) 0.4 % (0.2-1.0); EOSINOPHILS # (AUTO) 0.3 x10^3/uL (0.0-0.2); EOSINOPHILS % (AUTO) 2.3 % (0.9-2.9); HEMATOCRIT 32.4 % (36.0-47.0); HEMOGLOBIN 10.5 g/dL (12.0-16.0); LYMPHOCYTES % (AUTO) 28.6 % (21.0-51.0); MEAN CORPUSCULAR HEMOGLOBIN 29.8 pg (27.0-34.0); MEAN CORPUSCULAR HGB CONC 32.4 g/dL (33.0-35.0); MEAN CORPUSCULAR VOLUME 91.9 fL (80.0-100.0); MEAN PLATELET VOLUME 8.2 fL (7.4-11.0); MONOCYTES # (AUTO) 0.9 x10^3/uL (0.3-0.8); MONOCYTES % (AUTO) 6.4 % (0.0-13.0); NEUTROPHILS # (AUTO) 8.6 x10^3/uL (2.2-4.8); NEUTROPHILS % (AUTO) 62.3 % (42.0-75.0); PLATELET COUNT 292 X10^3/uL (150.0-450.0); RED BLOOD COUNT 3.53 X10^6/uL (3.5-5.4); WHITE BLOOD COUNT 13.9 X10^3/uL (3.6-10.0)
[2018-05-07 05:53] LABS: ALANINE AMINOTRANSFERASE 24 Units/L (12-78); ALBUMIN 2.3 g/dL (3.4-5.0); ALKALINE PHOSPHATASE 80 Units/L (46-116); ASPARTATE AMINO TRANSFERASE 16 Units/L (15-37); BLOOD UREA NITROGEN 9 mg/dL (7-18); CALCIUM 8.1 mg/dL (8.5-10.1); CARBON DIOXIDE 38.9 mmol/L (21-32); CHLORIDE 99 mmol/L (98-107); COR CA(FOR HYPOALB) 9.5 mg/dL (8.5-10.1); CREATININE 0.56 mg/dL (0.55-1.02); SODIUM 141 mmol/L (136-145); TOTAL PROTEIN 5.8 g/dL (6.4-8.2); eGFR NON BLACK RACES > 60 (>60)
[2018-05-07 06:00] LABS: BAND NEUTROPHILS % 1 % (0-10); PLATELET MORPHOLOGY COMMENT NORMAL (NORMAL)
[2018-05-07] MEDS ORDERED: LASIX IVP SCH (09:00)
[2018-05-07] MEDS: NAPROSYN PO SCH ×2 (09:17→21:35)
[2018-05-07] MEDS: PROTONIX TAB 40 MG PO SCH (09:18)
[2018-05-07] MEDS: FOLIC ACID TAB 1 MG PO SCH (09:18)
[2018-05-07] MEDS: SYNTHROID 100 mcg TAB PO SCH (09:18)
[2018-05-07] MEDS: ZyrTEC TAB 10 MG PO SCH (09:18)
[2018-05-07] MEDS: SINGULAIR TAB 10 MG PO SCH (09:19)
[2018-05-07] MEDS: LEVAQUIN PREMIX IV 750 MG 750 MG/150 ML BAG IV SCH (09:19)
[2018-05-07] MEDS: ZITHROMAX INJ 500 MG VIAL 500 MG in D5W 250 ML IV 250 ML IV SCH (09:19)
[2018-05-07] MEDS: LOVENOX INJ 40 MG SYR SC SCH (09:21)
[2018-05-07] MEDS: FLONASE NASAL SPRAY ENOSTRIL SCH ×2 (09:22→21:37)
[2018-05-07] MEDS: MILK OF MAGNESIA PO SCH ×2 (09:22→21:37)
[2018-05-07] MEDS: CITRIC ACID PO SCH ×2 (09:23→21:36)
[2018-05-07] MEDS: POTASSIUM BICARBONATE PO SCH ×2 (09:23→21:36)
[2018-05-07] MEDS: MUCOMYST 20% 200 MG/ML NEB SCH ×4 (09:42→20:42)
[2018-05-07] MEDS: ZOFRAN INJ 4 MG VIAL IVP PRN ×2 (11:26→20:56)
[2018-05-07] MEDS: NS 1000 ML 1,000 ML IV SCH (15:15)
[2018-05-07] MEDS: PATIENT'S HOME MEDICATION PO SCH (21:35)
[2018-05-07] MEDS: COLACE CAP 100 MG PO SCH (21:37)
[2018-05-07] MEDS: XANAX PO PRN (21:40)
[2018-05-08] MEDS: DUONEB 0.5 MG/3 MG NEB SCH ×6 (01:00→20:13)
[2018-05-08] MEDS: ROBITUSSIN DM PO SCH ×6 (03:24→21:40)
[2018-05-08] MEDS: NEURONTIN CAP 300 MG PO SCH ×3 (05:37→21:33)
[2018-05-08] MEDS: LYRICA CAP 100 MG PO SCH ×3 (05:37→21:33)
[2018-05-08 06:11] LABS: BASOPHILS # (AUTO) 0.1 X10^3/uL (0.0-0.1); BASOPHILS % (AUTO) 0.6 % (0.2-1.0); EOSINOPHILS # (AUTO) 0.3 x10^3/uL (0.0-0.2); EOSINOPHILS % (AUTO) 2.5 % (0.9-2.9); HEMATOCRIT 32.9 % (36.0-47.0); HEMOGLOBIN 10.8 g/dL (12.0-16.0); LYMPHOCYTES # (AUTO) 3.1 X10^3/uL (1.3-2.9); LYMPHOCYTES % (AUTO) 28.2 % (21.0-51.0); MEAN CORPUSCULAR HEMOGLOBIN 30.4 pg (27.0-34.0); MEAN CORPUSCULAR HGB CONC 32.8 g/dL (33.0-35.0); MEAN CORPUSCULAR VOLUME 92.7 fL (80.0-100.0); MEAN PLATELET VOLUME 8.3 fL (7.4-11.0); MONOCYTES # (AUTO) 0.7 x10^3/uL (0.3-0.8); MONOCYTES % (AUTO) 6.1 % (0.0-13.0); NEUTROPHILS # (AUTO) 6.8 x10^3/uL (2.2-4.8); NEUTROPHILS % (AUTO) 62.6 % (42.0-75.0); PLATELET COUNT 271 X10^3/uL (150.0-450.0); RED BLOOD COUNT 3.55 X10^6/uL (3.5-5.4); WHITE BLOOD COUNT 10.9 X10^3/uL (3.6-10.0)
[2018-05-08 06:16] LABS: ALANINE AMINOTRANSFERASE 20 Units/L (12-78); ALBUMIN 2.4 g/dL (3.4-5.0); ALKALINE PHOSPHATASE 76 Units/L (46-116); ASPARTATE AMINO TRANSFERASE 20 Units/L (15-37); BLOOD UREA NITROGEN 12 mg/dL (7-18); CARBON DIOXIDE 39.3 mmol/L (21-32); CHLORIDE 101 mmol/L (98-107); COR CA(FOR HYPOALB) 9.3 mg/dL (8.5-10.1); CREATININE 0.59 mg/dL (0.55-1.02); MAGNESIUM 1.9 mg/dL (1.7-2.9); SODIUM 141 mmol/L (136-145); TOTAL PROTEIN 5.9 g/dL (6.4-8.2); eGFR NON BLACK RACES > 60 (>60)
[2018-05-08] MEDS: MUCOMYST 20% 200 MG/ML NEB SCH ×4 (08:15→20:13)
[2018-05-08] MEDS: FLONASE NASAL SPRAY ENOSTRIL SCH ×2 (08:34→21:31)
[2018-05-08] MEDS: LEVAQUIN PREMIX IV 750 MG 750 MG/150 ML BAG IV SCH (08:36)
[2018-05-08] MEDS: MILK OF MAGNESIA PO SCH ×2 (08:36→21:31)
[2018-05-08] MEDS: FOLIC ACID TAB 1 MG PO SCH (08:37)
[2018-05-08] MEDS: SYNTHROID 100 mcg TAB PO SCH (08:37)
[2018-05-08] MEDS: PROTONIX TAB 40 MG PO SCH (08:37)
[2018-05-08] MEDS: SINGULAIR TAB 10 MG PO SCH (08:37)
[2018-05-08] MEDS: ZyrTEC TAB 10 MG PO SCH (08:37)
[2018-05-08] MEDS: LOVENOX INJ 40 MG SYR SC SCH (08:37)
[2018-05-08] MEDS: CITRIC ACID PO SCH ×2 (08:40→21:35)
[2018-05-08] MEDS: POTASSIUM BICARBONATE PO SCH ×2 (08:40→21:35)
[2018-05-08] MEDS: NAPROSYN PO SCH ×2 (10:00→21:32)
[2018-05-08] MEDS: ZITHROMAX INJ 500 MG VIAL 500 MG in D5W 250 ML IV 250 ML IV SCH (11:00)
[2018-05-08 14:57] LABS: ABG BASE EXCESS 17.7 mmol/L (-2.0-2.0)
[2018-05-08 14:58] LABS: ABG HCO3 47.5 mmol/L (22-26)
[2018-05-08] MEDS: NS 1000 ML 1,000 ML IV SCH (16:43)
[2018-05-08] MEDS: COLACE CAP 100 MG PO SCH (21:37)
[2018-05-08] MEDS: PATIENT'S HOME MEDICATION PO SCH (21:39)
[2018-05-09] MEDS: DUONEB 0.5 MG/3 MG NEB SCH ×3 (00:53→09:24)
[2018-05-09] MEDS: ROBITUSSIN DM PO SCH ×3 (02:05→09:15)
[2018-05-09] MEDS: LYRICA CAP 100 MG PO SCH (06:00)
[2018-05-09] MEDS: NEURONTIN CAP 300 MG PO SCH (06:00)
[2018-05-09 06:35] LABS: BASOPHILS % (AUTO) 0.4 % (0.2-1.0); EOSINOPHILS # (AUTO) 0.2 x10^3/uL (0.0-0.2); EOSINOPHILS % (AUTO) 2.5 % (0.9-2.9); HEMATOCRIT 32.8 % (36.0-47.0); HEMOGLOBIN 10.6 g/dL (12.0-16.0); LYMPHOCYTES # (AUTO) 3.4 X10^3/uL (1.3-2.9); LYMPHOCYTES % (AUTO) 34.9 % (21.0-51.0); MEAN CORPUSCULAR HEMOGLOBIN 30.2 pg (27.0-34.0); MEAN CORPUSCULAR HGB CONC 32.4 g/dL (33.0-35.0); MEAN CORPUSCULAR VOLUME 93.2 fL (80.0-100.0); MEAN PLATELET VOLUME 8.5 fL (7.4-11.0); MONOCYTES # (AUTO) 0.6 x10^3/uL (0.3-0.8); MONOCYTES % (AUTO) 6.6 % (0.0-13.0); NEUTROPHILS # (AUTO) 5.5 x10^3/uL (2.2-4.8); NEUTROPHILS % (AUTO) 55.6 % (42.0-75.0); PLATELET COUNT 274 X10^3/uL (150.0-450.0); RED BLOOD COUNT 3.52 X10^6/uL (3.5-5.4); WHITE BLOOD COUNT 9.8 X10^3/uL (3.6-10.0)
[2018-05-09 06:44] LABS: ALANINE AMINOTRANSFERASE 28 Units/L (12-78); ALBUMIN 2.6 g/dL (3.4-5.0); ALKALINE PHOSPHATASE 83 Units/L (46-116); ASPARTATE AMINO TRANSFERASE 31 Units/L (15-37); BLOOD UREA NITROGEN 11 mg/dL (7-18); CALCIUM 8.2 mg/dL (8.5-10.1); CARBON DIOXIDE 37.4 mmol/L (21-32); CHLORIDE 103 mmol/L (98-107); COR CA(FOR HYPOALB) 9.3 mg/dL (8.5-10.1); COR NA(FOR HYPERGLY) 144 mmol/L (136-145); CREATININE 0.62 mg/dL (0.55-1.02); SODIUM 143 mmol/L (136-145); TOTAL PROTEIN 6.2 g/dL (6.4-8.2); eGFR NON BLACK RACES > 60 (>60)
[2018-05-09 06:57] LABS: BAND NEUTROPHILS % 4 % (0-10)
[2018-05-09 06:58] LABS: PLATELET MORPHOLOGY COMMENT NORMAL (NORMAL)
[2018-05-09] MEDS: FOLIC ACID TAB 1 MG PO SCH (08:34)
[2018-05-09] MEDS: LEVAQUIN PREMIX IV 750 MG 750 MG/150 ML BAG IV SCH (08:34)
[2018-05-09] MEDS: LOVENOX INJ 40 MG SYR SC SCH (08:34)
[2018-05-09] MEDS: PROTONIX TAB 40 MG PO SCH (08:35)
[2018-05-09] MEDS: MILK OF MAGNESIA PO SCH (08:35)
[2018-05-09] MEDS: CITRIC ACID PO SCH (08:35)
[2018-05-09] MEDS: SINGULAIR TAB 10 MG PO SCH (08:35)
[2018-05-09] MEDS: POTASSIUM BICARBONATE PO SCH (08:35)
[2018-05-09] MEDS: SYNTHROID 100 mcg TAB PO SCH (08:36)
[2018-05-09] MEDS: ZyrTEC TAB 10 MG PO SCH (08:36)
[2018-05-09] MEDS: FLONASE NASAL SPRAY ENOSTRIL SCH (08:36)
[2018-05-09] MEDS: XANAX PO PRN (08:43)
[2018-05-09] MEDS: ZOFRAN INJ 4 MG VIAL IVP PRN (09:15)
[2018-05-09] MEDS: MUCOMYST 20% 200 MG/ML NEB SCH (09:25)
[2018-05-09 10:12] VITALS: BP 108/56
[2018-05-09] MEDS: ZITHROMAX INJ 500 MG VIAL 500 MG in D5W 250 ML IV 250 ML IV SCH (10:12)
[2018-05-09] MEDS: NAPROSYN PO SCH (10:12)
== END 2018-05-09 10:10 | disposition home or self-care (01) | DRG 884 ==
LOC: ER 11:27 → ICU 17:20
PROVIDERS: ADMIT Internal Medicine; ATTEND Internal Medicine
DX: N39.0 Urinary tract infection, site not specified; I10 Essential (primary) hypertension; R94.31 Abnormal electrocardiogram [ECG] [EKG]; J18.0 Bronchopneumonia, unspecified organism; R06.02 Shortness of breath; M13.89 Other specified arthritis, multiple sites; R06.03 Acute respiratory distress; R06.89 Other abnormalities of breathing; J44.1 Chronic obstructive pulmonary disease with (acute) exacerbation; R40.4 Transient alteration of awareness; Z99.81 Dependence on supplemental oxygen
CPT/HCPCS: 36415; 36600; 51702; 70450; 71010; 71045; 71275; 80053; 80307; 81001; 82550; 82553; 82803; 83605; 83735; 83880; 84132; 84484; 85025; 85378; 85610; 85730; 87040; 87070; 87086; 87205; 93005; 93010; 94640; 94669; 96365; 96367; 96374; 96375; 97110; 97116; 97163; 97167; 97530; 97535; 99284; A4222; G0434; J0456; J1650; J1940; J1956; J2310; J2405; J7030; J7050; J7060; J7608; J7620

== ENCOUNTER 2018-05-27 18:12 | Inpatient (IN) ==
[2018-05-27] MEDS ORDERED: NARCAN INJ IVP ONE ×2 (18:19→18:36)
[2018-05-27] MEDS ORDERED: NS 1000 ML 1,000 ML IV ONE ×2 (18:35→19:42)
[2018-05-27] MEDS ORDERED: NARCAN INJ ONE (18:36)
[2018-05-27] MEDS ORDERED: NS 1000 ML 1,000 ML ONE ×2 (18:37→19:40)
[2018-05-27 18:50] LABS: BILIRUBIN,URINE NEGATIVE (NEGATIVE); BLOOD/HEMOGLOBIN,URINE NEGATIVE (NEGATIVE); GLUCOSE, URINE NEGATIVE (NEGATIVE); KETONES,URINE NEGATIVE (NEGATIVE); LEUKOCYTE ESTERASE ,URINE NEGATIVE (NEGATIVE); NITRITES,URINE NEGATIVE (NEGATIVE); PROTEIN,URINE NEGATIVE (NEGATIVE); UROBILINOGEN,URINE NORMAL (NORMAL)
[2018-05-27 18:51] LABS: APPEARANCE,URINE CLEAR (CLEAR); COLOR,URINE YELLOW (YELLOW)
[2018-05-27 18:55] LABS: ABG BASE EXCESS 5.8 mmol/L (-2.0-2.0)
[2018-05-27 18:56] LABS: ABG HCO3 34.6 mmol/L (22-26)
--- NOTE | 2018-05-27 19:05 | DR.AMS ---
HPI Time Seen Time Seen by Provider: 05/27/18 18:59 HPI Comment HPI Comment: HISTORY BELOW. Complaint Cheif Complaint Doctors Comments: HERE VIA EMS UNRESPONSIVE WITH SHALLOW BREATHING. COLD AND PALE WITH LOW TEMP IN ED. MAY HAVE OVERDOSE ON LORTAB. SHE WAS FINE 06:AM TODAY. SOME OF HER PAIN MED IS MISSING FROM MED BOTTLE. Chief Complaint:: UNRESPONSIVE. Reviewed Nurses Notes Reviewed: Yes Source History Provided: EMS Mode of Arrival Mode of Arrival: EMS Timing Came On: Suddenly Symptoms: Unchanged Duration Duration: Constant Duration: Hours Quality Quality: Decreased Alertness and Change in Behavior Severity Severity: Severe Context Recent: denies Fever (HYPOTHERMIA.) History Of: Seizure Associated Signs and Symptoms Associated Signs and Symptoms: Change in Behavior and Confusion PMH PMH Past Medical History: Anxiety, Arthritis, Asthma, COPD and Sleep Apnea Past Surgical History: Yes Surgical History: Neurosurgery Family History Family Medical History: Cancer, [place] and Hypertension Social History Do you use any recreational Drugs:: No ROS Review of Systems Constitutional: Diaphoresis, Malaise, Weakness, Fatigue and Other (AMS, RESPOND TO PAINFUL STIMULI.); negative Fever (HYPOTHERMIA) Eyes: Other (PUPILS PINPOINT AND SLUGGIST REACTION TO LIGHT.) ENTM: Nose Congestion Respiratoy: Wheezing Cardiovascular: negative Edema and Palpitations Gastrointestinal/Abdominal: negative Vomiting Genitourinary: negative Bleeding Neurological: Dizziness and Other (AMS.) Musculoskeletal: Back Pain (CHRONIC BACK PAIN.) Hematologic/Lymphatic: Other (UNRESPONSIVE.) Endocrine: Flushing Psychiatric: Other (UNRESPONSIVE) PE Vitals Vital Signs: Temp Pulse Pulse Resp BP BP BP 06/10/18 12:00 99.5 F 78 16 126/79 06/10/18 08:00 98.9 F 74 18 106/59 06/10/18 04:00 98.5 F 74 18 131/71 06/10/18 00:00 98.8 F 80 20 133/67 06/09/18 20:09 82 06/09/18 20:00 98.3 F 83 22 99/56 06/09/18 16:00 97.7 F 85 19 107/58 06/09/18 12:00 97.7 F 78 18 87/55 06/09/18 08:00 98 F 78 21 97/50 06/09/18 04:00 98.5 F 79 22 104/75 06/09/18 00:00 98.3 F 81 20 100/61 06/08/18 20:35 91 H 06/08/18 20:00 98.7 F 82 22 94/60 06/08/18 16:00 98.0 F 83 20 91/59 06/08/18 12:00 98.0 F 78 20 105/68 06/08/18 08:00 98.7 F 75 18 107/77 06/08/18 06:00 98.4 F 74 15 93/51 06/08/18 05:00 79 19 86/53 06/08/18 04:00 75 21 105/50 06/08/18 03:00 83 43 H 88/48 06/08/18 02:00 79 35 H 87/51 06/08/18 01:00 85 29 H 106/66 06/08/18 00:00 82 26 H 120/67 06/07/18 23:00 80 33 H 114/67 06/07/18 22:00 83 29 H 116/67 06/07/18 21:52 88 06/07/18 21:00 80 17 115/56 06/07/18 20:00 98.4 F 80 18 101/55 06/07/18 19:00 82 16 103/56 06/07/18 18:00 88 18 105/58 06/07/18 17:26 90 06/07/18 17:00 86 22 111/72 06/07/18 16:00 98.5 F 90 28 H 112/65 06/07/18 15:00 89 24 115/72 06/07/18 14:00 85 21 110/61 06/07/18 13:26 86 06/07/18 13:00 91 H 28 H 112/65 06/07/18 12:00 98.0 F 83 31 H 110/57 06/07/18 11:00 84 34 H 91/54 06/07/18 10:00 87 34 H 98/55 06/07/18 09:22 83 06/07/18 09:00 85 23 90/50 06/07/18 08:00 97.9 F 84 23 103/55 06/07/18 07:00 81 16 89/52 06/07/18 06:00 80 23 112/54 06/07/18 05:00 78 22 125/67 06/07/18 04:00 75 20 106/64 06/07/18 03:00 80 20 129/64 06/07/18 02:00 79 21 99/60 06/07/18 01:00 81 16 129/58 06/07/18 00:00 73 19 100/63 06/06/18 23:00 83 24 120/58 06/06/18 22:00 98.6 F 76 19 106/58 06/06/18 21:00 86 19 117/65 06/06/18 20:40 92 H 06/06/18 20:00 76 20 110/64 06/06/18 19:00 77 20 121/64 06/06/18 18:00 79 22 109/67 06/06/18 17:00 91 H 18 112/70 06/06/18 16:57 92 H 06/06/18 16:00 97.6 F 93 H 20 134/63 06/06/18 15:00 76 21 129/60 06/06/18 14:00 94 H 21 112/65 06/06/18 13:00 83 19 101/61 06/06/18 12:00 85 79 20 111/74 06/06/18 11:00 88 22 106/66 06/06/18 10:00 96 H 22 100/60 06/06/18 09:29 97 H 06/06/18 09:00 95 H 22 113/66 06/06/18 08:00 97.8 F 94 H 19 116/92 06/06/18 07:00 83 22 83/54 06/06/18 06:00 93 H 21 138/77 06/06/18 05:00 97 H 26 H 154/70 06/06/18 04:00 97.9 F 94 H 31 H 145/74 06/06/18 03:00 92 H 25 H 172/78 06/06/18 02:00 92 H 24 151/75 06/06/18 01:00 91 H 23 128/60 06/06/18 00:00 97.4 F L 92 H 25 H 152/79 06/05/18 23:00 92 H 27 H 136/85 06/05/18 22:00 93 H 21 147/81 06/05/18 21:00 94 H 21 150/79 06/05/18 20:06 93 H 06/05/18 20:00 99.6 F 93 H 28 H 148/75 06/05/18 19:00 98 H 26 H 154/81 06/05/18 18:00 96 H 24 157/91 06/05/18 17:00 93 H 35 H 149/75 06/05/18 16:00 98.5 F 88 27 H 146/72 06/05/18 15:00 85 20 138/76 06/05/18 14:00 87 23 147/81 06/05/18 13:00 91 H 23 134/74 06/05/18 12:00 98.5 F 89 89 22 137/80 06/05/18 11:00 84 18 129/72 06/05/18 10:00 85 19 125/73 06/05/18 09:00 86 27 H 124/77 06/05/18 08:13 92 H 06/05/18 08:00 98.6 F 89 25 H 116/65 06/05/18 07:00 85 22 123/68 06/05/18 06:00 81 23 153/72 06/05/18 05:00 80 34 H 138/67 06/05/18 04:00 97.4 F L 86 21 154/80 06/05/18 03:00 86 23 146/71 06/05/18 02:00 85 19 138/71 06/05/18 01:00 86 23 149/76 06/05/18 00:00 86 23 148/80 06/04/18 23:00 87 20 150/71 06/04/18 22:00 89 22 143/74 06/04/18 21:00 87 22 152/77 06/04/18 20:59 86 06/04/18 20:00 98.0 F 86 21 133/75 06/04/18 19:00 86 22 128/68 06/04/18 18:00 91 H 39 H 140/79 06/04/18 17:10 85 06/04/18 17:00 85 37 H 139/71 06/04/18 16:00 97.5 F L 86 35 H 133/72 06/04/18 15:00 84 29 H 156/65 06/04/18 14:00 85 21 125/80 06/04/18 13:00 84 31 H 131/69 06/04/18 12:43 81 06/04/18 12:00 97.1 F L 79 32 H 149/82 06/04/18 11:00 81 34 H 142/75 06/04/18 10:00 79 30 H 149/76 06/04/18 09:02 77 06/04/18 09:00 82 51 H 149/73 06/04/18 08:00 97.6 F 81 41 H 137/83 06/04/18 07:00 77 38 H 152/72 06/04/18 06:00 81 27 H 139/72 06/04/18 05:00 74 23 132/62 06/04/18 04:00 98.4 F 80 28 H 157/77 06/04/18 03:00 75 16 138/68 06/04/18 02:00 77 28 H 130/72 06/04/18 01:00 84 28 H 141/62 06/04/18 00:00 99.3 F 81 18 171/74 06/03/18 23:00 81 26 H 152/68 06/03/18 22:00 79 33 H 130/62 06/03/18 21:00 72 15 114/66 06/03/18 20:36 74 06/03/18 20:00 97.9 F 73 24 130/66 06/03/18 19:00 70 29 H 117/62 06/03/18 18:00 79 15 104/55 06/03/18 17:00 98.6 F 88 19 103/55 06/03/18 16:34 84 06/03/18 16:00 80 15 86/51 06/03/18 15:00 83 19 112/55 06/03/18 14:00 74 16 88/50 06/03/18 13:00 86 16 113/58 06/03/18 12:00 98.3 F 82 16 120/56 06/03/18 11:00 71 22 92/61 06/03/18 10:00 73 17 84/53 06/03/18 09:00 67 23 111/70 06/03/18 08:00 97.5 F L 70 20 102/62 06/03/18 07:00 70 24 91/59 06/03/18 06:00 69 33 H 93/56 06/03/18 05:00 81 43 H 84/52 12/31/18 04:00 98.4 F 80 40 H 79/45 06/03/18 03:00 97 H 33 H 117/69 06/03/18 02:00 108 H 32 H 143/73 06/03/18 01:00 100 H 24 173/76 06/03/18 00:00 97.6 F 85 24 133/66 06/02/18 23:00 81 30 H 116/63 06/02/18 22:00 83 20 104/56 06/02/18 21:25 84 06/02/18 21:00 84 27 H 112/63 06/02/18 20:00 98.0 F 91 H 38 H 122/60 06/02/18 19:00 96 H 30 H 116/63 06/02/18 18:00 94 H 26 H 121/70 06/02/18 17:25 90 06/02/18 17:00 93 H 25 H 131/81 06/02/18 16:00 98.0 F 86 26 H 118/62 06/02/18 15:00 94 H 27 H 108/70 06/02/18 14:00 88 32 H 105/54 06/02/18 13:00 86 25 H 96/64 06/02/18 12:00 98.9 F 86 23 107/66 06/02/18 11:00 84 26 H 98/57 06/02/18 10:00 84 26 H 98/57 06/02/18 09:00 100 H 37 H 100/60 06/02/18 08:42 91 H 06/02/18 08:00 96 H 36 H 102/66 06/02/18 07:00 99.6 F 83 20 94/58 06/02/18 06:00 85 24 85/54 06/02/18 05:00 78 18 83/49 06/02/18 04:00 97.9 F 89 27 H 95/55 06/02/18 03:00 79 20 86/56 06/02/18 02:00 91 H 34 H 97/65 06/02/18 01:00 106 H 26 H 129/70 06/02/18 00:00 94 H 28 H 144/95 06/01/18 23:00 91 H 30 H 129/80 06/01/18 22:00 90 30 H 131/70 06/01/18 21:00 91 H 28 H 162/71 06/01/18 20:13 85 06/01/18 20:00 92 H 26 H 156/79 06/01/18 19:00 86 24 141/74 06/01/18 18:00 90 23 136/85 06/01/18 17:00 85 21 131/72 06/01/18 16:00 97.8 F 89 33 H 131/67 06/01/18 15:00 91 H 23 128/67 06/01/18 14:00 87 26 H 117/61 06/01/18 13:00 96 H 25 H 129/70 06/01/18 12:17 92 H 06/01/18 12:00 99.8 F H 92 H 37 H 116/60 06/01/18 11:00 87 18 94/50 06/01/18 10:00 98 H 34 H 98/61 06/01/18 09:18 94 H 06/01/18 09:00 89 26 H 101/55 06/01/18 08:00 99.6 F 102 H 25 H 107/55 06/01/18 07:00 98 H 34 H 104/59 06/01/18 06:00 100 H 18 110/57 06/01/18 05:00 100 H 18 127/94 06/01/18 04:00 97.9 F 99 H 18 135/68 06/01/18 03:00 93 H 18 132/70 06/01/18 02:00 94 H 18 130/63 06/01/18 01:00 80 18 106/60 06/01/18 00:00 98 F 92 H 17 113/63 05/31/18 23:00 104 H 22 168/88 05/31/18 22:00 87 22 137/62 05/31/18 21:00 101 H 22 99/68 05/31/18 20:21 81 05/31/18 20:00 98 F 82 23 96/55 05/31/18 19:00 87 22 140/76 05/31/18 18:00 89 21 137/82 05/31/18 17:35 82 05/31/18 17:00 84 27 H 145/83 05/31/18 16:00 99.0 F 83 25 H 142/70 05/31/18 15:00 84 24 149/78 05/31/18 14:00 92 H 26 H 136/76 05/31/18 13:43 91 H 05/31/18 13:00 89 26 H 136/69 05/31/18 12:00 98.4 F 86 27 H 146/75 05/31/18 11:00 88 24 150/79 05/31/18 10:00 95 H 27 H 148/70 05/31/18 09:27 91 H 05/31/18 09:00 85 19 158/92 05/31/18 08:00 85 26 H 160/78 05/31/18 07:00 98.1 F 94 H 21 173/91 05/31/18 06:00 92 H 27 H 173/91 05/31/18 05:00 92 H 28 H 151/70 05/31/18 04:00 97.9 F 91 H 24 132/68 05/31/18 03:00 93 H 30 H 121/58 05/31/18 02:00 94 H 21 152/75 05/31/18 01:00 92 H 21 138/72 05/31/18 00:00 97.7 F 92 H 27 H 147/74 05/30/18 23:00 90 24 143/64 05/30/18 22:00 87 26 H 135/60 05/30/18 21:00 90 25 H 141/68 05/30/18 20:56 91 H 05/30/18 20:41 84 05/30/18 20:26 90 05/30/18 20:00 97.7 F 86 30 H 136/69 05/30/18 19:00 88 29 H 130/61 05/30/18 18:00 95 H 23 131/75 05/30/18 17:00 93 H 24 146/72 05/30/18 16:36 91 H 05/30/18 16:00 98.1 F 83 25 H 117/69 05/30/18 15:00 82 23 121/83 05/30/18 14:00 85 21 117/64 05/30/18 13:00 89 22 120/64 05/30/18 12:08 85 05/30/18 12:00 97.7 F 84 24 110/69 05/30/18 11:00 88 19 105/64 05/30/18 10:00 90 21 110/69 05/30/18 09:00 91 H 26 H 136/65 12/27/18 08:08 86 05/30/18 08:00 98.4 F 97 H 26 H 117/57 05/30/18 07:00 94 H 26 H 127/60 05/30/18 06:00 83 27 H 117/63 05/30/18 05:00 84 23 109/60 05/30/18 04:00 97.9 F 87 23 107/60 05/30/18 03:00 85 21 108/57 05/30/18 02:00 87 20 115/69 05/30/18 01:00 86 20 113/73 05/30/18 00:00 97.8 F 89 22 118/72 05/29/18 23:00 90 21 117/62 05/29/18 22:00 93 H 21 126/69 05/29/18 21:29 93 H 05/29/18 21:00 94 H 24 117/64 05/29/18 20:00 98.1 F 96 H 29 H 123/65 05/29/18 19:00 105 H 22 115/56 05/29/18 18:00 99 H 24 128/59 05/29/18 17:00 90 88 20 114/60 05/29/18 16:00 98.3 F 85 23 111/64 05/29/18 15:00 88 20 109/63 05/29/18 14:00 88 24 109/67 05/29/18 13:00 89 22 118/57 05/29/18 12:29 86 05/29/18 12:00 98 F 84 22 114/57 05/29/18 11:00 92 H 23 123/57 05/29/18 10:00 92 H 21 129/64 05/29/18 09:00 97 H 26 H 123/68 05/29/18 08:58 91 H 05/29/18 08:00 97.9 F 89 21 118/58 05/29/18 07:00 91 H 21 115/66 05/29/18 06:00 91 H 21 123/65 05/29/18 05:00 97 H 22 124/72 05/29/18 04:00 98.5 F 85 20 123/63 05/29/18 03:00 90 22 121/65 05/29/18 02:00 92 H 21 132/60 05/29/18 01:00 93 H 24 135/68 05/29/18 00:00 98.3 F 92 H 25 H 133/64 05/28/18 23:00 93 H 22 148/73 05/28/18 22:00 96 H 23 128/67 05/28/18 21:00 97 H 22 141/69 05/28/18 20:49 96 H 05/28/18 20:00 98.5 F 97 H 21 133/69 05/28/18 19:00 97 H 19 144/73 05/28/18 18:00 97 H 28 H 144/62 05/28/18 17:00 102 H 26 H 143/76 05/28/18 16:50 97 H 05/28/18 16:00 98.7 F 98 H 27 H 140/72 05/28/18 15:00 96 H 25 H 140/99 05/28/18 14:00 100 H 23 151/66 05/28/18 13:00 86 32 H 154/94 05/28/18 12:02 83 05/28/18 12:00 98.8 F 82 30 H 132/75 05/28/18 11:00 87 28 H 128/67 05/28/18 10:00 92 H 33 H 155/82 05/28/18 09:00 82 30 H 132/80 05/28/18 08:09 74 05/28/18 08:00 97.8 F 72 15 85/53 05/28/18 07:00 78 26 H 89/54 05/28/18 06:00 91 H 20 111/67 05/28/18 05:00 71 11 L 105/33 05/28/18 04:00 97.2 F L 97 H 13 129/58 05/28/18 03:00 99 H 26 H 117/89 05/28/18 02:49 97.7 F 101 H 37 H 117/78 05/28/18 02:17 100 H 21 05/28/18 00:45 73 21 122/66 05/28/18 00:30 74 18 118/63 05/28/18 00:15 74 15 126/70 05/28/18 00:00 74 13 113/69 05/27/18 23:45 74 14 107/65 05/27/18 23:39 74 13 98/53 05/27/18 23:00 87 15 98/69 05/27/18 22:34 97.5 F L 104 H 38 H 156/100 05/27/18 22:01 93 H 88/71 05/27/18 21:31 77 14 125/60 05/27/18 21:01 86 34 H 145/63 05/27/18 20:30 74 33 H 146/81 05/27/18 20:25 93.5 F L 05/27/18 20:00 29 H 140/83 05/27/18 19:30 61 32 H 146/78 05/27/18 19:00 61 38 H 151/67 05/27/18 18:40 62 13 140/74 05/27/18 18:15 93.1 F L 63 4 L 117/93 05/26/18 16:42 131/79 05/09/18 10:00 108/56 05/07/18 08:00 103/60 Pulse Ox 06/10/18 12:00 100 06/10/18 08:00 100 06/10/18 04:00 100 06/10/18 00:00 97 06/09/18 20:09 97 06/09/18 20:00 98 06/09/18 16:00 99 06/09/18 12:00 06/09/18 08:00 06/09/18 04:00 98 06/09/18 00:00 100 06/08/18 20:35 95 06/08/18 20:00 98 06/08/18 16:00 98 06/08/18 12:00 98 06/08/18 08:00 98 06/08/18 06:00 99 06/08/18 05:00 96 06/08/18 04:00 100 06/08/18 03:00 93 L 06/08/18 02:00 97 06/08/18 01:00 97 06/08/18 00:00 100 06/07/18 23:00 98 06/07/18 22:00 97 06/07/18 21:52 94 L 06/07/18 21:00 97 06/07/18 20:00 98 06/07/18 19:00 98 06/07/18 18:00 95 06/07/18 17:26 95 06/07/18 17:00 97 06/07/18 16:00 93 L 06/07/18 15:00 94 L 06/07/18 14:00 99 06/07/18 13:26 91 L 06/07/18 13:00 91 L 06/07/18 12:00 97 06/07/18 11:00 96 06/07/18 10:00 96 06/07/18 09:22 95 06/07/18 09:00 93 L 06/07/18 08:00 94 L 06/07/18 07:00 97 06/07/18 06:00 98 06/07/18 05:00 98 06/07/18 04:00 97 06/07/18 03:00 97 06/07/18 02:00 97 06/07/18 01:00 96 06/07/18 00:00 99 06/06/18 23:00 99 06/06/18 22:00 98 06/06/18 21:00 98 06/06/18 20:40 99 06/06/18 20:00 100 06/06/18 19:00 100 06/06/18 18:00 100 06/06/18 17:00 98 06/06/18 16:57 94 L 06/06/18 16:00 99 06/06/18 15:00 99 06/06/18 14:00 98 06/06/18 13:00 99 06/06/18 12:00 100 06/06/18 11:00 100 06/06/18 10:00 98 06/06/18 09:29 97 06/06/18 09:00 96 06/06/18 08:00 98 06/06/18 07:00 99 06/06/18 06:00 99 06/06/18 05:00 93 L 06/06/18 04:00 92 L 06/06/18 03:00 93 L 06/06/18 02:00 94 L 06/06/18 01:00 92 L 06/06/18 00:00 93 L 06/05/18 23:00 94 L 06/05/18 22:00 98 06/05/18 21:00 94 L 06/05/18 20:06 93 L 06/05/18 20:00 94 L 06/05/18 19:00 91 L 06/05/18 18:00 91 L 06/05/18 17:00 93 L 06/05/18 16:00 91 L 06/05/18 15:00 93 L 06/05/18 14:00 95 06/05/18 13:00 98 06/05/18 12:00 100 06/05/18 11:00 98 06/05/18 10:00 98 06/05/18 09:00 99 06/05/18 08:13 100 06/05/18 08:00 100 06/05/18 07:00 98 06/05/18 06:00 94 L 06/05/18 05:00 94 L 06/05/18 04:00 97 06/05/18 03:00 95 06/05/18 02:00 96 06/05/18 01:00 96 06/05/18 00:00 97 06/04/18 23:00 96 06/04/18 22:00 95 06/04/18 21:00 100 06/04/18 20:59 97 06/04/18 20:00 97 06/04/18 19:00 98 06/04/18 18:00 93 L 06/04/18 17:10 99 06/04/18 17:00 100 06/04/18 16:00 100 06/04/18 15:00 98 06/04/18 14:00 97 06/04/18 13:00 99 06/04/18 12:43 99 06/04/18 12:00 100 06/04/18 11:00 96 06/04/18 10:00 97 06/04/18 09:02 96 06/04/18 09:00 99 06/04/18 08:00 97 06/04/18 07:00 98 06/04/18 06:00 96 06/04/18 05:00 97 06/04/18 04:00 95 06/04/18 03:00 98 06/04/18 02:00 98 06/04/18 01:00 96 06/04/18 00:00 97 06/03/18 23:00 06/03/18 22:00 97 06/03/18 21:00 100 06/03/18 20:36 99 06/03/18 20:00 100 06/03/18 19:00 98 06/03/18 18:00 94 L 06/03/18 17:00 98 06/03/18 16:34 96 06/03/18 16:00 98 06/03/18 15:00 97 06/03/18 14:00 97 06/03/18 13:00 98 06/03/18 12:00 100 06/03/18 11:00 100 06/03/18 10:00 98 06/03/18 09:00 97 06/03/18 08:00 97 06/03/18 07:00 97 06/03/18 06:00 99 06/03/18 05:00 93 L 06/03/18 04:00 92 L 06/03/18 03:00 89 L 06/03/18 02:00 85 L 06/03/18 01:00 95 06/03/18 00:00 97 06/02/18 23:00 99 06/02/18 22:00 98 06/02/18 21:25 94 L 06/02/18 21:00 97 06/02/18 20:00 98 06/02/18 19:00 94 L 06/02/18 18:00 95 06/02/18 17:25 95 06/02/18 17:00 96 06/02/18 16:00 96 06/02/18 15:00 95 06/02/18 14:00 95 06/02/18 13:00 97 06/02/18 12:00 95 06/02/18 11:00 99 06/02/18 10:00 99 06/02/18 09:00 97 06/02/18 08:42 93 L 06/02/18 08:00 94 L 06/02/18 07:00 96 06/02/18 06:00 93 L 06/02/18 05:00 97 06/02/18 04:00 96 06/02/18 03:00 98 06/02/18 02:00 96 06/02/18 01:00 92 L 06/02/18 00:00 94 L 06/01/18 23:00 92 L 06/01/18 22:00 95 06/01/18 21:00 91 L 06/01/18 20:13 93 L 06/01/18 20:00 91 L 06/01/18 19:00 87 L 06/01/18 18:00 93 L 06/01/18 17:00 96 06/01/18 16:00 92 L 06/01/18 15:00 93 L 06/01/18 14:00 93 L 06/01/18 13:00 93 L 06/01/18 12:17 92 L 06/01/18 12:00 91 L 06/01/18 11:00 96 06/01/18 10:00 93 L 06/01/18 09:18 97 06/01/18 09:00 96 06/01/18 08:00 93 L 06/01/18 07:00 96 06/01/18 06:00 98 06/01/18 05:00 98 06/01/18 04:00 98 06/01/18 03:00 98 06/01/18 02:00 98 06/01/18 01:00 98 06/01/18 00:00 98 05/31/18 23:00 98 05/31/18 22:00 98 05/31/18 21:00 98 05/31/18 20:21 97 05/31/18 20:00 100 05/31/18 19:00 98 05/31/18 18:00 98 05/31/18 17:35 98 05/31/18 17:00 99 05/31/18 16:00 97 05/31/18 15:00 97 05/31/18 14:00 98 05/31/18 13:43 99 05/31/18 13:00 97 05/31/18 12:00 99 05/31/18 11:00 98 05/31/18 10:00 98 05/31/18 09:27 100 05/31/18 09:00 99 05/31/18 08:00 98 05/31/18 07:00 97 05/31/18 06:00 96 05/31/18 05:00 98 05/31/18 04:00 98 05/31/18 03:00 98 05/31/18 02:00 98 05/31/18 01:00 99 05/31/18 00:00 96 05/30/18 23:00 96 05/30/18 22:00 97 05/30/18 21:00 100 05/30/18 20:56 100 05/30/18 20:41 100 05/30/18 20:26 100 05/30/18 20:00 99 05/30/18 19:00 100 05/30/18 18:00 98 05/30/18 17:00 98 05/30/18 16:36 100 05/30/18 16:00 100 05/30/18 15:00 100 05/30/18 14:00 99 05/30/18 13:00 99 05/30/18 12:08 100 05/30/18 12:00 100 05/30/18 11:00 100 05/30/18 10:00 98 05/30/18 09:00 98 05/30/18 08:08 100 05/30/18 08:00 99 05/30/18 07:00 100 05/30/18 06:00 98 05/30/18 05:00 98 05/30/18 04:00 98 05/30/18 03:00 99 05/30/18 02:00 99 05/30/18 01:00 99 05/30/18 00:00 99 05/29/18 23:00 98 05/29/18 22:00 98 05/29/18 21:29 99 05/29/18 21:00 98 05/29/18 20:00 97 05/29/18 19:00 98 05/29/18 18:00 99 05/29/18 17:00 100 05/29/18 16:00 100 05/29/18 15:00 100 05/29/18 14:00 99 05/29/18 13:00 96 05/29/18 12:29 98 05/29/18 12:00 99 05/29/18 11:00 99 05/29/18 10:00 98 05/29/18 09:00 100 05/29/18 08:58 100 05/29/18 08:00 98 05/29/18 07:00 98 05/29/18 06:00 98 05/29/18 05:00 97 05/29/18 04:00 97 05/29/18 03:00 98 05/29/18 02:00 97 05/29/18 01:00 98 05/29/18 00:00 98 05/28/18 23:00 96 05/28/18 22:00 96 05/28/18 21:00 96 05/28/18 20:49 96 05/28/18 20:00 96 05/28/18 19:00 96 05/28/18 18:00 95 05/28/18 17:00 96 05/28/18 16:50 98 05/28/18 16:00 97 05/28/18 15:00 100 05/28/18 14:00 97 05/28/18 13:00 95 05/28/18 12:02 95 05/28/18 12:00 95 05/28/18 11:00 95 05/28/18 10:00 97 05/28/18 09:00 97 05/28/18 08:09 95 05/28/18 08:00 95 05/28/18 07:00 95 05/28/18 06:00 05/28/18 05:00 05/28/18 04:00 05/28/18 03:00 05/28/18 02:49 96 05/28/18 02:17 99 05/28/18 00:45 98 05/28/18 00:30 99 05/28/18 00:15 99 05/28/18 00:00 99 05/27/18 23:45 99 05/27/18 23:39 100 05/27/18 23:00 97 05/27/18 22:34 100 05/27/18 22:01 05/27/18 21:31 05/27/18 21:01 98 05/27/18 20:30 05/27/18 20:25 05/27/18 20:00 97 05/27/18 19:30 97 05/27/18 19:00 97 05/27/18 18:40 05/27/18 18:15 79 L 05/26/18 16:42 05/09/18 10:00 05/07/18 08:00 General Limitations: Altered Mental Status General Appearance: In Distress and Other (UNRESPONSIVE. RESPOND TO PAINFUUL STIMULI.) Head Head Exam: Normal Inspection Head Exam Physical: Other (NONE NOTED.) Eyes Pupils: Regular, Round: Bilateral ENT ENT Exam: Normal External Ear Exam External Ear Exam: Normal External Inspection TM/Canal Exam: Bilateral: Normal Nose Exam: Normal Nose Exam Mouth Exam: Normal Inspection Throat Exam: Normal Inspection Chest Chest Inspection: Symmetric Chest Wall Rise (SHALLOW RESPIRATION) Respiratory Respiratory Exam: Accessory Muscle Use and Respiratory Distress Respiratory Exam: Bilateral: Wheezing and Bilateral: Rhonchi, Upper: Rhonchi and Lower: Wheezing and Lower: Rhonchi Cardiovascular Cardiovascular Exam: Tachycardia Abdominal Exam Abdominal Exam: Normal Inspection and Normal Bowel Sounds Back Back Exam: Tenderness (CHRONIC BACK PAIN.) Neurological Neurological Exam: Other (UNRESPONSIVE) Cranial Nerve Exam: Gag reflex (XI): Normal Upper Motor Neuron Exam: Babinski Sign: Normal Psychological Psychiatric Exam: Other (UNRESPONSIVE.) Skin Skin Exam: Erythema MDM Differential Diagnosis Metabolic: Dehydration, Hypercalcemia, Hypernatremia, Hypoglycemia and Hyponatremia Structural: Closed Head Injury, CVA and Mass Lesion Toxicologic: Drug Overdose and Medication Toxicity Infectious: Sepsis and UTI Environmental: Hypothermia COURSE Treatment Treatment: SEE ORDERS. ROR Labs Reviewed Laboratory Results Reviewed?: Yes Result Diagrams: 06/10/18 04:25 06/10/18 04:25 Laboratory: 06/07/18 22:40 Sputum - Expectorated Sputum Sputum Culture - Final 06/07/18 22:40 Sputum - Expectorated Sputum - Final 06/02/18 18:15 Stool Stool Culture - Final 06/02/18 18:15 Stool - Final 05/29/18 13:41 Blood Blood Culture - Final 05/29/18 13:34 Blood Blood Culture - Final 05/27/18 18:35 Blood Blood Culture - Final Staphylococcus Epidermidis WBC 13.4 X10^3/uL (3.6-10.0) H 06/10/18 04:25 RBC 3.40 X10^6/uL (3.5-5.4) L 06/10/18 04:25 Hgb 10.4 g/dL (12.0-16.0) L 06/10/18 04:25 Hct 32.0 % (36.0-47.0) L 06/10/18 04:25 MCV 94.0 fL (80.0-100.0) 06/10/18 04:25 MCH 30.5 pg (27.0-34.0) 06/10/18 04:25 MCHC 32.5 g/dL (33.0-35.0) L 06/10/18 04:25 RDW 15.2 % (11.6-16.5) 06/10/18 04:25 Plt Count 254 X10^3/uL (150.0-450.0) 06/10/18 04:25 Plt Count Comment Adequate (ADEQUATE) 06/06/18 05:37 MPV 9.1 fL (7.4-11.0) 06/10/18 04:25 Neut % (Auto) 61.3 % (42.0-75.0) 06/10/18 04:25 Lymph % (Auto) 27.3 % (21.0-51.0) 06/10/18 04:25 [place] % (Auto) 9.3 % (0.0-13.0) 06/10/18 04:25 Eos % (Auto) 1.7 % (0.9-2.9) 06/10/18 04:25 Baso % (Auto) 0.4 % (0.2-1.0) 06/10/18 04:25 Neut # (Auto) 8.2 x10^3/uL (2.2-4.8) H 06/10/18 04:25 Lymph # (Auto) 3.7 X10^3/uL (1.3-2.9) H 06/10/18 04:25 [place] # (Auto) 1.2 x10^3/uL (0.3-0.8) H 06/10/18 04:25 Eos # (Auto) 0.2 x10^3/uL (0.0-0.2) 06/10/18 04:25 Baso # (Auto) 0.1 X10^3/uL (0.0-0.1) 06/10/18 04:25 Absolute Nucleated RBC 0.0 /100WBC 06/10/18 04:25 Total Counted 100 06/06/18 05:37 Neutrophils % (Manual) 74 % (39-76) 06/06/18 05:37 Lymphocytes % (Manual) 19 % (13-43) 06/06/18 05:37 Monocytes % (Manual) 6 % (4-9) 06/06/18 05:37 Eosinophils % (Manual) 1 % (0-6) 06/06/18 05:37 Plt Morphology Comment Normal (NORMAL) 06/06/18 05:37 RBC Morphology Normal (NORMAL) 06/06/18 05:37 INR Target Range - 06/03/18 10:10 INR 1.10 (0.8-1.3) 06/03/18 10:10 APTT 26.1 SECONDS (22.9-36.5) 06/03/18 10:10 PTT Comment - 06/03/18 10:10 Sample Site right radial 06/04/18 05:50 ABG pH 7.460 (7.35-7.45) H 06/04/18 05:50 ABG pCO2 41.0 mmHg (35.0-45.0) 06/04/18 05:50 ABG pO2 65.0 mmHg (80.0-100.0) L 06/04/18 05:50 ABG HCO3 29.2 mmol/L (22-26) H 06/04/18 05:50 ABG O2 Saturation 94.0 % (90-100) 06/04/18 05:50 ABG Base Excess 4.9 mmol/L (-2.0-2.0) H 06/04/18 05:50 Colin Test pos 06/04/18 05:50 A-a Gradient 83.0 mmHg 06/04/18 05:50 FiO2 28.0 06/04/18 05:50 Blood Gas Comments jesus well jts 06/04/18 05:50 Sodium 141 mmol/L (136-145) 06/10/18 04:25 Corrected Sodium TNP 06/10/18 04:25 Potassium 3.5 mmol/L (3.5-5.1) 06/10/18 04:25 Chloride 104 mmol/L (98-107) 06/10/18 04:25 Carbon Dioxide 28.5 mmol/L (21-32) 06/10/18 04:25 BUN 7 mg/dL (7-18) 06/10/18 04:25 Creatinine 0.99 mg/dL (0.55-1.02) 06/10/18 04:25 Est GFR (MDRD) Af Amer > 60 (>60) 06/10/18 04:25 Est GFR (MDRD) Non-Af > 60 (>60) 06/10/18 04:25 Glucose 82 mg/dL (65-99) 06/10/18 04:25 POC Glucose (mg/dL) 132 mg/dL (65-99) H 06/03/18 01:15 Lactic Acid 1.2 mmol/L (0.4-2.0) 06/03/18 09:25 Calcium 8.3 mg/dL (8.5-10.1) L 06/10/18 04:25 Corrected Calcium 9.3 mg/dL (8.5-10.1) 06/10/18 04:25 Magnesium 2.0 mg/dL (1.7-2.9) 06/09/18 05:45 Total Bilirubin 0.20 mg/dL (0.2-1.0) 06/10/18 04:25 AST 35 Units/L (15-37) 06/10/18 04:25 ALT 23 Units/L (12-78) 06/10/18 04:25 Alkaline Phosphatase 77 Units/L (46-116) 06/10/18 04:25 Creatine Kinase 293 Units/L (26-192) H 05/28/18 06:36 CK-MB (CK-2) 5.7 ng/mL (0-4.0) H* 05/28/18 06:36 CK/CKMB % Calc 2.0 % (<4) 05/28/18 06:36 Troponin I < 0.02 ng/mL (0-1.5) 05/28/18 06:36 C-Reactive Protein 26.20 mg/L (0-3.0) H 05/27/18 19:14 Total Protein 6.1 g/dL (6.4-8.2) L 06/10/18 04:25 Albumin 2.8 g/dL (3.4-5.0) L 06/10/18 04:25 Globulin 3.3 g/dL (2.5-4.5) 06/10/18 04:25 Albumin/Globulin Ratio 0.8 Ratio (1.1-2.1) L 06/10/18 04:25 Specimen Type Catherized urine 05/27/18 18:26 Urine Color Yellow (YELLOW) 05/27/18 18: Urine Appearance Clear (CLEAR) 05/27/18 18:26 Urine pH 6.0 (5.0 - 8.0) 05/27/18 18:26 Ur Specific [place] 1.020 (1.000-1.030) 05/27/18 18:26 Urine Protein Negative (NEGATIVE) 05/27/18 18: Urine Glucose (UA) Negative (NEGATIVE) 05/27/18 18:26 Urine Ketones Negative (NEGATIVE) 05/27/18 18:26 Urine Occult Blood Negative (NEGATIVE) 05/27/18 18:26 Urine Nitrite Negative (NEGATIVE) 05/27/18 18: Urine Bilirubin Negative (NEGATIVE) 05/27/18 18:26 Urine Urobilinogen Normal (NORMAL) 05/27/18 18:26 Ur Leukocyte Esterase Negative (NEGATIVE) 05/27/18 18:26 Stool Description 15g,loose,mucoid,booth 06/02/18 18:15 Stl Occult Blood (IFOB) Negative (NEGATIVE) 06/02/18 18:15 Stl C. diff Tox B Gene Negative (NEGATIVE) 06/02/18 18:15 Stl C. diff [id number] Negative (NEGATIVE) 06/02/18 18:15 Vancomycin Trough 18.8 ug/mL (15-20) 06/09/18 07:48 Random Vancomycin 27.3 ug/mL 06/05/18 08:15 Urine Opiates Screen Positive (NEG=<300) A 05/27/18 18:26 Urine Methadone Screen Negative (NEG=<300) 05/27/18 18:26 Ur Barbiturates Screen Negative (NEG=<200) 05/27/18 18:26 Phenytoin 12.2 ug/mL (10-20) 06/07/18 05:44 Ur Phencyclidine Scrn Negative (NEG=<25) 05/27/18 18:26 Ur Amphetamines Screen Negative (NEG=<1000) 05/27/18 18:26 U Benzodiazepines Scrn Negative (NEG=<200) 05/27/18 18:26 Urine Cocaine Screen Negative (NEG=<300) 05/27/18 18:26 U Marijuana (THC) Screen Negative (NEG=<50) 05/27/18 18:26 Cryptosporid parvum Ag Negative (NEGATIVE) 06/02/18 18:15 Giardia lamblia Ag Negative (NEGATIVE) 06/02/18 18:15 XRAY XRAY Interpreted by: Radiologist XRAY Findings: REPORT NOTED EKG Rhythm: NSR ST: Nonsp Instructions Instructions: Chronic Obstructive Pulmonary Disease Exacerbation, [id number] Steps to Quit Smoking, [id number] Fall Prevention in the Home, Anni-zi-Aanc Drug Overdose
[2018-05-27 19:06] VITALS: BMI 21.9
[2018-05-27 19:17] LABS: BASOPHILS # (AUTO) 0.1 X10^3/uL (0.0-0.1); BASOPHILS % (AUTO) 0.5 % (0.2-1.0); EOSINOPHILS % (AUTO) 0.1 % (0.9-2.9); HEMATOCRIT 44.8 % (36.0-47.0); HEMOGLOBIN 14.6 g/dL (12.0-16.0); LYMPHOCYTES # (AUTO) 1.8 X10^3/uL (1.3-2.9); LYMPHOCYTES % (AUTO) 11.3 % (21.0-51.0); MEAN CORPUSCULAR HEMOGLOBIN 30.2 pg (27.0-34.0); MEAN CORPUSCULAR HGB CONC 32.5 g/dL (33.0-35.0); MEAN CORPUSCULAR VOLUME 92.8 fL (80.0-100.0); MEAN PLATELET VOLUME 9.8 fL (7.4-11.0); MONOCYTES # (AUTO) 1.2 x10^3/uL (0.3-0.8); MONOCYTES % (AUTO) 7.7 % (0.0-13.0); NEUTROPHILS % (AUTO) 80.4 % (42.0-75.0); PLATELET COUNT 379 X10^3/uL (150.0-450.0); RED BLOOD COUNT 4.83 X10^6/uL (3.5-5.4); RED CELL DISTRIBUTION WIDTH 15.6 % (11.6-16.5); WHITE BLOOD COUNT 16.1 X10^3/uL (3.6-10.0)
[2018-05-27 19:27] LABS: BLOOD UREA NITROGEN 12 mg/dL (7-18); CARBON DIOXIDE 33.5 mmol/L (21-32); CHLORIDE 104 mmol/L (98-107); COR NA(FOR HYPERGLY) 145 mmol/L (136-145); CREATININE 0.49 mg/dL (0.55-1.02); SODIUM 145 mmol/L (136-145); TROPONIN I < 0.02 ng/mL (0-1.5); eGFR NON BLACK RACES > 60 (>60)
--- NOTE | 2018-05-27 19:27 | RAD ---
HISTORY: 62-year-old female with questionable drug overdose with shortness of breath and history of COPD/asthma. Study: Frontal view of the chest. Comparison: Chest radiograph 05/06/2018 Findings: Multiple overlying monitoring leads. The trachea is midline. The cardiac silhouette is stable with hyper expansion of the lungs and prominent interstitium/perihilar lung markings. The lungs are clear without focal consolidation, effusion or pneumothorax. Soft tissues are unremarkable. Osseous structures are unremarkable. IMPRESSION: 1. No acute cardiopulmonary disease with findings consistent with history of COPD. Reported By:
[2018-05-27 19:43] LABS: LACTIC ACID 1.4 mmol/L (0.4-2.0)
[2018-05-27 19:50] LABS: ALANINE AMINOTRANSFERASE 21 Units/L (12-78); ALBUMIN 3.5 g/dL (3.4-5.0); ALKALINE PHOSPHATASE 82 Units/L (46-116); ASPARTATE AMINO TRANSFERASE 25 Units/L (15-37); CKMB % 2.9 % (<4); CREATINE KINASE 307 Units/L (26-192); TOTAL PROTEIN 7.6 g/dL (6.4-8.2)
[2018-05-27 19:56] LABS: CREATINE KINASE MB 8.8 ng/mL (0-4.0)
[2018-05-27 21:12] LABS: ABG BASE EXCESS 1.4 mmol/L (-2.0-2.0); ABG HCO3 29.6 mmol/L (22-26)
[2018-05-27] MEDS ORDERED: ATIVAN INJ 2 MG VIAL IVP ONE (22:31)
[2018-05-27] MEDS ORDERED: ATIVAN INJ 2 MG VIAL ONE (22:32)
--- NOTE | 2018-05-27 23:40 | CT ---
CT head without contrast Indication: Unresponsive, possible overdose Technique: Helical CT images of the brain were obtained without IV contrast. Reformatted images in the coronal and sagittal planes were also generated for review. Comparison: 04/30/2018 Findings: There are patchy and confluent areas of periventricular and subcortical white matter hypoattenuation, unchanged since prior exam and most compatible with chronic microangiopathic disease. Murry-white differentiation is maintained. No visible acute infarction, intracranial hemorrhage, extra-axial collection, hydrocephalus or mass is identified. The visualized paranasal sinuses and mastoid air cells are predominantly clear. Prior left frontotemporal craniotomy again noted. The remaining imaged extracranial structures are otherwise grossly unremarkable. Impression: Stable exam without acute intracranial abnormality. Reported By:
[2018-05-27 23:56] LABS: ABG BASE EXCESS 3.6 mmol/L (-2.0-2.0)
[2018-05-27 23:57] LABS: ABG HCO3 30.4 mmol/L (22-26)
[2018-05-28] MEDS ORDERED: PROVENTIL NEB TX 0.083% 2.5MG/ 3ML NEB PRN (02:19)
[2018-05-28] MEDS ORDERED: NS 1000 ML 1,000 ML ONE (05:29)
[2018-05-28] MEDS ORDERED: NS 1000 ML 1,000 ML IV SCH (06:00)
[2018-05-28 06:16] LABS: BASOPHILS % (AUTO) 0.1 % (0.2-1.0); EOSINOPHILS % (AUTO) 0.2 % (0.9-2.9); HEMATOCRIT 41.9 % (36.0-47.0); HEMOGLOBIN 13.5 g/dL (12.0-16.0); LYMPHOCYTES # (AUTO) 3.1 X10^3/uL (1.3-2.9); MEAN CORPUSCULAR HEMOGLOBIN 30.1 pg (27.0-34.0); MEAN CORPUSCULAR HGB CONC 32.2 g/dL (33.0-35.0); MEAN CORPUSCULAR VOLUME 93.3 fL (80.0-100.0); MEAN PLATELET VOLUME 10.2 fL (7.4-11.0); MONOCYTES # (AUTO) 1.6 x10^3/uL (0.3-0.8); MONOCYTES % (AUTO) 8.9 % (0.0-13.0); NEUTROPHILS # (AUTO) 13.5 x10^3/uL (2.2-4.8); NEUTROPHILS % (AUTO) 73.8 % (42.0-75.0); PLATELET COUNT 244 X10^3/uL (150.0-450.0); RED BLOOD COUNT 4.49 X10^6/uL (3.5-5.4); RED CELL DISTRIBUTION WIDTH 15.9 % (11.6-16.5); WHITE BLOOD COUNT 18.3 X10^3/uL (3.6-10.0)
[2018-05-28 06:22] LABS: ALANINE AMINOTRANSFERASE 19 Units/L (12-78); ALKALINE PHOSPHATASE 71 Units/L (46-116); ASPARTATE AMINO TRANSFERASE 31 Units/L (15-37); BLOOD UREA NITROGEN 10 mg/dL (7-18); CALCIUM 7.6 mg/dL (8.5-10.1); CARBON DIOXIDE 24.9 mmol/L (21-32); CHLORIDE 110 mmol/L (98-107); COR CA(FOR HYPOALB) 8.4 mg/dL (8.5-10.1); CREATININE 0.53 mg/dL (0.55-1.02); MAGNESIUM 1.6 mg/dL (1.7-2.9); SODIUM 146 mmol/L (136-145); TOTAL PROTEIN 6.5 g/dL (6.4-8.2); eGFR NON BLACK RACES > 60 (>60)
[2018-05-28 07:26] LABS: CREATINE KINASE 293 Units/L (26-192); TROPONIN I < 0.02 ng/mL (0-1.5)
[2018-05-28 07:42] LABS: CREATINE KINASE MB 5.7 ng/mL (0-4.0)
[2018-05-28] MEDS: PROVENTIL NEB TX 0.083% 2.5MG/ 3ML NEB PRN ×4 (08:09→20:49)
[2018-05-28] MEDS: PULMICORT NEB TX 0.5 MG NEB SCH ×2 (08:09→20:49)
--- NOTE | 2018-05-28 08:54 | RAD ---
HISTORY: Overdose Study: Single-view chest Comparison: Yesterday Findings: The trachea is midline. The cardiac silhouette is unremarkable. The lungs demonstrate stable findings of COPD without focal infiltrate or effusion.. The bony thorax is unremarkable. IMPRESSION: 1. No acute cardiopulmonary disease. Reported By:
[2018-05-28] MEDS ORDERED: PULMICORT NEB TX 0.5 MG NEB SCH (09:00)
[2018-05-28] MEDS: NS 1000 ML 1,000 ML IV SCH (11:17)
[2018-05-28] MEDS: MAGNESIUM SULFATE 1 GRAM/100 mL PREMIX 1 GM/100 ML BAG IV PRN ×2 (11:20→13:10)
[2018-05-29] MEDS: NS 1000 ML 1,000 ML IV SCH ×2 (04:30→20:27)
--- NOTE | 2018-05-29 05:04 | RAD ---
Chest, one view Indication: AMS, drug overdose Comparison: 05/28/18 Findings: The heart is normal in size. Lungs are hyperinflated with flattening of the hemidiaphragms and coarsened interstitial markings, compatible with COPD. No focal infiltrate, effusion or pneumothorax is identified. No acute osseous abnormality seen. Impression: COPD without acute chest process. Reported By:
[2018-05-29 06:09] LABS: BASOPHILS # (AUTO) 0.1 X10^3/uL (0.0-0.1); BASOPHILS % (AUTO) 0.5 % (0.2-1.0); EOSINOPHILS % (AUTO) 0.1 % (0.9-2.9); HEMATOCRIT 37.3 % (36.0-47.0); HEMOGLOBIN 12.1 g/dL (12.0-16.0); LYMPHOCYTES # (AUTO) 3.8 X10^3/uL (1.3-2.9); LYMPHOCYTES % (AUTO) 22.3 % (21.0-51.0); MEAN CORPUSCULAR HEMOGLOBIN 29.9 pg (27.0-34.0); MEAN CORPUSCULAR HGB CONC 32.4 g/dL (33.0-35.0); MEAN CORPUSCULAR VOLUME 92.2 fL (80.0-100.0); MEAN PLATELET VOLUME 9.9 fL (7.4-11.0); MONOCYTES # (AUTO) 1.4 x10^3/uL (0.3-0.8); MONOCYTES % (AUTO) 8.3 % (0.0-13.0); NEUTROPHILS # (AUTO) 11.7 x10^3/uL (2.2-4.8); NEUTROPHILS % (AUTO) 68.8 % (42.0-75.0); PLATELET COUNT 283 X10^3/uL (150.0-450.0); RED BLOOD COUNT 4.05 X10^6/uL (3.5-5.4); RED CELL DISTRIBUTION WIDTH 15.6 % (11.6-16.5); WHITE BLOOD COUNT 16.9 X10^3/uL (3.6-10.0)
[2018-05-29 06:26] LABS: ALANINE AMINOTRANSFERASE 17 Units/L (12-78); ALBUMIN 2.9 g/dL (3.4-5.0); ALKALINE PHOSPHATASE 64 Units/L (46-116); ASPARTATE AMINO TRANSFERASE 32 Units/L (15-37); BLOOD UREA NITROGEN 10 mg/dL (7-18); CALCIUM 7.7 mg/dL (8.5-10.1); CHLORIDE 108 mmol/L (98-107); COR CA(FOR HYPOALB) 8.6 mg/dL (8.5-10.1); CREATININE 0.53 mg/dL (0.55-1.02); MAGNESIUM 2.2 mg/dL (1.7-2.9); SODIUM 145 mmol/L (136-145); TOTAL PROTEIN 6.2 g/dL (6.4-8.2); eGFR NON BLACK RACES > 60 (>60)
[2018-05-29] MEDS ORDERED: POTASSIUM CHL 40 MEQ/NS 0.45% 500 ML IV PRN (07:15)
[2018-05-29] MEDS ORDERED: POTASSIUM CHL 60 MEQ/NS 0.45% 500 ML IV PRN (07:15)
[2018-05-29] MEDS ORDERED: POTASSIUM CHLORIDE LIQ 20 MEQ UDC PO PRN (07:15)
[2018-05-29] MEDS ORDERED: MICRO K EXTEN CAP 10 MEQ PO PRN (07:15)
[2018-05-29] MEDS: PROVENTIL NEB TX 0.083% 2.5MG/ 3ML NEB PRN ×3 (08:34→17:00)
[2018-05-29] MEDS: PULMICORT NEB TX 0.5 MG NEB SCH ×2 (08:35→21:29)
[2018-05-29] MEDS: LEVAQUIN PREMIX IV 750 MG 750 MG/150 ML BAG IV SCH (13:47)
[2018-05-29] MEDS: ROCEPHIN VIAL 1 GRAM IVP SCH (13:47)
[2018-05-29] MEDS ORDERED: CONSULT PHARMACY - ANTIBIOTIC XX SCH (14:00)
--- NOTE | 2018-05-29 14:36 | RAD ---
History: Left wrist fracture Study: Three views left wrist Comparison: None Findings: There is a recent or acute impacted transverse fracture of the distal radial metaphysis. There is a minimally distracted transverse fracture at the base of the ulnar styloid. There is dorsal soft tissue swelling over the metacarpals. Impression: Distal radial and ulnar fractures Reported By:
[2018-05-29] MEDS: LOVENOX INJ 30 MG SYR SC SCH (17:17)
[2018-05-29] MEDS: K-RIDER 10 MEQ/NS 100 ML 10 MEQ/100 ML BAG IV PRN ×2 (20:55→22:10)
[2018-05-30 06:23] LABS: BASOPHILS # (AUTO) 0.1 X10^3/uL (0.0-0.1); BASOPHILS % (AUTO) 0.9 % (0.2-1.0); EOSINOPHILS % (AUTO) 0.2 % (0.9-2.9); HEMATOCRIT 36.6 % (36.0-47.0); HEMOGLOBIN 11.9 g/dL (12.0-16.0); LYMPHOCYTES # (AUTO) 3.5 X10^3/uL (1.3-2.9); LYMPHOCYTES % (AUTO) 24.5 % (21.0-51.0); MEAN CORPUSCULAR HEMOGLOBIN 30.3 pg (27.0-34.0); MEAN CORPUSCULAR HGB CONC 32.6 g/dL (33.0-35.0); MEAN PLATELET VOLUME 10.1 fL (7.4-11.0); MONOCYTES # (AUTO) 1.2 x10^3/uL (0.3-0.8); MONOCYTES % (AUTO) 8.3 % (0.0-13.0); NEUTROPHILS # (AUTO) 9.5 x10^3/uL (2.2-4.8); NEUTROPHILS % (AUTO) 66.1 % (42.0-75.0); PLATELET COUNT 262 X10^3/uL (150.0-450.0); RED BLOOD COUNT 3.94 X10^6/uL (3.5-5.4); RED CELL DISTRIBUTION WIDTH 15.4 % (11.6-16.5); WHITE BLOOD COUNT 14.3 X10^3/uL (3.6-10.0)
[2018-05-30 06:37] LABS: ALANINE AMINOTRANSFERASE 18 Units/L (12-78); ALBUMIN 2.7 g/dL (3.4-5.0); ALKALINE PHOSPHATASE 60 Units/L (46-116); ASPARTATE AMINO TRANSFERASE 40 Units/L (15-37); BLOOD UREA NITROGEN 10 mg/dL (7-18); CALCIUM 7.8 mg/dL (8.5-10.1); CARBON DIOXIDE 24.1 mmol/L (21-32); CHLORIDE 107 mmol/L (98-107); COR CA(FOR HYPOALB) 8.8 mg/dL (8.5-10.1); CREATININE 0.46 mg/dL (0.55-1.02); SODIUM 142 mmol/L (136-145); TOTAL PROTEIN 6.1 g/dL (6.4-8.2); eGFR NON BLACK RACES > 60 (>60)
[2018-05-30] MEDS: PROVENTIL NEB TX 0.083% 2.5MG/ 3ML NEB PRN ×4 (08:07→20:26)
[2018-05-30] MEDS: PULMICORT NEB TX 0.5 MG NEB SCH ×2 (08:07→20:26)
[2018-05-30] MEDS: PROTONIX INJ 40 MG VIAL IVP SCH (09:40)
[2018-05-30] MEDS: LOVENOX INJ 30 MG SYR SC SCH (09:40)
[2018-05-30] MEDS: ROCEPHIN VIAL 1 GRAM IVP SCH (09:40)
[2018-05-30] MEDS: LEVAQUIN PREMIX IV 750 MG 750 MG/150 ML BAG IV SCH (09:43)
[2018-05-30] MEDS: NS 1000 ML 1,000 ML IV SCH (11:07)
[2018-05-30] MEDS ORDERED: PHARMACY CONSULT - VANCOMYCIN XX SCH (12:00)
[2018-05-30] MEDS: VANCOMYCIN HCL 1 GM VIAL 1 G in D5W 250 ML IV 250 ML IV SCH (20:20)
[2018-05-30] MEDS ORDERED: SALINE 3% 15 ML NEB TX NEB ONE (20:25)
[2018-05-31 06:17] LABS: BASOPHILS # (AUTO) 0.1 X10^3/uL (0.0-0.1); BASOPHILS % (AUTO) 0.6 % (0.2-1.0); EOSINOPHILS % (AUTO) 0.3 % (0.9-2.9); HEMATOCRIT 37.8 % (36.0-47.0); HEMOGLOBIN 12.5 g/dL (12.0-16.0); LYMPHOCYTES % (AUTO) 16.6 % (21.0-51.0); MEAN CORPUSCULAR HEMOGLOBIN 30.3 pg (27.0-34.0); MEAN CORPUSCULAR HGB CONC 33.1 g/dL (33.0-35.0); MEAN CORPUSCULAR VOLUME 91.7 fL (80.0-100.0); MEAN PLATELET VOLUME 10.1 fL (7.4-11.0); MONOCYTES # (AUTO) 1.1 x10^3/uL (0.3-0.8); MONOCYTES % (AUTO) 6.1 % (0.0-13.0); NEUTROPHILS # (AUTO) 13.7 x10^3/uL (2.2-4.8); NEUTROPHILS % (AUTO) 76.4 % (42.0-75.0); PLATELET COUNT 261 X10^3/uL (150.0-450.0); RED BLOOD COUNT 4.13 X10^6/uL (3.5-5.4); RED CELL DISTRIBUTION WIDTH 14.9 % (11.6-16.5); WHITE BLOOD COUNT 17.9 X10^3/uL (3.6-10.0)
[2018-05-31 06:26] LABS: ALANINE AMINOTRANSFERASE 16 Units/L (12-78); ALBUMIN 2.9 g/dL (3.4-5.0); ALKALINE PHOSPHATASE 65 Units/L (46-116); ASPARTATE AMINO TRANSFERASE 36 Units/L (15-37); BLOOD UREA NITROGEN 6 mg/dL (7-18); CALCIUM 8.1 mg/dL (8.5-10.1); CHLORIDE 102 mmol/L (98-107); SODIUM 138 mmol/L (136-145); TOTAL PROTEIN 6.6 g/dL (6.4-8.2); eGFR NON BLACK RACES > 60 (>60)
[2018-05-31] MEDS: LEVAQUIN PREMIX IV 750 MG 750 MG/150 ML BAG IV SCH (08:50)
[2018-05-31] MEDS: LOVENOX INJ 30 MG SYR SC SCH (08:50)
[2018-05-31] MEDS: PROTONIX INJ 40 MG VIAL IVP SCH (08:50)
[2018-05-31] MEDS: PROVENTIL NEB TX 0.083% 2.5MG/ 3ML NEB PRN ×3 (09:25→20:20)
[2018-05-31] MEDS: PULMICORT NEB TX 0.5 MG NEB SCH ×2 (09:25→20:20)
--- NOTE | 2018-05-31 09:33 | RAD ---
HISTORY: Short of breath COPD altered mental status Study: Chest one view Comparison: Chest one view 1226 Technique: AP portable chest Findings: The heart size configuration airway and vascularity are normal. There are chronic changes of fibrosis without change from 05/28 31879. There are no superimposed infiltrates. EKG leads and oxygen tubing overlie the thorax. Soft tissues and bony thorax are normal. IMPRESSION: 1. Chronic changes of fibrosis but no acute infiltrates and no change from prior study of 05/28/2018 Reported By:
[2018-05-31] MEDS: VANCOMYCIN HCL 1 GM VIAL 1 G in D5W 250 ML IV 250 ML IV SCH ×2 (09:39→21:14)
--- NOTE | 2018-05-31 13:39 | DR.H&P ---
H&P - History & Physical for Day of: H&P Date: 05/28/18 - Chief Complaint Chief Complaint: AMS, HYPOXIA - History of Present Illness History of Present Illness: 62 WF ER ADMISSION AFTER PRESENTING WITH EMS WITH AMS AND HYPOXIA, MEDICATION OVERDOSE. PT HAS PMH OF COPD WITH CHRONIC RESP FAILURE, HTN, OA ,JENNIFER, RECENT LEFT REDIAL/ULNAR FRACTURE. PT HAD CT HEAD IN ER WITHOUT ACUTE FINDINGS - Past Medical History Past Medical History: Anxiety, COPD, Asthma, Arthritis, Sleep Apnea - Past Surgical History Surgical History: Neurosurgery - Family History Family Medical History: Cancer, [place], Hypertension - Social History Does patient currently use any type of tobacco product: Yes Have you used tobacco products in the last 12 months: Yes Type of Tobacco Use: Cigarettes How many years tobacco product used: 40 Does any household member use tobacco: No Alcohol Use: None - Medications Home Medications: morphine Allergy (Verified 12/26/17 14:56) Penicillins Allergy (Verified 12/26/17 14:56) prednisone Allergy (Verified 12/26/17 14:56) tea Allergy (Uncoded 04/30/18 21:21) CONTINUE taking the following medications baclofen 10 mg PO TID 05/28/18 [History] hydrocodone-acetaminophen 1 tab PO TID PRN 05/28/18 [History] - Physical Exam Vital Signs: Temperature 98.1 F Pulse Rate [Apical] 88 Pulse Rate 91 Respiratory Rate 24 Blood Pressure [Right Arm] 150/79 Blood Pressure [Left Arm] 85/53 Blood Pressure 117/93 O2 Sat by Pulse Oximetry 98 - Allergies Allergies/Adverse Reactions: Allergies Allergy/AdvReac Type Severity Reaction Status Date / Time morphine Allergy Verified 12/26/17 14:56 Penicillins Allergy Verified 12/26/17 14:56 prednisone Allergy Verified 12/26/17 14:56 tea Allergy Uncoded 04/30/18 21:21
--- NOTE | 2018-05-31 13:51 | DR.H&P ---
H&P - History & Physical for Day of: H&P Date: 05/28/18 - Chief Complaint Chief Complaint: AMS, HYPOXIA - History of Present Illness History of Present Illness: 62 WF ER ADMISSION AFTER PRESENTING WITH EMS WITH AMS AND HYPOXIA, MEDICATION OVERDOSE. PT HAS PMH OF COPD WITH CHRONIC RESP FAILURE, HTN, OA ,JENNIFER, RECENT LEFT REDIAL/ULNAR FRACTURE. PT HAD CT HEAD IN ER WITHOUT ACUTE FINDINGS. PT ADMITTED TO ICU FOR TREATMENT OF ACUTE RESP FAILURE, AMS DUE TO PRESUMED ACCIDENTAL MEDICATION OVERDOSE - Past Medical History Past Medical History: Anxiety, COPD, Asthma, Arthritis, Sleep Apnea - Past Surgical History Surgical History: Neurosurgery - Family History Family Medical History: Cancer, [place], Hypertension - Social History Does patient currently use any type of tobacco product: Yes Have you used tobacco products in the last 12 months: Yes Type of Tobacco Use: Cigarettes How many years tobacco product used: 40 Does any household member use tobacco: No Alcohol Use: None - Medications Home Medications: morphine Allergy (Verified 12/26/17 14:56) Penicillins Allergy (Verified 12/26/17 14:56) prednisone Allergy (Verified 12/26/17 14:56) tea Allergy (Uncoded 04/30/18 21:21) CONTINUE taking the following medications RX: baclofen 10 mg PO TID 05/28/18 [History] RX: hydrocodone-acetaminophen 1 tab PO TID PRN 05/28/18 [History] - Review of Systems Constitutional: Weakness Eyes: No Symptoms Reported ENT: No Symptoms Reported Respiratory: Shortness of Breath Cardiovascular: No Symptoms Reported Gastrointestinal: No Symptoms Reported Genitourinary: No Symptoms Reported Musculoskeletal: No Symptoms Reported Skin: No Symptoms Reported Neurological: Other (AMS) - Physical Exam Vital Signs: Temperature 98.1 F Pulse Rate [Apical] 88 Pulse Rate 91 Respiratory Rate 24 Blood Pressure [Right Arm] 150/79 Blood Pressure [Left Arm] 85/53 Blood Pressure 117/93 O2 Sat by Pulse Oximetry 98 Oriented: Unable to test Eyes: Other (UNABLE TO TEST, PUPILS CONSTRICTED AND SLOW TO RESPOND) Ear: Normal Nose: Normal Throat: Normal Respiratory: Diminished Throughout Cardiovascular: Normal : Normal Auscultation: Bowel Sounds: Normal Tenderness: Normal Skin: Decreased Turgur Musculoskeletal: Left, Arm, Wrist Speech Pattern: Aphasic - Assessment/Plan (1) Altered mental status Qualifiers: Altered mental status type: transient alteration of awareness Qualified Code(s): R40.4 - Transient alteration of awareness Status: Acute Plan: ADMIT ICU, RESP THERAPY, SUPPLEMENTAL O2, BIPAP. REPEAT ABG, BP CONTROL, GENTLE IV HYDRATION. HOLD SEDATIVE MEDICATION, GAN CATH, STRICT I & OS. CONTINUOUS CARDIAC MONITORING, REPEAT AM LABS, CXR (2) Hypoxia Status: Acute (3) Drug overdose Status: Acute (4) Hypothermia Status: Acute (5) Anxiety Status: Chronic (6) Arthritis Status: Chronic (7) COPD (chronic obstructive pulmonary disease) Qualifiers: COPD type: unspecified COPD Qualified Code(s): J44.9 - Chronic obstructive pulmonary disease, unspecified Status: Chronic - Allergies Allergies/Adverse Reactions: Allergies Allergy/AdvReac Type Severity Reaction Status Date / Time morphine Allergy Verified 12/26/17 14:56 Penicillins Allergy Verified 12/26/17 14:56 prednisone Allergy Verified 12/26/17 14:56 tea Allergy Uncoded 04/30/18 21:21
--- NOTE | 2018-05-31 13:55 | PCM.PROG ---
Progress Note - Progress Note for Day of Date of Exam: 05/29/18 - Subjective Subjective: 62 WF ER ADMISSION WITH MEDICATION OVERDOSE WITH AMS, AND HYPOXIA. PT IS AWAKE THIS AM, NO VERBAL RESPONSES, CURRENTLY ON NASAL CANULA WITH BLOOD CULTURES COLLECTED ON ADMISSION WITH REPORTED GROWTH, SPUTUM CULTURE PENDING. PT ON IV LEVAQUIN AND ROCEPHIN. WILL CONTINUE RESP CARE, AM LABS AND I & OS. - Past Medical Family Social History Past Med/Fam/Surg Hx: No changes since H&P Allergies: Allergies morphine Allergy (Verified 12/26/17 14:56) Penicillins Allergy (Verified 12/26/17 14:56) prednisone Allergy (Verified 12/26/17 14:56) tea Allergy (Uncoded 04/30/18 21:21) - Review of Systems ROS: No change since H&P - Vital Signs and I&O's Vital Signs: Temperature 98.1 F Pulse Rate [Apical] 88 Pulse Rate 91 Respiratory Rate 24 Blood Pressure [Right Arm] 150/79 Blood Pressure [Left Arm] 85/53 Blood Pressure 117/93 O2 Sat by Pulse Oximetry 98 Intake and Output: Intake & Output 05/29/18 05/30/18 05/31/18 06/01/18 11:59 11:59 11:59 11:59 Intake Total 1004 / 1004 675 / 675 866 / 866 Output Total 600 / 600 600 / 600 1000 / 1000 Balance 404 / 404 75 / 75 -134 / -134 - Physical Exam Oriented: Person. negative: Time, Place Eyes: Normal Ear: Normal Nose: Normal Throat: Normal Respiratory: Diminished Cardiovascular: Normal : Normal Auscultation: Bowel Sounds: Normal Tenderness: Normal Skin: Decreased Turgur Musculoskeletal: Left, Arm, Wrist Speech Pattern: Aphasic - Laboratory and Diagnostics Result Diagrams: 05/31/18 05:19 05/31/18 05:19 Labs: 05/29/18 13:41 Blood Blood Culture - Preliminary 05/29/18 13:34 Blood Blood Culture - Preliminary 05/27/18 18:35 Blood Blood Culture - Final Staphylococcus Epidermidis Laboratory WBC 17.9 X10^3/uL (3.6-10.0) H 05/31/18 05:19 RBC 4.13 X10^6/uL (3.5-5.4) 05/31/18 05:19 Hgb 12.5 g/dL (12.0-16.0) 05/31/18 05:19 Hct 37.8 % (36.0-47.0) 05/31/18 05:19 MCV 91.7 fL (80.0-100.0) 05/31/18 05:19 MCH 30.3 pg (27.0-34.0) 05/31/18 05:19 MCHC 33.1 g/dL (33.0-35.0) 05/31/18 05:19 RDW 14.9 % (11.6-16.5) 05/31/18 05:19 Plt Count 261 X10^3/uL (150.0-450.0) 05/31/18 05:19 MPV 10.1 fL (7.4-11.0) 05/31/18 05:19 Neut % (Auto) 76.4 % (42.0-75.0) H 05/31/18 05:19 Lymph % (Auto) 16.6 % (21.0-51.0) L 05/31/18 05:19 [place] % (Auto) 6.1 % (0.0-13.0) 05/31/18 05:19 Eos % (Auto) 0.3 % (0.9-2.9) L 05/31/18 05:19 Baso % (Auto) 0.6 % (0.2-1.0) 05/31/18 05:19 Neut # (Auto) 13.7 x10^3/uL (2.2-4.8) H 05/31/18 05:19 Lymph # (Auto) 3.0 X10^3/uL (1.3-2.9) H 05/31/18 05:19 [place] # (Auto) 1.1 x10^3/uL (0.3-0.8) H 05/31/18 05:19 Eos # (Auto) 0.0 x10^3/uL (0.0-0.2) 05/31/18 05:19 Baso # (Auto) 0.1 X10^3/uL (0.0-0.1) 05/31/18 05:19 Absolute Nucleated RBC 0.0 /100WBC 05/31/18 05:19 Sample Site Rb 05/27/18 23:40 ABG pH 7.350 (7.35-7.45) 05/27/18 23:40 ABG pCO2 55.0 mmHg (35.0-45.0) H* 05/27/18 23:40 ABG pO2 107.0 mmHg (80.0-100.0) H 05/27/18 23:40 ABG HCO3 30.4 mmol/L (22-26) H* 05/27/18 23:40 ABG O2 Saturation 98.0 % (90-100) 05/27/18 23:40 ABG Base Excess 3.6 mmol/L (-2.0-2.0) H 05/27/18 23:40 Colin Test N/a 05/27/18 23:40 A-a Gradient 24.0 mmHg 05/27/18 23:40 FiO2 28.0 05/27/18 23:40 Blood Gas Comments Ronald well ae 05/27/18 23:40 Sodium 138 mmol/L (136-145) 05/31/18 05:19 Corrected Sodium TNP 05/31/18 05:19 Potassium 3.5 mmol/L (3.5-5.1) 05/31/18 05:19 Chloride 102 mmol/L (98-107) 05/31/18 05:19 Carbon Dioxide 23.0 mmol/L (21-32) 05/31/18 05:19 BUN 6 mg/dL (7-18) L 05/31/18 05:19 Creatinine 0.40 mg/dL (0.55-1.02) L 05/31/18 05:19 Est GFR (MDRD) Af Amer > 60 (>60) 05/31/18 05:19 Est GFR (MDRD) Non-Af > 60 (>60) 05/31/18 05:19 Glucose 88 mg/dL (65-99) 05/31/18 05:19 Lactic Acid 1.4 mmol/L (0.4-2.0) 05/27/18 19:14 Calcium 8.1 mg/dL (8.5-10.1) L 05/31/18 05:19 Corrected Calcium 9.0 mg/dL (8.5-10.1) 05/31/18 05:19 Magnesium 2.2 mg/dL (1.7-2.9) 05/29/18 05:23 Total Bilirubin 0.50 mg/dL (0.2-1.0) 05/31/18 05:19 AST 36 Units/L (15-37) 05/31/18 05:19 ALT 16 Units/L (12-78) 05/31/18 05:19 Alkaline Phosphatase 65 Units/L (46-116) 05/31/18 05:19 Creatine Kinase 293 Units/L (26-192) H 05/28/18 06:36 CK-MB (CK-2) 5.7 ng/mL (0-4.0) H* 05/28/18 06:36 CK/CKMB % Calc 2.0 % (<4) 05/28/18 06:36 Troponin I < 0.02 ng/mL (0-1.5) 05/28/18 06:36 C-Reactive Protein 26.20 mg/L (0-3.0) H 05/27/18 19:14 Total Protein 6.6 g/dL (6.4-8.2) 05/31/18 05:19 Albumin 2.9 g/dL (3.4-5.0) L 05/31/18 05:19 Globulin 3.7 g/dL (2.5-4.5) 05/31/18 05:19 Albumin/Globulin Ratio 0.8 Ratio (1.1-2.1) L 05/31/18 05:19 Specimen Type Catherized urine 05/27/18 18:26 Urine Color Yellow (YELLOW) 05/27/18 18:26 Urine Appearance Clear (CLEAR) 05/27/18 18:26 Urine pH 6.0 (5.0 - 8.0) 05/27/18 18:26 Ur Specific [place] 1.020 (1.000-1.030) 05/27/18 18:26 Urine Protein Negative (NEGATIVE) 05/27/18 18:26 Urine Glucose (UA) Negative (NEGATIVE) 05/27/18 18: Urine Ketones Negative (NEGATIVE) 05/27/18 18:26 Urine Occult Blood Negative (NEGATIVE) 05/27/18 18:26 Urine Nitrite Negative (NEGATIVE) 05/27/18 18:26 Urine Bilirubin Negative (NEGATIVE) 05/27/18 18:26 Urine Urobilinogen Normal (NORMAL) 05/27/18 18:26 Ur Leukocyte Esterase Negative (NEGATIVE) 05/27/18 18:26 Urine Opiates Screen Positive (NEG=<300) A 05/27/18 18:26 Urine Methadone Screen Negative (NEG=<300) 05/27/18 18:26 Ur Barbiturates Screen Negative (NEG=<200) 05/27/18 18:26 Ur Phencyclidine Scrn Negative (NEG=<25) 05/27/18 18:26 Ur Amphetamines Screen Negative (NEG=<1000) 05/27/18 18:26 U Benzodiazepines Scrn Negative (NEG=<200) 05/27/18 18:26 Urine Cocaine Screen Negative (NEG=<300) 05/27/18 18:26 U Marijuana (THC) Screen Negative (NEG=<50) 05/27/18 18:26 - Plan (1) Altered mental status Status: Acute Qualifiers: Altered mental status type: transient alteration of awareness Qualified Code(s): R40.4 - Transient alteration of awareness Plan: RESP THERAPY, SUPPLEMENTAL O2, BIPAP PRN. REPEAT ABG, BP CONTROL, GENTLE IV HYDRATION. HOLD SEDATIVE MEDICATION, GAN CATH, STRICT I & OS. CONTINUOUS CARDIAC MONITORING, REPEAT AM LABS, CXR (2) Hypoxia Status: Acute (3) Drug overdose Status: Acute (4) Hypothermia Status: Acute (5) Anxiety Status: Chronic (6) Arthritis Status: Chronic (7) COPD (chronic obstructive pulmonary disease) Status: Chronic Qualifiers: COPD type: unspecified COPD Qualified Code(s): J44.9 - Chronic obstructive pulmonary disease, unspecified (8) Bacteremia Status: Acute Plan: CULTURES PENDING, REPEAT BLOOD CULTURES ORDERED (9) Pneumonia Status: Acute Plan: SPUTUM CULTURE, IV ATBX. RESP THERAPY, SUPPLEMENTAL O2 (10) Wrist fracture, left Status: Acute Plan: XRAY LEFT WRIST, OCL TO LEFT ARM/WRIST
--- NOTE | 2018-05-31 13:58 | PCM.PROG ---
Progress Note - Progress Note for Day of Date of Exam: 05/30/18 - Subjective Subjective: 62 WF ER ADMISSION WITH MEDICATION OVERDOSE WITH AMS, AND HYPOXIA. PT IS AWAKE THIS AM, WITH LIMITED VERBAL RESPONSES, CONTINUE WITH CONFUSION PER NURSING STAFF. CURRENTLY ON NASAL CANULA WITH BLOOD CULTURES COLLECTED ON ADMISSION WITH REPORTED GROWTH, STAPH EPI, REPEAT CULTURES PENDING, CONSULTED PHARMACY FOR VANCOMYCIN DOSE. PT ON IV LEVAQUIN AND ROCEPHIN. WILL CONTINUE RESP CARE, AM LABS AND I & OS. - Past Medical Family Social History Past Med/Fam/Surg Hx: No changes since H&P Allergies: Allergies morphine Allergy (Verified 12/26/17 14:56) Penicillins Allergy (Verified 12/26/17 14:56) prednisone Allergy (Verified 12/26/17 14:56) tea Allergy (Uncoded 04/30/18 21:21) - Review of Systems ROS: No change since H&P - Vital Signs and I&O's Vital Signs: Temperature 98.1 F Pulse Rate [Apical] 88 Pulse Rate 91 Respiratory Rate 24 Blood Pressure [Right Arm] 150/79 Blood Pressure [Left Arm] 85/53 Blood Pressure 117/93 O2 Sat by Pulse Oximetry 98 Intake and Output: Intake & Output 05/29/18 05/30/18 05/31/18 06/01/18 11:59 11:59 11:59 11:59 Intake Total 1004 / 1004 675 / 675 866 / 866 Output Total 600 / 600 600 / 600 1000 / 1000 Balance 404 / 404 75 / 75 -134 / -134 - Physical Exam Oriented: Person. negative: Time, Place Eyes: Normal Ear: Normal Nose: Normal Throat: Normal Respiratory: Diminished Cardiovascular: Normal : Normal Auscultation: Bowel Sounds: Normal Tenderness: Normal Skin: Decreased Turgur Musculoskeletal: Left, Arm, Wrist Speech Pattern: Aphasic - Laboratory and Diagnostics Result Diagrams: 05/31/18 05:19 05/31/18 05:19 Labs: 05/29/18 13:41 Blood Blood Culture - Preliminary 05/29/18 13:34 Blood Blood Culture - Preliminary 05/27/18 18:35 Blood Blood Culture - Final Staphylococcus Epidermidis Laboratory WBC 17.9 X10^3/uL (3.6-10.0) H 05/31/18 05:19 RBC 4.13 X10^6/uL (3.5-5.4) 05/31/18 05:19 Hgb 12.5 g/dL (12.0-16.0) 05/31/18 05:19 Hct 37.8 % (36.0-47.0) 05/31/18 05:19 MCV 91.7 fL (80.0-100.0) 05/31/18 05:19 MCH 30.3 pg (27.0-34.0) 05/31/18 05:19 MCHC 33.1 g/dL (33.0-35.0) 05/31/18 05:19 RDW 14.9 % (11.6-16.5) 05/31/18 05:19 Plt Count 261 X10^3/uL (150.0-450.0) 05/31/18 05:19 MPV 10.1 fL (7.4-11.0) 05/31/18 05:19 Neut % (Auto) 76.4 % (42.0-75.0) H 05/31/18 05:19 Lymph % (Auto) 16.6 % (21.0-51.0) L 05/31/18 05:19 [place] % (Auto) 6.1 % (0.0-13.0) 05/31/18 05:19 Eos % (Auto) 0.3 % (0.9-2.9) L 05/31/18 05:19 Baso % (Auto) 0.6 % (0.2-1.0) 05/31/18 05:19 Neut # (Auto) 13.7 x10^3/uL (2.2-4.8) H 05/31/18 05:19 Lymph # (Auto) 3.0 X10^3/uL (1.3-2.9) H 05/31/18 05:19 [place] # (Auto) 1.1 x10^3/uL (0.3-0.8) H 05/31/18 05:19 Eos # (Auto) 0.0 x10^3/uL (0.0-0.2) 05/31/18 05:19 Baso # (Auto) 0.1 X10^3/uL (0.0-0.1) 05/31/18 05:19 Absolute Nucleated RBC 0.0 /100WBC 05/31/18 05:19 Sample Site Rb 05/27/18 23:40 ABG pH 7.350 (7.35-7.45) 05/27/18 23:40 ABG pCO2 55.0 mmHg (35.0-45.0) H* 05/27/18 23:40 ABG pO2 107.0 mmHg (80.0-100.0) H 05/27/18 23:40 ABG HCO3 30.4 mmol/L (22-26) H* 05/27/18 23:40 ABG O2 Saturation 98.0 % (90-100) 05/27/18 23:40 ABG Base Excess 3.6 mmol/L (-2.0-2.0) H 05/27/18 23:40 Colin Test N/a 05/27/18 23:40 A-a Gradient 24.0 mmHg 05/27/18 23:40 FiO2 28.0 05/27/18 23:40 Blood Gas Comments Ronald well ae 05/27/18 23:40 Sodium 138 mmol/L (136-145) 05/31/18 05:19 Corrected Sodium TNP 05/31/18 05:19 Potassium 3.5 mmol/L (3.5-5.1) 05/31/18 05:19 Chloride 102 mmol/L (98-107) 05/31/18 05:19 Carbon Dioxide 23.0 mmol/L (21-32) 05/31/18 05:19 BUN 6 mg/dL (7-18) L 05/31/18 05:19 Creatinine 0.40 mg/dL (0.55-1.02) L 05/31/18 05:19 Est GFR (MDRD) Af Amer > 60 (>60) 05/31/18 05:19 Est GFR (MDRD) Non-Af > 60 (>60) 05/31/18 05:19 Glucose 88 mg/dL (65-99) 05/31/18 05:19 Lactic Acid 1.4 mmol/L (0.4-2.0) 05/27/18 19:14 Calcium 8.1 mg/dL (8.5-10.1) L 05/31/18 05:19 Corrected Calcium 9.0 mg/dL (8.5-10.1) 05/31/18 05:19 Magnesium 2.2 mg/dL (1.7-2.9) 05/29/18 05:23 Total Bilirubin 0.50 mg/dL (0.2-1.0) 05/31/18 05:19 AST 36 Units/L (15-37) 05/31/18 05:19 ALT 16 Units/L (12-78) 05/31/18 05:19 Alkaline Phosphatase 65 Units/L (46-116) 05/31/18 05:19 Creatine Kinase 293 Units/L (26-192) H 05/28/18 06:36 CK-MB (CK-2) 5.7 ng/mL (0-4.0) H* 05/28/18 06:36 CK/CKMB % Calc 2.0 % (<4) 05/28/18 06:36 Troponin I < 0.02 ng/mL (0-1.5) 05/28/18 06:36 C-Reactive Protein 26.20 mg/L (0-3.0) H 05/27/18 19:14 Total Protein 6.6 g/dL (6.4-8.2) 05/31/18 05:19 Albumin 2.9 g/dL (3.4-5.0) L 05/31/18 05:19 Globulin 3.7 g/dL (2.5-4.5) 05/31/18 05:19 Albumin/Globulin Ratio 0.8 Ratio (1.1-2.1) L 05/31/18 05:19 Specimen Type Catherized urine 05/27/18 18:26 Urine Color Yellow (YELLOW) 05/27/18 18: Urine Appearance Clear (CLEAR) 05/27/18 18:26 Urine pH 6.0 (5.0 - 8.0) 05/27/18 18:26 Ur Specific [place] 1.020 (1.000-1.030) 05/27/18 18:26 Urine Protein Negative (NEGATIVE) 05/27/18 18: Urine Glucose (UA) Negative (NEGATIVE) 05/27/18 18: Urine Ketones Negative (NEGATIVE) 05/27/18 18:26 Urine Occult Blood Negative (NEGATIVE) 05/27/18 18: Urine Nitrite Negative (NEGATIVE) 05/27/18 18: Urine Bilirubin Negative (NEGATIVE) 05/27/18 18:26 Urine Urobilinogen Normal (NORMAL) 05/27/18 18:26 Ur Leukocyte Esterase Negative (NEGATIVE) 05/27/18 18:26 Urine Opiates Screen Positive (NEG=<300) A 05/27/18 18:26 Urine Methadone Screen Negative (NEG=<300) 05/27/18 18:26 Ur Barbiturates Screen Negative (NEG=<200) 05/27/18 18:26 Ur Phencyclidine Scrn Negative (NEG=<25) 05/27/18 18:26 Ur Amphetamines Screen Negative (NEG=<1000) 05/27/18 18:26 U Benzodiazepines Scrn Negative (NEG=<200) 05/27/18 18:26 Urine Cocaine Screen Negative (NEG=<300) 05/27/18 18:26 U Marijuana (THC) Screen Negative (NEG=<50) 05/27/18 18:26 - Plan (1) Altered mental status Status: Acute Qualifiers: Altered mental status type: transient alteration of awareness Qualified Code(s): R40.4 - Transient alteration of awareness Plan: RESP THERAPY, SUPPLEMENTAL O2, BIPAP PRN. REPEAT ABG, BP CONTROL, GENTLE IV HYDRATION. HOLD SEDATIVE MEDICATION, GAN CATH, STRICT I & OS. CONTINUOUS CARDIAC MONITORING, REPEAT AM LABS, CXR (2) Hypoxia Status: Acute (3) Drug overdose Status: Acute (4) Hypothermia Status: Acute (5) Anxiety Status: Chronic (6) Arthritis Status: Chronic (7) COPD (chronic obstructive pulmonary disease) Status: Chronic Qualifiers: COPD type: unspecified COPD Qualified Code(s): J44.9 - Chronic obstructive pulmonary disease, unspecified (8) Bacteremia Status: Acute Plan: CULTURES PENDING, REPEAT BLOOD CULTURES ORDERED. IV VANCOMYCIN (9) Pneumonia Status: Acute Plan: SPUTUM CULTURE, IV ATBX. RESP THERAPY, SUPPLEMENTAL O2 (10) Wrist fracture, left Status: Acute Plan: XRAY LEFT WRIST, OCL TO LEFT ARM/WRIST
--- NOTE | 2018-05-31 14:01 | PCM.PROG ---
Progress Note - Progress Note for Day of Date of Exam: 05/31/18 - Subjective Subjective: 62 WF ER ADMISSION WITH MEDICATION OVERDOSE WITH AMS, AND HYPOXIA. PT IS MORE ALERT AND AWAKE THIS AM, WITH LIMITED VERBAL RESPONSES, CONTINUE WITH CONFUSION PER NURSING STAFF. CURRENTLY ON NASAL CANULA WITH BLOOD CULTURES COLLECTED ON ADMISSION WITH REPORTED GROWTH, STAPH EPI, REPEAT CULTURES PENDING, CURRENTLY ON VANCOMYCIN,LEVAQUIN AND ROCEPHIN. WILL CONTINUE RESP CARE, AM LABS AND I & OS. - Past Medical Family Social History Past Med/Fam/Surg Hx: No changes since H&P Allergies: Allergies morphine Allergy (Verified 12/26/17 14:56) Penicillins Allergy (Verified 12/26/17 14:56) prednisone Allergy (Verified 12/26/17 14:56) tea Allergy (Uncoded 04/30/18 21:21) - Review of Systems ROS: No change since H&P - Vital Signs and I&O's Vital Signs: Temperature 98.1 F Pulse Rate [Apical] 88 Pulse Rate 91 Respiratory Rate 24 Blood Pressure [Right Arm] 150/79 Blood Pressure [Left Arm] 85/53 Blood Pressure 117/93 O2 Sat by Pulse Oximetry 98 Intake and Output: Intake & Output 05/29/18 05/30/18 05/31/18 06/01/18 11:59 11:59 11:59 11:59 Intake Total 1004 / 1004 675 / 675 866 / 866 Output Total 600 / 600 600 / 600 1000 / 1000 Balance 404 / 404 75 / 75 -134 / -134 - Physical Exam Oriented: Person. negative: Time, Place Eyes: Normal Ear: Normal Nose: Normal Throat: Normal Respiratory: Diminished Cardiovascular: Normal : Normal Auscultation: Bowel Sounds: Normal Tenderness: Normal Skin: Decreased Turgur Musculoskeletal: Left, Arm, Wrist Speech Pattern: Aphasic - Laboratory and Diagnostics Result Diagrams: 05/31/18 05:19 05/31/18 05:19 Labs: 05/29/18 13:41 Blood Blood Culture - Preliminary 05/29/18 13:34 Blood Blood Culture - Preliminary 05/27/18 18:35 Blood Blood Culture - Final Staphylococcus Epidermidis Laboratory WBC 17.9 X10^3/uL (3.6-10.0) H 05/31/18 05:19 RBC 4.13 X10^6/uL (3.5-5.4) 05/31/18 05:19 Hgb 12.5 g/dL (12.0-16.0) 05/31/18 05:19 Hct 37.8 % (36.0-47.0) 05/31/18 05:19 MCV 91.7 fL (80.0-100.0) 05/31/18 05:19 MCH 30.3 pg (27.0-34.0) 05/31/18 05:19 MCHC 33.1 g/dL (33.0-35.0) 05/31/18 05:19 RDW 14.9 % (11.6-16.5) 05/31/18 05:19 Plt Count 261 X10^3/uL (150.0-450.0) 05/31/18 05:19 MPV 10.1 fL (7.4-11.0) 05/31/18 05:19 Neut % (Auto) 76.4 % (42.0-75.0) H 05/31/18 05:19 Lymph % (Auto) 16.6 % (21.0-51.0) L 05/31/18 05:19 [place] % (Auto) 6.1 % (0.0-13.0) 05/31/18 05:19 Eos % (Auto) 0.3 % (0.9-2.9) L 05/31/18 05:19 Baso % (Auto) 0.6 % (0.2-1.0) 05/31/18 05:19 Neut # (Auto) 13.7 x10^3/uL (2.2-4.8) H 05/31/18 05:19 Lymph # (Auto) 3.0 X10^3/uL (1.3-2.9) H 05/31/18 05:19 [place] # (Auto) 1.1 x10^3/uL (0.3-0.8) H 05/31/18 05:19 Eos # (Auto) 0.0 x10^3/uL (0.0-0.2) 05/31/18 05:19 Baso # (Auto) 0.1 X10^3/uL (0.0-0.1) 05/31/18 05:19 Absolute Nucleated RBC 0.0 /100WBC 05/31/18 05:19 Sample Site Rb 05/27/18 23:40 ABG pH 7.350 (7.35-7.45) 05/27/18 23:40 ABG pCO2 55.0 mmHg (35.0-45.0) H* 05/27/18 23:40 ABG pO2 107.0 mmHg (80.0-100.0) H 05/27/18 23:40 ABG HCO3 30.4 mmol/L (22-26) H* 05/27/18 23:40 ABG O2 Saturation 98.0 % (90-100) 05/27/18 23:40 ABG Base Excess 3.6 mmol/L (-2.0-2.0) H 05/27/18 23:40 Colin Test N/a 05/27/18 23:40 A-a Gradient 24.0 mmHg 05/27/18 23:40 FiO2 28.0 05/27/18 23:40 Blood Gas Comments Ronald well ae 05/27/18 23:40 Sodium 138 mmol/L (136-145) 05/31/18 05:19 Corrected Sodium TNP 05/31/18 05:19 Potassium 3.5 mmol/L (3.5-5.1) 05/31/18 05:19 Chloride 102 mmol/L (98-107) 05/31/18 05:19 Carbon Dioxide 23.0 mmol/L (21-32) 05/31/18 05:19 BUN 6 mg/dL (7-18) L 05/31/18 05:19 Creatinine 0.40 mg/dL (0.55-1.02) L 05/31/18 05:19 Est GFR (MDRD) Af Amer > 60 (>60) 05/31/18 05:19 Est GFR (MDRD) Non-Af > 60 (>60) 05/31/18 05:19 Glucose 88 mg/dL (65-99) 05/31/18 05:19 Lactic Acid 1.4 mmol/L (0.4-2.0) 05/27/18 19:14 Calcium 8.1 mg/dL (8.5-10.1) L 05/31/18 05:19 Corrected Calcium 9.0 mg/dL (8.5-10.1) 05/31/18 05:19 Magnesium 2.2 mg/dL (1.7-2.9) 05/29/18 05:23 Total Bilirubin 0.50 mg/dL (0.2-1.0) 05/31/18 05:19 AST 36 Units/L (15-37) 05/31/18 05:19 ALT 16 Units/L (12-78) 05/31/18 05:19 Alkaline Phosphatase 65 Units/L (46-116) 05/31/18 05:19 Creatine Kinase 293 Units/L (26-192) H 05/28/18 06:36 CK-MB (CK-2) 5.7 ng/mL (0-4.0) H* 05/28/18 06:36 CK/CKMB % Calc 2.0 % (<4) 05/28/18 06:36 Troponin I < 0.02 ng/mL (0-1.5) 05/28/18 06:36 C-Reactive Protein 26.20 mg/L (0-3.0) H 05/27/18 19:14 Total Protein 6.6 g/dL (6.4-8.2) 05/31/18 05:19 Albumin 2.9 g/dL (3.4-5.0) L 05/31/18 05:19 Globulin 3.7 g/dL (2.5-4.5) 05/31/18 05:19 Albumin/Globulin Ratio 0.8 Ratio (1.1-2.1) L 05/31/18 05:19 Specimen Type Catherized urine 05/27/18 18:26 Urine Color Yellow (YELLOW) 05/27/18 18:26 Urine Appearance Clear (CLEAR) 05/27/18 18:26 Urine pH 6.0 (5.0 - 8.0) 05/27/18 18:26 Ur Specific [place] 1.020 (1.000-1.030) 05/27/18 18:26 Urine Protein Negative (NEGATIVE) 05/27/18 18:26 Urine Glucose (UA) Negative (NEGATIVE) 05/27/18 18:26 Urine Ketones Negative (NEGATIVE) 05/27/18 18:26 Urine Occult Blood Negative (NEGATIVE) 05/27/18 18:26 Urine Nitrite Negative (NEGATIVE) 05/27/18 18: Urine Bilirubin Negative (NEGATIVE) 05/27/18 18:26 Urine Urobilinogen Normal (NORMAL) 05/27/18 18:26 Ur Leukocyte Esterase Negative (NEGATIVE) 05/27/18 18:26 Urine Opiates Screen Positive (NEG=<300) A 05/27/18 18:26 Urine Methadone Screen Negative (NEG=<300) 05/27/18 18:26 Ur Barbiturates Screen Negative (NEG=<200) 05/27/18 18:26 Ur Phencyclidine Scrn Negative (NEG=<25) 05/27/18 18:26 Ur Amphetamines Screen Negative (NEG=<1000) 05/27/18 18:26 U Benzodiazepines Scrn Negative (NEG=<200) 05/27/18 18:26 Urine Cocaine Screen Negative (NEG=<300) 05/27/18 18:26 U Marijuana (THC) Screen Negative (NEG=<50) 05/27/18 18:26 - Plan (1) Pneumonia Status: Acute Plan: SPUTUM CULTURE, IV ATBX. RESP THERAPY, SUPPLEMENTAL O2 (2) Bacteremia Status: Acute Plan: CULTURES PENDING, REPEAT BLOOD CULTURES ORDERED. IV VANCOMYCIN (3) Altered mental status Status: Acute Qualifiers: Altered mental status type: transient alteration of awareness Qualified Code(s): R40.4 - Transient alteration of awareness Plan: RESP THERAPY, SUPPLEMENTAL O2, BIPAP PRN. REPEAT ABG, BP CONTROL, GENTLE IV HYDRATION. HOLD SEDATIVE MEDICATION, GAN CATH, STRICT I & OS. CONTINUOUS CARDIAC MONITORING, REPEAT AM LABS, CXR (4) Hypoxia Status: Acute (5) Drug overdose Status: Acute (6) Hypothermia Status: Acute (7) Anxiety Status: Chronic (8) Arthritis Status: Chronic (9) COPD (chronic obstructive pulmonary disease) Status: Chronic Qualifiers: COPD type: unspecified COPD Qualified Code(s): J44.9 - Chronic obstructive pulmonary disease, unspecified (10) Wrist fracture, left Status: Acute Plan: XRAY LEFT WRIST, OCL TO LEFT ARM/WRIST
[2018-05-31] MEDS: NS 1000 ML 1,000 ML IV SCH (14:54)
[2018-05-31] MEDS: BENADRYL INJ 50 MG VIAL IVP PRN (21:14)
[2018-05-31] MEDS: HALDOL INJ IVP PRN (23:35)
[2018-06-01] MEDS: HALDOL INJ IVP PRN (05:21)
[2018-06-01 06:17] LABS: BASOPHILS # (AUTO) 0.1 X10^3/uL (0.0-0.1); BASOPHILS % (AUTO) 0.4 % (0.2-1.0); EOSINOPHILS % (AUTO) 0.1 % (0.9-2.9); HEMATOCRIT 36.5 % (36.0-47.0); LYMPHOCYTES # (AUTO) 1.7 X10^3/uL (1.3-2.9); LYMPHOCYTES % (AUTO) 10.4 % (21.0-51.0); MEAN CORPUSCULAR HEMOGLOBIN 30.1 pg (27.0-34.0); MEAN CORPUSCULAR HGB CONC 32.9 g/dL (33.0-35.0); MEAN CORPUSCULAR VOLUME 91.6 fL (80.0-100.0); MEAN PLATELET VOLUME 9.6 fL (7.4-11.0); MONOCYTES % (AUTO) 6.1 % (0.0-13.0); NEUTROPHILS # (AUTO) 13.7 x10^3/uL (2.2-4.8); PLATELET COUNT 235 X10^3/uL (150.0-450.0); RED BLOOD COUNT 3.98 X10^6/uL (3.5-5.4); RED CELL DISTRIBUTION WIDTH 15.2 % (11.6-16.5); WHITE BLOOD COUNT 16.5 X10^3/uL (3.6-10.0)
[2018-06-01 06:31] LABS: ALANINE AMINOTRANSFERASE 20 Units/L (12-78); ALBUMIN 2.9 g/dL (3.4-5.0); ALKALINE PHOSPHATASE 61 Units/L (46-116); ASPARTATE AMINO TRANSFERASE 30 Units/L (15-37); BLOOD UREA NITROGEN 4 mg/dL (7-18); CALCIUM 8.4 mg/dL (8.5-10.1); CARBON DIOXIDE 26.2 mmol/L (21-32); CHLORIDE 101 mmol/L (98-107); COR CA(FOR HYPOALB) 9.3 mg/dL (8.5-10.1); COR NA(FOR HYPERGLY) 141 mmol/L (136-145); CREATININE 0.63 mg/dL (0.55-1.02); SODIUM 140 mmol/L (136-145); TOTAL PROTEIN 6.4 g/dL (6.4-8.2); eGFR NON BLACK RACES > 60 (>60)
[2018-06-01 08:17] LABS: CREATININE 0.68 mg/dL (0.55-1.02); VANCOMYCIN,TROUGH 14.8 ug/mL (15-20)
[2018-06-01] MEDS ORDERED: PHARMACY COMMENT IV NR (08:30)
[2018-06-01] MEDS: PROTONIX INJ 40 MG VIAL IVP SCH (09:00)
[2018-06-01] MEDS: LOVENOX INJ 30 MG SYR SC SCH (09:00)
[2018-06-01] MEDS: LEVAQUIN PREMIX IV 750 MG 750 MG/150 ML BAG IV SCH (09:00)
[2018-06-01] MEDS: VANCOMYCIN HCL 1 GM VIAL 1 G in D5W 250 ML IV 250 ML IV SCH ×2 (09:00→21:18)
[2018-06-01] MEDS: PULMICORT NEB TX 0.5 MG NEB SCH ×2 (09:17→20:13)
[2018-06-01] MEDS: PROVENTIL NEB TX 0.083% 2.5MG/ 3ML NEB PRN ×3 (09:18→20:13)
[2018-06-01] MEDS: BENADRYL INJ 50 MG VIAL IVP PRN (21:26)
[2018-06-02] MEDS ORDERED: NS 100 ML IV 100 ML IV ONE (00:34)
[2018-06-02] MEDS ORDERED: ATIVAN INJ 2 MG VIAL ONE (00:35)
[2018-06-02] MEDS ORDERED: CEREBYX INJ ONE (00:35)
[2018-06-02] MEDS ORDERED: CEREBYX INJ IVP ONE (00:41)
[2018-06-02] MEDS ORDERED: ATIVAN INJ 2 MG VIAL IVP ONE (00:41)
[2018-06-02] MEDS: K-RIDER 10 MEQ/NS 100 ML 10 MEQ/100 ML BAG IV PRN ×6 (05:00→23:06)
[2018-06-02 06:42] LABS: BASOPHILS # (AUTO) 0.1 X10^3/uL (0.0-0.1); BASOPHILS % (AUTO) 0.8 % (0.2-1.0); EOSINOPHILS # (AUTO) 0.1 x10^3/uL (0.0-0.2); EOSINOPHILS % (AUTO) 0.3 % (0.9-2.9); HEMATOCRIT 38.5 % (36.0-47.0); HEMOGLOBIN 12.8 g/dL (12.0-16.0); LYMPHOCYTES # (AUTO) 2.7 X10^3/uL (1.3-2.9); LYMPHOCYTES % (AUTO) 14.3 % (21.0-51.0); MEAN CORPUSCULAR HEMOGLOBIN 30.1 pg (27.0-34.0); MEAN CORPUSCULAR HGB CONC 33.2 g/dL (33.0-35.0); MEAN CORPUSCULAR VOLUME 90.8 fL (80.0-100.0); MEAN PLATELET VOLUME 9.3 fL (7.4-11.0); MONOCYTES # (AUTO) 1.1 x10^3/uL (0.3-0.8); MONOCYTES % (AUTO) 5.8 % (0.0-13.0); NEUTROPHILS # (AUTO) 14.9 x10^3/uL (2.2-4.8); NEUTROPHILS % (AUTO) 78.8 % (42.0-75.0); PLATELET COUNT 219 X10^3/uL (150.0-450.0); RED BLOOD COUNT 4.24 X10^6/uL (3.5-5.4); WHITE BLOOD COUNT 18.9 X10^3/uL (3.6-10.0)
[2018-06-02 07:02] LABS: ALANINE AMINOTRANSFERASE 19 Units/L (12-78); ALBUMIN 2.9 g/dL (3.4-5.0); ALKALINE PHOSPHATASE 59 Units/L (46-116); ASPARTATE AMINO TRANSFERASE 30 Units/L (15-37); BLOOD UREA NITROGEN 4 mg/dL (7-18); CALCIUM 8.4 mg/dL (8.5-10.1); CARBON DIOXIDE 27.9 mmol/L (21-32); CHLORIDE 103 mmol/L (98-107); COR CA(FOR HYPOALB) 9.3 mg/dL (8.5-10.1); CREATININE 0.55 mg/dL (0.55-1.02); SODIUM 140 mmol/L (136-145); TOTAL PROTEIN 6.4 g/dL (6.4-8.2); eGFR NON BLACK RACES > 60 (>60)
[2018-06-02] MEDS: PROVENTIL NEB TX 0.083% 2.5MG/ 3ML NEB PRN ×2 (08:41→17:25)
[2018-06-02] MEDS: PULMICORT NEB TX 0.5 MG NEB SCH ×2 (08:42→21:25)
[2018-06-02] MEDS: LOVENOX INJ 30 MG SYR SC SCH (09:56)
[2018-06-02] MEDS: PROTONIX INJ 40 MG VIAL IVP SCH (09:56)
[2018-06-02] MEDS: VANCOMYCIN HCL 1 GM VIAL 1 G in D5W 250 ML IV 250 ML IV SCH ×2 (09:56→21:23)
[2018-06-02] MEDS: LEVAQUIN PREMIX IV 750 MG 750 MG/150 ML BAG IV SCH (09:56)
[2018-06-02] MEDS: NS 1000 ML 1,000 ML IV SCH ×2 (13:00→14:50)
[2018-06-02 20:24] LABS: CRYPTOSPORIDIUM PARVUM ANTIGEN NEGATIVE (NEGATIVE); GIARDIA LAMBLIA ANTIGEN NEGATIVE (NEGATIVE)
[2018-06-03] MEDS: K-RIDER 10 MEQ/NS 100 ML 10 MEQ/100 ML BAG IV PRN (00:01)
[2018-06-03] MEDS ORDERED: CEREBYX INJ IVP ONE (01:38)
[2018-06-03] MEDS ORDERED: NS 100 ML IV 100 ML IV ONE (01:47)
[2018-06-03] MEDS ORDERED: CEREBYX INJ ONE (01:48)
[2018-06-03] MEDS: ATIVAN INJ 2 MG VIAL IVP PRN (02:00)
[2018-06-03] MEDS: MAGNESIUM SULFATE 1 GRAM/100 mL PREMIX 1 GM/100 ML BAG IV PRN ×2 (02:10→03:16)
[2018-06-03] MEDS: NS 1000 ML 1,000 ML IV SCH ×2 (02:11→15:36)
--- NOTE | 2018-06-03 06:07 | RAD ---
HISTORY: Hypoxia Study: Chest AP portable Comparison: 05/31/2018 Findings: The heart is within normal limits in size. The trace are normal. The lungs are free of acute alveolar infiltrates. No pleural effusions are identified. Interstitial lung changes are present not significantly different from the prior examination. The bony thorax is unremarkable. IMPRESSION: Stable interstitial lung changes Reported By:
[2018-06-03 06:49] LABS: BASOPHILS # (AUTO) 0.1 X10^3/uL (0.0-0.1); BASOPHILS % (AUTO) 0.5 % (0.2-1.0); EOSINOPHILS % (AUTO) 0.1 % (0.9-2.9); HEMATOCRIT 37.7 % (36.0-47.0); HEMOGLOBIN 12.3 g/dL (12.0-16.0); LYMPHOCYTES # (AUTO) 1.9 X10^3/uL (1.3-2.9); LYMPHOCYTES % (AUTO) 9.7 % (21.0-51.0); MEAN CORPUSCULAR HEMOGLOBIN 30.2 pg (27.0-34.0); MEAN CORPUSCULAR HGB CONC 32.5 g/dL (33.0-35.0); MEAN PLATELET VOLUME 10.3 fL (7.4-11.0); MONOCYTES # (AUTO) 1.2 x10^3/uL (0.3-0.8); NEUTROPHILS # (AUTO) 16.4 x10^3/uL (2.2-4.8); NEUTROPHILS % (AUTO) 83.7 % (42.0-75.0); PLATELET COUNT 177 X10^3/uL (150.0-450.0); RED BLOOD COUNT 4.05 X10^6/uL (3.5-5.4); RED CELL DISTRIBUTION WIDTH 15.1 % (11.6-16.5); WHITE BLOOD COUNT 19.6 X10^3/uL (3.6-10.0)
[2018-06-03 07:05] LABS: ALANINE AMINOTRANSFERASE 18 Units/L (12-78); ALBUMIN 2.7 g/dL (3.4-5.0); ALKALINE PHOSPHATASE 56 Units/L (46-116); ASPARTATE AMINO TRANSFERASE 29 Units/L (15-37); BLOOD UREA NITROGEN 10 mg/dL (7-18); CALCIUM 8.3 mg/dL (8.5-10.1); CARBON DIOXIDE 27.6 mmol/L (21-32); CHLORIDE 106 mmol/L (98-107); COR CA(FOR HYPOALB) 9.3 mg/dL (8.5-10.1); COR NA(FOR HYPERGLY) 141 mmol/L (136-145); CREATININE 1.04 mg/dL (0.55-1.02); SODIUM 140 mmol/L (136-145); eGFR NON BLACK RACES 57 (>60)
[2018-06-03] MEDS: PULMICORT NEB TX 0.5 MG NEB SCH ×2 (08:54→20:35)
[2018-06-03] MEDS: PROVENTIL NEB TX 0.083% 2.5MG/ 3ML NEB PRN ×2 (08:54→12:27)
[2018-06-03] MEDS: DILANTIN CAP 100 MG EXT REL PO SCH ×2 (09:26→21:04)
[2018-06-03] MEDS: PROTONIX INJ 40 MG VIAL IVP SCH (09:50)
[2018-06-03] MEDS: LEVAQUIN PREMIX IV 750 MG 750 MG/150 ML BAG IV SCH (09:50)
[2018-06-03] MEDS: LOVENOX INJ 30 MG SYR SC SCH (09:50)
[2018-06-03] MEDS: VANCOMYCIN HCL 1 GM VIAL 1 G in D5W 250 ML IV 250 ML IV SCH (10:31)
--- NOTE | 2018-06-03 13:14 | PCM.PROG ---
Progress Note - Progress Note for Day of Date of Exam: 06/02/18 - Subjective Subjective: 62 WF ER ADMISSION WITH MEDICATION OVERDOSE WITH AMS, AND HYPOXIA. PT IS MORE ALERT AND AWAKE THIS AM, IMPROVING VERBAL COMMUNICATION WITH STAFF. PT HAD SEIZURE DURING THE NIGHT AND GIVEN CEREBYX IV AND PRN ATIVAN FOR SEIZURE ACTIVITY ONLY. CURRENTLY ON NASAL CANULA WITH BLOOD CULTURES COLLECTED ON ADMISSION WITH REPORTED GROWTH, STAPH EPI, REPEAT CULTURES NEGATIVE AT THIS TIME, CURRENTLY ON VANCOMYCIN,LEVAQUIN AND ROCEPHIN. WILL CONTINUE RESP CARE, AM LABS AND I & OS. - Past Medical Family Social History Past Med/Fam/Surg Hx: No changes since H&P Allergies: Allergies morphine Allergy (Verified 12/26/17 14:56) Penicillins Allergy (Verified 12/26/17 14:56) prednisone Allergy (Verified 12/26/17 14:56) tea Allergy (Uncoded 04/30/18 21:21) - Review of Systems ROS: No change since H&P - Vital Signs and I&O's Vital Signs: Temperature 97.5 F Pulse Rate [Apical] 73 Pulse Rate 84 Respiratory Rate 17 Blood Pressure [Right Arm] 143/73 Blood Pressure [Left Arm] 84/53 Blood Pressure 117/93 O2 Sat by Pulse Oximetry 98 Intake and Output: Intake & Output 06/01/18 06/02/18 06/03/18 06/04/18 11:59 11:59 11:59 11:59 Intake Total 1506 / 1506 2702 / 2702 2771 / 2771 Output Total 2300 / 2300 1900 / 1900 1150 / 1150 Balance -794 / -794 802 / 802 1621 / 1621 - Physical Exam Oriented: Person. negative: Time, Place Eyes: Normal Ear: Normal Nose: Normal Throat: Normal Respiratory: Diminished, Rhonchi Cardiovascular: Normal : Normal Auscultation: Bowel Sounds: Normal Tenderness: Normal Skin: Decreased Turgur Musculoskeletal: Left, Arm, Wrist Speech Pattern: Clear - Laboratory and Diagnostics Result Diagrams: 06/03/18 06:00 06/03/18 06:00 Labs: 06/02/18 18:15 Stool - Final 05/29/18 13:41 Blood Blood Culture - Preliminary 05/29/18 13:34 Blood Blood Culture - Preliminary 05/27/18 18:35 Blood Blood Culture - Final Staphylococcus Epidermidis Laboratory WBC 19.6 X10^3/uL (3.6-10.0) H 06/03/18 06:00 RBC 4.05 X10^6/uL (3.5-5.4) 06/03/18 06:00 Hgb 12.3 g/dL (12.0-16.0) 06/03/18 06:00 Hct 37.7 % (36.0-47.0) 06/03/18 06:00 MCV 93.0 fL (80.0-100.0) 06/03/18 06:00 MCH 30.2 pg (27.0-34.0) 06/03/18 06:00 MCHC 32.5 g/dL (33.0-35.0) L 06/03/18 06:00 RDW 15.1 % (11.6-16.5) 06/03/18 06:00 Plt Count 177 X10^3/uL (150.0-450.0) 06/03/18 06:00 MPV 10.3 fL (7.4-11.0) 06/03/18 06:00 Neut % (Auto) 83.7 % (42.0-75.0) H 06/03/18 06:00 Lymph % (Auto) 9.7 % (21.0-51.0) L 06/03/18 06:00 [place] % (Auto) 6.0 % (0.0-13.0) 06/03/18 06:00 Eos % (Auto) 0.1 % (0.9-2.9) L 06/03/18 06:00 Baso % (Auto) 0.5 % (0.2-1.0) 06/03/18 06:00 Neut # (Auto) 16.4 x10^3/uL (2.2-4.8) H 06/03/18 06:00 Lymph # (Auto) 1.9 X10^3/uL (1.3-2.9) 06/03/18 06:00 [place] # (Auto) 1.2 x10^3/uL (0.3-0.8) H 06/03/18 06:00 Eos # (Auto) 0.0 x10^3/uL (0.0-0.2) 06/03/18 06:00 Baso # (Auto) 0.1 X10^3/uL (0.0-0.1) 06/03/18 06:00 Absolute Nucleated RBC 0.0 /100WBC 06/03/18 06:00 INR Target Range - 06/03/18 10:10 INR 1.10 (0.8-1.3) 06/03/18 10:10 APTT 26.1 SECONDS (22.9-36.5) 06/03/18 10:10 PTT Comment - 06/03/18 10:10 Sample Site right radial 06/03/18 03:25 ABG pH 7.300 (7.35-7.45) L 06/03/18 03:25 ABG pCO2 55.0 mmHg (35.0-45.0) H* 05/27/18 23:40 ABG pO2 62.0 mmHg (80.0-100.0) L 06/03/18 03:25 ABG HCO3 30.4 mmol/L (22-26) H* 05/27/18 23:40 ABG O2 Saturation 98.0 % (90-100) 05/27/18 23:40 ABG Base Excess 3.6 mmol/L (-2.0-2.0) H 05/27/18 23:40 Colin Test pos 06/03/18 03:25 A-a Gradient 24.0 mmHg 05/27/18 23:40 FiO2 50.0 06/03/18 03:25 Blood Gas Comments jesus well jts 06/03/18 03:25 Sodium 140 mmol/L (136-145) 06/03/18 06:00 Corrected Sodium 141 mmol/L (136-145) 06/03/18 06:00 Potassium 3.9 mmol/L (3.5-5.1) 06/03/18 06:00 Chloride 106 mmol/L (98-107) 06/03/18 06:00 Carbon Dioxide 27.6 mmol/L (21-32) 06/03/18 06:00 BUN 10 mg/dL (7-18) 06/03/18 06:00 Creatinine 1.04 mg/dL (0.55-1.02) H 06/03/18 06:00 Est GFR (MDRD) Af Amer > 60 (>60) 06/03/18 06:00 Est GFR (MDRD) Non-Af 57 (>60) L 06/03/18 06:00 Glucose 156 mg/dL (65-99) H 06/03/18 06:00 POC Glucose (mg/dL) 132 mg/dL (65-99) H 06/03/18 01:15 Lactic Acid 1.2 mmol/L (0.4-2.0) 06/03/18 09:25 Calcium 8.3 mg/dL (8.5-10.1) L 06/03/18 06:00 Corrected Calcium 9.3 mg/dL (8.5-10.1) 06/03/18 06:00 Magnesium 2.5 mg/dL (1.7-2.9) 06/03/18 06:00 Total Bilirubin 0.40 mg/dL (0.2-1.0) 06/03/18 06:00 AST 29 Units/L (15-37) 06/03/18 06:00 ALT 18 Units/L (12-78) 06/03/18 06:00 Alkaline Phosphatase 56 Units/L (46-116) 06/03/18 06:00 Creatine Kinase 293 Units/L (26-192) H 05/28/18 06:36 CK-MB (CK-2) 5.7 ng/mL (0-4.0) H* 05/28/18 06:36 CK/CKMB % Calc 2.0 % (<4) 05/28/18 06:36 Troponin I < 0.02 ng/mL (0-1.5) 05/28/18 06:36 C-Reactive Protein 26.20 mg/L (0-3.0) H 05/27/18 19:14 Total Protein 6.0 g/dL (6.4-8.2) L 06/03/18 06:00 Albumin 2.7 g/dL (3.4-5.0) L 06/03/18 06:00 Globulin 3.3 g/dL (2.5-4.5) 06/03/18 06:00 Albumin/Globulin Ratio 0.8 Ratio (1.1-2.1) L 06/03/18 06:00 Specimen Type Catherized urine 05/27/18 18:26 Urine Color Yellow (YELLOW) 12/24/18 18:26 Urine Appearance Clear (CLEAR) 05/27/18 18:26 Urine pH 6.0 (5.0 - 8.0) 05/27/18 18:26 Ur Specific [place] 1.020 (1.000-1.030) 05/27/18 18:26 Urine Protein Negative (NEGATIVE) 05/27/18 18:26 Urine Glucose (UA) Negative (NEGATIVE) 05/27/18 18:26 Urine Ketones Negative (NEGATIVE) 05/27/18 18:26 Urine Occult Blood Negative (NEGATIVE) 05/27/18 18:26 Urine Nitrite Negative (NEGATIVE) 05/27/18 18:26 Urine Bilirubin Negative (NEGATIVE) 05/27/18 18:26 Urine Urobilinogen Normal (NORMAL) 05/27/18 18:26 Ur Leukocyte Esterase Negative (NEGATIVE) 05/27/18 18:26 Stool Description 15g,loose,mucoid,booth 06/02/18 18:15 Stl Occult Blood (IFOB) Negative (NEGATIVE) 06/02/18 18:15 Stl C. diff Tox B Gene Negative (NEGATIVE) 06/02/18 18:15 Stl C. diff [id number] Negative (NEGATIVE) 06/02/18 18:15 Vancomycin Trough 14.8 ug/mL (15-20) L 06/01/18 05:50 Random Vancomycin 22.0 ug/mL 06/03/18 09:25 Urine Opiates Screen Positive (NEG=<300) A 05/27/18 18:26 Urine Methadone Screen Negative (NEG=<300) 05/27/18 18:26 Ur Barbiturates Screen Negative (NEG=<200) 05/27/18 18:26 Phenytoin 26.4 ug/mL (10-20) H 06/03/18 09:25 Ur Phencyclidine Scrn Negative (NEG=<25) 05/27/18 18:26 Ur Amphetamines Screen Negative (NEG=<1000) 05/27/18 18:26 U Benzodiazepines Scrn Negative (NEG=<200) 05/27/18 18:26 Urine Cocaine Screen Negative (NEG=<300) 05/27/18 18:26 U Marijuana (THC) Screen Negative (NEG=<50) 05/27/18 18:26 Cryptosporid parvum Ag Negative (NEGATIVE) 06/02/18 18:15 Giardia lamblia Ag Negative (NEGATIVE) 06/02/18 18:15 - Plan (1) Pneumonia Status: Acute Plan: SPUTUM CULTURE, IV ATBX. RESP THERAPY, SUPPLEMENTAL O2 (2) Bacteremia Status: Acute Plan: CULTURES PENDING, REPEAT BLOOD CULTURES ORDERED. IV VANCOMYCIN (3) Altered mental status Status: Acute Qualifiers: Altered mental status type: transient alteration of awareness Qualified Code(s): R40.4 - Transient alteration of awareness Plan: RESP THERAPY, SUPPLEMENTAL O2, BIPAP PRN. REPEAT ABG, BP CONTROL, GENTLE IV HYDRATION. HOLD SEDATIVE MEDICATION, GAN CATH, STRICT I & OS. CONTINUOUS CARDIAC MONITORING, REPEAT AM LABS, CXR (4) Hypoxia Status: Acute (5) Drug overdose Status: Acute (6) Hypothermia Status: Acute (7) Anxiety Status: Chronic (8) Arthritis Status: Chronic (9) COPD (chronic obstructive pulmonary disease) Status: Chronic Qualifiers: COPD type: unspecified COPD Qualified Code(s): J44.9 - Chronic obstructive pulmonary disease, unspecified (10) Wrist fracture, left Status: Acute Plan: XRAY LEFT WRIST, OCL TO LEFT ARM/WRIST (11) Seizure Status: Acute Plan: NEW ONSET SEIZURE ACTIVITY, POSSIBLE MEDICATION WITHWRAWAL. PT STARTED ON CEREBYX AND PRN ATIVAN, WILL START PO DILANTIN
--- NOTE | 2018-06-03 13:18 | PCM.PROG ---
Progress Note - Progress Note for Day of Date of Exam: 06/03/18 - Subjective Subjective: 62 WF ER ADMISSION WITH MEDICATION OVERDOSE WITH AMS, AND HYPOXIA. PT IS MORE ALERT AND AWAKE THIS AM, IMPROVING VERBAL COMMUNICATION WITH STAFF. PT HAD SEIZURE DURING THE NIGHT SUNDAY, EARLY SUNDAY AM AND GIVEN CEREBYX IV AND PRN ATIVAN FOR SEIZURE ACTIVITY ONLY. CURRENTLY ON NASAL CANULA WITH BLOOD CULTURES COLLECTED ON ADMISSION WITH REPORTED GROWTH, STAPH EPI, REPEAT CULTURES NEGATIVE AT THIS TIME, CURRENTLY ON VANCOMYCIN,LEVAQUIN AND ROCEPHIN. WILL REPEAT CT HEAD DUE TO CONTINUE CONFUSION AND NEW ONSET SEIZURES. WBC 19.6, SPUTUM ORDERED, NOT COLLECTED AT THIS TIME.WILL CONTINUE RESP CARE, AM LABS AND I & OS, REPEAT CXR THIS AM AND ABG - Past Medical Family Social History Past Med/Fam/Surg Hx: No changes since H&P Allergies: Allergies morphine Allergy (Verified 12/26/17 14:56) Penicillins Allergy (Verified 12/26/17 14:56) prednisone Allergy (Verified 12/26/17 14:56) tea Allergy (Uncoded 04/30/18 21:21) - Review of Systems ROS: No change since H&P - Vital Signs and I&O's Vital Signs: Temperature 97.5 F Pulse Rate [Apical] 73 Pulse Rate 84 Respiratory Rate 17 Blood Pressure [Right Arm] 143/73 Blood Pressure [Left Arm] 84/53 Blood Pressure 117/93 O2 Sat by Pulse Oximetry 98 Intake and Output: Intake & Output 06/01/18 06/02/18 06/03/18 06/04/18 11:59 11:59 11:59 11:59 Intake Total 1506 / 1506 2702 / 2702 2771 / 2771 Output Total 2300 / 2300 1900 / 1900 1150 / 1150 Balance -794 / -794 802 / 802 1621 / 1621 - Physical Exam Oriented: Person. negative: Time, Place Eyes: Normal Ear: Normal Nose: Normal Throat: Normal Respiratory: Diminished, Rhonchi Cardiovascular: Normal : Normal Auscultation: Bowel Sounds: Normal Tenderness: Normal Skin: Decreased Turgur Musculoskeletal: Left, Arm, Wrist Speech Pattern: Clear - Laboratory and Diagnostics Result Diagrams: 06/03/18 06:00 06/03/18 06:00 Labs: 06/02/18 18:15 Stool - Final 05/29/18 13:41 Blood Blood Culture - Preliminary 05/29/18 13:34 Blood Blood Culture - Preliminary 05/27/18 18:35 Blood Blood Culture - Final Staphylococcus Epidermidis Laboratory WBC 19.6 X10^3/uL (3.6-10.0) H 06/03/18 06:00 RBC 4.05 X10^6/uL (3.5-5.4) 06/03/18 06:00 Hgb 12.3 g/dL (12.0-16.0) 06/03/18 06:00 Hct 37.7 % (36.0-47.0) 06/03/18 06:00 MCV 93.0 fL (80.0-100.0) 06/03/18 06:00 MCH 30.2 pg (27.0-34.0) 06/03/18 06:00 MCHC 32.5 g/dL (33.0-35.0) L 06/03/18 06:00 RDW 15.1 % (11.6-16.5) 06/03/18 06:00 Plt Count 177 X10^3/uL (150.0-450.0) 06/03/18 06:00 MPV 10.3 fL (7.4-11.0) 06/03/18 06:00 Neut % (Auto) 83.7 % (42.0-75.0) H 06/03/18 06:00 Lymph % (Auto) 9.7 % (21.0-51.0) L 06/03/18 06:00 [place] % (Auto) 6.0 % (0.0-13.0) 06/03/18 06:00 Eos % (Auto) 0.1 % (0.9-2.9) L 06/03/18 06:00 Baso % (Auto) 0.5 % (0.2-1.0) 06/03/18 06:00 Neut # (Auto) 16.4 x10^3/uL (2.2-4.8) H 06/03/18 06:00 Lymph # (Auto) 1.9 X10^3/uL (1.3-2.9) 06/03/18 06:00 [place] # (Auto) 1.2 x10^3/uL (0.3-0.8) H 06/03/18 06:00 Eos # (Auto) 0.0 x10^3/uL (0.0-0.2) 06/03/18 06:00 Baso # (Auto) 0.1 X10^3/uL (0.0-0.1) 06/03/18 06:00 Absolute Nucleated RBC 0.0 /100WBC 06/03/18 06:00 INR Target Range - 06/03/18 10:10 INR 1.10 (0.8-1.3) 06/03/18 10:10 APTT 26.1 SECONDS (22.9-36.5) 06/03/18 10:10 PTT Comment - 06/03/18 10:10 Sample Site right radial 06/03/18 03:25 ABG pH 7.300 (7.35-7.45) L 06/03/18 03:25 ABG pCO2 55.0 mmHg (35.0-45.0) H* 05/27/18 23:40 ABG pO2 62.0 mmHg (80.0-100.0) L 06/03/18 03:25 ABG HCO3 30.4 mmol/L (22-26) H* 05/27/18 23:40 ABG O2 Saturation 98.0 % (90-100) 05/27/18 23:40 ABG Base Excess 3.6 mmol/L (-2.0-2.0) H 05/27/18 23:40 Colin Test pos 06/03/18 03:25 A-a Gradient 24.0 mmHg 05/27/18 23:40 FiO2 50.0 06/03/18 03:25 Blood Gas Comments jesus well jts 06/03/18 03:25 Sodium 140 mmol/L (136-145) 06/03/18 06:00 Corrected Sodium 141 mmol/L (136-145) 06/03/18 06:00 Potassium 3.9 mmol/L (3.5-5.1) 06/03/18 06:00 Chloride 106 mmol/L (98-107) 06/03/18 06:00 Carbon Dioxide 27.6 mmol/L (21-32) 06/03/18 06:00 BUN 10 mg/dL (7-18) 06/03/18 06:00 Creatinine 1.04 mg/dL (0.55-1.02) H 06/03/18 06:00 Est GFR (MDRD) Af Amer > 60 (>60) 06/03/18 06:00 Est GFR (MDRD) Non-Af 57 (>60) L 06/03/18 06:00 Glucose 156 mg/dL (65-99) H 06/03/18 06:00 POC Glucose (mg/dL) 132 mg/dL (65-99) H 06/03/18 01:15 Lactic Acid 1.2 mmol/L (0.4-2.0) 06/03/18 09:25 Calcium 8.3 mg/dL (8.5-10.1) L 06/03/18 06:00 Corrected Calcium 9.3 mg/dL (8.5-10.1) 06/03/18 06:00 Magnesium 2.5 mg/dL (1.7-2.9) 06/03/18 06:00 Total Bilirubin 0.40 mg/dL (0.2-1.0) 06/03/18 06:00 AST 29 Units/L (15-37) 06/03/18 06:00 ALT 18 Units/L (12-78) 06/03/18 06:00 Alkaline Phosphatase 56 Units/L (46-116) 06/03/18 06:00 Creatine Kinase 293 Units/L (26-192) H 05/28/18 06:36 CK-MB (CK-2) 5.7 ng/mL (0-4.0) H* 05/28/18 06:36 CK/CKMB % Calc 2.0 % (<4) 05/28/18 06:36 Troponin I < 0.02 ng/mL (0-1.5) 05/28/18 06:36 C-Reactive Protein 26.20 mg/L (0-3.0) H 05/27/18 19:14 Total Protein 6.0 g/dL (6.4-8.2) L 06/03/18 06:00 Albumin 2.7 g/dL (3.4-5.0) L 06/03/18 06:00 Globulin 3.3 g/dL (2.5-4.5) 06/03/18 06:00 Albumin/Globulin Ratio 0.8 Ratio (1.1-2.1) L 06/03/18 06:00 Specimen Type Catherized urine 05/27/18 18:26 Urine Color Yellow (YELLOW) 05/27/18 18: Urine Appearance Clear (CLEAR) 05/27/18 18:26 Urine pH 6.0 (5.0 - 8.0) 05/27/18 18:26 Ur Specific [place] 1.020 (1.000-1.030) 05/27/18 18:26 Urine Protein Negative (NEGATIVE) 05/27/18 18:26 Urine Glucose (UA) Negative (NEGATIVE) 05/27/18 18:26 Urine Ketones Negative (NEGATIVE) 05/27/18 18:26 Urine Occult Blood Negative (NEGATIVE) 05/27/18 18: Urine Nitrite Negative (NEGATIVE) 05/27/18 18: Urine Bilirubin Negative (NEGATIVE) 05/27/18 18: Urine Urobilinogen Normal (NORMAL) 05/27/18 18:26 Ur Leukocyte Esterase Negative (NEGATIVE) 05/27/18 18:26 Stool Description 15g,loose,mucoid,booth 06/02/18 18:15 Stl Occult Blood (IFOB) Negative (NEGATIVE) 06/02/18 18:15 Stl C. diff Tox B Gene Negative (NEGATIVE) 06/02/18 18:15 Stl C. diff [id number] Negative (NEGATIVE) 06/02/18 18:15 Vancomycin Trough 14.8 ug/mL (15-20) L 06/01/18 05:50 Random Vancomycin 22.0 ug/mL 06/03/18 09:25 Urine Opiates Screen Positive (NEG=<300) A 05/27/18 18:26 Urine Methadone Screen Negative (NEG=<300) 05/27/18 18:26 Ur Barbiturates Screen Negative (NEG=<200) 05/27/18 18:26 Phenytoin 26.4 ug/mL (10-20) H 06/03/18 09:25 Ur Phencyclidine Scrn Negative (NEG=<25) 05/27/18 18:26 Ur Amphetamines Screen Negative (NEG=<1000) 05/27/18 18:26 U Benzodiazepines Scrn Negative (NEG=<200) 05/27/18 18:26 Urine Cocaine Screen Negative (NEG=<300) 12/24/18 18:26 U Marijuana (THC) Screen Negative (NEG=<50) 05/27/18 18:26 Cryptosporid parvum Ag Negative (NEGATIVE) 06/02/18 18:15 Giardia lamblia Ag Negative (NEGATIVE) 06/02/18 18:15 - Plan (1) Pneumonia Status: Acute Plan: SPUTUM CULTURE, IV ATBX. RESP THERAPY, SUPPLEMENTAL O2 (2) Bacteremia Status: Acute Plan: CULTURES PENDING, REPEAT BLOOD CULTURES ORDERED. IV VANCOMYCIN (3) Altered mental status Status: Acute Qualifiers: Altered mental status type: transient alteration of awareness Qualified Code(s): R40.4 - Transient alteration of awareness Plan: RESP THERAPY, SUPPLEMENTAL O2, BIPAP PRN. REPEAT ABG, BP CONTROL, GENTLE IV HYDRATION. HOLD SEDATIVE MEDICATION, GAN CATH, STRICT I & OS. CONTINUOUS CARDIAC MONITORING, REPEAT AM LABS, CXR (4) Hypoxia Status: Acute (5) Drug overdose Status: Acute (6) Hypothermia Status: Acute (7) Anxiety Status: Chronic (8) Arthritis Status: Chronic (9) COPD (chronic obstructive pulmonary disease) Status: Chronic Qualifiers: COPD type: unspecified COPD Qualified Code(s): J44.9 - Chronic obstructive pulmonary disease, unspecified (10) Wrist fracture, left Status: Acute Plan: XRAY LEFT WRIST, OCL TO LEFT ARM/WRIST (11) Seizure Status: Acute Plan: NEW ONSET SEIZURE ACTIVITY, POSSIBLE MEDICATION WITHWRAWAL. PT STARTED ON CEREBYX AND PRN ATIVAN, WILL START PO DILANTIN
--- NOTE | 2018-06-03 14:54 | CT ---
CT brain without contrast Indication: Altered mental status Comparison: 05/27/2018 Technique: Multiple axial images of the brain were obtained from the skull base to the vertex without administration of IV contrast. Findings: Stable appearance of left-sided craniotomy. No acute intraparenchymal hemorrhage or mass can be identified. No extra-axial fluid collections are seen. No alteration in the attenuation of the brain parenchyma can be identified to suggest acute or subacute ischemic change. The ventricular system is symmetric and nondilated. The extracranial structures are grossly unremarkable. IMPRESSION: 1. No acute intracranial process or change from recent prior examination. Reported By:
[2018-06-03] MEDS: ROCEPHIN VIAL 1 GRAM IVP SCH (15:37)
[2018-06-03] MEDS: PROVENTIL NEB TX 0.083% 2.5MG/ 3ML NEB SCH ×3 (16:34→20:35)
[2018-06-03] MEDS: HALDOL INJ IVP PRN (17:33)
[2018-06-03] MEDS: D5W IV SCH (21:05)
[2018-06-03] MEDS: VANCOMYCIN HCL IV SCH (21:05)
[2018-06-04] MEDS: NS 1000 ML 1,000 ML IV SCH ×2 (06:02→17:42)
[2018-06-04 06:04] LABS: ABG BASE EXCESS 4.9 mmol/L (-2.0-2.0); ABG HCO3 29.2 mmol/L (22-26)
[2018-06-04 06:05] LABS: ABG ALLEN TEST pos
[2018-06-04 06:16] LABS: BASOPHILS # (AUTO) 0.1 X10^3/uL (0.0-0.1); BASOPHILS % (AUTO) 0.6 % (0.2-1.0); EOSINOPHILS # (AUTO) 0.1 x10^3/uL (0.0-0.2); EOSINOPHILS % (AUTO) 0.5 % (0.9-2.9); HEMATOCRIT 35.9 % (36.0-47.0); HEMOGLOBIN 11.9 g/dL (12.0-16.0); LYMPHOCYTES % (AUTO) 16.5 % (21.0-51.0); MEAN CORPUSCULAR HEMOGLOBIN 30.4 pg (27.0-34.0); MEAN CORPUSCULAR HGB CONC 33.1 g/dL (33.0-35.0); MEAN CORPUSCULAR VOLUME 91.7 fL (80.0-100.0); MEAN PLATELET VOLUME 9.9 fL (7.4-11.0); MONOCYTES # (AUTO) 1.1 x10^3/uL (0.3-0.8); MONOCYTES % (AUTO) 6.3 % (0.0-13.0); NEUTROPHILS # (AUTO) 13.7 x10^3/uL (2.2-4.8); NEUTROPHILS % (AUTO) 76.1 % (42.0-75.0); PLATELET COUNT 172 X10^3/uL (150.0-450.0); RED BLOOD COUNT 3.91 X10^6/uL (3.5-5.4); RED CELL DISTRIBUTION WIDTH 15.1 % (11.6-16.5)
[2018-06-04 06:26] LABS: ALANINE AMINOTRANSFERASE 18 Units/L (12-78); ALBUMIN 2.8 g/dL (3.4-5.0); ALKALINE PHOSPHATASE 58 Units/L (46-116); ASPARTATE AMINO TRANSFERASE 28 Units/L (15-37); BLOOD UREA NITROGEN 8 mg/dL (7-18); CALCIUM 8.4 mg/dL (8.5-10.1); CHLORIDE 105 mmol/L (98-107); COR CA(FOR HYPOALB) 9.4 mg/dL (8.5-10.1); CREATININE 1.05 mg/dL (0.55-1.02); SODIUM 140 mmol/L (136-145); TOTAL PROTEIN 6.1 g/dL (6.4-8.2); eGFR NON BLACK RACES 56 (>60)
--- NOTE | 2018-06-04 07:10 | RAD ---
HISTORY: Altered mental status. New onset seizure. Study: Single-view chest. Comparison: 06/03/2018. Findings: The trachea is midline. The cardiac silhouette is within normal limits. Chronic interstitial changes the lungs are stable. The lungs are otherwise clear without focal infiltrate or effusion. The bony thorax is unremarkable. IMPRESSION: No acute cardiopulmonary process or concerning change compared with the previous day. Reported By:
[2018-06-04] MEDS: PROTONIX INJ 40 MG VIAL IVP SCH (08:48)
[2018-06-04] MEDS: VANCOMYCIN HCL IV SCH ×2 (08:48→21:34)
[2018-06-04] MEDS: ROCEPHIN VIAL 1 GRAM IVP SCH (08:48)
[2018-06-04] MEDS: LEVAQUIN PREMIX IV 750 MG 750 MG/150 ML BAG IV SCH (08:48)
[2018-06-04] MEDS: D5W IV SCH ×2 (08:48→21:34)
[2018-06-04] MEDS: PROVENTIL NEB TX 0.083% 2.5MG/ 3ML NEB SCH ×4 (09:01→20:57)
[2018-06-04] MEDS: PULMICORT NEB TX 0.5 MG NEB SCH ×3 (09:02→20:57)
[2018-06-04] MEDS: DILANTIN CAP 100 MG EXT REL PO SCH ×2 (09:15→21:34)
[2018-06-04] MEDS: LOVENOX INJ 30 MG SYR SC SCH (09:46)
[2018-06-05 06:09] LABS: BASOPHILS # (AUTO) 0.1 X10^3/uL (0.0-0.1); BASOPHILS % (AUTO) 0.3 % (0.2-1.0); EOSINOPHILS # (AUTO) 0.1 x10^3/uL (0.0-0.2); EOSINOPHILS % (AUTO) 0.5 % (0.9-2.9); HEMOGLOBIN 12.8 g/dL (12.0-16.0); LYMPHOCYTES # (AUTO) 2.7 X10^3/uL (1.3-2.9); LYMPHOCYTES % (AUTO) 14.2 % (21.0-51.0); MEAN CORPUSCULAR HEMOGLOBIN 30.3 pg (27.0-34.0); MEAN CORPUSCULAR HGB CONC 32.7 g/dL (33.0-35.0); MEAN CORPUSCULAR VOLUME 92.4 fL (80.0-100.0); MEAN PLATELET VOLUME 10.4 fL (7.4-11.0); MONOCYTES # (AUTO) 1.1 x10^3/uL (0.3-0.8); MONOCYTES % (AUTO) 5.7 % (0.0-13.0); NEUTROPHILS # (AUTO) 15.2 x10^3/uL (2.2-4.8); NEUTROPHILS % (AUTO) 79.3 % (42.0-75.0); PLATELET COUNT 191 X10^3/uL (150.0-450.0); RED BLOOD COUNT 4.22 X10^6/uL (3.5-5.4); RED CELL DISTRIBUTION WIDTH 15.5 % (11.6-16.5); WHITE BLOOD COUNT 19.1 X10^3/uL (3.6-10.0)
--- NOTE | 2018-06-05 06:13 | RAD ---
HISTORY: Shortness of breath Study: Chest AP portable Comparison: 06/04/2018 Findings: Patient is rotated to the left. The heart is within normal limits in size. The trace are normal. The lungs are mildly hyperinflated. Mild interstitial lung changes are present unchanged from the prior examination. Left hemidiaphragm is mildly elevated. No pleural effusions are identified. The bony thorax is unremarkable. IMPRESSION: Lungs mildly hyperinflated but free of acute infiltrates Mild interstitial lung changes Reported By:
[2018-06-05 06:21] LABS: ALANINE AMINOTRANSFERASE 22 Units/L (12-78); ALBUMIN 2.8 g/dL (3.4-5.0); ALKALINE PHOSPHATASE 67 Units/L (46-116); ASPARTATE AMINO TRANSFERASE 32 Units/L (15-37); BLOOD UREA NITROGEN 5 mg/dL (7-18); CALCIUM 8.3 mg/dL (8.5-10.1); CARBON DIOXIDE 25.4 mmol/L (21-32); CHLORIDE 103 mmol/L (98-107); COR CA(FOR HYPOALB) 9.3 mg/dL (8.5-10.1); COR NA(FOR HYPERGLY) 138 mmol/L (136-145); CREATININE 1.07 mg/dL (0.55-1.02); SODIUM 138 mmol/L (136-145); TOTAL PROTEIN 6.4 g/dL (6.4-8.2); eGFR NON BLACK RACES 55 (>60)
[2018-06-05] MEDS: KLOR-CON PO PRN ×2 (06:56→13:40)
[2018-06-05] MEDS: PROVENTIL NEB TX 0.083% 2.5MG/ 3ML NEB SCH ×4 (08:12→20:06)
[2018-06-05] MEDS: PULMICORT NEB TX 0.5 MG NEB SCH ×2 (08:12→20:06)
[2018-06-05] MEDS: ROCEPHIN VIAL 1 GRAM IVP SCH (08:54)
[2018-06-05] MEDS: PROTONIX INJ 40 MG VIAL IVP SCH (08:54)
[2018-06-05] MEDS: LOVENOX INJ 30 MG SYR SC SCH (08:54)
[2018-06-05] MEDS: LEVAQUIN PREMIX IV 750 MG 750 MG/150 ML BAG IV SCH (08:55)
[2018-06-05] MEDS: DILANTIN CAP 100 MG EXT REL PO SCH ×3 (08:56→21:56)
[2018-06-05] MEDS: NS 1000 ML 1,000 ML IV SCH (17:29)
--- NOTE | 2018-06-05 17:50 | PCM.PROG ---
Progress Note - Progress Note for Day of Date of Exam: 06/04/18 - Subjective Subjective: 62 WF ER ADMISSION WITH MEDICATION OVERDOSE WITH AMS, AND HYPOXIA. PT HAS HAD WITNESSED SEIZURE SINCE ADMISSION WITH CEREBYX IV GIVEN, NOW ON DILANTIN PO. PT CONTINUES TO SLEEP EXCESSIVELY WITH POOR PO INTAKE. PT DOES HAVE BOTH APPROPRIATE AND INAPPROPRIATE RESPONES. PT HAS PRN ORDERED FOR HALDOL, WILL D/C SEDATIVE MEDICATION FOR EVALUATE PTS CURRENT MENTAL STATUS. CONTINUE IV ATBX AND RESP THERAPY. PT CXR WITHOUT ACUTE RESP ILLNESS. - Past Medical Family Social History Past Med/Fam/Surg Hx: No changes since H&P Allergies: Allergies morphine Allergy (Verified 12/26/17 14:56) Penicillins Allergy (Verified 12/26/17 14:56) prednisone Allergy (Verified 12/26/17 14:56) tea Allergy (Uncoded 04/30/18 21:21) - Review of Systems ROS: No change since H&P - Vital Signs and I&O's Vital Signs: Temperature 98.5 F Pulse Rate [Apical] 93 Pulse Rate 89 Respiratory Rate 35 Blood Pressure [Right Arm] 143/74 Blood Pressure [Left Arm] 149/75 Blood Pressure 117/93 O2 Sat by Pulse Oximetry 93 Intake and Output: Intake & Output 06/03/18 06/04/18 06/05/18 06/06/18 11:59 11:59 11:59 11:59 Intake Total 2771 / 2771 965 / 965 2540 / 2540 603 / 603 Output Total 1150 / 1150 700 / 700 1700 / 1700 650 / 650 Balance 1621 / 1621 265 / 265 840 / 840 -47 / -47 - Physical Exam Oriented: Person. negative: Time, Place Eyes: Normal Ear: Normal Nose: Normal Throat: Normal Respiratory: Diminished, Rhonchi Cardiovascular: Normal : Normal Auscultation: Bowel Sounds: Normal Tenderness: Normal Skin: Decreased Turgur Musculoskeletal: Left, Arm, Wrist Speech Pattern: Clear, Appropriate, Inappropriate - Laboratory and Diagnostics Result Diagrams: 06/05/18 04:15 06/05/18 10:00 Labs: 06/02/18 18:15 Stool Stool Culture - Final 06/02/18 18:15 Stool - Final 05/29/18 13:41 Blood Blood Culture - Final 05/29/18 13:34 Blood Blood Culture - Final 05/27/18 18:35 Blood Blood Culture - Final Staphylococcus Epidermidis Laboratory WBC 19.1 X10^3/uL (3.6-10.0) H 06/05/18 04:15 RBC 4.22 X10^6/uL (3.5-5.4) 06/05/18 04:15 Hgb 12.8 g/dL (12.0-16.0) 06/05/18 04:15 Hct 39.0 % (36.0-47.0) 06/05/18 04:15 MCV 92.4 fL (80.0-100.0) 06/05/18 04:15 MCH 30.3 pg (27.0-34.0) 06/05/18 04:15 MCHC 32.7 g/dL (33.0-35.0) L 06/05/18 04:15 RDW 15.5 % (11.6-16.5) 06/05/18 04:15 Plt Count 191 X10^3/uL (150.0-450.0) 06/05/18 04:15 MPV 10.4 fL (7.4-11.0) 06/05/18 04:15 Neut % (Auto) 79.3 % (42.0-75.0) H 06/05/18 04:15 Lymph % (Auto) 14.2 % (21.0-51.0) L 06/05/18 04:15 [place] % (Auto) 5.7 % (0.0-13.0) 06/05/18 04:15 Eos % (Auto) 0.5 % (0.9-2.9) L 06/05/18 04:15 Baso % (Auto) 0.3 % (0.2-1.0) 06/05/18 04:15 Neut # (Auto) 15.2 x10^3/uL (2.2-4.8) H 06/05/18 04:15 Lymph # (Auto) 2.7 X10^3/uL (1.3-2.9) 06/05/18 04:15 [place] # (Auto) 1.1 x10^3/uL (0.3-0.8) H 06/05/18 04:15 Eos # (Auto) 0.1 x10^3/uL (0.0-0.2) 06/05/18 04:15 Baso # (Auto) 0.1 X10^3/uL (0.0-0.1) 06/05/18 04:15 Absolute Nucleated RBC 0.0 /100WBC 06/05/18 04:15 INR Target Range - 06/03/18 10:10 INR 1.10 (0.8-1.3) 06/03/18 10:10 APTT 26.1 SECONDS (22.9-36.5) 06/03/18 10:10 PTT Comment - 06/03/18 10:10 Sample Site right radial 06/04/18 05:50 ABG pH 7.460 (7.35-7.45) H 06/04/18 05:50 ABG pCO2 41.0 mmHg (35.0-45.0) 06/04/18 05:50 ABG pO2 65.0 mmHg (80.0-100.0) L 06/04/18 05:50 ABG HCO3 29.2 mmol/L (22-26) H 06/04/18 05:50 ABG O2 Saturation 94.0 % (90-100) 06/04/18 05:50 ABG Base Excess 4.9 mmol/L (-2.0-2.0) H 06/04/18 05:50 Colin Test pos 06/04/18 05:50 A-a Gradient 83.0 mmHg 06/04/18 05:50 FiO2 28.0 06/04/18 05:50 Blood Gas Comments jesus well jts 06/04/18 05:50 Sodium 138 mmol/L (136-145) 06/05/18 04:15 Corrected Sodium 138 mmol/L (136-145) 06/05/18 04:15 Potassium 3.8 mmol/L (3.5-5.1) 06/05/18 10:00 Chloride 103 mmol/L (98-107) 06/05/18 04:15 Carbon Dioxide 25.4 mmol/L (21-32) 06/05/18 04:15 BUN 5 mg/dL (7-18) L 06/05/18 04:15 Creatinine 1.07 mg/dL (0.55-1.02) H 06/05/18 04:15 Est GFR (MDRD) Af Amer > 60 (>60) 06/05/18 04:15 Est GFR (MDRD) Non-Af 55 (>60) L 06/05/18 04:15 Glucose 114 mg/dL (65-99) H 06/05/18 04:15 POC Glucose (mg/dL) 132 mg/dL (65-99) H 06/03/18 01:15 Lactic Acid 1.2 mmol/L (0.4-2.0) 06/03/18 09:25 Calcium 8.3 mg/dL (8.5-10.1) L 06/05/18 04:15 Corrected Calcium 9.3 mg/dL (8.5-10.1) 06/05/18 04:15 Magnesium 2.5 mg/dL (1.7-2.9) 06/03/18 06:00 Total Bilirubin 0.40 mg/dL (0.2-1.0) 06/05/18 04:15 AST 32 Units/L (15-37) 06/05/18 04:15 ALT 22 Units/L (12-78) 06/05/18 04:15 Alkaline Phosphatase 67 Units/L (46-116) 06/05/18 04:15 Creatine Kinase 293 Units/L (26-192) H 05/28/18 06:36 CK-MB (CK-2) 5.7 ng/mL (0-4.0) H* 05/28/18 06:36 CK/CKMB % Calc 2.0 % (<4) 05/28/18 06:36 Troponin I < 0.02 ng/mL (0-1.5) 05/28/18 06:36 C-Reactive Protein 26.20 mg/L (0-3.0) H 05/27/18 19:14 Total Protein 6.4 g/dL (6.4-8.2) 06/05/18 04:15 Albumin 2.8 g/dL (3.4-5.0) L 06/05/18 04:15 Globulin 3.6 g/dL (2.5-4.5) 06/05/18 04:15 Albumin/Globulin Ratio 0.8 Ratio (1.1-2.1) L 06/05/18 04:15 Specimen Type Catherized urine 05/27/18 18:26 Urine Color Yellow (YELLOW) 05/27/18 18:26 Urine Appearance Clear (CLEAR) 05/27/18 18:26 Urine pH 6.0 (5.0 - 8.0) 05/27/18 18:26 Ur Specific [place] 1.020 (1.000-1.030) 05/27/18 18:26 Urine Protein Negative (NEGATIVE) 05/27/18 18:26 Urine Glucose (UA) Negative (NEGATIVE) 05/27/18 18:26 Urine Ketones Negative (NEGATIVE) 05/27/18 18:26 Urine Occult Blood Negative (NEGATIVE) 05/27/18 18:26 Urine Nitrite Negative (NEGATIVE) 05/27/18 18:26 Urine Bilirubin Negative (NEGATIVE) 05/27/18 18:26 Urine Urobilinogen Normal (NORMAL) 05/27/18 18:26 Ur Leukocyte Esterase Negative (NEGATIVE) 05/27/18 18:26 Stool Description 15g,loose,mucoid,booth 06/02/18 18:15 Stl Occult Blood (IFOB) Negative (NEGATIVE) 06/02/18 18:15 Stl C. diff Tox B Gene Negative (NEGATIVE) 06/02/18 18:15 Stl C. diff 027-NAP1-BI Negative (NEGATIVE) 06/02/18 18:15 Vancomycin Trough 14.8 ug/mL (15-20) L 06/01/18 05:50 Random Vancomycin 27.3 ug/mL 06/05/18 08:15 Urine Opiates Screen Positive (NEG=<300) A 05/27/18 18:26 Urine Methadone Screen Negative (NEG=<300) 05/27/18 18:26 Ur Barbiturates Screen Negative (NEG=<200) 05/27/18 18:26 Phenytoin 19.6 ug/mL (10-20) 06/05/18 04:15 Ur Phencyclidine Scrn Negative (NEG=<25) 05/27/18 18:26 Ur Amphetamines Screen Negative (NEG=<1000) 05/27/18 18:26 U Benzodiazepines Scrn Negative (NEG=<200) 05/27/18 18:26 Urine Cocaine Screen Negative (NEG=<300) 05/27/18 18:26 U Marijuana (THC) Screen Negative (NEG=<50) 05/27/18 18:26 Cryptosporid parvum Ag Negative (NEGATIVE) 06/02/18 18:15 Giardia lamblia Ag Negative (NEGATIVE) 06/02/18 18:15 - Plan (1) Altered mental status Status: Acute Qualifiers: Altered mental status type: transient alteration of awareness Qualified Code(s): R40.4 - Transient alteration of awareness Plan: RESP THERAPY, SUPPLEMENTAL O2, BIPAP PRN. REPEAT ABG, BP CONTROL, GENTLE IV HYDRATION. HOLD SEDATIVE MEDICATION, GAN CATH, STRICT I & OS. CONTINUOUS CARDIAC MONITORING, REPEAT AM LABS, CXR (2) Pneumonia Status: Acute Plan: SPUTUM CULTURE, IV ATBX. RESP THERAPY, SUPPLEMENTAL O2 (3) Bacteremia Status: Acute Plan: CULTURES PENDING, REPEAT BLOOD CULTURES ORDERED. IV VANCOMYCIN (4) Hypoxia Status: Acute (5) Drug overdose Status: Acute (6) Hypothermia Status: Acute (7) Anxiety Status: Chronic (8) Arthritis Status: Chronic (9) COPD (chronic obstructive pulmonary disease) Status: Chronic Qualifiers: COPD type: unspecified COPD Qualified Code(s): J44.9 - Chronic obstructive pulmonary disease, unspecified (10) Wrist fracture, left Status: Acute Plan: XRAY LEFT WRIST, OCL TO LEFT ARM/WRIST (11) Seizure Status: Acute Plan: NEW ONSET SEIZURE ACTIVITY, POSSIBLE MEDICATION WITHWRAWAL. PT STARTED ON CEREBYX AND PRN ATIVAN, PO DILANTIN
[2018-06-05] MEDS: BENADRYL INJ 50 MG VIAL IVP PRN (19:58)
[2018-06-06] MEDS: BENADRYL INJ 50 MG VIAL IVP PRN (05:03)
[2018-06-06 06:01] LABS: BASOPHILS # (AUTO) 0.1 X10^3/uL (0.0-0.1); BASOPHILS % (AUTO) 0.6 % (0.2-1.0); EOSINOPHILS # (AUTO) 0.1 x10^3/uL (0.0-0.2); EOSINOPHILS % (AUTO) 0.7 % (0.9-2.9); HEMATOCRIT 42.3 % (36.0-47.0); HEMOGLOBIN 14.2 g/dL (12.0-16.0); LYMPHOCYTES # (AUTO) 3.2 X10^3/uL (1.3-2.9); LYMPHOCYTES % (AUTO) 16.4 % (21.0-51.0); MEAN CORPUSCULAR HEMOGLOBIN 30.8 pg (27.0-34.0); MEAN CORPUSCULAR HGB CONC 33.5 g/dL (33.0-35.0); MEAN CORPUSCULAR VOLUME 91.7 fL (80.0-100.0); MEAN PLATELET VOLUME 9.6 fL (7.4-11.0); MONOCYTES # (AUTO) 1.4 x10^3/uL (0.3-0.8); MONOCYTES % (AUTO) 7.1 % (0.0-13.0); NEUTROPHILS # (AUTO) 14.8 x10^3/uL (2.2-4.8); NEUTROPHILS % (AUTO) 75.2 % (42.0-75.0); PLATELET COUNT 201 X10^3/uL (150.0-450.0); RED BLOOD COUNT 4.61 X10^6/uL (3.5-5.4); RED CELL DISTRIBUTION WIDTH 15.4 % (11.6-16.5); WHITE BLOOD COUNT 19.7 X10^3/uL (3.6-10.0)
[2018-06-06] MEDS: ATIVAN INJ 2 MG VIAL IVP PRN (06:19)
[2018-06-06 06:20] LABS: ALANINE AMINOTRANSFERASE 22 Units/L (12-78); ALKALINE PHOSPHATASE 79 Units/L (46-116); ASPARTATE AMINO TRANSFERASE 27 Units/L (15-37); BLOOD UREA NITROGEN 6 mg/dL (7-18); CALCIUM 8.6 mg/dL (8.5-10.1); CARBON DIOXIDE 26.6 mmol/L (21-32); CHLORIDE 103 mmol/L (98-107); COR CA(FOR HYPOALB) 9.4 mg/dL (8.5-10.1); CREATININE 1.19 mg/dL (0.55-1.02); MAGNESIUM 1.5 mg/dL (1.7-2.9); SODIUM 140 mmol/L (136-145); TOTAL PROTEIN 6.9 g/dL (6.4-8.2); eGFR NON BLACK RACES 49 (>60)
[2018-06-06] MEDS: DILANTIN CAP 100 MG EXT REL PO SCH ×2 (08:45→20:37)
[2018-06-06] MEDS: D5W IV SCH (08:45)
[2018-06-06] MEDS: VANCOMYCIN HCL IV SCH (08:45)
[2018-06-06] MEDS: ROCEPHIN VIAL 1 GRAM IVP SCH (08:45)
[2018-06-06] MEDS: LEVAQUIN PREMIX IV 750 MG 750 MG/150 ML BAG IV SCH (08:45)
[2018-06-06] MEDS: PROTONIX INJ 40 MG VIAL IVP SCH (08:45)
[2018-06-06] MEDS: LOVENOX INJ 30 MG SYR SC SCH (08:45)
[2018-06-06] MEDS: PULMICORT NEB TX 0.5 MG NEB SCH ×2 (09:29→20:39)
[2018-06-06] MEDS: PROVENTIL NEB TX 0.083% 2.5MG/ 3ML NEB SCH ×4 (09:29→20:39)
[2018-06-06 11:22] LABS: PLATELET MORPHOLOGY COMMENT NORMAL (NORMAL)
[2018-06-06] MEDS: NS 1000 ML 1,000 ML IV SCH (12:05)
[2018-06-06] MEDS: TYLENOL 325 MG TAB PO PRN (12:44)
[2018-06-06] MEDS: DIFLUCAN 200 MG IV PREMIX* 200 MG/100 ML BAG IV SCH (20:36)
[2018-06-07] MEDS: K-DUR TAB 20 MEQ PO PRN (00:49)
[2018-06-07] MEDS: MAGNESIUM SULFATE 1 GRAM/100 mL PREMIX 1 GM/100 ML BAG IV PRN (00:49)
[2018-06-07] MEDS: BENADRYL INJ 50 MG VIAL IVP PRN ×2 (00:57→11:50)
[2018-06-07 06:11] LABS: BASOPHILS # (AUTO) 0.2 X10^3/uL (0.0-0.1); BASOPHILS % (AUTO) 1.1 % (0.2-1.0); EOSINOPHILS # (AUTO) 0.2 x10^3/uL (0.0-0.2); EOSINOPHILS % (AUTO) 1.2 % (0.9-2.9); HEMATOCRIT 37.5 % (36.0-47.0); HEMOGLOBIN 12.4 g/dL (12.0-16.0); LYMPHOCYTES # (AUTO) 3.4 X10^3/uL (1.3-2.9); LYMPHOCYTES % (AUTO) 22.5 % (21.0-51.0); MEAN CORPUSCULAR HEMOGLOBIN 30.5 pg (27.0-34.0); MEAN CORPUSCULAR HGB CONC 33.1 g/dL (33.0-35.0); MEAN CORPUSCULAR VOLUME 92.2 fL (80.0-100.0); MEAN PLATELET VOLUME 9.9 fL (7.4-11.0); MONOCYTES # (AUTO) 1.3 x10^3/uL (0.3-0.8); MONOCYTES % (AUTO) 8.2 % (0.0-13.0); NEUTROPHILS # (AUTO) 10.2 x10^3/uL (2.2-4.8); PLATELET COUNT 188 X10^3/uL (150.0-450.0); RED BLOOD COUNT 4.06 X10^6/uL (3.5-5.4); RED CELL DISTRIBUTION WIDTH 15.4 % (11.6-16.5); WHITE BLOOD COUNT 15.3 X10^3/uL (3.6-10.0)
[2018-06-07 06:15] LABS: ALANINE AMINOTRANSFERASE 21 Units/L (12-78); ALBUMIN 2.6 g/dL (3.4-5.0); ALKALINE PHOSPHATASE 70 Units/L (46-116); ASPARTATE AMINO TRANSFERASE 37 Units/L (15-37); BLOOD UREA NITROGEN 7 mg/dL (7-18); CALCIUM 7.8 mg/dL (8.5-10.1); CARBON DIOXIDE 24.1 mmol/L (21-32); CHLORIDE 105 mmol/L (98-107); COR CA(FOR HYPOALB) 8.9 mg/dL (8.5-10.1); CREATININE 1.12 mg/dL (0.55-1.02); SODIUM 138 mmol/L (136-145); TOTAL PROTEIN 5.9 g/dL (6.4-8.2); eGFR NON BLACK RACES 52 (>60)
[2018-06-07] MEDS: DILANTIN CAP 100 MG EXT REL PO SCH ×2 (08:15→21:40)
[2018-06-07] MEDS: PROTONIX INJ 40 MG VIAL IVP SCH (08:15)
[2018-06-07] MEDS: LOVENOX INJ 30 MG SYR SC SCH (08:15)
[2018-06-07] MEDS: ROCEPHIN VIAL 1 GRAM IVP SCH (08:15)
[2018-06-07] MEDS: LEVAQUIN PREMIX IV 500 MG 500 MG/100 ML BAG IV SCH (08:15)
[2018-06-07] MEDS: PROVENTIL NEB TX 0.083% 2.5MG/ 3ML NEB SCH ×4 (09:22→21:52)
[2018-06-07] MEDS: PULMICORT NEB TX 0.5 MG NEB SCH ×2 (09:23→21:52)
[2018-06-07] MEDS: VANCOMYCIN HCL IV SCH (10:06)
[2018-06-07] MEDS: D5W IV SCH (10:06)
[2018-06-07] MEDS: TYLENOL 325 MG TAB PO PRN ×2 (10:17→16:08)
[2018-06-07] MEDS ORDERED: MILK OF MAGNESIA ONE (16:03)
[2018-06-07] MEDS: MILK OF MAGNESIA PO PRN ×2 (16:08→23:10)
[2018-06-07] MEDS: NS 1000 ML 1,000 ML IV SCH (18:46)
[2018-06-07] MEDS: COLACE CAP 100 MG PO SCH (21:39)
[2018-06-07] MEDS: DIFLUCAN 200 MG IV PREMIX* 200 MG/100 ML BAG IV SCH (21:40)
[2018-06-08] MEDS: TYLENOL 325 MG TAB PO PRN ×3 (01:35→18:22)
[2018-06-08 07:42] LABS: BASOPHILS # (AUTO) 0.2 X10^3/uL (0.0-0.1); BASOPHILS % (AUTO) 1.4 % (0.2-1.0); EOSINOPHILS # (AUTO) 0.2 x10^3/uL (0.0-0.2); EOSINOPHILS % (AUTO) 1.4 % (0.9-2.9); HEMATOCRIT 36.8 % (36.0-47.0); LYMPHOCYTES # (AUTO) 3.4 X10^3/uL (1.3-2.9); LYMPHOCYTES % (AUTO) 24.4 % (21.0-51.0); MEAN CORPUSCULAR HEMOGLOBIN 30.5 pg (27.0-34.0); MEAN CORPUSCULAR HGB CONC 32.7 g/dL (33.0-35.0); MEAN CORPUSCULAR VOLUME 93.4 fL (80.0-100.0); MEAN PLATELET VOLUME 10.7 fL (7.4-11.0); MONOCYTES # (AUTO) 1.2 x10^3/uL (0.3-0.8); MONOCYTES % (AUTO) 8.5 % (0.0-13.0); NEUTROPHILS # (AUTO) 8.9 x10^3/uL (2.2-4.8); NEUTROPHILS % (AUTO) 64.3 % (42.0-75.0); PLATELET COUNT 90 X10^3/uL (150.0-450.0); RED BLOOD COUNT 3.94 X10^6/uL (3.5-5.4); RED CELL DISTRIBUTION WIDTH 15.5 % (11.6-16.5); WHITE BLOOD COUNT 13.9 X10^3/uL (3.6-10.0)
[2018-06-08 08:31] LABS: ALANINE AMINOTRANSFERASE 18 Units/L (12-78); ALBUMIN 3.8 g/dL (3.4-5.0); ALKALINE PHOSPHATASE 197 Units/L (46-116); BLOOD UREA NITROGEN 9 mg/dL (7-18); CALCIUM 9.4 mg/dL (8.5-10.1); CARBON DIOXIDE 22.3 mmol/L (21-32); CHLORIDE 103 mmol/L (98-107); CREATININE 0.29 mg/dL (0.55-1.02); SODIUM 138 mmol/L (136-145); TOTAL PROTEIN 7.6 g/dL (6.4-8.2); eGFR NON BLACK RACES > 60 (>60)
[2018-06-08 08:38] LABS: ASPARTATE AMINO TRANSFERASE 32 Units/L (15-37)
[2018-06-08] MEDS: PULMICORT NEB TX 0.5 MG NEB SCH ×2 (08:53→20:35)
[2018-06-08] MEDS: PROVENTIL NEB TX 0.083% 2.5MG/ 3ML NEB SCH ×4 (08:53→20:35)
[2018-06-08] MEDS: DILANTIN CAP 100 MG EXT REL PO SCH ×2 (09:44→20:41)
[2018-06-08] MEDS: LOVENOX INJ 30 MG SYR SC SCH (09:44)
[2018-06-08] MEDS: LEVAQUIN PREMIX IV 500 MG 500 MG/100 ML BAG IV SCH (09:44)
[2018-06-08] MEDS: PROTONIX INJ 40 MG VIAL IVP SCH (09:45)
[2018-06-08] MEDS: D5W IV SCH (09:45)
[2018-06-08] MEDS: VANCOMYCIN HCL IV SCH (09:45)
[2018-06-08] MEDS ORDERED: PREPARATION H OINT RECTAL PRN (11:41)
[2018-06-08] MEDS ORDERED: PREPARATION H OINT ONE (11:44)
[2018-06-08] MEDS: BENADRYL INJ 50 MG VIAL IVP PRN (16:35)
[2018-06-08] MEDS: COLACE CAP 100 MG PO SCH (20:40)
[2018-06-08] MEDS: DIFLUCAN 200 MG IV PREMIX* 200 MG/100 ML BAG IV SCH (20:41)
[2018-06-09] MEDS: TYLENOL 325 MG TAB PO PRN ×2 (02:10→09:43)
[2018-06-09 06:18] LABS: BASOPHILS # (AUTO) 0.1 X10^3/uL (0.0-0.1); BASOPHILS % (AUTO) 0.6 % (0.2-1.0); EOSINOPHILS # (AUTO) 0.2 x10^3/uL (0.0-0.2); EOSINOPHILS % (AUTO) 1.8 % (0.9-2.9); HEMATOCRIT 34.5 % (36.0-47.0); HEMOGLOBIN 11.3 g/dL (12.0-16.0); LYMPHOCYTES # (AUTO) 3.2 X10^3/uL (1.3-2.9); LYMPHOCYTES % (AUTO) 23.9 % (21.0-51.0); MEAN CORPUSCULAR HEMOGLOBIN 30.6 pg (27.0-34.0); MEAN CORPUSCULAR HGB CONC 32.7 g/dL (33.0-35.0); MEAN CORPUSCULAR VOLUME 93.6 fL (80.0-100.0); MEAN PLATELET VOLUME 9.2 fL (7.4-11.0); MONOCYTES # (AUTO) 1.1 x10^3/uL (0.3-0.8); MONOCYTES % (AUTO) 8.5 % (0.0-13.0); NEUTROPHILS # (AUTO) 8.6 x10^3/uL (2.2-4.8); NEUTROPHILS % (AUTO) 65.2 % (42.0-75.0); PLATELET COUNT 217 X10^3/uL (150.0-450.0); RED BLOOD COUNT 3.68 X10^6/uL (3.5-5.4); RED CELL DISTRIBUTION WIDTH 15.4 % (11.6-16.5); WHITE BLOOD COUNT 13.2 X10^3/uL (3.6-10.0)
[2018-06-09 06:59] LABS: ALANINE AMINOTRANSFERASE 25 Units/L (12-78); ALBUMIN 2.9 g/dL (3.4-5.0); ALKALINE PHOSPHATASE 78 Units/L (46-116); ASPARTATE AMINO TRANSFERASE 33 Units/L (15-37); BLOOD UREA NITROGEN 8 mg/dL (7-18); CALCIUM 8.6 mg/dL (8.5-10.1); CARBON DIOXIDE 29.7 mmol/L (21-32); CHLORIDE 103 mmol/L (98-107); COR CA(FOR HYPOALB) 9.5 mg/dL (8.5-10.1); CREATININE 1.07 mg/dL (0.55-1.02); SODIUM 140 mmol/L (136-145); TOTAL PROTEIN 6.2 g/dL (6.4-8.2); eGFR NON BLACK RACES 55 (>60)
[2018-06-09] MEDS: K-DUR TAB 20 MEQ PO PRN ×3 (07:55→20:32)
[2018-06-09] MEDS: PULMICORT NEB TX 0.5 MG NEB SCH ×2 (08:07→20:05)
[2018-06-09] MEDS: PROVENTIL NEB TX 0.083% 2.5MG/ 3ML NEB SCH ×4 (08:07→20:05)
[2018-06-09] MEDS: BENADRYL INJ 50 MG VIAL IVP PRN ×2 (08:10→20:33)
[2018-06-09] MEDS ORDERED: PHARMACY COMMENT IV NR (08:30)
[2018-06-09] MEDS: LEVAQUIN PREMIX IV 500 MG 500 MG/100 ML BAG IV SCH (08:40)
[2018-06-09 09:18] LABS: CREATININE 1.11 mg/dL (0.55-1.02); VANCOMYCIN,TROUGH 18.8 ug/mL (15-20)
[2018-06-09] MEDS: LOVENOX INJ 30 MG SYR SC SCH (09:32)
[2018-06-09] MEDS: PROTONIX INJ 40 MG VIAL IVP SCH (09:33)
[2018-06-09] MEDS: VANCOMYCIN HCL IV SCH (09:34)
[2018-06-09] MEDS: D5W IV SCH (09:34)
[2018-06-09] MEDS: DILANTIN CAP 100 MG EXT REL PO SCH ×2 (09:35→20:31)
[2018-06-09] MEDS: NS 1000 ML 1,000 ML IV SCH ×2 (09:36→15:31)
[2018-06-09] MEDS: COLACE CAP 100 MG PO SCH (20:32)
[2018-06-09] MEDS: ULTRAM PO PRN (20:32)
[2018-06-09] MEDS: DIFLUCAN 200 MG IV PREMIX* 200 MG/100 ML BAG IV SCH (20:33)
[2018-06-10] MEDS: ULTRAM PO PRN (03:00)
[2018-06-10 05:20] LABS: BASOPHILS # (AUTO) 0.1 X10^3/uL (0.0-0.1); BASOPHILS % (AUTO) 0.4 % (0.2-1.0); EOSINOPHILS # (AUTO) 0.2 x10^3/uL (0.0-0.2); EOSINOPHILS % (AUTO) 1.7 % (0.9-2.9); HEMOGLOBIN 10.4 g/dL (12.0-16.0); LYMPHOCYTES # (AUTO) 3.7 X10^3/uL (1.3-2.9); LYMPHOCYTES % (AUTO) 27.3 % (21.0-51.0); MEAN CORPUSCULAR HEMOGLOBIN 30.5 pg (27.0-34.0); MEAN CORPUSCULAR HGB CONC 32.5 g/dL (33.0-35.0); MEAN PLATELET VOLUME 9.1 fL (7.4-11.0); MONOCYTES # (AUTO) 1.2 x10^3/uL (0.3-0.8); MONOCYTES % (AUTO) 9.3 % (0.0-13.0); NEUTROPHILS # (AUTO) 8.2 x10^3/uL (2.2-4.8); NEUTROPHILS % (AUTO) 61.3 % (42.0-75.0); PLATELET COUNT 254 X10^3/uL (150.0-450.0); RED CELL DISTRIBUTION WIDTH 15.2 % (11.6-16.5); WHITE BLOOD COUNT 13.4 X10^3/uL (3.6-10.0)
[2018-06-10 05:32] LABS: ALANINE AMINOTRANSFERASE 23 Units/L (12-78); ALBUMIN 2.8 g/dL (3.4-5.0); ALKALINE PHOSPHATASE 77 Units/L (46-116); ASPARTATE AMINO TRANSFERASE 35 Units/L (15-37); BLOOD UREA NITROGEN 7 mg/dL (7-18); CALCIUM 8.3 mg/dL (8.5-10.1); CARBON DIOXIDE 28.5 mmol/L (21-32); CHLORIDE 104 mmol/L (98-107); COR CA(FOR HYPOALB) 9.3 mg/dL (8.5-10.1); CREATININE 0.99 mg/dL (0.55-1.02); SODIUM 141 mmol/L (136-145); TOTAL PROTEIN 6.1 g/dL (6.4-8.2); eGFR NON BLACK RACES > 60 (>60)
[2018-06-10] MEDS: VANCOMYCIN HCL IV SCH (08:40)
[2018-06-10] MEDS: DILANTIN CAP 100 MG EXT REL PO SCH (08:40)
[2018-06-10] MEDS: PROTONIX INJ 40 MG VIAL IVP SCH (08:40)
[2018-06-10] MEDS: LEVAQUIN PREMIX IV 500 MG 500 MG/100 ML BAG IV SCH (08:40)
[2018-06-10] MEDS: LOVENOX INJ 30 MG SYR SC SCH (08:40)
[2018-06-10] MEDS: D5W IV SCH (08:40)
[2018-06-10] MEDS: PULMICORT NEB TX 0.5 MG NEB SCH (09:38)
[2018-06-10] MEDS: PROVENTIL NEB TX 0.083% 2.5MG/ 3ML NEB SCH ×2 (09:38→12:02)
[2018-06-10 12:22] VITALS: BP 126/79
--- NOTE | 2018-06-10 13:26 | PCM.PROG ---
Progress Note - Progress Note for Day of Date of Exam: 06/09/18 - Subjective Subjective: 62 WF ER ADMISSION WITH MEDICATION OVERDOSE WITH AMS, AND HYPOXIA. PT HAS HAD WITNESSED SEIZURE SINCE ADMISSION WITH CEREBYX IV GIVEN, NOW ON DILANTIN PO. PT IS AWAKE AND ALERT WITH APPROPRIATE RESPONSES IMPROVING APPETITE. PT CO RESTLESS LEGS AND ASKING FOR PAIN FOR LUE FRACTURE, RELIEVED WI TH TYLENOL. PT STATES SHE HAS HAD SEIZURES IN THE PAST. PT IS MORE OREINTED AND CO HX OF ANXIETY. NO DISTRESS OR PYSCHOTIC BEHAVIOR WARRANTED MENTAL HEALTH EVALUATION AT THIS TIME. SUSPECT PT'S BEHAVIOR DUE TO MEDICATION WITHDRAWAL. PLAN TO D/C HOME WITH FAMILY - Past Medical Family Social History Past Med/Fam/Surg Hx: No changes since H&P Allergies: Allergies morphine Allergy (Verified 12/26/17 14:56) Penicillins Allergy (Verified 12/26/17 14:56) prednisone Allergy (Verified 12/26/17 14:56) tea Allergy (Uncoded 04/30/18 21:21) - Review of Systems ROS: No change since H&P - Vital Signs and I&O's Vital Signs: Temperature 99.5 F Pulse Rate [Apical] 78 Pulse Rate 82 Respiratory Rate 16 Blood Pressure [Right Arm] 126/79 Blood Pressure [Left Arm] 105/58 Blood Pressure 117/93 O2 Sat by Pulse Oximetry 100 Intake and Output: Intake & Output 06/08/18 06/09/18 06/10/18 06/11/18 11:59 11:59 11:59 11:59 Intake Total 3725 / 3725 2985 / 2985 3389 / 3389 Output Total 2300 / 2300 Balance 1425 / 1425 2985 / 2985 3389 / 3389 - Physical Exam Oriented: Person. negative: Time, Place Eyes: Normal Ear: Normal Nose: Normal Throat: Normal Respiratory: Diminished, Rhonchi Cardiovascular: Normal : Normal Auscultation: Bowel Sounds: Normal Tenderness: Normal Skin: Decreased Turgur Musculoskeletal: Left, Arm, Wrist Speech Pattern: Clear, Appropriate - Laboratory and Diagnostics Result Diagrams: 06/10/18 04:25 06/10/18 04:25 Labs: 06/07/18 22:40 Sputum - Expectorated Sputum Sputum Culture - Final 06/07/18 22:40 Sputum - Expectorated Sputum - Final 06/02/18 18:15 Stool Stool Culture - Final 06/02/18 18:15 Stool - Final 05/29/18 13:41 Blood Blood Culture - Final 05/29/18 13:34 Blood Blood Culture - Final 05/27/18 18:35 Blood Blood Culture - Final Staphylococcus Epidermidis Laboratory WBC 13.4 X10^3/uL (3.6-10.0) H 06/10/18 04:25 RBC 3.40 X10^6/uL (3.5-5.4) L 06/10/18 04:25 Hgb 10.4 g/dL (12.0-16.0) L 06/10/18 04:25 Hct 32.0 % (36.0-47.0) L 06/10/18 04:25 MCV 94.0 fL (80.0-100.0) 06/10/18 04:25 MCH 30.5 pg (27.0-34.0) 06/10/18 04:25 MCHC 32.5 g/dL (33.0-35.0) L 06/10/18 04:25 RDW 15.2 % (11.6-16.5) 06/10/18 04:25 Plt Count 254 X10^3/uL (150.0-450.0) 06/10/18 04:25 Plt Count Comment Adequate (ADEQUATE) 06/06/18 05:37 MPV 9.1 fL (7.4-11.0) 06/10/18 04:25 Neut % (Auto) 61.3 % (42.0-75.0) 06/10/18 04:25 Lymph % (Auto) 27.3 % (21.0-51.0) 06/10/18 04:25 [place] % (Auto) 9.3 % (0.0-13.0) 06/10/18 04:25 Eos % (Auto) 1.7 % (0.9-2.9) 06/10/18 04:25 Baso % (Auto) 0.4 % (0.2-1.0) 06/10/18 04:25 Neut # (Auto) 8.2 x10^3/uL (2.2-4.8) H 06/10/18 04:25 Lymph # (Auto) 3.7 X10^3/uL (1.3-2.9) H 06/10/18 04:25 [place] # (Auto) 1.2 x10^3/uL (0.3-0.8) H 06/10/18 04:25 Eos # (Auto) 0.2 x10^3/uL (0.0-0.2) 06/10/18 04:25 Baso # (Auto) 0.1 X10^3/uL (0.0-0.1) 06/10/18 04:25 Absolute Nucleated RBC 0.0 /100WBC 06/10/18 04:25 Total Counted 100 06/06/18 05:37 Neutrophils % (Manual) 74 % (39-76) 06/06/18 05:37 Lymphocytes % (Manual) 19 % (13-43) 06/06/18 05:37 Monocytes % (Manual) 6 % (4-9) 06/06/18 05:37 Eosinophils % (Manual) 1 % (0-6) 06/06/18 05:37 Plt Morphology Comment Normal (NORMAL) 06/06/18 05:37 RBC Morphology Normal (NORMAL) 06/06/18 05:37 INR Target Range - 06/03/18 10:10 INR 1.10 (0.8-1.3) 06/03/18 10:10 APTT 26.1 SECONDS (22.9-36.5) 06/03/18 10:10 PTT Comment - 06/03/18 10:10 Sample Site right radial 06/04/18 05:50 ABG pH 7.460 (7.35-7.45) H 06/04/18 05:50 ABG pCO2 41.0 mmHg (35.0-45.0) 06/04/18 05:50 ABG pO2 65.0 mmHg (80.0-100.0) L 06/04/18 05:50 ABG HCO3 29.2 mmol/L (22-26) H 06/04/18 05:50 ABG O2 Saturation 94.0 % (90-100) 06/04/18 05:50 ABG Base Excess 4.9 mmol/L (-2.0-2.0) H 06/04/18 05:50 Colin Test pos 06/04/18 05:50 A-a Gradient 83.0 mmHg 06/04/18 05:50 FiO2 28.0 06/04/18 05:50 Blood Gas Comments jesus well jts 06/04/18 05:50 Sodium 141 mmol/L (136-145) 06/10/18 04:25 Corrected Sodium TNP 06/10/18 04:25 Potassium 3.5 mmol/L (3.5-5.1) 06/10/18 04:25 Chloride 104 mmol/L (98-107) 06/10/18 04:25 Carbon Dioxide 28.5 mmol/L (21-32) 06/10/18 04:25 BUN 7 mg/dL (7-18) 06/10/18 04:25 Creatinine 0.99 mg/dL (0.55-1.02) 06/10/18 04:25 Est GFR (MDRD) Af Amer > 60 (>60) 06/10/18 04:25 Est GFR (MDRD) Non-Af > 60 (>60) 06/10/18 04:25 Glucose 82 mg/dL (65-99) 06/10/18 04:25 POC Glucose (mg/dL) 132 mg/dL (65-99) H 06/03/18 01:15 Lactic Acid 1.2 mmol/L (0.4-2.0) 06/03/18 09:25 Calcium 8.3 mg/dL (8.5-10.1) L 06/10/18 04:25 Corrected Calcium 9.3 mg/dL (8.5-10.1) 06/10/18 04:25 Magnesium 2.0 mg/dL (1.7-2.9) 06/09/18 05:45 Total Bilirubin 0.20 mg/dL (0.2-1.0) 06/10/18 04:25 AST 35 Units/L (15-37) 06/10/18 04:25 ALT 23 Units/L (12-78) 06/10/18 04:25 Alkaline Phosphatase 77 Units/L (46-116) 06/10/18 04:25 Creatine Kinase 293 Units/L (26-192) H 05/28/18 06:36 CK-MB (CK-2) 5.7 ng/mL (0-4.0) H* 05/28/18 06:36 CK/CKMB % Calc 2.0 % (<4) 05/28/18 06:36 Troponin I < 0.02 ng/mL (0-1.5) 05/28/18 06:36 C-Reactive Protein 26.20 mg/L (0-3.0) H 05/27/18 19:14 Total Protein 6.1 g/dL (6.4-8.2) L 06/10/18 04:25 Albumin 2.8 g/dL (3.4-5.0) L 06/10/18 04:25 Globulin 3.3 g/dL (2.5-4.5) 06/10/18 04:25 Albumin/Globulin Ratio 0.8 Ratio (1.1-2.1) L 06/10/18 04:25 Specimen Type Catherized urine 05/27/18 18:26 Urine Color Yellow (YELLOW) 05/27/18 18:26 Urine Appearance Clear (CLEAR) 05/27/18 18:26 Urine pH 6.0 (5.0 - 8.0) 05/27/18 18:26 Ur Specific [place] 1.020 (1.000-1.030) 05/27/18 18:26 Urine Protein Negative (NEGATIVE) 05/27/18 18:26 Urine Glucose (UA) Negative (NEGATIVE) 05/27/18 18:26 Urine Ketones Negative (NEGATIVE) 05/27/18 18:26 Urine Occult Blood Negative (NEGATIVE) 05/27/18 18:26 Urine Nitrite Negative (NEGATIVE) 05/27/18 18:26 Urine Bilirubin Negative (NEGATIVE) 05/27/18 18:26 Urine Urobilinogen Normal (NORMAL) 05/27/18 18:26 Ur Leukocyte Esterase Negative (NEGATIVE) 05/27/18 18:26 Stool Description 15g,loose,mucoid,booth 06/02/18 18:15 Stl Occult Blood (IFOB) Negative (NEGATIVE) 06/02/18 18:15 Stl C. diff Tox B Gene Negative (NEGATIVE) 06/02/18 18:15 Stl C. diff 027-NAP1-BI Negative (NEGATIVE) 06/02/18 18:15 Vancomycin Trough 18.8 ug/mL (15-20) 06/09/18 07:48 Random Vancomycin 27.3 ug/mL 06/05/18 08:15 Urine Opiates Screen Positive (NEG=<300) A 05/27/18 18:26 Urine Methadone Screen Negative (NEG=<300) 05/27/18 18:26 Ur Barbiturates Screen Negative (NEG=<200) 05/27/18 18:26 Phenytoin 12.2 ug/mL (10-20) 06/07/18 05:44 Ur Phencyclidine Scrn Negative (NEG=<25) 05/27/18 18:26 Ur Amphetamines Screen Negative (NEG=<1000) 05/27/18 18:26 U Benzodiazepines Scrn Negative (NEG=<200) 05/27/18 18:26 Urine Cocaine Screen Negative (NEG=<300) 05/27/18 18:26 U Marijuana (THC) Screen Negative (NEG=<50) 05/27/18 18:26 Cryptosporid parvum Ag Negative (NEGATIVE) 06/02/18 18:15 Giardia lamblia Ag Negative (NEGATIVE) 06/02/18 18:15 - Plan (1) Altered mental status Status: Acute Qualifiers: Altered mental status type: transient alteration of awareness Qualified Code(s): R40.4 - Transient alteration of awareness Plan: RESP THERAPY, SUPPLEMENTAL O2, BIPAP PRN. REPEAT ABG, BP CONTROL, GENTLE IV HYDRATION. HOLD SEDATIVE MEDICATION, GAN CATH, STRICT I & OS. CONTINUOUS CARDIAC MONITORING, REPEAT AM LABS, CXR (2) Pneumonia Status: Acute Plan: SPUTUM CULTURE, IV ATBX. RESP THERAPY, SUPPLEMENTAL O2 (3) Bacteremia Status: Acute Plan: CULTURES PENDING, REPEAT BLOOD CULTURES ORDERED. IV VANCOMYCIN (4) Hypoxia Status: Acute (5) Drug overdose Status: Acute (6) Hypothermia Status: Acute (7) Anxiety Status: Chronic (8) Arthritis Status: Chronic (9) COPD (chronic obstructive pulmonary disease) Status: Chronic Qualifiers: COPD type: unspecified COPD Qualified Code(s): J44.9 - Chronic obstructive pulmonary disease, unspecified (10) Wrist fracture, left Status: Acute Plan: XRAY LEFT WRIST, OCL TO LEFT ARM/WRIST (11) Seizure Status: Acute Plan: NEW ONSET SEIZURE ACTIVITY, POSSIBLE MEDICATION WITHWRAWAL. PT ON PRN ATIVAN, PO DILANTIN
== END 2018-06-10 13:10 | disposition home or self-care (01) | DRG 918 ==
LOC: ER 18:13 → ICU 05-28 01:25
PROVIDERS: ADMIT Internal Medicine; ATTEND Internal Medicine
DX: R78.81 Bacteremia; J44.9 Chronic obstructive pulmonary disease, unspecified; S52.692A Other fracture of lower end of left ulna, initial encounter for closed fracture; F41.8 Other specified anxiety disorders; T40.2X1A Poisoning by other opioids, accidental (unintentional), initial encounter; R26.89 Other abnormalities of gait and mobility; R94.31 Abnormal electrocardiogram [ECG] [EKG]; Y92.9 Unspecified place or not applicable; G40.89 Other seizures; B96.89 Other specified bacterial agents as the cause of diseases classified elsewhere; J44.1 Chronic obstructive pulmonary disease with (acute) exacerbation; T68.XXXA Hypothermia, initial encounter; M19.90 Unspecified osteoarthritis, unspecified site; R79.82 Elevated C-reactive protein (CRP); W18.39XA Other fall on same level, initial encounter; Z91.81 History of falling; I10 Essential (primary) hypertension; R41.82 Altered mental status, unspecified
CPT/HCPCS: 29125; 36415; 36600; 51702; 70450; 71010; 71045; 73100; 80053; 80185; 80202; 80307; 81003; 82270; 82550; 82553; 82565; 82803; 83605; 83735; 84132; 84484; 85025; 85610; 85730; 86140; 87040; 87045; 87070; 87077; 87186; 87205; 87328; 87329; 87449; 87493; 87899; 92507; 92610; 93005; 93041; 94640; 94660; 96365; 96367; 96374; 96375; 97110; 97163; 97167; 97530; 97535; 99221; 99231; 99282; 99285; 99291; A4222; A4618; A7030; C9113; S0078; G0434; J0696; J1200; J1450; J1630; J1650; J1956; J2060; J2310; J3370; J3475; J3480; J3490; J7030; J7050; J7060; J7613; J7626

== ENCOUNTER 2018-08-04 07:29 | Observation (INO) ==
[2018-08-04] MEDS ORDERED: SOLU-Medrol 125 MG VIAL IVP ONE (07:40)
[2018-08-04] MEDS ORDERED: DUONEB 0.5 MG/3 MG NEB ONE (07:40)
[2018-08-04] MEDS ORDERED: ASPIRIN PO ONE (07:41)
[2018-08-04] MEDS ORDERED: MAGNESIUM SULFATE 1 GRAM/100 mL PREMIX 1 G/100 ML BAG IV ONE (07:43)
--- NOTE | 2018-08-04 07:44 | DR.SOBA ---
HPI - Time Seen Time seen: 07:40 - Complaints Chief Complaint Doctors Comments: Patient is complaining of SOB, wheezing with left sided chest pain with problems breathing for the past hours getting progressively worst with a cough with mucous production. states she has had a breathing treatment at home before coming to the emergency room and she is on oxygen at 2 liters at home. she smokes 1/2 pack cigarettes daily but denies alcohol usage. She denies swelling of her hands or feet. She denies nausea or vomiting or dysuria or hematuria. Chief Complaint:: PT C/O INCREASING SHORTNESS OR BREATH SINCE LAST NIGHT ASSOCIATED WITH PRODUCTIVE COUGH WITH LIGHT YELLOW SPUTUM. - Reviewed Nurses Notes Reviewed: Yes - Source History Provided: Patient - Mode of Arrival Mode of Arrival: Wheelchair - Timing Onset of Chief Complaint: 08/03/18 - Duration Onset: a.m. Duration: Hours - Context Onset:: At Rest PE Risk Factors:: None History of:: Asthma, COPD Currently on:: Inhaled Bronchodilators Prehospital Care:: O2, Inhaled B2 - Modifying Factors Worsens:: Exertion Improves:: Nothing - Associated Signs and Symptoms Associated Signs and Symptoms: Wheeze, Cough, Nasal Congestion, Chest Pain - If Chest Pain Quality: Sharp, Squeezing Location: Left Upper Chest - If Cough Cough: Clear PMH - PMH Past Medical History: Yes Past Medical History: Anxiety, Asthma, COPD, Sleep Apnea Past Surgical History: Yes Surgical History: Neurosurgery Past Surgical History Comment: NEUROSURGERY - Family History History of Family Medical Conditions: Yes Family Medical History: Cancer, [place], Hypertension - Social History Does patient currently use any type of tobacco product: Yes Have you used tobacco products in the last 12 months: Yes Type of Tobacco Use: Cigarettes Does any household member use tobacco: No Alcohol Use: None Do you use any recreational Drugs:: No Lives With: Family Lives Where: Home - infectious screening In the last 2 months have you had wt loss of >10#?: NO Have you had fever, night sweats or hemotysis?: No Have you traveled outside the country in the last 6 months?: No Isolation: Standard ROS - Review of Systems Constitutional: No Symptoms Reported Eyes: No Symptoms Reported ENTM: No Symptoms Reported, Nose Discharge, Nose Congestion Respiratoy: No Symptoms Reported, Productive Cough, Short of Breath, Wheezing Cardiovascular: No Symptoms Reported, Chest Pain. negative: See HPI, Edema, Palpitations, Syncope, Cyanosis, Skin Mottling, Other Gastrointestinal/Abdominal: No Symptoms Reported. negative: See HPI, Abdominal Pain, Constipation, Diarrhea, Nausea, Vomiting, Food Intolerance, Other Genitourinary: No Symptoms Reported Neurological: No Symptoms Reported. negative: See HPI, Anxiety, Depressed, Emotional Problems, Headache, Numbness, Paresthesia, Pre-existing Deficit, Seizure, Tingling, Tremors, Weakness, Dizziness, Problems Walking, Speech Problem, Other Musculoskeletal: No Symptoms Reported Integumentary: No Symptoms Reported Hematologic/Lymphatic: No Symptoms Reported Endocrine: No Symptoms Reported Psychiatric: No Symptoms Reported. negative: See HPI, Anxiety, Depression, Hallucinations, Excessive crying, Suicidal, Other PE - General Limitations: No Limitations General Appearance: Alert, In Distress (moderate) - Head Head Exam: Normal Inspection, Atraumatic, Normocephalic - Eyes Eye exam: Normal Appearance, PERRL, EOMI. negative: Scleral Icterus, Co njunctival Injection, Nystagmus, Miosis, Mydrasis, Periorbital Swelling, Periorbital Tenderness, Other - ENT ENT Exam: Normal Exam, Normal Oropharynx, Normal External Ear Exam, Mucous Membranes Moist, TM's Normal Bilaterally - Neck Neck Exam: Normal Inspection, Full ROM, Trachea Midline - Chest Chest Inspection: Normal Inspection, Symmetric Chest Wall Rise, Tenderness (left chest wall tenderness) - Respiratory Respiratory Exam: Chest Wall Tenderness, Prolonged Expiratory Phase, Respiratory Distress Respiratory Exam: Bilateral Wheezing, Bilateral Rhonchi, Bilateral Decreased Breath Sounds, Left Rales - Cardiovascular Cardiovascular Exam: Regular Rate, Normal Rhythm, Normal Heart Sounds - Abdominal Exam Abdominal Exam: Normal Inspection, Normal Bowel Sounds, Soft. negative: Distention, Tenderness, Guarding, Rebound, Rigidity, Dimnished Bowel Sounds, Hyperactive Bowel Sounds, Hypoactive Bowel Sounds, Organomegaly, Trauma, Incisi on, Ascites, Mass, Bruit, Pulsatile Mass, Hernia, Other Abdominal Tenderness: negative: RUQ, RLQ, LUQ, LLQ, Epigastrium, Suprapubic, Diffuse, Mild, Moderate, Severe, Other - Extremities Extremities Exam: Normal Inspection, Full ROM, Normal Capillary Refill. negative: Tenderness, Edema, Joint Swelling, Calf Tenderness, Other - Back Back Exam: Normal Inspection, Full ROM. negative: Tenderness, (R) CVA Tenderness, (L) CVA Tenderness, Muscle Spasm, Paraspinal Tenderness, Vertebral Tenderness, Rashes, (R) Sciatic Notch Tenderness, (L) Sciatic Notch Tendern, (R) Straight Leg Raise, (L) Straight Leg Raise, Other - Neurologic Neurological Exam: Alert, Oriented X3, CN II-XII Intact, Normal Gait, Reflexes Normal - Psychiatric Psychiatric Exam: Normal Affect, Normal Mood. negative: Depressed, Agitated, Anxious, Flat Affect, Manic, Homicidal Ideation, Suicidal Ideation, Other - Skin Skin Exam: Warm, Dry, Intact, Normal Color - Vital Signs Vitals: Temperature 97.8 F Pulse Rate 114 Respiratory Rate 24 Blood Pressure [Right Arm] 127/68 Blood Pressure [Left Arm] 102/53 Blood Pressure 118/72 O2 Sat by Pulse Oximetry 96 - Discharge Plan Condition: Stable - Follow ups/Referrals Follow ups/Referrals: JORDI BUTT [Primary Care Provider] - 3 days - Instructions
[2018-08-04] MEDS ORDERED: ASPIRIN ONE (07:47)
[2018-08-04] MEDS ORDERED: SOLU-Medrol 125 MG VIAL ONE (07:47)
[2018-08-04] MEDS ORDERED: DECADRON INJ IV ONE (07:50)
[2018-08-04] MEDS ORDERED: DUONEB 0.5 MG/3 MG ONE (07:51)
[2018-08-04] MEDS ORDERED: DECADRON INJ ONE (07:57)
[2018-08-04] MEDS ORDERED: NS 1000 ML 1,000 ML IV SCH (08:00)
[2018-08-04 08:02] LABS: BASOPHILS # (AUTO) 0.1 X10^3/uL (0.0-0.1); BASOPHILS % (AUTO) 0.5 % (0.2-1.0); EOSINOPHILS # (AUTO) 0.5 x10^3/uL (0.0-0.2)
[2018-08-04 08:16] LABS: EOSINOPHILS % (AUTO) 3.1 % (0.9-2.9); HEMOGLOBIN 11.7 g/dL (12.0-16.0); LYMPHOCYTES # (AUTO) 1.6 X10^3/uL (1.3-2.9); LYMPHOCYTES % (AUTO) 11.3 % (21.0-51.0); MEAN CORPUSCULAR HEMOGLOBIN 31.5 pg (27.0-34.0); MEAN CORPUSCULAR HGB CONC 33.3 g/dL (33.0-35.0); MEAN CORPUSCULAR VOLUME 94.6 fL (80.0-100.0); MEAN PLATELET VOLUME 8.7 fL (7.4-11.0); MONOCYTES % (AUTO) 6.9 % (0.0-13.0); NEUTROPHILS # (AUTO) 11.4 x10^3/uL (2.2-4.8); NEUTROPHILS % (AUTO) 78.2 % (42.0-75.0); PLATELET COUNT 302 X10^3/uL (150.0-450.0); WHITE BLOOD COUNT 14.6 X10^3/uL (3.6-10.0)
--- NOTE | 2018-08-04 08:23 | RAD ---
HISTORY: Productive cough and wheezing Study: Single-view chest Comparison: July 14, 2018 Findings: The trachea is midline. The cardiac silhouette is unremarkable. There is a background of COPD without lobar mass or consolidation to suggest pneumonia or edema. There is no effusion or pneumothorax. The bony thorax is grossly unremarkable. IMPRESSION: COPD without acute cardiopulmonary disease otherwise noted. Reported By:
[2018-08-04 08:33] LABS: BLOOD UREA NITROGEN 10 mg/dL (7-18); CALCIUM 8.7 mg/dL (8.5-10.1); CHLORIDE 103 mmol/L (98-107); COR NA(FOR HYPERGLY) 143 mmol/L (136-145); CREATININE 0.56 mg/dL (0.55-1.02); SODIUM 142 mmol/L (136-145); TROPONIN I < 0.02 ng/mL (0-1.5); eGFR NON BLACK RACES > 60 (>60)
[2018-08-04 08:55] LABS: ALANINE AMINOTRANSFERASE 17 Units/L (12-78); ALBUMIN 3.4 g/dL (3.4-5.0); ALKALINE PHOSPHATASE 84 Units/L (46-116); ASPARTATE AMINO TRANSFERASE 16 Units/L (15-37); CKMB % 3.8 % (<4); CREATINE KINASE 107 Units/L (26-192); MAGNESIUM 1.5 mg/dL (1.7-2.9); TOTAL PROTEIN 6.6 g/dL (6.4-8.2)
[2018-08-04] MEDS ORDERED: TORADOL 30 MG VIAL IVP ONE (09:25)
[2018-08-04] MEDS ORDERED: TORADOL 30 MG VIAL ONE (09:26)
[2018-08-04] MEDS ORDERED: ROCEPHIN VIAL 1 GRAM IVP ONE (09:54)
[2018-08-04] MEDS ORDERED: ROCEPHIN VIAL 1 GRAM ONE (10:00)
[2018-08-04 10:10] LABS: ABG BASE EXCESS 10.3 mmol/L (-2.0-2.0)
[2018-08-04 10:11] LABS: ABG HCO3 36.5 mmol/L (22-26)
[2018-08-04] MEDS ORDERED: ATIVAN INJ 2 MG VIAL IVP ONE (10:14)
[2018-08-04] MEDS ORDERED: ATIVAN INJ 2 MG VIAL ONE (10:15)
[2018-08-04 10:24] LABS: COLOR,URINE ORANGE (YELLOW)
--- NOTE | 2018-08-04 10:26 | DR.SOBA ---
HPI Time Seen Time Seen by Provider: 08/04/18 07:40 HPI Comment HPI Comment: HISTORY AND PHYSICAL DONE BY DR. ALVARADO. Complaints Chief Complaint:: PT C/O INCREASING SHORTNESS OR BREATH SINCE LAST NIGHT ASSOCIATED WITH PRODUCTIVE COUGH WITH LIGHT YELLOW SPUTUM. Source History Provided: Patient Mode of Arrival Mode of Arrival: Wheelchair Timing Onset of Chief Complaint: 08/03/18 Duration Duration: Hours PMH PMH Past Medical History: Yes Past Medical History: Anxiety, Asthma, COPD and Sleep Apnea Past Surgical History: Yes Surgical History: Neurosurgery Past Surgical History Comment: NEUROSURGERY Family History History of Family Medical Conditions: Yes Family Medical History: Cancer, [place] and Hypertension Social History Does patient currently use any type of tobacco product: Yes Have you used tobacco products in the last 12 months: Yes Type of Tobacco Use: Cigarettes Does any household member use tobacco: No Alcohol Use: None Do you use any recreational Drugs:: No Lives With: Family Lives Where: Home infectious screening In the last 2 months have you had wt loss of >10#?: NO Have you had fever, night sweats or hemotysis?: No Have you traveled outside the country in the last 6 months?: No Isolation: Standard ROS Review of Systems ENTM: Nose Congestion Musculoskeletal: Muscle Pain PE Vital Signs Vitals: Temperature 98.6 F Pulse Rate [Right Brachial] 98 Pulse Rate [Left Radial] 100 Pulse Rate 70 Respiratory Rate 20 Blood Pressure [Right Arm] 110/64 Blood Pressure [Left Arm] 125/61 Blood Pressure 114/56 O2 Sat by Pulse Oximetry 100 ENT ENT Exam: Normal External Ear Exam MDM Additional Information Obtained Additional Information Obtained From: Old Records Differential Diagnosis Differential Diagnosis: Asthma, Bronchitis, CHF, COPD, Mycardial Infarction, Pneumonia, Pneumothorax, Respiratory Insufficiency and Sinusitis COURSE Treatment Treatment: SEE ORDERS. Education/Counseling Education/Counseling: Patient Educated On: Diagnosis ROR Labs Reviewed Laboratory Results Reviewed?: Yes Result Diagrams: 08/05/18 04:25 08/05/18 04:25 Laboratory: 08/05/18 09:18 Sputum - Expectorated Sputum Sputum Culture - Final 08/05/18 09:18 Sputum - Expectorated Sputum - Final 08/04/18 10:05 Urine,Clean Catch Urine Culture - Final WBC 8.0 X10^3/uL (3.6-10.0) 08/05/18 04:25 RBC 3.15 X10^6/uL (3.5-5.4) L 08/05/18 04:25 Hgb 10.1 g/dL (12.0-16.0) L 08/05/18 04:25 Hct 30.2 % (36.0-47.0) L 08/05/18 04:25 MCV 95.9 fL (80.0-100.0) 08/05/18 04:25 MCH 32.1 pg (27.0-34.0) 08/05/18 04:25 MCHC 33.5 g/dL (33.0-35.0) 08/05/18 04:25 RDW 15.3 % (11.6-16.5) 08/05/18 04:25 Plt Count 266 X10^3/uL (150.0-450.0) 08/05/18 04:25 MPV 9.2 fL (7.4-11.0) 08/05/18 04:25 Neut % (Auto) 69.9 % (42.0-75.0) 08/05/18 04:25 Lymph % (Auto) 18.0 % (21.0-51.0) L 08/05/18 04:25 [place] % (Auto) 8.5 % (0.0-13.0) 08/05/18 04:25 Eos % (Auto) 3.4 % (0.9-2.9) H 08/05/18 04:25 Baso % (Auto) 0.2 % (0.2-1.0) 08/05/18 04:25 Neut # (Auto) 5.6 x10^3/uL (2.2-4.8) H 08/05/18 04:25 Lymph # (Auto) 1.4 X10^3/uL (1.3-2.9) 08/05/18 04:25 [place] # (Auto) 0.7 x10^3/uL (0.3-0.8) 08/05/18 04:25 Eos # (Auto) 0.3 x10^3/uL (0.0-0.2) H 08/05/18 04:25 Baso # (Auto) 0.0 X10^3/uL (0.0-0.1) 08/05/18 04:25 Absolute Nucleated RBC 0.0 /100WBC 08/05/18 04:25 INR Target Range - 08/04/18 08:10 INR 0.95 (0.8-1.3) 08/04/18 08:10 APTT 26.9 SECONDS (22.9-36.5) 08/04/18 08:10 PTT Comment - 08/04/18 08:10 D-Dimer 216 ng/mL (0-400) 08/04/18 08:10 Sample Site Rb 08/05/18 09:40 ABG pH 7.460 (7.35-7.45) H 08/05/18 09:40 ABG pCO2 51.0 mmHg (35.0-45.0) H* 08/05/18 09:40 ABG pO2 74.0 mmHg (80.0-100.0) L 08/05/18 09:40 ABG HCO3 36.3 mmol/L (22-26) H* 08/05/18 09:40 ABG O2 Saturation 95.0 % (90-100) 08/05/18 09:40 ABG Base Excess 10.8 mmol/L (-2.0-2.0) H 08/05/18 09:40 Colin Test Na 08/05/18 09:40 A-a Gradient 62.0 mmHg 08/05/18 09:40 FiO2 28.0 08/05/18 09:40 Blood Gas Comments Pt jesus well. cdn 08/05/18 09:40 Sodium 142 mmol/L (136-145) 08/05/18 04:25 Corrected Sodium 142 mmol/L (136-145) 08/05/18 04:25 Potassium 3.8 mmol/L (3.5-5.1) 08/05/18 04:25 Chloride 104 mmol/L (98-107) 08/05/18 04:25 Carbon Dioxide 32.5 mmol/L (21-32) H 08/05/18 04:25 BUN 10 mg/dL (7-18) 08/05/18 04:25 Creatinine 0.51 mg/dL (0.55-1.02) L 08/05/18 04:25 Est GFR (MDRD) Af Amer > 60 (>60) 08/05/18 04:25 Est GFR (MDRD) Non-Af > 60 (>60) 08/05/18 04:25 Glucose 112 mg/dL (65-99) H 08/05/18 04:25 Calcium 8.4 mg/dL (8.5-10.1) L 08/05/18 04:25 Corrected Calcium 9.4 mg/dL (8.5-10.1) 08/05/18 04:25 Magnesium 2.2 mg/dL (1.7-2.9) 08/05/18 04:25 Total Bilirubin 0.20 mg/dL (0.2-1.0) 08/05/18 04:25 AST 11 Units/L (15-37) L 08/05/18 04:25 ALT 14 Units/L (12-78) 08/05/18 04:25 Alkaline Phosphatase 65 Units/L (46-116) 08/05/18 04:25 Creatine Kinase 74 Units/L (26-192) 08/04/18 21:26 CK-MB (CK-2) 2.8 ng/mL (0-4.0) 08/04/18 21:26 CK/CKMB % Calc 3.8 % (<4) 08/04/18 21:26 Troponin I < 0.02 ng/mL (0-1.5) 08/04/18 21:26 Total Protein 5.8 g/dL (6.4-8.2) L 08/05/18 04:25 Albumin 2.8 g/dL (3.4-5.0) L 08/05/18 04:25 Globulin 3.0 g/dL (2.5-4.5) 08/05/18 04:25 Albumin/Globulin Ratio 0.9 Ratio (1.1-2.1) L 08/05/18 04:25 Triglycerides 64 mg/dL (0-150) 08/05/18 04:25 Cholesterol 178 mg/dL (0-200) 08/05/18 04:25 LDL Cholesterol, Calc 106 mg/dL (0-100) H 08/05/18 04:25 HDL Cholesterol 59 mg/dL (40-60) 08/05/18 04:25 Cholesterol/HDL Ratio 3.0 (0.0-5.0) 08/05/18 04:25 Specimen Type Clean catch urine 08/04/18 10:05 Urine Color [place] (YELLOW) 08/04/18 10:05 Urine Appearance Hazy (CLEAR) 08/04/18 10:05 Urine pH Cancelled 08/04/18 10:05 Ur Specific [place] Cancelled 08/04/18 10:05 Urine Protein Cancelled 08/04/18 10:05 Urine Glucose (UA) Cancelled 08/04/18 10:05 Urine Ketones Cancelled 08/04/18 10:05 Urine Occult Blood Cancelled 08/04/18 10:05 Urine Nitrite Cancelled 08/04/18 10:05 Urine Bilirubin Cancelled 08/04/18 10:05 Urine Urobilinogen Cancelled 08/04/18 10:05 Ur Leukocyte Esterase Cancelled 08/04/18 10:05 Urine RBC 0-2 /HPF (NONE SEEN) 08/04/18 10:05 Urine WBC 5-10 /HPF (NONE SEEN) 08/04/18 10:05 Ur Squamous Epith Cells Moderate /HPF (NEGATIVE) 08/04/18 10:05 Urine Bacteria 1+ /HPF (NEGATIVE) 08/04/18 10:05 Urine Mucus Moderate /HPF (NEGATIVE) 08/04/18 10:05 Ur Culture Indicated? Yes/culture set up 08/04/18 10:05 Phenytoin 4.4 ug/mL (10-20) L 08/04/18 08:10 XRAY XRAY Interpreted by: Radiologist XRAY Findings: REPORT ON RECORD NOTED AND DISCUSS WITH PATIENT. Diagnosis Discharge Problem: COPD exacerbation, Bronchitis Instructions Instructions: Chronic Obstructive Pulmonary Disease Exacerbation, [id number] Levofloxacin tablets Forms: Patient Portal
[2018-08-04 10:28] LABS: APPEARANCE,URINE HAZY (CLEAR); BACTERIA,URINE 1+ /HPF (NEGATIVE); MUCUS,URINE MODERATE /HPF (NEGATIVE); RBC,URINE 0-2 /HPF (NONE SEEN); SQUAMOUS EPITHELIAL CELL,UR MODERATE /HPF (NEGATIVE)
[2018-08-04] MEDS ORDERED: DECADRON INJ IM SCH (11:00)
[2018-08-04 11:11] VITALS: BMI 21.7
[2018-08-04 11:19] LABS: CREATINE KINASE MB 4.1 ng/mL (0-4.0)
[2018-08-04] MEDS: DUONEB 0.5 MG/3 MG NEB SCH ×4 (11:56→20:11)
[2018-08-04] MEDS: NS 1000 ML 1,000 ML IV SCH (14:24)
[2018-08-04] MEDS ORDERED: NORCO 10/325 TAB ONE (16:00)
[2018-08-04 16:01] LABS: CKMB % 3.8 % (<4); CREATINE KINASE 95 Units/L (26-192); CREATINE KINASE MB 3.6 ng/mL (0-4.0); TROPONIN I < 0.02 ng/mL (0-1.5)
[2018-08-04] MEDS: NORCO 10/325 TAB PO PRN (16:01)
[2018-08-04] MEDS: VISTARIL PO PRN (17:00)
[2018-08-04] MEDS ORDERED: VISTARIL PO ONE (17:02)
[2018-08-04] MEDS ORDERED: AMBIEN PO PRN (19:35)
[2018-08-04] MEDS: PULMICORT NEB TX 0.5 MG NEB SCH (20:11)
[2018-08-04] MEDS: BROVANA IN SCH (20:11)
[2018-08-04] MEDS: DECADRON INJ IV SCH (20:21)
[2018-08-04] MEDS: MILK OF MAGNESIA PO SCH (20:21)
[2018-08-04] MEDS ORDERED: COLACE CAP 100 MG PO SCH (21:00)
[2018-08-04 22:04] LABS: CKMB % 3.8 % (<4); CREATINE KINASE 74 Units/L (26-192); CREATINE KINASE MB 2.8 ng/mL (0-4.0); TROPONIN I < 0.02 ng/mL (0-1.5)
[2018-08-05] MEDS: NORCO 10/325 TAB PO PRN ×3 (00:43→16:38)
[2018-08-05] MEDS: NS 1000 ML 1,000 ML IV SCH (00:43)
[2018-08-05] MEDS: DUONEB 0.5 MG/3 MG NEB SCH ×6 (01:05→16:08)
[2018-08-05 05:20] LABS: BASOPHILS % (AUTO) 0.2 % (0.2-1.0); EOSINOPHILS # (AUTO) 0.3 x10^3/uL (0.0-0.2); EOSINOPHILS % (AUTO) 3.4 % (0.9-2.9); HEMATOCRIT 30.2 % (36.0-47.0); HEMOGLOBIN 10.1 g/dL (12.0-16.0); LYMPHOCYTES # (AUTO) 1.4 X10^3/uL (1.3-2.9); MEAN CORPUSCULAR HEMOGLOBIN 32.1 pg (27.0-34.0); MEAN CORPUSCULAR HGB CONC 33.5 g/dL (33.0-35.0); MEAN CORPUSCULAR VOLUME 95.9 fL (80.0-100.0); MEAN PLATELET VOLUME 9.2 fL (7.4-11.0); MONOCYTES # (AUTO) 0.7 x10^3/uL (0.3-0.8); MONOCYTES % (AUTO) 8.5 % (0.0-13.0); NEUTROPHILS # (AUTO) 5.6 x10^3/uL (2.2-4.8); NEUTROPHILS % (AUTO) 69.9 % (42.0-75.0); PLATELET COUNT 266 X10^3/uL (150.0-450.0); RED BLOOD COUNT 3.15 X10^6/uL (3.5-5.4); RED CELL DISTRIBUTION WIDTH 15.3 % (11.6-16.5)
[2018-08-05 05:30] LABS: ALANINE AMINOTRANSFERASE 14 Units/L (12-78); ALBUMIN 2.8 g/dL (3.4-5.0); ALKALINE PHOSPHATASE 65 Units/L (46-116); ASPARTATE AMINO TRANSFERASE 11 Units/L (15-37); BLOOD UREA NITROGEN 10 mg/dL (7-18); CALCIUM 8.4 mg/dL (8.5-10.1); CARBON DIOXIDE 32.5 mmol/L (21-32); CHLORIDE 104 mmol/L (98-107); CHOLESTEROL 178 mg/dL (0-200); COR CA(FOR HYPOALB) 9.4 mg/dL (8.5-10.1); COR NA(FOR HYPERGLY) 142 mmol/L (136-145); CREATININE 0.51 mg/dL (0.55-1.02); HDL CHOLESTEROL 59 mg/dL (40-60); MAGNESIUM 2.1 mg/dL (1.7-2.9); SODIUM 142 mmol/L (136-145); TOTAL PROTEIN 5.8 g/dL (6.4-8.2); TRIGLYCERIDES 64 mg/dL (0-150); eGFR NON BLACK RACES > 60 (>60)
[2018-08-05] MEDS: VISTARIL PO PRN (06:27)
[2018-08-05] MEDS ORDERED: K-RIDER 10 MEQ/NS 100 ML 10 MEQ/100 ML BAG IV PRN (07:56)
[2018-08-05] MEDS ORDERED: KLOR-CON PO PRN (07:56)
[2018-08-05] MEDS ORDERED: POTASSIUM CHL 40 MEQ/NS 0.45% 500 ML IV PRN (07:56)
[2018-08-05] MEDS ORDERED: POTASSIUM CHLORIDE LIQ 20 MEQ UDC PO PRN (07:56)
[2018-08-05] MEDS ORDERED: POTASSIUM CHL 60 MEQ/NS 0.45% 500 ML IV PRN (07:56)
[2018-08-05] MEDS ORDERED: K-DUR TAB 20 MEQ PO PRN (07:56)
[2018-08-05] MEDS ORDERED: MICRO K EXTEN CAP 10 MEQ PO PRN (07:56)
[2018-08-05] MEDS: BROVANA IN SCH (08:09)
[2018-08-05] MEDS: PULMICORT NEB TX 0.5 MG NEB SCH (08:09)
[2018-08-05] MEDS: DECADRON INJ IV SCH (08:51)
[2018-08-05] MEDS: MILK OF MAGNESIA PO SCH (08:52)
[2018-08-05] MEDS ORDERED: SALINE 3% 15 ML NEB TX NEB ONE (08:52)
[2018-08-05] MEDS ORDERED: DECADRON INJ IVP SCH (09:00)
[2018-08-05] MEDS ORDERED: ROCEPHIN VIAL 1 GRAM IVP SCH (09:00)
[2018-08-05 09:45] LABS: ABG BASE EXCESS 10.8 mmol/L (-2.0-2.0)
[2018-08-05 09:46] LABS: ABG HCO3 36.3 mmol/L (22-26)
[2018-08-05] MEDS ORDERED: NICOTINE PATCH TD SCH (12:00)
[2018-08-05] MEDS ORDERED: XANAX PO PRN (13:31)
[2018-08-05 16:38] VITALS: BP 110/64
[2018-08-05] MEDS ORDERED: CLARITIN PO SCH (18:00)
[2018-08-05] MEDS ORDERED: UNIPHYL TAB 400 MG PO SCH (18:00)
[2018-08-05] MEDS ORDERED: FLONASE NASAL SPRAY ENOSTRIL SCH (18:00)
--- NOTE | 2018-08-05 18:01 | DR.H&P ---
H&P - History & Physical for Day of: H&P Date: 08/04/18 - History of Present Illness History of Present Illness: PT C/O INCREASING SHORTNESS OR BREATH SINCE LAST NIGHT ASSOCIATED WITH PRODUCTIVE COUGH WITH LIGHT YELLOW SPUTUM. PT WBC 14.6, PO2 92 ON 2 L. PT HAS PMH OF COPD WITH RESPIRATORY FAILURE, HAS O2 AND NEBULIZER AT HOME, USING O2 AT NIGHT. PT DENIES FEVER. PT CO ANXIETY, TAKE XANAX AT HOME. PT ADMITTED FOR EVALUATION OF SOB, SERIAL AND EKG OBTAINED. - Past Medical History Past Medical History: Anxiety, COPD, Asthma, Sleep Apnea - Past Surgical History Surgical History: Neurosurgery - Family History Family Medical History: Cancer, [place], Hypertension - Social History Does patient currently use any type of tobacco product: Yes Have you used tobacco products in the last 12 months: Yes Type of Tobacco Use: Cigarettes How many years tobacco product used: 40 Does any household member use tobacco: No Alcohol Use: None Drug Use: None - Medications Home Medications: morphine Allergy (Verified 07/18/18 17:54) Penicillins Allergy (Verified 07/18/18 17:54) prednisone Allergy (Verified 07/18/18 17:54) tea Allergy (Uncoded 07/18/18 17:54) CONTINUE taking the following medications ipratropium-albuterol 1 vial INHALATION Q6H PRN 08/04/18 [History] theophylline 200 mg PO DAILY 08/04/18 [History] albuterol sulfate 1 puff INHALATION Q6H PRN 08/05/18 [History] alprazolam [Xanax] 0.5 mg PO BID PRN 08/05/18 [History] gabapentin [Neurontin] 600 mg PO TID 08/05/18 [History] levocetirizine [Xyzal] 5 mg PO QDAY 08/05/18 [History] potassium chloride 10 meq PO BID 08/05/18 [History] - Review of Systems Constitutional: Weakness Eyes: No Symptoms Reported ENT: No Symptoms Reported Respiratory: Shortness of Breath, Wheezing Cardiovascular: No Symptoms Reported Gastrointestinal: No Symptoms Reported Genitourinary: No Symptoms Reported Musculoskeletal: Arm Pain, Back Pain Skin: No Symptoms Reported Neurological: Weakness - Physical Exam Vital Signs: Temperature 98.6 F Pulse Rate [Right Brachial] 98 Pulse Rate [Left Radial] 100 Pulse Rate 70 Respiratory Rate 20 Blood Pressure [Right Arm] 110/64 Blood Pressure [Left Arm] 125/61 Blood Pressure 114/56 O2 Sat by Pulse Oximetry 100 Oriented: Normal Eyes: Normal Ear: Normal Nose: Normal Throat: Normal Respiratory: Wheezes Throughout (MODERATE EXPIRATORY WHEEZES), RLL Diminished, LLL Diminished Cardiovascular: Normal : Normal Auscultation: Bowel Sounds: Normal Palpation: Normal Tenderness: Normal Skin: Normal Musculoskeletal: Left, Hand, Back:Thoracic, Tender. negative: Swelling, Deformity Psychiatric: Anxiety Affect: Anxious Speech Pattern: Clear, Appropriate - Assessment/Plan (1) SOB (shortness of breath) Status: Acute Plan: ADMIT, SERIAL CE AND EKG, CXR ON ADMISSION R/O IN. RESP THERAPY, SUPPLEMENTAL O2. ADMISSION LABS SPUTUM CULTURE. DUO NEBS, BP MONITORING, VERIFY HOME MEDICATION. R/O PNEUMONIA, CARDIAC CAUSE SOB. (2) Chronic respiratory failure Status: Acute (3) COPD (chronic obstructive pulmonary disease) Qualifiers: COPD type: unspecified COPD Qualified Code(s): J44.9 - Chronic obstructive pulmonary disease, unspecified Status: Chronic (4) DJD (degenerative joint disease) of cervical spine Qualifiers: Spinal osteoarthritis complication: with radiculopathy Qualified Code(s): M47.22 - Other spondylosis with radiculopathy, cervical region Status: Chronic (5) Anxiety Status: Chronic - Allergies Allergies/Adverse Reactions: Allergies Allergy/AdvReac Type Severity Reaction Status Date / Time morphine Allergy Verified 07/18/18 17:54 Penicillins Allergy Verified 07/18/18 17:54 prednisone Allergy Verified 07/18/18 17:54 tea Allergy Uncoded 07/18/18 17:54
[2018-08-05] MEDS ORDERED: LEVAQUIN TAB 500 MG PO SCH (19:00)
[2018-08-05] MEDS ORDERED: CHECK PATCH XX SCH (21:00)
[2018-08-05] MEDS ORDERED: DILANTIN CAP 100 MG EXT REL PO SCH (21:00)
== END 2018-08-05 18:29 | disposition home or self-care (01) ==
LOC: ER 07:29 → MED/SURG 07:29
PROVIDERS: ADMIT Internal Medicine; ATTEND Internal Medicine
DX: R07.89 Other chest pain; R26.89 Other abnormalities of gait and mobility; R13.11 Dysphagia, oral phase; J96.10 Chronic respiratory failure, unspecified whether with hypoxia or hypercapnia; F41.8 Other specified anxiety disorders; J44.1 Chronic obstructive pulmonary disease with (acute) exacerbation; M47.22 Other spondylosis with radiculopathy, cervical region; J20.8 Acute bronchitis due to other specified organisms
CPT/HCPCS: 36415; 36600; 71010; 71045; 80053; 80061; 80185; 81015; 82550; 82553; 82803; 83735; 84484; 85025; 85378; 85610; 85730; 87070; 87086; 87205; 92610; 93005; 94640; 94669; 94760; 96365; 96367; 96374; 96375; 97162; 97166; 99218; 99284; A4222; Q0177; G0378; J0696; J1100; J1885; J2060; J2930; J3475; J7030; J7620; J7626

== ENCOUNTER 2019-05-05 09:51 | Inpatient (IN) ==
[2019-05-05 10:12] VITALS: BMI 17.4
--- NOTE | 2019-05-05 10:44 | DR.SOBA ---
HPI Time Seen Time Seen by Provider: 05/05/19 10:44 Primary Care Physician Primary Care Physician: DR. JORDI BUTT Complaints Chief Complaint:: STATES SHE IS HERE TO BE ADMITTED WITH PNEUMONIA. STATES SHE CAME LAST NIGHT TO THE ER AND THE ER DR WAS GOING TO ADMIT HER BUT SHE SIGNED OUT AMA BECAUSE SHE HAD BUSINESS TO TEND TO. Source History Provided: Patient Mode of Arrival Mode of Arrival: Ambulatory Timing Onset of Chief Complaint: 05/04/19 PMH PMH Past Medical History: Yes Past Medical History: COPD Past Surgical History: Yes Surgical History: Unknown Family History History of Family Medical Conditions: Yes Family Medical History: Cancer, [place] and Hypertension Social History Does patient currently use any type of tobacco product: Yes Have you used tobacco products in the last 12 months: Yes Type of Tobacco Use: Cigarettes Does any household member use tobacco: No Alcohol Use: None Do you use any recreational Drugs:: No Lives With: Alone Lives Where: Home infectious screening Have you traveled outside the country in the last 6 months?: No Isolation: Standard PE Vital Signs Vitals: Temperature 98.0 F Pulse Rate 91 Respiratory Rate 18 Blood Pressure [Right Arm] 109/76 Blood Pressure [Left Arm] 113/78 Blood Pressure 121/62 O2 Sat by Pulse Oximetry 99 ROR Labs Reviewed Result Diagrams: 05/05/19 11:00 05/05/19 11:00 Laboratory: WBC 20.8 X10^3/uL (3.6-10.0) H 05/05/19 11:00 RBC 4.73 X10^6/uL (3.5-5.4) 05/05/19 11:00 Hgb 14.8 g/dL (12.0-16.0) 05/05/19 11:00 Hct 44.8 % (36.0-47.0) 05/05/19 11:00 MCV 94.6 fL (80.0-100.0) 05/05/19 11:00 MCH 31.2 pg (27.0-34.0) 05/05/19 11:00 MCHC 33.0 g/dL (33.0-35.0) 05/05/19 11:00 RDW 15.5 % (11.6-16.5) 05/05/19 11:00 Plt Count 426 X10^3/uL (150.0-450.0) 05/05/19 11:00 Plt Count Comment Increased (ADEQUATE) A 05/05/19 11:00 MPV 10.6 fL (7.4-11.0) 05/05/19 11:00 Neut % (Auto) 74.5 % (42.0-75.0) 05/05/19 11:00 Lymph % (Auto) 19.1 % (21.0-51.0) L 05/05/19 11:00 [place] % (Auto) 4.8 % (0.0-13.0) 05/05/19 11:00 Eos % (Auto) 0.6 % (0.9-2.9) L 05/05/19 11:00 Baso % (Auto) 1.0 % (0.2-1.0) 05/05/19 11:00 Neut # (Auto) 15.5 x10^3/uL (2.2-4.8) H 05/05/19 11:00 Lymph # (Auto) 4.0 X10^3/uL (1.3-2.9) H 05/05/19 11:00 [place] # (Auto) 1.0 x10^3/uL (0.3-0.8) H 05/05/19 11:00 Eos # (Auto) 0.1 x10^3/uL (0.0-0.2) 05/05/19 11:00 Baso # (Auto) 0.2 X10^3/uL (0.0-0.1) H 05/05/19 11:00 Absolute Nucleated RBC 0.0 /100WBC 05/05/19 11:00 Total Counted 100 05/05/19 11:00 Neutrophils % (Manual) 77 % (39-76) H 05/05/19 11:00 Lymphocytes % (Manual) 17 % (13-43) 05/05/19 11:00 Monocytes % (Manual) 6 % (4-9) 05/05/19 11:00 Giant Platelets Few 05/05/19 11:00 Plt Morphology Comment Normal (NORMAL) 05/05/19 11:00 RBC Morphology Normal (NORMAL) 05/05/19 11:00 Sodium 139 mmol/L (136-145) 05/05/19 11:00 Corrected Sodium TNP 05/05/19 11:00 Potassium 3.2 mmol/L (3.5-5.1) L 05/05/19 11:00 Chloride 98 mmol/L (98-107) 05/05/19 11:00 Carbon Dioxide 36.4 mmol/L (21-32) H 05/05/19 11:00 BUN 5 mg/dL (7-18) L 05/05/19 11:00 Creatinine 0.68 mg/dL (0.55-1.02) 05/05/19 11:00 Est GFR (MDRD) Af Amer > 60 (>60) 05/05/19 11:00 Est GFR (MDRD) Non-Af > 60 (>60) 05/05/19 11:00 Glucose 59 mg/dL (65-99) L 05/05/19 11:00 POC Glucose (mg/dL) 83 mg/dL (65-99) 05/05/19 13:12 Lactic Acid 1.2 mmol/L (0.4-2.0) 05/05/19 11:00 Calcium 9.3 mg/dL (8.5-10.1) 05/05/19 11:00 Corrected Calcium TNP 05/05/19 11:00 Total Bilirubin 0.50 mg/dL (0.2-1.0) 05/05/19 11:00 AST 30 Units/L (15-37) 05/05/19 11:00 ALT 17 Units/L (12-78) 05/05/19 11:00 Alkaline Phosphatase 120 Units/L (46-116) H 05/05/19 11:00 Creatine Kinase 307 Units/L (26-192) H 05/05/19 11:00 CK-MB (CK-2) 5.0 ng/mL (0-4.0) H* 05/05/19 11:00 CK/CKMB % Calc 1.6 % (<4) 05/05/19 11:00 Troponin I < 0.02 ng/mL (0-1.5) 05/05/19 11:00 Total Protein 9.6 g/dL (6.4-8.2) H 05/05/19 11:00 Albumin 4.3 g/dL (3.4-5.0) 05/05/19 11:00 Globulin 5.3 g/dL (2.5-4.5) H 05/05/19 11:00 Albumin/Globulin Ratio 0.8 Ratio (1.1-2.1) L 05/05/19 11:00 Specimen Type Random urine 05/05/19 12:16 Urine Color Yellow (YELLOW) 05/05/19 12:16 Urine Appearance Cloudy (CLEAR) 05/05/19 12:16 Urine pH 6.0 (5.0 - 8.0) 05/05/19 12:16 Ur Specific [place] 1.010 (1.000-1.030) 05/05/19 12:16 Urine Protein 2+ (NEGATIVE) 05/05/19 12:16 Urine Glucose (UA) Negative (NEGATIVE) 05/05/19 12:16 Urine Ketones Negative (NEGATIVE) 05/05/19 12:16 Urine Occult Blood 2+ (NEGATIVE) 05/05/19 12:16 Urine Nitrite Negative (NEGATIVE) 05/05/19 12:16 Urine Bilirubin Negative (NEGATIVE) 05/05/19 12:16 Urine Urobilinogen Normal (NORMAL) 05/05/19 12:16 Ur Leukocyte Esterase 3+ (NEGATIVE) 05/05/19 12:16 Urine RBC 5-10 /HPF (0-3) A 05/05/19 12:16 Urine WBC Tntc /HPF (0-5) A 05/05/19 12:16 Ur Squamous Epith Cells Moderate /HPF (NEGATIVE) 05/05/19 12:16 Urine Bacteria Trace /HPF (NEGATIVE) 05/05/19 12:16 Ur Culture Indicated? No/not indicated 05/05/19 12:16 Opioid Opioid Risk Tool Personal Hx of Substance Abuse: Prescription Drugs Age ([place] box if 16-45): No History of Preadolescent Sexual Abuse: No Psychological Disease: Depression Total: 0 Total Score Risk Category: Low Risk Copyright: Ryan GAUTHIER predicting aberrant behaviors
[2019-05-05] MEDS ORDERED: NS 1000 ML 1,000 ML IV ONE (11:06)
[2019-05-05 11:27] LABS: BASOPHILS # (AUTO) 0.2 X10^3/uL (0.0-0.1); EOSINOPHILS # (AUTO) 0.1 x10^3/uL (0.0-0.2); EOSINOPHILS % (AUTO) 0.6 % (0.9-2.9); HEMATOCRIT 44.8 % (36.0-47.0); HEMOGLOBIN 14.8 g/dL (12.0-16.0); LYMPHOCYTES % (AUTO) 19.1 % (21.0-51.0); MEAN CORPUSCULAR HEMOGLOBIN 31.2 pg (27.0-34.0); MEAN CORPUSCULAR VOLUME 94.6 fL (80.0-100.0); MEAN PLATELET VOLUME 10.6 fL (7.4-11.0); MONOCYTES % (AUTO) 4.8 % (0.0-13.0); NEUTROPHILS # (AUTO) 15.5 x10^3/uL (2.2-4.8); NEUTROPHILS % (AUTO) 74.5 % (42.0-75.0); PLATELET COUNT 426 X10^3/uL (150.0-450.0); RED BLOOD COUNT 4.73 X10^6/uL (3.5-5.4); RED CELL DISTRIBUTION WIDTH 15.5 % (11.6-16.5); WHITE BLOOD COUNT 20.8 X10^3/uL (3.6-10.0)
[2019-05-05 11:30] LABS: LACTIC ACID 1.2 mmol/L (0.4-2.0)
[2019-05-05 11:32] LABS: PLATELET MORPHOLOGY COMMENT NORMAL (NORMAL)
[2019-05-05 11:33] LABS: GIANT PLATELET FEW
[2019-05-05 11:35] LABS: BLOOD UREA NITROGEN 5 mg/dL (7-18); CALCIUM 9.3 mg/dL (8.5-10.1); CARBON DIOXIDE 36.4 mmol/L (21-32); CHLORIDE 98 mmol/L (98-107); CREATININE 0.68 mg/dL (0.55-1.02); SODIUM 139 mmol/L (136-145); TROPONIN I < 0.02 ng/mL (0-1.5); eGFR NON BLACK RACES > 60 (>60)
[2019-05-05] MEDS ORDERED: NS 1000 ML 1,000 ML ONE (11:45)
[2019-05-05 11:59] LABS: ALANINE AMINOTRANSFERASE 17 Units/L (12-78); ALBUMIN 4.3 g/dL (3.4-5.0); ALKALINE PHOSPHATASE 120 Units/L (46-116); ASPARTATE AMINO TRANSFERASE 30 Units/L (15-37); CKMB % 1.6 % (<4); CREATINE KINASE 307 Units/L (26-192); TOTAL PROTEIN 9.6 g/dL (6.4-8.2)
[2019-05-05 12:32] LABS: BILIRUBIN,URINE NEGATIVE (NEGATIVE); BLOOD/HEMOGLOBIN,URINE 2+ (NEGATIVE); GLUCOSE, URINE NEGATIVE (NEGATIVE); KETONES,URINE NEGATIVE (NEGATIVE); LEUKOCYTE ESTERASE ,URINE 3+ (NEGATIVE); NITRITES,URINE NEGATIVE (NEGATIVE); PROTEIN,URINE 2+ (NEGATIVE); UROBILINOGEN,URINE NORMAL (NORMAL)
[2019-05-05 12:50] LABS: APPEARANCE,URINE CLOUDY (CLEAR); BACTERIA,URINE TRACE /HPF (NEGATIVE); COLOR,URINE YELLOW (YELLOW); SQUAMOUS EPITHELIAL CELL,UR MODERATE /HPF (NEGATIVE)
[2019-05-05] MEDS ORDERED: FORTAZ or TAZICEF VIAL INJ ONE (13:36)
[2019-05-05] MEDS ORDERED: NS 1/2 1000 ML IV 1,000 ML IV ONE ×2 (13:37→20:09)
[2019-05-05] MEDS ORDERED: NS 100 ML IV + SPIKE MINIBAG* 100 ML IV ONE (13:37)
[2019-05-05] MEDS ORDERED: NARCAN INJ ONE (13:43)
[2019-05-05] MEDS ORDERED: NARCAN INJ IVP ONE (13:44)
[2019-05-05] MEDS ORDERED: FORTAZ or TAZICEF VIAL INJ 1 G in NS 100 ML IV + SPIKE MINIBAG* 100 ML IV ONE (13:45)
[2019-05-05] MEDS: NS 1/2 1000 ML IV 1,000 ML IV SCH ×2 (13:46→20:51)
[2019-05-05] MEDS ORDERED: FORTAZ or TAZICEF VIAL INJ IV ONE (14:34)
[2019-05-05] MEDS ORDERED: XANAX PO PRN (15:38)
[2019-05-05] MEDS ORDERED: DUONEB 0.5 MG/3 MG NEB SCH (15:45)
[2019-05-05] MEDS: NORCO 10/325 TAB PO SCH ×2 (15:54→20:53)
[2019-05-05] MEDS: SOLU-Medrol 40 MG VIAL IVP SCH ×2 (15:58→20:52)
--- NOTE | 2019-05-05 16:15 | DR.H&P ---
H&P History & Physical for Day of: H&P Date: 05/05/19 Chief Complaint Chief Complaint: SOB, falls Allergies Allergies Allergy/AdvReac Type Severity Reaction Status Date / Time aspirin Allergy Verified 05/04/19 19:52 morphine Allergy Verified 05/04/19 19:52 Penicillins Allergy Verified 05/04/19 19:52 prednisone Allergy Verified 05/04/19 19:52 tea Allergy Uncoded 05/04/19 19:52 History of Present Illness History of Present Illness: Ms. Quezada is a 60y/o female with a PMH of Chronic opioid and benzo use, COPD, Tobacco use, brain aneurysm and arthritis presents with recurrent falls, knee pain and SOB. Patient was seen in the ED last night for the same complaints and was found to have pneumonia. She declined admission and signed out AMA. Patient presented again to the ED this morning. She states she has been having increased SOB for the last 3-4 days. She denies cough, fever or chills. She smokes 10 cigarettes a day. She has also been having multiple falls in the last 4 days. She reports feeling dizzy and her left leg giving up when she stands up. She had a fall getting out of bed yesterday and injured her left knee. XR done yesterday showed no acute fracture, some effusion. She does not use a cane or walker, lives alone. Patient states she did not have any falls before this all started recently. She has a hx of brain aneurysm repair in the late s. She does not follow up with any specialist, PCP is Dr. Christensen. She denies any recent changes in her medications except that her thyroid medication was increased a week ago. She takes Dexter TID and Xanax BID. She denies taking more than her prescribed dose. Patient was drowsy in ED and did received a dose of Narcan. Past Medical History Past Medical History: Arthritis, COPD and Hypothyroidism Past Surgical History Surgical History: Unknown Additional Surgical History: Brain aneurysm repair Family History Family Medical History: Cancer, [place] and Hypertension Social History Does patient currently use any type of tobacco product: Yes Have you used tobacco products in the last 12 months: Yes Type of Tobacco Use: Cigarettes How many years tobacco product used: 40 Does any household member use tobacco: No Alcohol Use: None Drug Use: Marijuana Medications Home Medications: aspirin Allergy (Verified 05/04/19 19:52) morphine Allergy (Verified 05/04/19 19:52) Penicillins Allergy (Verified 05/04/19 19:52) prednisone Allergy (Verified 05/04/19 19:52) tea Allergy (Uncoded 05/04/19 19:52) CONTINUE taking the following medications albuterol sulfate [Proventil HFA] 2 puff INHALATION QID PRN 05/05/19 [History] alendronate 70 mg PO WEEKLY 05/05/19 [History] alprazolam 0.5 mg PO BID PRN 05/05/19 [History] ipratropium-albuterol 3 ml INHALATION Q6H 05/05/19 [History] mirtazapine 7.5 mg PO HS 05/05/19 [History] potassium bicarb-citric acid [Effer-K] 10 meq PO BID 05/05/19 [History] pregabalin [Lyrica] 200 mg PO TID 05/05/19 [History] quetiapine 50 mg PO BID PRN 05/05/19 [History] theophylline 200 mg PO DAILY 05/05/19 [History] zolpidem 10 mg PO HS 05/05/19 [History] Labs Result Diagrams: 05/05/19 11:00 05/05/19 11:00 Labs: Laboratory WBC 20.8 X10^3/uL (3.6-10.0) H 05/05/19 11:00 RBC 4.73 X10^6/uL (3.5-5.4) 05/05/19 11:00 Hgb 14.8 g/dL (12.0-16.0) 05/05/19 11:00 Hct 44.8 % (36.0-47.0) 05/05/19 11:00 MCV 94.6 fL (80.0-100.0) 05/05/19 11:00 MCH 31.2 pg (27.0-34.0) 05/05/19 11:00 MCHC 33.0 g/dL (33.0-35.0) 05/05/19 11:00 RDW 15.5 % (11.6-16.5) 05/05/19 11:00 Plt Count 426 X10^3/uL (150.0-450.0) 05/05/19 11:00 Plt Count Comment Increased (ADEQUATE) A 05/05/19 11:00 MPV 10.6 fL (7.4-11.0) 05/05/19 11:00 Neut % (Auto) 74.5 % (42.0-75.0) 05/05/19 11:00 Lymph % (Auto) 19.1 % (21.0-51.0) L 05/05/19 11:00 [place] % (Auto) 4.8 % (0.0-13.0) 05/05/19 11:00 Eos % (Auto) 0.6 % (0.9-2.9) L 05/05/19 11:00 Baso % (Auto) 1.0 % (0.2-1.0) 05/05/19 11:00 Neut # (Auto) 15.5 x10^3/uL (2.2-4.8) H 05/05/19 11:00 Lymph # (Auto) 4.0 X10^3/uL (1.3-2.9) H 05/05/19 11:00 [place] # (Auto) 1.0 x10^3/uL (0.3-0.8) H 05/05/19 11:00 Eos # (Auto) 0.1 x10^3/uL (0.0-0.2) 05/05/19 11:00 Baso # (Auto) 0.2 X10^3/uL (0.0-0.1) H 05/05/19 11:00 Absolute Nucleated RBC 0.0 /100WBC 05/05/19 11:00 Total Counted 100 05/05/19 11:00 Neutrophils % (Manual) 77 % (39-76) H 05/05/19 11:00 Lymphocytes % (Manual) 17 % (13-43) 05/05/19 11:00 Monocytes % (Manual) 6 % (4-9) 05/05/19 11:00 Giant Platelets Few 05/05/19 11:00 Plt Morphology Comment Normal (NORMAL) 05/05/19 11:00 RBC Morphology Normal (NORMAL) 05/05/19 11:00 Sodium 139 mmol/L (136-145) 05/05/19 11:00 Corrected Sodium TNP 05/05/19 11:00 Potassium 3.2 mmol/L (3.5-5.1) L 05/05/19 11:00 Chloride 98 mmol/L (98-107) 05/05/19 11:00 Carbon Dioxide 36.4 mmol/L (21-32) H 05/05/19 11:00 BUN 5 mg/dL (7-18) L 05/05/19 11:00 Creatinine 0.68 mg/dL (0.55-1.02) 05/05/19 11:00 Est GFR (MDRD) Af Amer > 60 (>60) 05/05/19 11:00 Est GFR (MDRD) Non-Af > 60 (>60) 05/05/19 11:00 Glucose 59 mg/dL (65-99) L 05/05/19 11:00 POC Glucose (mg/dL) 83 mg/dL (65-99) 05/05/19 13:12 Lactic Acid 1.2 mmol/L (0.4-2.0) 05/05/19 11:00 Calcium 9.3 mg/dL (8.5-10.1) 05/05/19 11:00 Corrected Calcium TNP 05/05/19 11:00 Magnesium 2.0 mg/dL (1.7-2.9) 05/05/19 11:00 Total Bilirubin 0.50 mg/dL (0.2-1.0) 05/05/19 11:00 AST 30 Units/L (15-37) 05/05/19 11:00 ALT 17 Units/L (12-78) 05/05/19 11:00 Alkaline Phosphatase 120 Units/L (46-116) H 05/05/19 11:00 Creatine Kinase 307 Units/L (26-192) H 05/05/19 11:00 CK-MB (CK-2) 5.0 ng/mL (0-4.0) H* 05/05/19 11:00 CK/CKMB % Calc 1.6 % (<4) 05/05/19 11:00 Troponin I < 0.02 ng/mL (0-1.5) 05/05/19 11:00 Total Protein 9.6 g/dL (6.4-8.2) H 05/05/19 11:00 Albumin 4.3 g/dL (3.4-5.0) 05/05/19 11:00 Globulin 5.3 g/dL (2.5-4.5) H 05/05/19 11:00 Albumin/Globulin Ratio 0.8 Ratio (1.1-2.1) L 05/05/19 11:00 Specimen Type Random urine 05/05/19 12:16 Urine Color Yellow (YELLOW) 05/05/19 12:16 Urine Appearance Cloudy (CLEAR) 05/05/19 12:16 Urine pH 6.0 (5.0 - 8.0) 05/05/19 12:16 Ur Specific [place] 1.010 (1.000-1.030) 05/05/19 12:16 Urine Protein 2+ (NEGATIVE) 05/05/19 12:16 Urine Glucose (UA) Negative (NEGATIVE) 05/05/19 12:16 Urine Ketones Negative (NEGATIVE) 05/05/19 12:16 Urine Occult Blood 2+ (NEGATIVE) 05/05/19 12:16 Urine Nitrite Negative (NEGATIVE) 05/05/19 12:16 Urine Bilirubin Negative (NEGATIVE) 05/05/19 12:16 Urine Urobilinogen Normal (NORMAL) 05/05/19 12:16 Ur Leukocyte Esterase 3+ (NEGATIVE) 05/05/19 12:16 Urine RBC 5-10 /HPF (0-3) A 05/05/19 12:16 Urine WBC Tntc /HPF (0-5) A 05/05/19 12:16 Ur Squamous Epith Cells Moderate /HPF (NEGATIVE) 05/05/19 12:16 Urine Bacteria Trace /HPF (NEGATIVE) 05/05/19 12:16 Ur Culture Indicated? No/not indicated 05/05/19 12:16 Urine Opiates Screen Negative (NEG=<300) 05/05/19 12:16 Urine Methadone Screen Negative (NEG=<300) 05/05/19 12:16 Ur Barbiturates Screen Negative (NEG=<200) 05/05/19 12:16 Ur Phencyclidine Scrn Negative (NEG=<25) 05/05/19 12:16 Ur Amphetamines Screen Negative (NEG=<1000) 05/05/19 12:16 U Benzodiazepines Scrn Negative (NEG=<200) 05/05/19 12:16 Urine Cocaine Screen Negative (NEG=<300) 05/05/19 12:16 U Marijuana (THC) Screen Negative (NEG=<50) 05/05/19 12:16 Review of Systems Constitutional: Weakness Eyes: Vision Change ENT: No Symptoms Reported Respiratory: Cough, Shortness of Breath, SOB with Excertion, Pleuritic Pain and Wheezing Cardiovascular: Chest Pain Gastrointestinal: No Symptoms Reported Genitourinary: No Symptoms Reported Musculoskeletal: Back Pain and Leg Pain Skin: Bruising Neurological: Confusion Physical Exam Vital Signs: Temperature 98.0 F Pulse Rate 89 Respiratory Rate 20 Blood Pressure [Right Arm] 109/76 Blood Pressure [Left Arm] 113/78 Blood Pressure 107/59 O2 Sat by Pulse Oximetry 100 Oriented: Normal and Other (frail, cachectic woman) Eyes: Normal Nose: Normal Respiratory: Rhonchi Throughout and Wheezes Throughout Cardiovascular: Normal Auscultation: Bowel Sounds: Normal Palpation: Normal Tenderness: Normal Skin: Bruising (left knee, restricted ROM, redness and swelling noted ) Musculoskeletal: Normal and Leg (left leg weakness noted, upper ext b/l normal ) Psychiatric: Normal Mood Description: Calm Affect: Normal Speech Pattern: Clear Assessment/Plan (1) Dyspnea: Qualifiers: Dyspnea type: shortness of breath Qualified Code(s): R06.02 - Shortness of breath; R06.00 - Dyspnea, unspecified; R06.01 - Orthopnea Status: Acute Plan: COPD exacerbation with pneumonia Continue IV abx, duonebs, IS Add solumedrol O2 to keep sats > 92% (2) Acute hypokalemia: Status: Acute Plan: replace as per protocol (3) Hypotension: Qualifiers: Hypotension type: unspecified hypotension type Qualified Code(s): I95.9 - Hypotension, unspecified Status: Acute Plan: SBP in 80s on admission, improved with IVF continue gentle hydration (4) Chest pain: Qualifiers: Chest pain type: precordial pain Qualified Code(s): R07.2 - Precordial pain Status: Acute Plan: likely pleuritic in nature, trop x 1 (-), no EKG changes, trend tro ponins (5) Frequent falls: Status: Acute Plan: patient with a hx of recurrent falls, confusion, hx of brain aneu rysm. Will get a CT-head to evaluate further (6) Left knee sprain: Qualifiers: Encounter type: initial encounter Involved ligament of knee: unspecified ligament Qualified Code(s): S83.92XA - Sprain of unspecified site of left knee, initial encounter Status: Acute Plan: XR (05/04/19) No acute fracture or malalignment of the left knee. Mild medial femorotibial compartment osteoarthrosis and suspected small Continue pain control suprapatellar joint effusion. (7) Right lower lobe pneumonia: Qualifiers: Pneumonia type: due to unspecified organism Qualified Code(s): J18.9 - Pneumonia, unspecified organism Status: Acute Plan: Continue Ceftazidime and Doxycycline Follow blood and sputum cultures (8) Arthritis: Status: Chronic (9) COPD exacerbation: Status: Acute (10) Hypoglycemia: Status: Acute Plan: BG low in the ED, improved. Will monitor finger stick BID (11) Protein calorie malnutrition: Qualifiers: Protein-calorie malnutrition severity: severe Qualified Code(s): E43 - Unspecified severe protein-calorie malnutrition Status: Acute Plan: will add protein supplement with meals. Review H&P Reviewed: Yes Patient was examined?: Yes
[2019-05-05] MEDS: POTASSIUM CHLORIDE LIQ 20 MEQ UDC PO SCH (16:59)
[2019-05-05] MEDS: PROVENTIL NEB TX 0.083% 2.5MG/ 3ML NEB SCH ×2 (17:09→23:58)
[2019-05-05] MEDS ORDERED: SALINE 3% 15 ML NEB TX NEB ONE (18:00)
[2019-05-05 18:58] LABS: CKMB % 1.6 % (<4); CREATINE KINASE 206 Units/L (26-192); CREATINE KINASE MB 3.3 ng/mL (0-4.0); TROPONIN I < 0.02 ng/mL (0-1.5)
[2019-05-05] MEDS ORDERED: VIBRAMYCIN PO SCH (21:00)
[2019-05-05] MEDS: FORTAZ or TAZICEF VIAL INJ 1 G in NS 100 ML IV + SPIKE MINIBAG* 100 ML IV SCH (21:05)
[2019-05-06 00:41] LABS: CKMB % 1.7 % (<4); CREATINE KINASE 160 Units/L (26-192); CREATINE KINASE MB 2.7 ng/mL (0-4.0); TROPONIN I < 0.02 ng/mL (0-1.5)
[2019-05-06] MEDS: PROVENTIL NEB TX 0.083% 2.5MG/ 3ML NEB SCH ×2 (05:04)
[2019-05-06 05:18] LABS: BASOPHILS % (AUTO) 0.1 % (0.2-1.0); EOSINOPHILS % (AUTO) 0.2 % (0.9-2.9); HEMATOCRIT 37.6 % (36.0-47.0); LYMPHOCYTES # (AUTO) 0.8 X10^3/uL (1.3-2.9); LYMPHOCYTES % (AUTO) 5.5 % (21.0-51.0); MEAN CORPUSCULAR HEMOGLOBIN 30.2 pg (27.0-34.0); MEAN CORPUSCULAR HGB CONC 31.8 g/dL (33.0-35.0); MEAN CORPUSCULAR VOLUME 95.1 fL (80.0-100.0); MEAN PLATELET VOLUME 10.7 fL (7.4-11.0); MONOCYTES # (AUTO) 0.1 x10^3/uL (0.3-0.8); MONOCYTES % (AUTO) 0.4 % (0.0-13.0); NEUTROPHILS # (AUTO) 13.6 x10^3/uL (2.2-4.8); NEUTROPHILS % (AUTO) 93.8 % (42.0-75.0); PLATELET COUNT 300 X10^3/uL (150.0-450.0); RED BLOOD COUNT 3.96 X10^6/uL (3.5-5.4); RED CELL DISTRIBUTION WIDTH 15.5 % (11.6-16.5); WHITE BLOOD COUNT 14.5 X10^3/uL (3.6-10.0)
[2019-05-06] MEDS: NS 1/2 1000 ML IV 1,000 ML IV SCH (05:35)
[2019-05-06 05:41] LABS: PLATELET MORPHOLOGY COMMENT NORMAL (NORMAL)
[2019-05-06 05:42] LABS: ALANINE AMINOTRANSFERASE 15 Units/L (12-78); ALBUMIN 2.8 g/dL (3.4-5.0); ALKALINE PHOSPHATASE 86 Units/L (46-116); ASPARTATE AMINO TRANSFERASE 26 Units/L (15-37); BLOOD UREA NITROGEN 9 mg/dL (7-18); CALCIUM 8.7 mg/dL (8.5-10.1); CARBON DIOXIDE 35.9 mmol/L (21-32); CHLORIDE 105 mmol/L (98-107); COR CA(FOR HYPOALB) 9.7 mg/dL (8.5-10.1); COR NA(FOR HYPERGLY) 144 mmol/L (136-145); CREATININE 0.91 mg/dL (0.55-1.02); SODIUM 143 mmol/L (136-145); TOTAL PROTEIN 6.8 g/dL (6.4-8.2); eGFR NON BLACK RACES > 60 (>60)
[2019-05-06] MEDS: FORTAZ or TAZICEF VIAL INJ 1 G in NS 100 ML IV + SPIKE MINIBAG* 100 ML IV SCH (05:56)
[2019-05-06] MEDS: POTASSIUM CHLORIDE LIQ 20 MEQ UDC PO SCH (06:01)
[2019-05-06] MEDS ORDERED: VIBRAMYCIN PO SCH (09:00)
[2019-05-06] MEDS ORDERED: OMNICEF CAP 300 MG PO SCH (09:00)
[2019-05-06] MEDS: NORCO 10/325 TAB PO SCH (09:02)
[2019-05-06] MEDS: SOLU-Medrol 40 MG VIAL IVP SCH ×2 (09:03→09:25)
[2019-05-06 09:24] VITALS: BP 87/50
--- NOTE | 2019-05-06 11:12 | W.DIS.FURT ---
Summary of Discharge Discharge Summary of Date Date of Exam: 05/06/19 Admission Date Date of Admission: 05/05/19 Admission Diagnosis Patient Problems (Updated 05/06/19 @ 11:09 by Jada Avalos) Protein calorie malnutrition (Acute) E46 Hypoglycemia (Acute) E16.2 Frequent falls (Acute) R29.6 Right lower lobe pneumonia (Acute) J18.9 Urinary tract infection (Acute) N39.0 Hospital Course: Ms. Quezada is a 63y/o female with a PMH of chronic back pain on opioids and benzodiazepine, tobacco user, brain aneurysm repair, COPD and VANIA on home o2 at bedtime presented with worsening SOB, dizziness and recurrent falls. Patient initially presented to the ED on 05/04/19 and was found to have RLL pneumonia but refused admission and signed out AMA. She returned back the next day for treatment. She was more drowsy when she came back, dose of narcan was given. Patient denied overdosing on her opioids or benzodiazepines. She was started on IV abx ceftazadime and doxycycline. She was hypotensive and received IV fluids. Cultures were obtained. Her electrolytes were monitored and replaced as needed. She was using 2-[address] L oxygen [address]. [address] head was done due to her having recurrent falls which was negative for any acute issues. Patient was adamant about leaving today. She was assessed by RT and sats were 90% on room air as patient ambulated in the room. She does have oxygen at home and uses 2L at bedtime. She refused physical therapy assessment. She was discharged on oral abx doxycycline and cefdinir for 5 days. She will follow up with PCP Dr. Christensen within one week. Patient was stable for discharge. Vital Signs: Vital Signs (72 hours) 05/05/19 02:00 05/05/19 10:08 05/05/19 10:32 Temperature 98.0 F Pulse Rate 102 H Pulse Rate [Right Brachial] Respiratory Rate 18 Blood Pressure 109/66 109/56 84/57 Blood Pressure [Right Arm] O2 Sat by Pulse Oximetry 90 L 05/05/19 10:45 05/05/19 11:00 05/05/19 11:01 Temperature Pulse Rate 90 88 90 Pulse Rate [Right Brachial] Respiratory Rate Blood Pressure 118/56 Blood Pressure [Right Arm] O2 Sat by Pulse Oximetry 100 100 100 05/05/19 11:15 05/05/19 11:30 05/05/19 11:31 Temperature Pulse Rate 90 89 84 Pulse Rate [Right Brachial] Respiratory Rate Blood Pressure 95/51 Blood Pressure [Right Arm] O2 Sat by Pulse Oximetry 100 100 100 05/05/19 11:45 05/05/19 12:15 05/05/19 12:30 Temperature Pulse Rate 89 85 Pulse Rate [Right Brachial] Respiratory Rate Blood Pressure 122/57 Blood Pressure [Right Arm] O2 Sat by Pulse Oximetry 98 96 05/05/19 12:31 05/05/19 13:00 05/05/19 13:15 Temperature Pulse Rate 84 90 91 H Pulse Rate [Right Brachial] Respiratory Rate Blood Pressure 90/46 121/62 Blood Pressure [Right Arm] O2 Sat by Pulse Oximetry 98 95 99 05/05/19 13:30 05/05/19 15:16 05/05/19 15:54 Temperature Pulse Rate 89 89 Pulse Rate [Right Brachial] Respiratory Rate 20 Blood Pressure 107/59 107/59 Blood Pressure [Right Arm] O2 Sat by Pulse Oximetry 100 100 05/05/19 16:00 05/05/19 16:54 05/05/19 17:09 Temperature 98.3 F Pulse Rate 96 H Pulse Rate [Right Brachial] 102 H Respiratory Rate 20 20 Blood Pressure Blood Pressure [Right Arm] 96/49 O2 Sat by Pulse Oximetry 92 L 95 05/05/19 18:00 05/05/19 18:15 05/05/19 18:30 Temperature Pulse Rate Pulse Rate [Right Brachial] Respiratory Rate Blood Pressure Blood Pressure [Right Arm] O2 Sat by Pulse Oximetry 95 96 97 05/05/19 20:00 05/05/19 20:53 05/05/19 21:53 Temperature 98.4 F Pulse Rate Pulse Rate [Right Brachial] 96 H Respiratory Rate 18 20 18 Blood Pressure Blood Pressure [Right Arm] 128/62 O2 Sat by Pulse Oximetry 93 L 05/05/19 23:58 05/06/19 00:00 05/06/19 04:00 Temperature 98.0 F 98.2 F Pulse Rate Pulse Rate [Right Brachial] 99 H 94 H Respiratory Rate 18 16 Blood Pressure Blood Pressure [Right Arm] 91/52 108/59 O2 Sat by Pulse Oximetry 95 92 L 96 05/06/19 08:00 05/06/19 09:02 05/06/19 09:20 Temperature 98.7 F 98.2 F Pulse Rate Pulse Rate [Right Brachial] 95 H Respiratory Rate 18 18 18 Blood Pressure 107/59 Blood Pressure [Right Arm] 87/50 O2 Sat by Pulse Oximetry 97 90 L Labs: Laboratory Last Values WBC 14.5 X10^3/uL (3.6-10.0) H 05/06/19 04:33 RBC 3.96 X10^6/uL (3.5-5.4) 05/06/19 04:33 Hgb 12.0 g/dL (12.0-16.0) D 05/06/19 04:33 Hct 37.6 % (36.0-47.0) 05/06/19 04:33 MCV 95.1 fL (80.0-100.0) 05/06/19 04:33 MCH 30.2 pg (27.0-34.0) 05/06/19 04:33 MCHC 31.8 g/dL (33.0-35.0) L 05/06/19 04:33 RDW 15.5 % (11.6-16.5) 05/06/19 04:33 Plt Count 300 X10^3/uL (150.0-450.0) 05/06/19 04:33 Plt Count Comment Adequate (ADEQUATE) 05/06/19 04:33 MPV 10.7 fL (7.4-11.0) 05/06/19 04:33 Neut % (Auto) 93.8 % (42.0-75.0) H 05/06/19 04:33 Lymph % (Auto) 5.5 % (21.0-51.0) L 05/06/19 04:33 [place] % (Auto) 0.4 % (0.0-13.0) 05/06/19 04:33 Eos % (Auto) 0.2 % (0.9-2.9) L 05/06/19 04:33 Baso % (Auto) 0.1 % (0.2-1.0) L 05/06/19 04:33 Neut # (Auto) 13.6 x10^3/uL (2.2-4.8) H 05/06/19 04:33 Lymph # (Auto) 0.8 X10^3/uL (1.3-2.9) L 05/06/19 04:33 [place] # (Auto) 0.1 x10^3/uL (0.3-0.8) L 05/06/19 04:33 Eos # (Auto) 0.0 x10^3/uL (0.0-0.2) 05/06/19 04:33 Baso # (Auto) 0.0 X10^3/uL (0.0-0.1) 05/06/19 04:33 Absolute Nucleated RBC 0.0 /100WBC 05/06/19 04:33 Total Counted 100 05/06/19 04:33 Neutrophils % (Manual) 87 % (39-76) H 05/06/19 04:33 Lymphocytes % (Manual) 12 % (13-43) L 05/06/19 04:33 Monocytes % (Manual) 1 % (4-9) L 05/06/19 04:33 Giant Platelets Few 05/05/19 11:00 Plt Morphology Comment Normal (NORMAL) 05/06/19 04:33 RBC Morphology Normal (NORMAL) 05/06/19 04:33 Sodium 143 mmol/L (136-145) 05/06/19 04:33 Corrected Sodium 144 mmol/L (136-145) 05/06/19 04:33 Potassium 4.2 mmol/L (3.5-5.1) 05/06/19 04:33 Chloride 105 mmol/L (98-107) 05/06/19 04:33 Carbon Dioxide 35.9 mmol/L (21-32) H 05/06/19 04:33 BUN 9 mg/dL (7-18) 05/06/19 04:33 Creatinine 0.91 mg/dL (0.55-1.02) 05/06/19 04:33 Est GFR (MDRD) Af Amer > 60 (>60) 05/06/19 04:33 Est GFR (MDRD) Non-Af > 60 (>60) 05/06/19 04:33 Glucose 147 mg/dL (65-99) H 05/06/19 04:33 POC Glucose (mg/dL) 145 mg/dL (65-99) H 05/05/19 20:50 Lactic Acid 1.2 mmol/L (0.4-2.0) 05/05/19 11:00 Calcium 8.7 mg/dL (8.5-10.1) 05/06/19 04:33 Corrected Calcium 9.7 mg/dL (8.5-10.1) 05/06/19 04:33 Magnesium 2.0 mg/dL (1.7-2.9) 05/06/19 04:33 Iron 29 ug/dL (50-175) L 05/06/19 08:22 Transferrin 171 mg/dL (202-364) L 05/06/19 08:22 Ferritin 229 ng/mL (8-252) 05/06/19 08:22 Total Bilirubin 0.20 mg/dL (0.2-1.0) 05/06/19 04:33 AST 26 Units/L (15-37) 05/06/19 04:33 ALT 15 Units/L (12-78) 05/06/19 04:33 Alkaline Phosphatase 86 Units/L (46-116) 05/06/19 04:33 Creatine Kinase 160 Units/L (26-192) 05/06/19 00:14 CK-MB (CK-2) 2.7 ng/mL (0-4.0) 05/06/19 00:14 CK/CKMB % Calc 1.7 % (<4) 05/06/19 00:14 Troponin I < 0.02 ng/mL (0-1.5) 05/06/19 00:14 Total Protein 6.8 g/dL (6.4-8.2) 05/06/19 04:33 Albumin 2.8 g/dL (3.4-5.0) L 05/06/19 04:33 Globulin 4.0 g/dL (2.5-4.5) 05/06/19 04:33 Albumin/Globulin Ratio 0.7 Ratio (1.1-2.1) L 05/06/19 04:33 Vitamin B12 614 pg/mL (193-986) 05/06/19 08:22 Folate 3.6 ng/mL (>8.6) L 05/06/19 08:22 Specimen Type Random urine 05/05/19 12:16 Urine Color Yellow (YELLOW) 05/05/19 12:16 Urine Appearance Cloudy (CLEAR) 05/05/19 12:16 Urine pH 6.0 (5.0 - 8.0) 05/05/19 12:16 Ur Specific [place] 1.010 (1.000-1.030) 05/05/19 12:16 Urine Protein 2+ (NEGATIVE) 05/05/19 12:16 Urine Glucose (UA) Negative (NEGATIVE) 05/05/19 12:16 Urine Ketones Negative (NEGATIVE) 05/05/19 12:16 Urine Occult Blood 2+ (NEGATIVE) 05/05/19 12:16 Urine Nitrite Negative (NEGATIVE) 05/05/19 12:16 Urine Bilirubin Negative (NEGATIVE) 05/05/19 12:16 Urine Urobilinogen Normal (NORMAL) 05/05/19 12:16 Ur Leukocyte Esterase 3+ (NEGATIVE) 05/05/19 12:16 Urine RBC 5-10 /HPF (0-3) A 05/05/19 12:16 Urine WBC Tntc /HPF (0-5) A 05/05/19 12:16 Ur Squamous Epith Cells Moderate /HPF (NEGATIVE) 05/05/19 12:16 Urine Bacteria Trace /HPF (NEGATIVE) 05/05/19 12:16 Ur Culture Indicated? No/not indicated 05/05/19 12:16 Urine Opiates Screen Negative (NEG=<300) 05/05/19 12:16 Urine Methadone Screen Negative (NEG=<300) 05/05/19 12:16 Ur Barbiturates Screen Negative (NEG=<200) 05/05/19 12:16 Ur Phencyclidine Scrn Negative (NEG=<25) 05/05/19 12:16 Ur Amphetamines Screen Negative (NEG=<1000) 05/05/19 12:16 U Benzodiazepines Scrn Negative (NEG=<200) 05/05/19 12:16 Urine Cocaine Screen Negative (NEG=<300) 05/05/19 12:16 U Marijuana (THC) Screen Negative (NEG=<50) 05/05/19 12:16 Reason For Visit: RLL PNEUMONIA UTI HYPOTENSION CHRONIC PAIN Discharge Date Discharge Date: 05/06/19 Discharge Diagnosis All Active Problems (Updated 05/06/19 @ 11:09 by Jada Avalos) Protein calorie malnutrition (Acute) Hypoglycemia (Acute) Frequent falls (Acute) Chronic respiratory failure (Chronic) COPD (chronic obstructive pulmonary disease) (Acute) Generalized muscle weakness (Acute) COPD (chronic obstructive pulmonary disease) (Acute) Dyspnea (Acute) Acute confusion (Acute) Acute hypokalemia (Acute) Hypotension (Acute) Chronic dyspnea (Acute) Acute hypokalemia (Acute) Chest pain (Acute) Dizziness (Acute) Left knee sprain (Acute) Right lower lobe pneumonia (Acute) Urinary tract infection (Acute) COPD exacerbation (Acute) Bronchitis (Acute) Chronic cough (Chronic) COPD (chronic obstructive pulmonary disease) (Chronic) Pyorrhea gum disease (Chronic) Arthritis (Chronic) Colon cancer (Chronic) DJD (degenerative joint disease) of cervical spine (Chronic) Anxiety (Chronic) Plan of Treatment: Continue with present treatment and follow up plan. Pt is to keep follow up appointment as instructed and take medications as ordered. Discharge Medications Discharge Medications: aspirin Allergy (Verified 05/04/19 19:52) morphine Allergy (Verified 05/04/19 19:52) Penicillins Allergy (Verified 05/04/19 19:52) prednisone Allergy (Verified 05/04/19 19:52) tea Allergy (Uncoded 05/04/19 19:52) CONTINUE taking the following medications Effer-K 10 meq PO BID 05/05/19 [History] albuterol sulfate [Proventil HFA] 2 puff INHALATION QID PRN 05/05/19 [History] alendronate 70 mg PO WEEKLY 05/05/19 [History] alprazolam 0.5 mg PO BID PRN 05/05/19 [History] ipratropium-albuterol 3 ml INHALATION Q6H 05/05/19 [History] mirtazapine 7.5 mg PO HS 05/05/19 [History] pregabalin [Lyrica] 200 mg PO TID 05/05/19 [History] quetiapine 50 mg PO BID PRN 05/05/19 [History] theophylline 200 mg PO DAILY 05/05/19 [History] New Prescriptions cefdinir 300 mg PO Q12HR 5 Days #10 cap 05/06/19 [Rx] doxycycline hyclate 100 mg PO BID 5 Days #10 cap 05/06/19 [Rx] Follow up and Referral Follow Up: 1 Week (PCP) Discharge Disposition Assessment: Patient stable no acute distress noted at time of discharge. Discharge Disposition: Stable
== END 2019-05-06 09:40 | disposition home or self-care (01) | DRG 193 ==
LOC: ER 10:00 → MED/SURG 13:17
PROVIDERS: ADMIT Family Medicine; ATTEND Family Medicine
DX: J18.8 Other pneumonia, unspecified organism; S83.92XA Sprain of unspecified site of left knee, initial encounter; E43 Unspecified severe protein-calorie malnutrition; R29.6 Repeated falls; M19.90 Unspecified osteoarthritis, unspecified site; R06.02 Shortness of breath; N39.0 Urinary tract infection, site not specified; Z72.0 Tobacco use; R51 Headache; Z79.899 Other long term (current) drug therapy; R07.2 Precordial pain; J44.1 Chronic obstructive pulmonary disease with (acute) exacerbation; I95.89 Other hypotension; W18.39XA Other fall on same level, initial encounter; R73.09 Other abnormal glucose; Y92.9 Unspecified place or not applicable; E87.6 Hypokalemia
CPT/HCPCS: 36415; 70450; 71010; 71045; 73564; 80053; 80307; 81001; 82550; 82553; 82607; 82728; 82746; 83540; 83605; 83735; 84466; 84484; 85025; 87040; 87086; 93005; 94640; 94760; 96365; 96374; 96375; 99283; 99284; A4222; G0434; J0713; J2310; J2920; J7030; J7050; J7613

== ENCOUNTER 2019-05-26 14:00 | Observation (INO) ==
[2019-05-26] MEDS ORDERED: NS 500 ML IV 500 ML IV ONE ×2 (14:31→14:40)
[2019-05-26 15:04] LABS: BASOPHILS # (AUTO) 0.2 X10^3/uL (0.0-0.1); BASOPHILS % (AUTO) 1.4 % (0.2-1.0); EOSINOPHILS % (AUTO) 0.2 % (0.9-2.9); HEMATOCRIT 38.3 % (36.0-47.0); HEMOGLOBIN 12.8 g/dL (12.0-16.0); LYMPHOCYTES # (AUTO) 3.1 X10^3/uL (1.3-2.9); LYMPHOCYTES % (AUTO) 27.7 % (21.0-51.0); MEAN CORPUSCULAR HEMOGLOBIN 31.3 pg (27.0-34.0); MEAN CORPUSCULAR HGB CONC 33.4 g/dL (33.0-35.0); MEAN CORPUSCULAR VOLUME 93.7 fL (80.0-100.0); MEAN PLATELET VOLUME 10.3 fL (7.4-11.0); MONOCYTES # (AUTO) 0.9 x10^3/uL (0.3-0.8); MONOCYTES % (AUTO) 7.7 % (0.0-13.0); PLATELET COUNT 266 X10^3/uL (150.0-450.0); RED BLOOD COUNT 4.09 X10^6/uL (3.5-5.4); RED CELL DISTRIBUTION WIDTH 14.5 % (11.6-16.5); WHITE BLOOD COUNT 11.2 X10^3/uL (3.6-10.0)
[2019-05-26] MEDS ORDERED: SOLU-Medrol 125 MG VIAL IVP ONE (15:15)
[2019-05-26] MEDS ORDERED: DUONEB 0.5 MG/3 MG (3 mL) NEB ONE ×2 (15:16→15:26)
[2019-05-26 15:28] LABS: ALANINE AMINOTRANSFERASE 7 Units/L (12-78); ALBUMIN 3.4 g/dL (3.4-5.0); ALKALINE PHOSPHATASE 75 Units/L (46-116); ASPARTATE AMINO TRANSFERASE 14 Units/L (15-37); BLOOD UREA NITROGEN 14 mg/dL (7-18); CARBON DIOXIDE 32.6 mmol/L (21-32); CHLORIDE 102 mmol/L (98-107); CKMB % 2.9 % (<4); CREATINE KINASE 41 Units/L (26-192); CREATINE KINASE MB 1.2 ng/mL (0-4.0); CREATININE 0.68 mg/dL (0.55-1.02); SODIUM 140 mmol/L (136-145); TOTAL PROTEIN 6.6 g/dL (6.4-8.2); TROPONIN I < 0.02 ng/mL (0-1.5); eGFR NON BLACK RACES > 60 (>60)
[2019-05-26] MEDS ORDERED: SOLU-Medrol 125 MG VIAL ONE (15:52)
[2019-05-26] MEDS ORDERED: HALDOL INJ ONE (16:32)
[2019-05-26] MEDS ORDERED: HALDOL INJ IVP ONE (16:35)
[2019-05-26] MEDS ORDERED: BENADRYL INJ 50 MG VIAL IVP ONE (17:27)
[2019-05-26] MEDS ORDERED: ATIVAN INJ 2 MG VIAL IVP ONE (17:28)
[2019-05-26] MEDS ORDERED: ATIVAN INJ 2 MG VIAL ONE (17:29)
[2019-05-26] MEDS ORDERED: BENADRYL INJ 50 MG VIAL ONE (17:29)
[2019-05-26] MEDS ORDERED: K-LYTE EFFERVESCENT ONE (18:18)
[2019-05-26] MEDS: K-LYTE EFFERVESCENT PO SCH (18:23)
--- NOTE | 2019-05-26 18:31 | CT ---
HISTORY: Mental status changesStudy: CT brain without contrastComparison: 05/05/2019Technique:Multiple axial images of the brain were obtained from the skull base to the vertex without administration of IV contrast. Automated dose control was utilized.Findings:The ventricles are mildly enlarged with diffuse mild prominence of the cortical sulci which is unchanged. There is mild periventricular low density bilaterally which is unchanged. No intracranial hemorrhage or edema is seen. There is no extra-axial fluid collection or mass. There is a craniotomy flap along the left frontoparietal region which is unchanged. The midline structures are unremarkable.IMPRESSION:Mild atrophy and mild chronic microischemic changes scattered in the deep white matter which is unchanged with no acute abnormality seen.Previous left frontoparietal craniotomy with the craniotomy flap unchanged in position.Electronically signed by: BETTY BISHOP (May 26, 2019 18:29:31)
--- NOTE | 2019-05-26 18:36 | RAD ---
HISTORYAMS, COUGHSTUDYCHEST, 1 [id number] trachea is midline. The cardiac silhouette is unremarkable . The lungs demonstrate interstitial coarsening, upper lobe predominant increased lucency and hyperexpansion which are consistent with changes associated with COPD. The lungs are clear without focal infiltrate or effusion. The bony thorax is unremarkable.[ ]IMPRESSIONCOPD without acute cardiopulmonary abnormality.Electronically signed by: SARA GONZALES (May 26, 2019 18:34:59)
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
[2019-05-26] MEDS ORDERED: PROVENTIL NEB TX 0.083% 2.5MG/ 3ML NEB PRN (19:27)
[2019-05-26] MEDS ORDERED: LEVAQUIN PREMIX IV 500 MG 500 MG/100 ML BAG IV ONE (19:46)
[2019-05-26] MEDS ORDERED: NS 1000 ML 1,000 ML ONE (19:47)
[2019-05-26] MEDS: LEVAQUIN PREMIX IV 500 MG 500 MG/100 ML BAG IV SCH (19:48)
[2019-05-26] MEDS: NS 1000 ML 1,000 ML IV SCH (19:49)
[2019-05-26 20:12] LABS: CKMB % 2.3 % (<4); CREATINE KINASE 62 Units/L (26-192); CREATINE KINASE MB 1.4 ng/mL (0-4.0); TROPONIN I < 0.02 ng/mL (0-1.5)
[2019-05-26] MEDS: PULMICORT NEB TX 0.5 MG NEB SCH (20:40)
[2019-05-26] MEDS: DUONEB 0.5 MG/3 MG (3 mL) NEB SCH (20:40)
[2019-05-26 20:44] VITALS: BMI 15.7
[2019-05-26] MEDS ORDERED: ACCUNEB 1.25 MG NEBULE NEB SCH (21:00)
[2019-05-26 21:19] LABS: BILIRUBIN,URINE NEGATIVE (NEGATIVE); BLOOD/HEMOGLOBIN,URINE NEGATIVE (NEGATIVE); GLUCOSE, URINE 2+ (NEGATIVE); KETONES,URINE NEGATIVE (NEGATIVE); LEUKOCYTE ESTERASE ,URINE 1+ (NEGATIVE); NITRITES,URINE NEGATIVE (NEGATIVE); PROTEIN,URINE NEGATIVE (NEGATIVE); UROBILINOGEN,URINE NORMAL (NORMAL)
[2019-05-26 21:24] LABS: APPEARANCE,URINE SLIGHTLY HAZY (CLEAR); BACTERIA,URINE TRACE /HPF (NEGATIVE); COLOR,URINE PALE YELLOW (YELLOW); RBC,URINE NONE SEEN /HPF (0-3); SQUAMOUS EPITHELIAL CELL,UR RARE /HPF (NEGATIVE)
[2019-05-26] MEDS: SOLU-Medrol 125 MG VIAL IVP SCH (21:37)
[2019-05-26] MEDS: NORCO 7.5/325 MG TAB PO PRN (21:38)
[2019-05-27] MEDS: XANAX PO PRN ×2 (01:49→08:52)
[2019-05-27 02:09] LABS: CKMB % 2.7 % (<4); CREATINE KINASE 64 Units/L (26-192); CREATINE KINASE MB 1.7 ng/mL (0-4.0); TROPONIN I < 0.02 ng/mL (0-1.5)
[2019-05-27] MEDS: SOLU-Medrol 125 MG VIAL IVP SCH (06:28)
[2019-05-27 07:50] LABS: BASOPHILS # (AUTO) 0.1 X10^3/uL (0.0-0.1); BASOPHILS % (AUTO) 0.7 % (0.2-1.0); EOSINOPHILS % (AUTO) 0.3 % (0.9-2.9); HEMATOCRIT 33.8 % (36.0-47.0); HEMOGLOBIN 11.2 g/dL (12.0-16.0); LYMPHOCYTES % (AUTO) 9.6 % (21.0-51.0); MEAN CORPUSCULAR HEMOGLOBIN 31.3 pg (27.0-34.0); MEAN CORPUSCULAR HGB CONC 33.1 g/dL (33.0-35.0); MEAN CORPUSCULAR VOLUME 94.4 fL (80.0-100.0); MEAN PLATELET VOLUME 10.4 fL (7.4-11.0); MONOCYTES # (AUTO) 0.3 x10^3/uL (0.3-0.8); MONOCYTES % (AUTO) 2.4 % (0.0-13.0); NEUTROPHILS # (AUTO) 9.3 x10^3/uL (2.2-4.8); PLATELET COUNT 206 X10^3/uL (150.0-450.0); RED BLOOD COUNT 3.58 X10^6/uL (3.5-5.4); RED CELL DISTRIBUTION WIDTH 14.5 % (11.6-16.5); WHITE BLOOD COUNT 10.7 X10^3/uL (3.6-10.0)
[2019-05-27 07:56] LABS: ALANINE AMINOTRANSFERASE 10 Units/L (12-78); ALBUMIN 3.2 g/dL (3.4-5.0); ALKALINE PHOSPHATASE 80 Units/L (46-116); ASPARTATE AMINO TRANSFERASE 12 Units/L (15-37); BLOOD UREA NITROGEN 7 mg/dL (7-18); CALCIUM 8.3 mg/dL (8.5-10.1); CARBON DIOXIDE 28.8 mmol/L (21-32); CHLORIDE 105 mmol/L (98-107); COR CA(FOR HYPOALB) 8.9 mg/dL (8.5-10.1); COR NA(FOR HYPERGLY) 142 mmol/L (136-145); CREATININE 0.65 mg/dL (0.55-1.02); SODIUM 141 mmol/L (136-145); TOTAL PROTEIN 6.3 g/dL (6.4-8.2); eGFR NON BLACK RACES > 60 (>60)
[2019-05-27 08:06] LABS: CKMB % 2.7 % (<4); CREATINE KINASE 55 Units/L (26-192); CREATINE KINASE MB 1.5 ng/mL (0-4.0); TROPONIN I < 0.02 ng/mL (0-1.5)
[2019-05-27] MEDS: PULMICORT NEB TX 0.5 MG NEB SCH ×2 (08:34→21:35)
[2019-05-27] MEDS: DUONEB 0.5 MG/3 MG (3 mL) NEB SCH ×4 (08:34→21:35)
[2019-05-27] MEDS: NORCO 7.5/325 MG TAB PO PRN ×3 (08:52→21:31)
[2019-05-27] MEDS: LEVAQUIN PREMIX IV 500 MG 500 MG/100 ML BAG IV SCH (08:52)
[2019-05-27] MEDS: NS 1000 ML 1,000 ML IV SCH ×2 (08:53→21:36)
[2019-05-27] MEDS: K-LYTE EFFERVESCENT PO SCH (08:53)
--- NOTE | 2019-05-27 13:58 | DR.H&P ---
H&P - History & Physical for Day of: H&P Date: 05/26/19 - Chief Complaint Chief Complaint: AMS, SOB - History of Present Illness History of Present Illness: Pt is a 63 y/o WF who present to the [facility] ER via EMS due to AMS and c/o severe SOB. The pt initially refused CXR and CT head. Pt was noted to have repetitive speech. Family members were initially present who subsequently left the facility while she was still being evaluated in the ER. Family members request that the pt be placed in the NH for rehab. They state that pt can't take care of herself and lives alone. They describe marked weight loss over the last several months estimated to be greater than 30 lbs over the last 4-6 months. The patients respiratory status improved after A/A neb tx'; however, the pt was noted to have sats of 100% on arrival with O2 in place. The pt's mental status markedly improved after receiving IV haldol, benadryl and ativan. The pt is well to know to my service and is being admitted for further w/u. - Past Medical History Past Medical History: Hypothyroidism, COPD, Arthritis - Past Surgical History Surgical History: Neurosurgery, Ortho Surgery, Other Additional Surgical History: Brain aneurysm repair - Family History Family Medical History: Cancer, [place], Hypertension - Social History Does patient currently use any type of tobacco product: Yes Have you used tobacco products in the last 12 months: Yes Type of Tobacco Use: Cigarettes Alcohol Use: None Drug Use: None - Medications Home Medications: aspirin Allergy (Verified 05/26/19 14:17) morphine Allergy (Verified 05/26/19 14:17) Penicillins Allergy (Verified 05/26/19 14:17) prednisone Allergy (Verified 05/26/19 14:17) tea Allergy (Uncoded 05/26/19 14:17) CONTINUE taking the following medications gabapentin 600 mg PO TID 05/27/19 [History] hydrocodone-acetaminophen 1 tab PO TID PRN 05/27/19 [History] levocetirizine 5 mg PO DAILY 05/27/19 [History] levothyroxine 100 mcg PO DAILY 05/27/19 [History] zolpidem 10 mg PO HS PRN 05/27/19 [History] - Review of Systems Constitutional: Weakness Eyes: No Symptoms Reported ENT: No Symptoms Reported Respiratory: Shortness of Breath Cardiovascular: No Symptoms Reported Gastrointestinal: No Symptoms Reported Genitourinary: No Symptoms Reported Musculoskeletal: No Symptoms Reported Skin: No Symptoms Reported Neurological: Weakness, Confusion - Physical Exam Vital Signs: Temperature 98.1 F Pulse Rate [Left Brachial] 82 Pulse Rate 78 Respiratory Rate 18 Blood Pressure [Right Arm] 87/50 Blood Pressure [Left Arm] 103/51 Blood Pressure 91/59 O2 Sat by Pulse Oximetry 99 Eyes: Normal Ear: Normal Nose: Normal Throat: Normal Respiratory: Diminished Throughout, Wheezes Throughout Cardiovascular: Tachycardia : Normal Auscultation: Bowel Sounds: Normal Palpation: Normal Tenderness: Normal Skin: Decreased Turgur Musculoskeletal: Back:Lumbar, Motor Deficit Psychiatric: Anxiety Affect: Anxious Speech Pattern: Clear, Appropriate - Assessment/Plan (1) AMS (altered mental status) Status: Acute Plan: ADMIT, RESP THERAPY. IV ATBX, SPUTUM CULTURE ON ADMISSON. SUPPLEMENTAL O2, CXR ON ADMISSION. ABG, VERIFY HOME MEDICATION. GENTLE IV HYDRATION (2) Acute exacerbation of COPD with asthma Status: Acute (3) Frequent falls Status: Acute (4) Generalized muscle weakness Status: Acute (5) Anxiety Status: Chronic - Allergies Allergies/Adverse Reactions: Allergies Allergy/AdvReac Type Severity Reaction Status Date / Time aspirin Allergy Verified 05/26/19 14:17 morphine Allergy Verified 05/26/19 14:17 Penicillins Allergy Verified 05/26/19 14:17 prednisone Allergy Verified 05/26/19 14:17 tea Allergy Uncoded 05/26/19 14:17
[2019-05-27] MEDS ORDERED: SOLU-Medrol 125 MG VIAL IVP SCH (14:00)
--- NOTE | 2019-05-27 14:01 | PCM.PROG ---
Progress Note - Progress Note for Day of Date of Exam: 05/27/19 - Subjective Subjective: PT IS 63 WF ER ADMISSION YESTERDAY WITH AMS DUE TO SEDATION FROM MEDICATION AND HYPOXIA. PT HAS HX OF CHRONIC RESP FAILURE AND COPD EXACERBATION. PT IS CURRENLTY ON IV ATBX, RESP THERAPY. K 3.3, POTASSIUM REPLACEMENT THERAPY. PT IS CO MILD HEADACHE THIS AM AND CO GENERALIZED WEAKNESS. CASE MANAGEMENT CONSULTED FOR CORRECTION PLACEMENT FOLLOWING RESOLUTION OF ACUTE RESPIRATION ILLNESS. - Past Medical Family Social History Past Med/Fam/Surg Hx: No changes since H&P Allergies: Allergies aspirin Allergy (Verified 05/26/19 14:17) morphine Allergy (Verified 05/26/19 14:17) Penicillins Allergy (Verified 05/26/19 14:17) prednisone Allergy (Verified 05/26/19 14:17) tea Allergy (Uncoded 05/26/19 14:17) - Review of Systems ROS: No change since H&P - Vital Signs and I&O's Vital Signs: Temperature 98.1 F Pulse Rate [Left Brachial] 82 Pulse Rate 78 Respiratory Rate 18 Blood Pressure [Right Arm] 87/50 Blood Pressure [Left Arm] 103/51 Blood Pressure 91/59 O2 Sat by Pulse Oximetry 99 Intake and Output: Intake & Output 05/25/19 05/26/19 05/27/19 05/28/19 11:59 11:59 11:59 11:59 Intake Total 1710 / 1710 Balance 1710 / 1710 - Physical Exam Eyes: Normal Ear: Normal Nose: Normal Throat: Normal Respiratory: Diminished, Wheezes, Rhonchi Cardiovascular: Tachycardia : Normal Auscultation: Bowel Sounds: Normal Tenderness: Normal Skin: Decreased Turgur Musculoskeletal: Back:Lumbar, Motor Deficit Psychiatric: Anxiety Affect: Anxious Speech Pattern: Clear, Appropriate - Laboratory and Diagnostics Result Diagrams: 05/27/19 07:30 05/27/19 07:30 Labs: 05/26/19 21:07 Urine,Clean Catch Urine Culture - Preliminary Laboratory WBC 10.7 X10^3/uL (3.6-10.0) H 05/27/19 07:30 RBC 3.58 X10^6/uL (3.5-5.4) 05/27/19 07:30 Hgb 11.2 g/dL (12.0-16.0) L 05/27/19 07:30 Hct 33.8 % (36.0-47.0) L 05/27/19 07:30 MCV 94.4 fL (80.0-100.0) 05/27/19 07:30 MCH 31.3 pg (27.0-34.0) 05/27/19 07:30 MCHC 33.1 g/dL (33.0-35.0) 05/27/19 07:30 RDW 14.5 % (11.6-16.5) 05/27/19 07:30 Plt Count 206 X10^3/uL (150.0-450.0) 05/27/19 07:30 MPV 10.4 fL (7.4-11.0) 05/27/19 07:30 Neut % (Auto) 87.0 % (42.0-75.0) H 05/27/19 07:30 Lymph % (Auto) 9.6 % (21.0-51.0) L 05/27/19 07:30 [place] % (Auto) 2.4 % (0.0-13.0) 05/27/19 07:30 Eos % (Auto) 0.3 % (0.9-2.9) L 05/27/19 07:30 Baso % (Auto) 0.7 % (0.2-1.0) 05/27/19 07:30 Neut # (Auto) 9.3 x10^3/uL (2.2-4.8) H 05/27/19 07:30 Lymph # (Auto) 1.0 X10^3/uL (1.3-2.9) L 05/27/19 07:30 [place] # (Auto) 0.3 x10^3/uL (0.3-0.8) 05/27/19 07:30 Eos # (Auto) 0.0 x10^3/uL (0.0-0.2) 05/27/19 07:30 Baso # (Auto) 0.1 X10^3/uL (0.0-0.1) 05/27/19 07:30 Absolute Nucleated RBC 0.0 /100WBC 05/27/19 07:30 Sodium 141 mmol/L (136-145) 05/27/19 07:30 Corrected Sodium 142 mmol/L (136-145) 05/27/19 07:30 Potassium 3.3 mmol/L (3.5-5.1) L 05/27/19 07:30 Chloride 105 mmol/L (98-107) 05/27/19 07:30 Carbon Dioxide 28.8 mmol/L (21-32) 05/27/19 07:30 BUN 7 mg/dL (7-18) 05/27/19 07:30 Creatinine 0.65 mg/dL (0.55-1.02) 05/27/19 07:30 Est GFR (MDRD) Af Amer > 60 (>60) 05/27/19 07:30 Est GFR (MDRD) Non-Af > 60 (>60) 05/27/19 07:30 Glucose 131 mg/dL (65-99) H 05/27/19 07:30 POC Glucose (mg/dL) 267 mg/dL (65-99) H 05/26/19 20:30 Calcium 8.3 mg/dL (8.5-10.1) L 05/27/19 07:30 Corrected Calcium 8.9 mg/dL (8.5-10.1) 05/27/19 07:30 Total Bilirubin 0.20 mg/dL (0.2-1.0) 05/27/19 07:30 AST 12 Units/L (15-37) L 05/27/19 07:30 ALT 10 Units/L (12-78) L 05/27/19 07:30 Alkaline Phosphatase 80 Units/L (46-116) 05/27/19 07:30 Creatine Kinase 55 Units/L (26-192) 05/27/19 07:30 CK-MB (CK-2) 1.5 ng/mL (0-4.0) 05/27/19 07:30 CK/CKMB % Calc 2.7 % (<4) 05/27/19 07:30 Troponin I < 0.02 ng/mL (0-1.5) 05/27/19 07:30 Total Protein 6.3 g/dL (6.4-8.2) L 05/27/19 07:30 Albumin 3.2 g/dL (3.4-5.0) L 05/27/19 07:30 Globulin 3.1 g/dL (2.5-4.5) 05/27/19 07:30 Albumin/Globulin Ratio 1.0 Ratio (1.1-2.1) L 05/27/19 07:30 Specimen Type Clean catch urine 05/26/19 21:07 Urine Color Pale yellow (YELLOW) 05/26/19 21:07 Urine Appearance Slightly hazy (CLEAR) 05/26/19 21:07 Urine pH 6.0 (5.0 - 8.0) 05/26/19 21:07 Ur Specific [place] 1.015 (1.000-1.030) 05/26/19 21:07 Urine Protein Negative (NEGATIVE) 05/26/19 21:07 Urine Glucose (UA) 2+ (NEGATIVE) 05/26/19 21:07 Urine Ketones Negative (NEGATIVE) 05/26/19 21:07 Urine Occult Blood Negative (NEGATIVE) 05/26/19 21:07 Urine Nitrite Negative (NEGATIVE) 05/26/19 21:07 Urine Bilirubin Negative (NEGATIVE) 05/26/19 21:07 Urine Urobilinogen Normal (NORMAL) 05/26/19 21:07 Ur Leukocyte Esterase 1+ (NEGATIVE) 05/26/19 21:07 Urine RBC None seen /HPF (0-3) 05/26/19 21:07 Urine WBC 0-2 /HPF (0-5) 05/26/19 21:07 Ur Squamous Epith Cells Rare /HPF (NEGATIVE) 05/26/19 21:07 Urine Bacteria Trace /HPF (NEGATIVE) 05/26/19 21:07 Ur Culture Indicated? Yes/culture set up 05/26/19 21:07 - Plan (1) Acute exacerbation of COPD with asthma Status: Acute Plan: RESP THERAPY, IV ATBX, SUPPLEMENTAL O2. PULMONARY TOILETING. AM LABS, CXR (2) AMS (altered mental status) Status: Acute Plan: RESOLVED WITH TREATMENT OF ACUTE RESP DISTRESS (3) Frequent falls Status: Acute (4) Generalized muscle weakness Status: Acute (5) Anxiety Status: Chronic
[2019-05-27] MEDS ORDERED: SOLU-Medrol 125 MG VIAL ONE (14:12)
[2019-05-27] MEDS ORDERED: TYLENOL 325 MG TAB PO ONE (14:12)
[2019-05-27] MEDS: TYLENOL 325 MG TAB PO PRN ×2 (14:20→14:23)
[2019-05-27] MEDS: LOVENOX INJ 40 MG SYR SC SCH (14:22)
[2019-05-27] MEDS ORDERED: POTASSIUM CHLORIDE LIQ 20 MEQ UDC PO PRN (16:11)
[2019-05-27] MEDS ORDERED: K-DUR TAB 20 MEQ PO PRN (16:11)
[2019-05-27] MEDS ORDERED: K-RIDER 10 MEQ/NS 100 ML 10 MEQ/100 ML BAG IV PRN (16:11)
[2019-05-27] MEDS ORDERED: POTASSIUM CHL 40 MEQ/NS 0.45% 500 ML IV PRN (16:11)
[2019-05-27] MEDS ORDERED: KLOR-CON PO PRN (16:11)
[2019-05-27] MEDS ORDERED: POTASSIUM CHL 60 MEQ/NS 0.45% 500 ML IV PRN (16:11)
[2019-05-27] MEDS ORDERED: MICRO K EXTEN CAP 10 MEQ PO PRN (16:11)
[2019-05-27] MEDS ORDERED: K-DUR TAB 20 MEQ PO ONE (16:55)
[2019-05-27] MEDS ORDERED: MAGNESIUM SULFATE 1 GRAM/100 mL PREMIX 1 GM/100 ML BAG IV PRN (19:19)
[2019-05-27] MEDS: SOLU-Medrol 40 MG VIAL IVP SCH (21:32)
[2019-05-28] MEDS: XANAX PO PRN ×3 (00:15→14:53)
[2019-05-28 05:33] LABS: BASOPHILS # (AUTO) 0.2 X10^3/uL (0.0-0.1); BASOPHILS % (AUTO) 0.7 % (0.2-1.0); HEMATOCRIT 31.5 % (36.0-47.0); HEMOGLOBIN 10.3 g/dL (12.0-16.0); LYMPHOCYTES # (AUTO) 1.2 X10^3/uL (1.3-2.9); LYMPHOCYTES % (AUTO) 4.4 % (21.0-51.0); MEAN CORPUSCULAR HEMOGLOBIN 31.7 pg (27.0-34.0); MEAN CORPUSCULAR HGB CONC 32.8 g/dL (33.0-35.0); MEAN CORPUSCULAR VOLUME 96.6 fL (80.0-100.0); MEAN PLATELET VOLUME 11.3 fL (7.4-11.0); MONOCYTES # (AUTO) 0.7 x10^3/uL (0.3-0.8); MONOCYTES % (AUTO) 2.6 % (0.0-13.0); NEUTROPHILS # (AUTO) 26.2 x10^3/uL (2.2-4.8); NEUTROPHILS % (AUTO) 92.3 % (42.0-75.0); PLATELET COUNT 218 X10^3/uL (150.0-450.0); RED BLOOD COUNT 3.26 X10^6/uL (3.5-5.4); RED CELL DISTRIBUTION WIDTH 14.6 % (11.6-16.5)
[2019-05-28] MEDS: SOLU-Medrol 40 MG VIAL IVP SCH (05:34)
[2019-05-28] MEDS: NORCO 7.5/325 MG TAB PO PRN (05:35)
[2019-05-28 05:38] LABS: ALANINE AMINOTRANSFERASE 21 Units/L (12-78); ALBUMIN 3.1 g/dL (3.4-5.0); ALKALINE PHOSPHATASE 64 Units/L (46-116); ASPARTATE AMINO TRANSFERASE 31 Units/L (15-37); BLOOD UREA NITROGEN 6 mg/dL (7-18); CALCIUM 8.4 mg/dL (8.5-10.1); CHLORIDE 106 mmol/L (98-107); COR CA(FOR HYPOALB) 9.1 mg/dL (8.5-10.1); COR NA(FOR HYPERGLY) 141 mmol/L (136-145); CREATININE 0.63 mg/dL (0.55-1.02); MAGNESIUM 2.4 mg/dL (1.7-2.9); SODIUM 140 mmol/L (136-145); eGFR NON BLACK RACES > 60 (>60)
[2019-05-28 06:14] LABS: BAND NEUTROPHILS % 2 % (0-10); PLATELET MORPHOLOGY COMMENT NORMAL (NORMAL); WHITE BLOOD COUNT 28.4 X10^3/uL (3.6-10.0)
[2019-05-28] MEDS: DUONEB 0.5 MG/3 MG (3 mL) NEB SCH ×2 (08:47→12:06)
[2019-05-28] MEDS: PULMICORT NEB TX 0.5 MG NEB SCH (08:47)
[2019-05-28] MEDS: K-LYTE EFFERVESCENT PO SCH (08:55)
[2019-05-28] MEDS: LEVAQUIN PREMIX IV 500 MG 500 MG/100 ML BAG IV SCH (08:55)
[2019-05-28] MEDS: LOVENOX INJ 40 MG SYR SC SCH (09:02)
[2019-05-28 12:11] VITALS: BP 109/59
[2019-05-28] MEDS: NS 1000 ML 1,000 ML IV SCH (12:11)
== END 2019-05-28 14:53 | disposition home or self-care (01) ==
LOC: MED/SURG 14:00 → ER 14:00 → MED/SURG 20:00
PROVIDERS: ADMIT Internal Medicine; ATTEND Internal Medicine
DX: R13.11 Dysphagia, oral phase; E87.6 Hypokalemia; M62.81 Muscle weakness (generalized); J20.8 Acute bronchitis due to other specified organisms; R41.82 Altered mental status, unspecified; J44.1 Chronic obstructive pulmonary disease with (acute) exacerbation; R29.6 Repeated falls; J96.11 Chronic respiratory failure with hypoxia; F41.8 Other specified anxiety disorders; Z79.899 Other long term (current) drug therapy; J44.0 Chronic obstructive pulmonary disease with (acute) lower respiratory infection
CPT/HCPCS: 36415; 70450; 71010; 71045; 80053; 81001; 82550; 82553; 83735; 84132; 84484; 85025; 87040; 87086; 94640; 94760; 96360; 96361; 96365; 96372; 96374; 96375; 99284; A4216; A4222; G0378; J1200; J1630; J1650; J1956; J2060; J2920; J2930; J3475; J3490; J7030; J7040; J7620; J7626; J8499